=== PATIENT | male | born 1950 | race Caucasian/White ===

== ENCOUNTER 2024-04-17 02:34 | Inpatient (IN) | payer OTHER, SELFPAY ==
[2024-04-16 21:34] VITALS: BP 166/78
--- NOTE | 2024-04-16 23:45 | ED.GENMED ---
History of Present Illness
General
Chief Complaint: Abdominal Pain
Source: patient and family
Exam Limitations: none
Time Seen by Provider: 04/16/24 23:10
Nursing documentation reviewed up to this point in time: agreed with
History of Present Illness
History of Present Illness:
73-year-old male presents to the emergency department complaining of difficulty swallowing, abdominal pain and weight loss. He feels a burning in his stomach.
Past History
Past History
ED Past Medical History: COPD, GERD (PUD) and HTN
ED Past Surgical History: None
Social History
Tobacco: Smoker
Alcohol: Former (doesn't drink any more)
Drug: None
Personal: Single
Living: alone
Review of Systems
Review of Systems
Allergies reviewed?: Yes
All Other Systems: Not applicable
Constitutional: Reports no symptoms
EENT: Reports no symptoms
Respiratory: Reports no symptoms
Cardiac: Reports no symptoms
ABD/GI: Reports nausea
: Reports no symptoms
Musculoskeletal: Reports no symptoms
Skin: Reports no symptoms
Neurological: Reports no symptoms
Endocrine: Reports no symptoms
Hematologic/Lymphatic: Reports no symptoms
Psychiatric: Reports no symptoms
Phy Exam
Physical Exam
Physical Exam:
Physical Exam
General:, Thin, afebrile
Neck: supple. no meningeal signs. normal posterior pharynx
Heart: s1/s2 regular rate and rhythm, no murmur. equal radial
pulses.
HEENT: Pupils equal round reactive to light, EOMI
Lungs: no acute respiratory distress. clear bilaterally
Abdomen: normal bowel sounds. not tender. no CVAT
Neuro: alert and oriented. no focal neurological deficits cranial nerves II through XII intact
Skin: no rash
Psychiatric: well kept. interactive and cooperative
Extremities: no edema. no calf tenderness. negative homans. good distal pulses
Course
Orders/Labs/Results
Orders:
Orders
04/16/24 23:19
IV Insert/Care/Rem.- Treatment PRN
0.9% Sodium Chloride 1000 ml [Nss] 1,000 ml IV BOLUS
04/16/24 23:25
0.9% Sodium Chloride 1000 ml [Nss] 1,000 ml IV BOLUS
04/16/24 23:54
Complete Blood Count/With Diff Urgent
04/17/24 00:15
Comprehensive Metabolic Panel Urgent
Serum Osmolality Urgent
Comment: ADD ON
04/17/24 00:42
Add On- LAB Urgent
Tests Added?: serum osmolality
04/17/24 00:45
Osmolality, Random Urine Urgent
Date Specimen was Collected: 04/17/24
Time Specimen was Collected: 00:42
Urinalysis Reflex To Culture Urgent
Date Specimen was Collected: 04/17/24
Time Specimen was Collected: 00:42
Urine Sodium Urgent
Date Specimen was Collected: 04/17/24
Time Specimen was Collected: 00:42
04/17/24 00:50
3% Sodium Chloride 250 ml [Sodium Chloride 3%] 250 ml IV ONCE
04/17/24 01:30
0.9% Sodium Chloride 1000 ml [Nss] 1,000 ml IV BOLUS
04/17/24 01:35
Admit/Transfer Patient As Directed
Co-Sign Provider:
Level of Care: Inpatient admission
Assign to:: IMU- Intermediate Care
Physician / Group: Maycol
Diagnosis: Hyponatremia
Reason for Hospitalization: Hyponatremia
Expected length of stay greater than two midnights?: Yes
ELOS- Estimated Length of Stay in days: 4
I certify the patient meets the requirements for IP care: Yes
TSH Reflex To Free T4 Urgent
PRN Pain Medication Management As Directed
May give lesser potent ordered pain med per pt: Yes
preference::
Protocol:: Medication orders for pain may be administered in a
manner that supports deferring to patient preference
when the pt is:
- Requesting an ordered lesser potent pain medication.
Least to most potent pain medications are defined
as: acetaminophen < NSAID < tramadol < opioids
(morphine, oxycodone, hydromorphone).
- Requesting a lesser dose of the same medication IF
ORDERED.
- Requesting a less intrusive route of administration
if both routes are prescribed by the provider (PO <
IV).
CXR2 [CR Chest - 2 Views ] Urgent
Comment:
Reason For Exam: Hyponatremia
04/17/24 01:37
Code Status As Directed
Resuscitation Status: Full Code
04/17/24 01:38
Add On- LAB Urgent
Tests Added?: tsh to reflex
04/17/24 01:40
Iohexol [Omnipaque] See Protocol PO NOW STA
04/17/24 02:00
3% Sodium Chloride 250 ml [Sodium Chloride 3%] 250 ml IV ONCE
Abnormal Lab Results
04/16/24 04/17/24 04/17/24
23:54 00:15 00:45
RBC 4.03 L 10^6/uL
(4.70-6.10)
Hct 34.0 L %
(39.0-52.0)
MCH 32.5 H pg
(27.0-31.0)
MCHC 38.5 H g/dL
(33.0-37.0)
Abs Immat Gran (auto) 0.1 H 10^3/uL
(0-0.05)
Absolute Neuts (auto) 6.7 H 10^3/uL
(1.4-6.5)
Absolute Lymphs (auto) 1.1 L 10^3/uL
(1.2-3.4)
Absolute Monos (auto) 0.7 H 10^3/uL
(0.1-0.6)
Immature Gran % 0.6 H %
(0-0.5)
Neutrophils % 77.4 H %
(42.2-75.2)
Lymphocytes % 13.1 L %
(20.5-51.1)
Sodium 112 L* mmol/L
(135-145)
Chloride 79 L mmol/L
(98-107)
Glucose 100 H mg/dl
(70-99)
Serum Osmolality 240 L mOsm/kg
(275-300)
Urine Ketones 1+ A
(Negative)
Urine Osmolality 183 L mOsm/kg
(300-900)
04/16/24 23:54
04/17/24 00:15
Vital Signs
Initial and Last Documented VS:
Initial Vital Signs
Temp Pulse Resp BP Pulse Ox
98.7 F 96 24 166/78 100
04/16/24 21:34 04/16/24 21:34 04/16/24 21:34 04/16/24 21:34 04/16/24 21:34
Last Documented Vital Signs
Temp Pulse Resp BP Pulse Ox
98.7 F 85 16 168/70 100
04/16/24 21:34 04/17/24 01:00 04/17/24 01:00 04/17/24 01:00 04/17/24 01:00
MDM/Problems Addressed
Differential Diagnosis Includes:
Hyponatremia, hypokalemia, hypovolemia
MDM/Problems Addressed:
73-year-old male with poor p.o. intake, hyponatremia. Unclear etiology. 3% normal saline ordered. Admit to hospitalist.
*Pulse Oximetry
Patient hypoxic: no
*EKG
Interpreted by ED Provider?: NA
*Construction Or Leak Gang Laborer Interpretation
Rate: normal
Interpretation: normal
Heart Rate: 84
Rhythm: sinus
*Critical Care Note
Total Time (30-74mins, 75-104mins- exclusive of procedures): 30
comment:
Critical care statement: A total of 30 minutes of critical care time was provided for this patient. This includes management of unstable vital signs, evaluation of the patient at bedside, reviewing the patient's pertinent medical records, discussion
with consultants, review of old EKGs and review of pertinent medical records. This time with separate from time utilized to perform the aforementioned documented procedures
Data Reviewed
Review of Other/Old Records Reveals: Labs (Prior sodium 129 on 12/06/2022)
Source: records
Patient Management
Social determinants of health affecting care: Living situation
Discussion with other providers: Hospitalist
Escalation/DeEscalation of care consider admission/obs:
Admit indicated
ED Attending Note
-
Portions of this chart may have been created with voice recognition software.� Occasional wrong word or��sound alike� substitutions may have occurred due to the inherent limitations of voice recognition software.
Discharge Plan
Departure
Patient Disposition: Admit
Date of Disposition: 04/17/24
Time of Disposition: 01:11
Admit to: IMU
Presentation/result/management discussed w/ accepting MD/DO: Hospitalist
Patient with high blood pressure during this ER visit?: Yes
Condition: Fair
Discharge Problem:
Acute hyponatremia
Prescriptions:
No Action
amlodipine 5 MG tablet
5 mg PO DAILY
Lisinopril
20 mg PO DAILY
mirtazapine 7.5 MG tablet
15 mg PO HS
buspirone 5 mg Tablet
5 mg PO DAILY PRN (Reason: Anxiety)
Referrals:
UNKNOWN - PT DOES,NOT KNOW [Family Provider] -
Interventions
Interventions:
*Risk Screen - Suicide Last Done: 04/16/24 21:34
*General Assessment Last Done: 04/17/24 00:00
*Neglect/Abuse Screening Last Done: 04/16/24 21:34
GO-Xqxjvj-Sfgzjsgfmo Assessment Last Done: 04/17/24 00:00
Discharge Date and Time
Print Language: AUSTRALIAN
[2024-04-16] MEDS: NSS 1000 IV (23:54)
[2024-04-17] VITALS (13 sets, daily range): BP systolic 118–190; BP diastolic 59–95; BMI 14.7; BMI 13.7
[2024-04-17 00:38] LABS: ALT (SGPT) 21 U/L (0-50); AST (SGOT) 45 U/L (17-59); Albumin 4.8 g/dl (3.5-5.0); Alkaline Phosphatase 60 U/L (38-126); Blood Urea Nitrogen 11 mg/dl (9-20); Calcium 9.1 mg/dl (8.4-10.2); Carbon Dioxide 26 mmol/L (22-30); Chloride 79 mmol/L (98-107); Estimated Creatinine Clearance 60 ml/min; Glucose 100 mg/dl (70-99); Potassium 4.4 mmol/L (3.5-5.1); Sodium 112 mmol/L (135-145); Total Bilirubin 1.2 mg/dl (0.2-1.3); Total Protein 7.1 g/dl (6.3-8.2); eGFR > 60.00
[2024-04-17 00:52] LABS: Urine Albumin Negative (Neg - Trace); Urine Bilirubin Negative (Negative); Urine Character Clear (Clear); Urine Color Straw; Urine Glucose Negative (Negative); Urine Ketone 1+ (Negative); Urine Leukocyte Negative (Negative); Urine Nitrite Negative (Negative); Urine Occult Blood Negative (Negative); Urine Urobilinogen Negative (Neg - 1+)
[2024-04-17 00:58] LABS: Osmolality Serum 240 mOsm/kg (275-300)
[2024-04-17 00:58] LABS: Osmolality Urine 183 mOsm/kg (300-900)
[2024-04-17 01:06] LABS: Urine Sodium 41 mmol/L (30-90)
[2024-04-17 01:16] LABS: % Basophils 0.2 % (0-2); % Eosinophils 0.3 % (0-6); % Immature Granulocytes 0.6 % (0-0.5); % Lymphocytes 13.1 % (20.5-51.1); % Monocytes 8.4 % (1.7-9.3); % Neutrophils 77.4 % (42.2-75.2); Absolute Immature Granulocytes 0.1 10^3/uL (0-0.05); Absolute Lymphocytes 1.1 10^3/uL (1.2-3.4); Absolute Monocytes 0.7 10^3/uL (0.1-0.6); Absolute Neutrophils 6.7 10^3/uL (1.4-6.5); Hemoglobin 13.1 g/dL (13.0-18.0); Mean Corp Hgb Conc. 38.5 g/dL (33.0-37.0); Mean Corpuscular Hgb 32.5 pg (27.0-31.0); Mean Corpuscular Volume 84.4 fL (80.0-94.0); Mean Platelet Volume 8.2 fL (7.4-10.4); Nucleated Red Blood Cells % 0 % (-); Platelet Count 233 10^3/uL (130-400); Red Blood Cell Count 4.03 10^6/uL (4.70-6.10); Red Cell Dist. Width 12.6 % (11.5-14.5); White Blood Cell Count 8.6 10^3/uL (4.8-10.8)
[2024-04-17] MEDS: SODIUM CHLORIDE 3% 250 IV ×3 (01:22→22:08)
[2024-04-17 01:41] LABS: Anisocytosis 1+; Normal RBC Morphology No
--- NOTE | 2024-04-17 01:41 | HPS.HSE ---
Family Physician
-
Family Physician: NOT KNOW UNKNOWN - PT DOES
Chief Complaint
-
Trouble Swallowing / Weight Loss
History of Present Illness
Patient is a 73y M with PMH significant for hypertension and anxiety who presents to ED complaining of weight loss and difficulty swallowing. Patient notes that he has been experiencing some mucus build-up in the throat, difficulty swallowing
and a burning sensation in his upper abdomen. His symptoms have been present for quite a while (at least many months) but has recently become more severe. He has been unable to eat or drink much of anything as a result. He has noted ongoing weight
loss - he estimates about 30 lbs in 2 years.
Patient presented to the ED this evening for further evaluation.
He has been taking Mucinex at home with minimal improvement in his symptoms.
He states that he had an endoscopy about 2-3 years ago with GI group in [place]. He cannot recall the name.
He notes that they appreciated 'some ulcers' at that time.
He is not on chronic PPI therapy. He is an every day smoker.
Patient also notes that he had a positive Cologuard screening a few years ago. Subsequent colonoscopy was reportedly unremarkable.
Medical History
Past Medical History
Past Medical History: Reports Other
Additional Past Medical History:
Hypertension
Generalized Anxiety
GERD / Ulcers
Chronic Hyponatremia
Past Surgical History: Reports None
Social History
Tobacco: Smoker (Current every day smoker. Approx 3 cigarettes per day at present. Total > 50 pack years.)
Alcohol: None
Drug: None
Family History
Family History: Other (Father: 'Black Lung')
Allergies / Home Medications
Allergies reflects when Allergies were last updated in [email or web address].
Home Medications with original date entered in [email or web address]
Allergy/Medication List:
Allergies
Allergy/AdvReac Type Severity Reaction Status Date / Time
Penicillins Allergy Unknown Verified 12/06/22 16:07
Home Medications
Lisinopril 20 mg PO DAILY 09/10/19
amlodipine 5 mg tablet 5 mg PO DAILY 09/10/19
mirtazapine 7.5 mg tablet 15 mg PO HS 09/13/20
buspirone 5 mg tablet 5 mg PO DAILY PRN Anxiety 04/17/24
Review of Systems
-
History Source: Patient
A 12 point ROS was completed and negative except as noted: Yes
Constitutional: Reports Weight Loss and Fatigue; Denies Fever or Chills
EENT: Reports Other (Throat congestion / mucus.); Denies Sore Throat
Respiratory: Reports Cough; Denies Hemoptysis or Trouble Breathing
Cardiac: Denies Chest Pain or Palpitations
Abdomen/GI: Reports Abdominal Pain; Denies Nausea, Vomiting, Diarrhea, Constipated, Bloody Stools or Black Stools
: Denies Dysuria, Frequency or Flank Pain
Musculoskeletal: Denies Joint Pain or Edema
Skin: Denies Itching or Rash
Neurological: Denies Dizzy or Headache
Psych: Reports Anxiety; Denies Depression
Physical Exam
Vital Signs
Vital Signs
Temp Pulse Resp BP Pulse Ox
98.7 F 85 16 168/70 100
04/16/24 21:34 04/17/24 01:00 04/17/24 01:00 04/17/24 01:00 04/17/24 01:00
Physical Exam
General: Other (Frail, cachectic 73y M in no acute distress.)
HEENT: PERRLA and Other (Dry MM. Bitemporal wasting. Neck supple.)
Respiratory: Other (Decreased BS throughout - otherwise clear.)
Cardiac: S1/S2 and Regular Rhythm; No Murmur
GI: Soft, Non Distended, Normal Bowel Sounds and Other (Some mild tenderness in the upper abdomen. No rebound / guarding.)
Musculoskeletal: No Clubbing, No Cyanosis, No Edema and Other (Diffuse muscle wasting.)
Skin: Other (Cascading keratoses over the posterior trunk.)
Neuro: AO x 3
Psych: Anxious
Laboratory Results
-
04/16/24 23:54
04/17/24 00:15
Laboratory Results
Total Bilirubin 1.2 mg/dl (0.2-1.3) 04/17/24 00:15
AST 45 U/L (17-59) 04/17/24 00:15
ALT 21 U/L (0-50) 04/17/24 00:15
Alkaline Phosphatase 60 U/L (38-126) 04/17/24 00:15
Impression/Plan
-
A/P: Patient is a 73y M with PMH significant for hypertension and anxiety who presents to ED complaining of difficulty swallowing and burning abdominal pain.
Hyponatremia
- Admit for further evaluation and treatment.
- Apparent acute on chronic hyponatremia with prior values in the low 120s and now 112.
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
- Abhishek borderline / elevated at 41 - but clinically does not appear c/w severe hypothyroidism or adrenal insufficiency.
- Check TSH, AM cortisol for completeness.
- Check CXR.
- 3% saline overnight.
- Follow serial labs for gradual improvement.
- Nephrology evaluation for additional recommendations.
- Work-up as noted below to determine ultimate underlying etiology.
Dysphagia / Abdominal Pain
GERD / GI Ulcers
- Patient with many months of burning abdominal discomfort, progressive difficulty swallowing and mucoid secretions.
- Reports prior EGD with 'ulcers' - try to obtain those outpatient records.
- Begin PPI therapy.
- Check CT A/P for further evaluation.
- GI evaluation / possible EGD.
- Follow for any new / worsening symptoms.
Benign Hypertension
- BP modestly elevated in the ED - in part due to anxiety.
- Continue outpatient med regimen with holding parameters.
- Adjust as needed.
Generalized Anxiety
- Patient acutely anxious re: illness and potential underlying diagnosis.
- States that he rarely takes buspirone at home.
- Continue this TID PRN for now.
- Continue nightly mirtazapine.
- Adjust med regimen as needed.
DVT Prophylaxis: SCDs
Code Status: Full
[2024-04-17 01:42] LABS: Burr Cells 2+; Macrocytosis 1+; Microcytosis 2+; Poikilocytosis 2+
[2024-04-17 02:34] LABS: TSH Reflex To Free T4 1.68 uIU/ml (0.47-4.68)
--- NOTE | 2024-04-17 03:21 | PTCARENOTE ---
Pt arrived to ICU room 3361 from ER via stretcher at 0230. Pt is IMU level of care (in ICU as overflow). Received pt on 3% sodium chloride infusing at 30 ml/hr. Pt is A/O x4, flat affect noted, LA POSTA. Able to follow commands, able to stand up at side
of bed with minimal assistance and demonstrates the ability to reposition himself in bed. Explained to pt the importance of moving/turning in bed and shifting his weight to prevent skin breakdown. Pt is cachectic and has several bony
prominences--foam dressings applied to 3 areas of spine, sacrum, b/l heels and b/l hips. SR 80s on monitor, SpO2 97-98% on RA. See nursing shift assessment flowsheet for full physical assessment details. Admission database completed. Pt with partial
upper and partial lower dentures, these were put in a denture cup and placed in bathroom. Pt also has glasses that are missing the left yazdanism piece (that sits on the ear), this was how they were upon pt's arrival to unit. Per ER nurse, all other
belongings were taken home by the pt's son. Call gomez and personal belongings within reach. Bed alarm activated.
Omnipaque ordered for patient (timed for 0140 in [facility]). Spoke with r and d lab technician at around [address] scan/when to start the Omnipaque. He stated that the scan was put in as routine, routine CTs are normally not done in the middle of
the night and that when the dayshift financial services technician comes in, they will touch base with RN taking care of pt during the day regarding timing of CT scan.
[2024-04-17 05:13] LABS: Hematocrit 32.5 % (39.0-52.0); Hemoglobin 12.2 g/dL (13.0-18.0); Mean Corp Hgb Conc. 37.5 g/dL (33.0-37.0); Mean Corpuscular Hgb 33.1 pg (27.0-31.0); Mean Corpuscular Volume 88.1 fL (80.0-94.0); Mean Platelet Volume 8.5 fL (7.4-10.4); Platelet Count 313 10^3/uL (130-400); Red Blood Cell Count 3.69 10^6/uL (4.70-6.10); Red Cell Dist. Width 12.4 % (11.5-14.5); White Blood Cell Count 7.2 10^3/uL (4.8-10.8)
[2024-04-17 05:15] LABS: Blood Urea Nitrogen 9 mg/dl (9-20); Calcium 8.7 mg/dl (8.4-10.2); Carbon Dioxide 27 mmol/L (22-30); Chloride 88 mmol/L (98-107); Estimated Creatinine Clearance 56 ml/min; Glucose 89 mg/dl (70-99); Potassium 4.3 mmol/L (3.5-5.1); Sodium 119 mmol/L (135-145); eGFR > 60.00
--- NOTE | 2024-04-17 05:33 | PTCARENOTE ---
Pt's Na+ corrected 7 points in just over 4 hours, Reid PEREZ made aware, order to hold 3% and repeat BMP at 0800, 3% turned off at around 0525. Pt's mental status unchanged from previous assessment.
[2024-04-17 05:44] LABS: Cortisol, Random 18.8 ug/dl
--- NOTE | 2024-04-17 05:53 | W.PN.UPDATE ---
Update Note
Progress Note Update
Hyponatremia on admission and currently on 3% saline . Na level up from 112 to 119 after 3 hrs.
-Will hold 3% saline and repeat BMP.
--- NOTE | 2024-04-17 07:45 | W.PN.HOSP.TC ---
Today's Communication/Plan
-
CT A/P
Fluid restriction
trend Na
Renal and GI consults
Protonix
Assessment / Plan
Assessment / Plan
Patient is a 73y M with PMH significant for hypertension, tobacco use, and anxiety who presents to ED complaining of weight loss and difficulty swallowing. Patient notes that he has been experiencing some mucus build-up in the throat, difficulty
swallowing and a burning sensation in his upper abdomen.
A/P: Patient is a 73y M with PMH significant for hypertension and anxiety who presents to ED complaining of difficulty swallowing and burning abdominal pain.
Hyponatremia
- Apparent acute on chronic hyponatremia with prior values in the low 120s and now 112.
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
- TSH and cortisol WNL; CXR with hyperinflated lungs
- urine osmol low - continue fluid restriction
- s/p 3% saline with Na up from 112-119 in 3 hours - now on hold
- formal renal consult
- monitor in ICU
Dysphagia / Abdominal Pain
GERD / GI Ulcers
- Patient with many months of burning abdominal discomfort, progressive difficulty swallowing and mucoid secretions.
- Reports prior EGD with 'ulcers' - try to obtain those outpatient records.
- Begin PPI therapy.
- CT A/P ordered
- GI evaluation / possible EGD.
Benign Hypertension
- BP modestly elevated in the ED - in part due to anxiety.
Generalized Anxiety
- Patient acutely anxious re: illness and potential underlying diagnosis.
- States that he rarely takes buspirone at home.
- Continue this TID PRN for now.
- Continue nightly mirtazapine.
DVT Prophylaxis: SCDs
Code Status: Full
51 minutes spent on patient care
Anticipated Discharge: > 48 hours
Subjective/Interval History
-
Date of Service: April 17, 2024
denies chest pain or shortness of breath
+ weakness
Objective Data
-
Labs:
Laboratory Results
04/16/24 04/17/24 04/17/24
23:54 00:15 04:36
WBC 8.6 7.2
Hgb 13.1 12.2 L
Hct 34.0 L 32.5 L
Plt Count 233 313 D
Sodium Cancelled 112 L* 119 L*
Potassium Cancelled 4.4 4.3
Chloride Cancelled 79 L 88 L
Carbon Dioxide Cancelled 26 27
BUN Cancelled 11 9
Creatinine Cancelled 0.7 0.7
Glucose Cancelled 100 H 89
Calcium Cancelled 9.1 8.7
Total Bilirubin Cancelled 1.2
AST Cancelled 45
ALT Cancelled 21
Alkaline Phosphatase Cancelled 60
04/17/24
08:00
WBC
Hgb
Hct
Plt Count
Sodium Pending
Potassium Pending
Chloride Pending
Carbon Dioxide Pending
BUN Pending
Creatinine Pending
Glucose Pending
Calcium Pending
Total Bilirubin
AST
ALT
Alkaline Phosphatase
Vital Signs:
Vital Signs
Temp Pulse Resp BP Pulse Ox
97.6 F 72 14 164/75 99
04/17/24 07:00 04/17/24 06:00 04/17/24 06:00 04/17/24 06:00 04/17/24 06:00
I&O
04/16/24 04/17/24 04/18/24
06:59 06:59 06:59
Intake Total 116.2 / 116.2
Output Total 800 / 800
Balance -683.8 / -683.8
Review of Systems
-
History Source: Patient
All other systems: Reviewed and negative
Physical Exam
-
General: No Apparent Distress and Cachectic
HEENT: PERRLA
Respiratory: Decreased Breath Sounds
Cardiac: S1/S2
GI: Soft and Nontender
Musculoskeletal: No Edema
Skin: Warm and Dry; Negative Rash
Neuro: AO x 3
Psych: Calm
Data Reviewed
-
Diagnostic Radiology: Report Reviewed by me
Labs: Labs Reviewed by me
--- NOTE | 2024-04-17 08:00 | PTCARENOTE ---
recd pt report at bedside, VS noted, IVs currently capped. voiding small amounts clear/pale yellow. assessment performed. requested BP med to be scheduled bedtime, did not take norvasc this am. frail appearing, dry skin, notes 'fullness' in
throat but did not choke or have any difficulties swallowing. diet order noted.
[2024-04-17] MEDS: ZESTRIL 20 MG PO (08:03)
[2024-04-17] MEDS: PROTONIX IV 40 MG IV ×2 (08:04→20:00)
[2024-04-17] MEDS: NSS (PRESERVATIVE FREE) 10 ML IV ×2 (08:04→20:00)
--- NOTE | 2024-04-17 08:36 | CON.GI ---
Consultation
-
Date/Time Consultation Requested: 04/17/24
Date/Time Consultation Performed: 04/17/24
Requesting Provider: Dr. Severino
Performing Provider:
Reason for Consultation: dysphagia
Medical History
Chief Complaint / HPI
Chief Complaint: dysphagia, weight loss
History of Present Illness:
This is a 73-year-old male with past medical history of COPD with smoking history he was a heavy smoker he is cut back to 2 to 3 cigarettes a day for the past couple of months, hypertension, anxiety, chronic hyponatremia who presented to the
emergency room with ongoing symptoms of dysphagia which he says worsened about 3 weeks prior to admission with mild symptoms for the past couple of months. He also initially lost about 20 pounds apparently was attributed to COPD about a year ago
and over the past 3 weeks has lost 5 pounds. He has had difficulty with mostly solid foods especially bread he is able to swallow liquids. He says he has to drink liquids in order to get solid food down. He is also been having regurgitation of
some mucus in the throat and a burning sensation in his chest and epigastric area. No nausea or vomiting he does have intermittent episodes of reflux and has not really been taking any antacids. had an endoscopy about 5 years ago and [place] which
he says was unremarkable and his last colonoscopy which was done for a positive Cologuard was about 2 years ago at [facility] and was found to have colon polyps. His bowel movements are pretty regular there is no rectal bleeding or melena denies
diarrhea or constipation. On admission his sodium level was noted to be 112 and is being corrected. His sodium on 09/13/2020 was 123 and 12/06/2022 was 129 renal has been consulted also.
Past Medical History
Past Medical History: Other (Hypertension, Generalized Anxiety, GERD, Chronic Hyponatremia, colon polyps, COPD)
Past Surgical History: None
Social History
Tobacco: Other (Current every day smoker. Approx 3 cigarettes per day at present was heavy prior. Total > 50 pack years.)
Alcohol: None
Drug: None
Family History
Family History: Other (father was working in [employer] and had 'black lung', no colon cancer or esophageal cancer)
Allergies / Home Medications
Allergy/AdvReac Type Severity Reaction Status Date / Time
Penicillins Allergy Unknown Verified 12/06/22 16:07
�Medication �Instructions �Recorded
Lisinopril 20 mg PO DAILY 09/10/19
amlodipine 5 mg tablet 5 mg PO DAILY 09/10/19
mirtazapine 7.5 mg tablet 15 mg PO HS 09/13/20
buspirone 5 mg tablet 5 mg PO DAILY PRN Anxiety 04/17/24
Review of Systems
-
All other systems: A 12 pt ROS was Negative except as stated above in HPI
Vital Signs
Temp Pulse Resp BP Pulse Ox
97.6 F 82 14 124/73 99
04/17/24 07:00 04/17/24 08:03 04/17/24 06:00 04/17/24 08:03 04/17/24 06:00
Physical Exam
Exam
General: No Apparent Distress and Other (Very cachectic looking male)
HEENT: Normocephalic
Respiratory: Clear
Cardiac: S1/S2
GI: Soft, Non Tender, Non Distended, Normal Bowel Sounds and Other (Scaphoid)
Musculoskeletal: No Clubbing
Skin: Warm
Neuro: Awake, Alert and Oriented
Psych: Calm
Results
WBC 7.2 10^3/uL (4.8-10.8) 04/17/24 04:36
Hgb 12.2 g/dL (13.0-18.0) L 04/17/24 04:36
Hct 32.5 % (39.0-52.0) L 04/17/24 04:36
MCV 88.1 fL (80.0-94.0) 04/17/24 04:36
Plt Count 313 10^3/uL (130-400) D 04/17/24 04:36
Absolute Neuts (auto) 6.7 10^3/uL (1.4-6.5) H 04/16/24 23:54
Sodium 119 mmol/L (135-145) L* 04/17/24 04:36
Potassium 4.3 mmol/L (3.5-5.1) 04/17/24 04:36
Chloride 88 mmol/L (98-107) L 04/17/24 04:36
Carbon Dioxide 27 mmol/L (22-30) 04/17/24 04:36
BUN 9 mg/dl (9-20) 04/17/24 04:36
Creatinine 0.7 mg/dL (0.7-1.3) 04/17/24 04:36
Calcium 8.7 mg/dl (8.4-10.2) 04/17/24 04:36
Total Bilirubin 1.2 mg/dl (0.2-1.3) 04/17/24 00:15
AST 45 U/L (17-59) 04/17/24 00:15
ALT 21 U/L (0-50) 04/17/24 00:15
Alkaline Phosphatase 60 U/L (38-126) 04/17/24 00:15
Diagnostic Image Results:
Prior GI Procedures:
EGD: 5 years ago in [place] which per patient was unremarkable
Colonoscopy: 2 years ago at [facility] done for positive Cologuard and had colon polyps
Assessment / Plan
-
1. Progressively worsening symptoms of dysphagia especially over the past 3 weeks with 5 to 10 pound weight loss but prior to that had lost 20 pounds which apparently was attributed to COPD a year ago. Concerning for underlying esophageal neoplasm
given his history of smoking with possible stricture secondary to neoplasm. Will need endoscopy once his sodium levels are improved. Discussed with Dr. Adams would recommend a CT chest abdomen pelvis in the meantime to rule out neoplasm. Agree
with PPI. Will change his diet to liquids for now to prevent retained food residue in anticipation of endoscopy on [place]
-
-
Thank you for consultation and allowing me to participate in the patient's care. Please call the data operations director GI physician during the after hours with any questions or concerns.
[2024-04-17 08:49] LABS: Blood Urea Nitrogen 7 mg/dl (9-20); Calcium 8.6 mg/dl (8.4-10.2); Carbon Dioxide 28 mmol/L (22-30); Chloride 88 mmol/L (98-107); Estimated Creatinine Clearance 56 ml/min; Glucose 81 mg/dl (70-99); Potassium 3.7 mmol/L (3.5-5.1); Sodium 120 mmol/L (135-145); eGFR > 60.00
[2024-04-17] MEDS: OMNIPAQUE 50 ML PO (08:58)
--- NOTE | 2024-04-17 09:33 | W.CON.NEPH ---
Consultation
-
Date/Time Consultation Requested: April 17, 2024 7 AM
Date/Time Consultation Performed: April 17, 2024 9 AM
Requesting Provider: Dr. Severino
Performing Provider: Dr. Santiago
Reason for Consultation: Hyponatremia
Medical History
-
Chief Complaint: Failure to thrive
History of Present Illness:
This is a 73-year-old gentleman who has very limited medical history but includes hypertension treated with a multidrug regimen as well as anxiety on buspirone. Over the last month by his report he had been feeling quite congested in his throat
with mucus buildup. This had caused difficulty with swallowing mostly solids he says that he has no issues with liquids. Therefore he has been drinking mostly water. He had initially started with boost to compensate but he felt that this created
more mucus and more congestion. He says that he has been drinking about 36 ounces of water per day. His oral intake is very poor as a result of the new congestion. He has lost some weight. He denies any orthostasis however. He he says that he
remains fairly active and is not bedbound. He came to the emergency room because of progressive symptoms. He was noted to have a sodium level of 112. He is currently critically ill in the ICU
Past Medical History
Hypertension, anxiety, reflux, deviated septum surgery
Social History
Tobacco: Smoker
Alcohol: None
Family History
No CKD
Family History: Not Pertinent
Allergies / Home Medications
Allergy/AdvReac Type Severity Reaction Status Date / Time
Penicillins Allergy Unknown Verified 12/06/22 16:07
�Medication �Instructions �Recorded �Confirmed �Type
Lisinopril 20 mg PO DAILY 09/10/19 04/17/24 History
amlodipine 5 mg tablet 5 mg PO DAILY 09/10/19 04/17/24 History
mirtazapine 7.5 mg tablet 15 mg PO HS 09/13/20 04/17/24 History
buspirone 5 mg tablet 5 mg PO DAILY PRN Anxiety 04/17/24 04/17/24 History
Review of Systems
-
No chest pain or shortness of breath. No issues with urination. No change in appetite.
All other systems: Negative unless noted
Physical Exam
Vital Signs
Vital Signs
Temp Pulse Resp BP Pulse Ox
97.6 F 82 14 124/73 99
04/17/24 07:00 04/17/24 08:03 04/17/24 06:00 04/17/24 08:03 04/17/24 06:00
Lab Results
WBC 7.2 10^3/uL (4.8-10.8) 04/17/24 04:36
RBC 3.69 10^6/uL (4.70-6.10) L 04/17/24 04:36
Hgb 12.2 g/dL (13.0-18.0) L 04/17/24 04:36
Hct 32.5 % (39.0-52.0) L 04/17/24 04:36
Plt Count 313 10^3/uL (130-400) D 04/17/24 04:36
Potassium 3.7 mmol/L (3.5-5.1) 04/17/24 08:02
Chloride 88 mmol/L (98-107) L 04/17/24 08:02
Carbon Dioxide 28 mmol/L (22-30) 04/17/24 08:02
BUN 7 mg/dl (9-20) L 04/17/24 08:02
Creatinine 0.7 mg/dL (0.7-1.3) 04/17/24 08:02
eGFR > 60.00 04/17/24 08:02
Glucose 81 mg/dl (70-99) 04/17/24 08:02
Calcium 8.6 mg/dl (8.4-10.2) 04/17/24 08:02
Albumin 4.8 g/dl (3.5-5.0) 04/17/24 00:15
Laboratory Tests
04/17/24
00:45
Urine Sodium 41
Laboratory Tests
04/17/24
00:45
Urine Osmolality 183 L
Physical Exam
Patient is awake alert oriented and in no distress. Mood and affect were pleasant, insight and judgment were good. He appeared gaunt. Pupils are equal round and reactive to light, extraocular movements are intact, sclera were anicteric. Hearing
was normal, ears and nose are intact. Oropharynx was clear. Neck was supple with trachea midline and no thyromegaly. Heart was regular rate and rhythm without rubs. Lower extremities without edema. Lungs were clear to auscultation bilaterally and
with normal excursion. Abdomen was soft, nontender, with normal active bowel sounds, and no hepatosplenomegaly. Skin was without rash and with normal turgor.
Data Reviewed
-
Radiology: Image Personally Visualized and interpreted (Chest x-ray on April 17, 2024 by my reading shows no acute disease hyperinflation)
Labs: Labs Reviewed by me
Old Records: Reviewed (Sodium 129 on December 06, 2022)
Assessment/Plan
-
Assessment
Hyponatremia
Hypertension
Anxiety
Failure to thrive
Dysphagia to solids
Plan
Isotonic saline
Follow BMP serial
No further hypertonic
Swallow study
Critical care time spent 31 minutes
--- NOTE | 2024-04-17 11:10 | PTOTSP ---
Speech Therapy
Presentation: Patient's speech and language appeared to be WNL during conversation. Patient's vocal quality appeared to be harsh but WNL.
Swallowing Function: Patient was observed with several sips (straw) of thin lqiuids (contrast) in which patient appeared to tolerate as he did not exhibit any overt clinical s/sx of aspiration. No solids were trialed due to anticipated testing and
diet order.
Complaints: Patient stated that he has been having increased congestion and trouble swallowing solids for ~3 weeks. Patient states he feels as though solids get 'stuck in his throat'.
Given the above, recommend continuation of current diet with solid trials during next visit; pending hospitalization.
Recommendations:
1) Continuation of current diet with solids trials during next visit; pending hospitalization
2) Aspiration and reflux precautions
3) Medications as tolerated
Plan: BONDING SUPERVISOR will continue to follow; pending hospitalization.
[2024-04-17] MEDS: NSS 1000 IV (11:48)
[2024-04-17] MEDS: BUSPAR 2.5 MG PO (12:19)
--- NOTE | 2024-04-17 12:30 | PTCARENOTE ---
returned from CT scan, report in computer, Dr. Adams aware and updated patient by phone. affect remains flat, frequent requests for small comfort things, blanket, heat/cool room, c/o about getting OOB and being generally uncomfortable. support
given, made as comfortable as able.
[2024-04-17 14:26] LABS: Sodium 116 mmol/L (135-145)
--- NOTE | 2024-04-17 15:40 | PTCARENOTE ---
lab results to sports umpire, 3% saline hanging per order. no other change. tolerating clear liquids. restless at intervals.
--- NOTE | 2024-04-17 18:14 | PTCARENOTE ---
warm blankets given. son visiting, asking questions about plan and possible support after discharge. case management consult placed.
[2024-04-17 18:25] LABS: Blood Urea Nitrogen 5 mg/dl (9-20); Calcium 7.9 mg/dl (8.4-10.2); Carbon Dioxide 26 mmol/L (22-30); Chloride 100 mmol/L (98-107); Estimated Creatinine Clearance 65 ml/min; Glucose 121 mg/dl (70-99); Potassium 3.4 mmol/L (3.5-5.1); Sodium 129 mmol/L (135-145); eGFR > 60.00
--- NOTE | 2024-04-17 19:00 | PTCARENOTE ---
lab from 1800 specimen compromised, redrawn, Dr. Santiago notified. result pending. Report to next RN.
[2024-04-17 19:26] LABS: Blood Urea Nitrogen 6 mg/dl (9-20); Calcium 8.1 mg/dl (8.4-10.2); Carbon Dioxide 25 mmol/L (22-30); Chloride 85 mmol/L (98-107); Estimated Creatinine Clearance 65 ml/min; Glucose 162 mg/dl (70-99); Potassium 3.6 mmol/L (3.5-5.1); Sodium 115 mmol/L (135-145); eGFR > 60.00
--- NOTE | 2024-04-17 19:49 | PTCARENOTE ---
Addendum entered by Dileep Martinez RN 04/18/24 05:51:
[address] Rossi notified via TT: awaiting orders.
Addendum entered by Dileep Martinez RN 04/18/24 00:13:
[address] rossi notified via TT orders as follows:
- Leave 3% gtt @ 25 ml/hr.
- Recheck BMP @ 0400.
Pt. assessment unchanged.
Addendum entered by Dileep Martinez RN 04/17/24 20:23:
Per Dr. Rossi, cancel 2100 bmp, and draw at 2200.
Original Note:
assumed care of pt. approx 1900.
see previous RN note regarding misdraw of NA. specimen redrawn and resulted at 115. Dr. Rossi from nephro notified via TT new orders:
- Increase 3% gtt to 25 ml/hr.
Pt. offers no complaints, very flat, seems understanding of situation.
Delayed responses, of note is hard of hearing. No other neurological deficits noted.
Currently NSR some ectopy noted. slightly hypertensive. Normothermic.
Urine op 45-75 ml/hr, no suspicion of DI at this time.
Will continue to trend BMP.
Family updated at length.
[2024-04-17] MEDS: NORVASC 5 MG PO (20:01)
--- NOTE | 2024-04-17 20:45 | W.PN.UPDATE ---
Update Note
Progress Note Update
Na level is 115, currently on 3% saline 15ml/hr. Rate increased to 25ml/hr and repeat bmp at 10pm as recommended by portable track crew chief.
[2024-04-17] MEDS: REMERON 15 MG PO (22:10)
[2024-04-17 22:38] LABS: Blood Urea Nitrogen 7 mg/dl (9-20); Calcium 8.2 mg/dl (8.4-10.2); Carbon Dioxide 23 mmol/L (22-30); Chloride 88 mmol/L (98-107); Estimated Creatinine Clearance 65 ml/min; Glucose 141 mg/dl (70-99); Potassium 3.4 mmol/L (3.5-5.1); Sodium 117 mmol/L (135-145); eGFR > 60.00
[2024-04-18] VITALS (13 sets, daily range): BP systolic 103–157; BP diastolic 52–83; PULSE 95–112; O2SAT 92; BMI 14.0
[2024-04-18 04:48] LABS: Hematocrit 29.9 % (39.0-52.0); Hemoglobin 11.2 g/dL (13.0-18.0); Mean Corp Hgb Conc. 37.5 g/dL (33.0-37.0); Mean Corpuscular Hgb 32.3 pg (27.0-31.0); Mean Corpuscular Volume 86.2 fL (80.0-94.0); Mean Platelet Volume 8.4 fL (7.4-10.4); Platelet Count 228 10^3/uL (130-400); Red Blood Cell Count 3.47 10^6/uL (4.70-6.10); Red Cell Dist. Width 12.8 % (11.5-14.5); White Blood Cell Count 6.1 10^3/uL (4.8-10.8)
[2024-04-18 05:18] LABS: Blood Urea Nitrogen 7 mg/dl (9-20); Calcium 8.3 mg/dl (8.4-10.2); Carbon Dioxide 25 mmol/L (22-30); Chloride 93 mmol/L (98-107); Estimated Creatinine Clearance 65 ml/min; Glucose 75 mg/dl (70-99); Magnesium 1.9 mg/dl (1.6-2.3); Potassium 3.8 mmol/L (3.5-5.1); Sodium 122 mmol/L (135-145); eGFR > 60.00
[2024-04-18] MEDS: PROTONIX IV 40 MG IV ×2 (07:33→20:32)
[2024-04-18] MEDS: ZESTRIL 20 MG PO (07:34)
[2024-04-18] MEDS: NSS (PRESERVATIVE FREE) 10 ML IV ×2 (07:34→20:32)
--- NOTE | 2024-04-18 08:11 | W.PN.GI.CBS2 ---
Today's Communication / Plan
-
etiology of dysphagia with wt loss related to underlying neoplasm vs other
CT stable
tentative EGD in AM pending improved Na level
renal following for correction of Na level
cont PPI
clear diet with ensure
cont speech therapy with solid trials
will follow
Assessment / Plan
-
Pt is a 73yo with Progressively worsening symptoms of dysphagia especially over the past 3 weeks with 5 to 10 pound weight loss but prior to that had lost 20 pounds which apparently was attributed to COPD a year ago.
04/17/24 CT Chest/abd/pelvis with IV contrast
No CT evidence for an acute process in the chest, abdomen, or pelvis. Paucity of intra-abdominal fat secondary to cachexia limiting evaluation. Chronic findings, as detailed above.
-dysphagia worsening for last 3 weeks
-wt loss
-severe hyponatremia
-mild anemia
-COPD/tobacco use
other med problems:
-colon polyps
-anxiety
-HTN
PLAN:
etiology of dysphagia with wt loss related to underlying neoplasm vs other
CT stable
tentative EGD in AM pending improved Na level
renal following for correction of Na level
cont PPI
clear diet with ensure
cont speech therapy with solid trials
will follow
Subjective
Subjective
Date of Service: April 18, 2024
clear diet, no stools still with feeling of dysphagia
Objective
Data Reviewed
Laboratory Data:
Laboratory Results
04/18/24 04:09
Laboratory Results
Magnesium 1.9 mg/dl (1.6-2.3) 04/18/24 04:09
Total Bilirubin 1.2 mg/dl (0.2-1.3) 04/17/24 00:15
AST 45 U/L (17-59) 04/17/24 00:15
ALT 21 U/L (0-50) 04/17/24 00:15
Alkaline Phosphatase 60 U/L (38-126) 04/17/24 00:15
Vital Signs and I&O:
Vital Signs
Temp Pulse Resp BP Pulse Ox
98.0 F 73 17 128/55 98
04/18/24 03:30 04/18/24 07:34 04/18/24 05:48 04/18/24 07:34 04/18/24 05:48
I&O
04/17/24 04/18/24 04/19/24
06:59 06:59 06:59
Intake Total 116.2 / 116.2 820 / 820 50 / 50
Output Total 800 / 800 1600 / 1600 275 / 275
Balance -683.8 / -683.8 -780 / -780 -225 / -225
Physical Exam
Physical Exam
HEENT: Anicteric, Moist mucous membranes and Other (thin appearing)
Cardiology: Normal Sinus Rhythm
Pulmonary: Clear
GI: Soft, Non Distended and Non Tender
Extremities: No Edema
Neuro: Non Focal
--- NOTE | 2024-04-18 09:13 | PTCARENOTE ---
Patient received from centrex radio operator, presents as assessed. Patient is alert and oriented, pleasant. Remains on telemetry monitoring. Urinal at bedside for elimination needs. Protective foams CDI. 3% saline stopped and BMP obtained per Dr. Barreto
order. Patient in bed, offers no complaints.
[2024-04-18 09:51] LABS: Blood Urea Nitrogen 6 mg/dl (9-20); Calcium 8.3 mg/dl (8.4-10.2); Carbon Dioxide 28 mmol/L (22-30); Chloride 93 mmol/L (98-107); Estimated Creatinine Clearance 67 ml/min; Glucose 74 mg/dl (70-99); Potassium 3.7 mmol/L (3.5-5.1); Sodium 123 mmol/L (135-145); eGFR > 60.00
--- NOTE | 2024-04-18 10:05 | W.PN.NEPH.PH ---
Today's Communication / Plan
-
see plan
Assessment/Plan
-
Assessment
Hyponatremia
Hypertension
Anxiety
Failure to thrive
Dysphagia to solids
COPD
Plan:
Hyponatremia- with some ADH activity for degree of hyponatremia. U osmo [address] c/a/p neg, has COPD changes
sodium improving appropriately
monitor with FR and encourage solute intake as possible
cont q4h sodium check today, goal of correction 6-8meq/day-sodium 128 by Am
TSH and cortisol were ok
GI follows and plan EGD tomorrow as long as sodium above 126
Swallow study
Bp stable with meds
d/w pt
-
-
Date of Service: April 18, 2024
CC / HPI / ROS
-
Chief Complaint:
Hyponatremia
History of Present Illness:
sodium improving to 122, completed 3% saline over night
BP stable, no fever
k normal
Review of Systems:
no n/v on liquid diet
no pain or sob
mild congestion in upper airway, on RA
Labs
-
Labs:
WBC 6.1 10^3/uL (4.8-10.8) 04/18/24 04:09
RBC 3.47 10^6/uL (4.70-6.10) L 04/18/24 04:09
Hgb 11.2 g/dL (13.0-18.0) L 04/18/24 04:09
Hct 29.9 % (39.0-52.0) L 04/18/24 04:09
Plt Count 228 10^3/uL (130-400) D 04/18/24 04:09
Sodium 123 mmol/L (135-145) L 04/18/24 09:01
Potassium 3.7 mmol/L (3.5-5.1) 04/18/24 09:01
Chloride 93 mmol/L (98-107) L 04/18/24 09:01
Carbon Dioxide 28 mmol/L (22-30) 04/18/24 09:01
BUN 6 mg/dl (9-20) L 04/18/24 09:01
Creatinine 0.6 mg/dL (0.7-1.3) L 04/18/24 09:01
eGFR > 60.00 04/18/24 09:01
Glucose 74 mg/dl (70-99) 04/18/24 09:01
Calcium 8.3 mg/dl (8.4-10.2) L 04/18/24 09:01
Albumin 4.8 g/dl (3.5-5.0) 04/17/24 00:15
Physical Exam
-
Vital Signs:
Vital Signs
Temp Pulse Resp BP Pulse Ox
98.4 F 71 17 155/67 94
04/18/24 08:19 04/18/24 08:00 04/18/24 05:48 04/18/24 08:00 04/18/24 08:00
Cardiovascular:: Regular rate and rhythm
Respiratory:: Bilateral: CTA (decreased)
Lung Excursion:: Normal
Abdomen:: Nontender and Soft
Extremity Edema:: None: Bilateral:
Jeffrey Catheter: No
--- NOTE | 2024-04-18 11:33 | CM ---
Addendum entered by Michoacano Martinez 04/18/24 11:58:
Following SNFs preferred: [facility] home, [facility], [facility]F, [facility] SNF, [facility] [place].
A referral to above SNfs made. Awaiting for determination.
D/C plan: preferred SNF.
CM will follow to assist pt with discharge to a preferred and accepted SNF.
Original Note:
CM following re'discharge planning.
Reviewed pt's chart, met with pt and spoke to pt's son Brent over the phoen.
Pt is a 73 year old male, admitted with primary dx of hyponatremia.
Pt reports he lives alone in a rented [facility], 2 steps to enter, has 2 supportive sons and they live nearby and help as needed. Pt reports he is planning to stay with his son Brent for a while upon the discharge. 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 No DME, VN or SNF history. Pt admitted he has been very weak for the past week and was not able to walk.
CM spoke to pt's son and he stated that his father has not been walking for a week, was very weak and he feels that he needs to go to a short term rehab to increase his functional ability. Pt's son Brent did confirm that pt will stay at his house
([address] [id number]) for a while after the discharge from a hospital or a short term rehab. Per son's request, CM provided him with information and phone number for [facility] [employer] to apply for
community based services.
PT and OT evaluations noted - SNF level of care recommended. Both pt and his son Brent are aware, expressed their agreement. A list of SNFs in [facility] provided.
PCP: Dr. Hernández
Pharmacy: [facility].
D/C plan: preferred SNF. A list of SNFs provided.
CM will follow with discharge plan updates as hospitalization progresses
--- NOTE | 2024-04-18 12:17 | W.PN.HOSP.TC ---
Today's Communication/Plan
-
Transfer out of IMU
Trend BMP
Continue clears
EGD tentatively tomorrow
Assessment / Plan
Assessment / Plan
Patient is a 73y M with PMH significant for hypertension, tobacco use, and anxiety who presents to ED complaining of weight loss and difficulty swallowing. Patient notes that he has been experiencing some mucus build-up in the throat, difficulty
swallowing and a burning sensation in his upper abdomen.
A/P: Patient is a 73y M with PMH significant for hypertension and anxiety who presents to ED complaining of difficulty swallowing and burning abdominal pain.
Hyponatremia
- Apparent acute on chronic hyponatremia with prior values in the low 120s and now 112.
- TSH and cortisol WNL; CXR with hyperinflated lungs
- urine osmol low - continue fluid restriction
- Status post 3% saline. Sodium at 123. Repeat pending.
- formal renal consult
Dysphagia / Abdominal Pain
GERD / GI Ulcers
Failure to thrive
- Patient with many months of burning abdominal discomfort, progressive difficulty swallowing and mucoid secretions.
- Reports prior EGD with 'ulcers' - try to obtain those outpatient records.
- Begin PPI therapy.
- CT A/P ordered-no CT evidence for an acute process in the chest, abdomen or pelvis. Positive intra-abdominal fat secondary to cachexia limiting evaluation.
- GI evaluation / possible EGD in a.m. pending sodium levels
Benign Hypertension
- Monitor for now. Continue with lisinopril and Norvasc. If persistently elevated increase dose
Generalized Anxiety
- Patient acutely anxious re: illness and potential underlying diagnosis.
- States that he rarely takes buspirone at home.
- Continue this TID PRN for now.
- Continue nightly mirtazapine.
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
Suspected COPD
-Stable respiratory status.-Hypoxemia may to start bronchodilators.
-Will need outpatient pulmonary follow-up.
DVT Prophylaxis: SCDs
Code Status: Full
Anticipated Discharge: > 48 hours
Subjective/Interval History
-
Date of Service: April 18, 2024
denies any pain
concerned about low sodium
Objective Data
-
Labs:
Laboratory Results
04/18/24 04/18/24 04/18/24
04:09 08:19 09:01
WBC 6.1
Hgb 11.2 L
Hct 29.9 L
Plt Count 228 D
Sodium 122 L Cancelled 123 L
Potassium 3.8 Cancelled 3.7
Chloride 93 L Cancelled 93 L
Carbon Dioxide 25 Cancelled 28
BUN 7 L Cancelled 6 L
Creatinine 0.6 L Cancelled 0.6 L
Glucose 75 Cancelled 74
Calcium 8.3 L Cancelled 8.3 L
04/18/24 04/18/24 04/18/24
13:00 17:00 21:00
WBC
Hgb
Hct
Plt Count
Sodium Pending Pending Pending
Potassium
Chloride
Carbon Dioxide
BUN
Creatinine
Glucose
Calcium
Vital Signs:
Vital Signs
Temp Pulse Resp BP Pulse Ox
97.6 F 87 17 157/83 94
04/18/24 11:30 04/18/24 10:00 04/18/24 05:48 04/18/24 10:00 04/18/24 08:00
I&O
04/17/24 04/18/24 04/19/24
06:59 06:59 06:59
Intake Total 116.2 / 116.2 820 / 820 50 / 50
Output Total 800 / 800 1600 / 1600 525 / 525
Balance -683.8 / -683.8 -780 / -780 -475 / -475
Physical Exam
-
General: No Apparent Distress and Cachectic
HEENT: Normocephalic, Atraumatic and Moist Mucous Membranes
Respiratory: Decreased Breath Sounds
Cardiac: Regular Rhythm and S1/S2
GI: Soft, Nontender, Nondistended and Normal Bowel Sounds
Musculoskeletal: No Edema
Skin: Warm and Dry; Negative Rash
Neuro: Awake and AO x 3
Psych: Calm
--- NOTE | 2024-04-18 12:19 | PTCARENOTE ---
Patient downgraded to telemetry, report called to 4th floor and patient transferred to 401.
--- NOTE | 2024-04-18 12:39 | PTCARENOTE ---
pt transfer fro ICU. pt is AAO*3, Vss room air. denies any pain. report received from KHUSHBU Brunson. pt is oriented to the room. call gomez within the reach. plan of care ongoing.
[2024-04-18] MEDS: BUSPAR 2.5 MG PO ×2 (14:38→23:18)
[2024-04-18 16:00] LABS: Sodium 120 mmol/L (135-145)
[2024-04-18] MEDS: SODIUM CHLORIDE 3% 250 IV (16:41)
[2024-04-18 19:45] LABS: Sodium 118 mmol/L (135-145)
[2024-04-18] MEDS: NORVASC 5 MG PO (20:32)
[2024-04-18] MEDS: LASIX 20 MG PO (22:30)
[2024-04-18] MEDS: REMERON 15 MG PO (23:19)
[2024-04-19] VITALS (9 sets, daily range): BP systolic 12–163; BP diastolic 58–76; BMI 13.3
[2024-04-19 00:38] LABS: Sodium 120 mmol/L (135-145)
[2024-04-19] MEDS: SODIUM CHLORIDE 3% 250 IV ×3 (01:44→22:45)
[2024-04-19 04:30] LABS: INR 1.04; PT 13.4 Sec (11.4-14.6)
[2024-04-19 04:38] LABS: Blood Urea Nitrogen 7 mg/dl (9-20); Calcium 8.4 mg/dl (8.4-10.2); Carbon Dioxide 31 mmol/L (22-30); Chloride 90 mmol/L (98-107); Estimated Creatinine Clearance 67 ml/min; Glucose 77 mg/dl (70-99); Potassium 3.5 mmol/L (3.5-5.1); Sodium 123 mmol/L (135-145); eGFR > 60.00
[2024-04-19 05:44] LABS: Hematocrit 30.9 % (39.0-52.0); Hemoglobin 11.4 g/dL (13.0-18.0); Mean Corp Hgb Conc. 36.9 g/dL (33.0-37.0); Mean Corpuscular Hgb 32.9 pg (27.0-31.0); Mean Platelet Volume 8.8 fL (7.4-10.4); Platelet Count 290 10^3/uL (130-400); Red Blood Cell Count 3.47 10^6/uL (4.70-6.10); Red Cell Dist. Width 12.7 % (11.5-14.5); White Blood Cell Count 6.7 10^3/uL (4.8-10.8)
[2024-04-19] MEDS: NSS (PRESERVATIVE FREE) 10 ML IV ×2 (09:10→20:11)
[2024-04-19] MEDS: PROTONIX IV 40 MG IV ×2 (09:10→20:12)
[2024-04-19] MEDS: ZESTRIL 20 MG PO (09:10)
[2024-04-19 09:12] LABS: Sodium 124 mmol/L (135-145)
--- NOTE | 2024-04-19 11:40 | W.PN.HOSP.TC ---
Today's Communication/Plan
-
Plan for tentative EGD today
trend sodium
Nephro recs
Assessment / Plan
Assessment / Plan
Patient is a 73y M with PMH significant for hypertension, tobacco use, and anxiety who presents to ED complaining of weight loss and difficulty swallowing. Patient notes that he has been experiencing some mucus build-up in the throat, difficulty
swallowing and a burning sensation in his upper abdomen.
A/P: Patient is a 73y M with PMH significant for hypertension and anxiety who presents to ED complaining of difficulty swallowing and burning abdominal pain.
Hyponatremia
- Apparent acute on chronic hyponatremia with prior values in the low 120s and now 112.
- TSH and cortisol WNL; CXR with hyperinflated lungs
- urine osmol low - continue fluid restriction
- Receiving 3% saline. Received multiple dose already. s/p 20mg lasix overnight.
- Renal following.
Dysphagia / Abdominal Pain
GERD / GI Ulcers
Failure to thrive
- Patient with many months of burning abdominal discomfort, progressive difficulty swallowing and mucoid secretions.
- Reports prior EGD with 'ulcers' - try to obtain those outpatient records.
- Begin PPI therapy.
- CT A/P ordered-no CT evidence for an acute process in the chest, abdomen or pelvis. Positive intra-abdominal fat secondary to cachexia limiting evaluation.
- GI evaluation / possible EGD today.
Benign Hypertension
- Monitor for now. Continue with lisinopril and Norvasc. If persistently elevated increase dose
- Controlled for now 124/65
Generalized Anxiety
- Patient acutely anxious re: illness and potential underlying diagnosis.
- States that he rarely takes buspirone at home.
- Continue this TID PRN for now.
- Continue nightly mirtazapine.
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
Suspected COPD
-Stable respiratory status.-Hypoxemia may to start bronchodilators.
-Will need outpatient pulmonary follow-up.
DVT Prophylaxis: SCDs
Code Status: Full
Anticipated Discharge: > 48 hours
Subjective/Interval History
-
Date of Service: April 19, 2024
Na downtrended overnight and repeat dose of 3%
awaiting for EGD today
Objective Data
-
Labs:
Laboratory Results
04/19/24 04/19/24 04/19/24
00:09 03:55 03:55
WBC 6.7
Hgb 11.4 L
Hct 30.9 L
Plt Count 290 D
PT 13.4
INR 1.04
Sodium 120 L 123 L Cancelled
Potassium 3.5
Chloride 90 L
Carbon Dioxide 31 H
BUN 7 L
Creatinine 0.6 L
Glucose 77
Calcium 8.4
04/19/24
06:58
WBC
Hgb
Hct
Plt Count
PT
INR
Sodium 124 L
Potassium
Chloride
Carbon Dioxide
BUN
Creatinine
Glucose
Calcium
Vital Signs:
Vital Signs
Temp Pulse Resp BP Pulse Ox
97.6 F 88 18 124/65 100
04/19/24 11:16 04/19/24 11:16 04/19/24 11:16 04/19/24 11:16 04/19/24 11:16
I&O
04/18/24 04/19/24 04/20/24
06:59 06:59 06:59
Intake Total 820 / 820 830 / 830
Output Total 1600 / 1600 2400 / 2400
Balance -780 / -780 -1570 / -1570
Physical Exam
-
General: No Apparent Distress and Cachectic
HEENT: Normocephalic, Atraumatic and Moist Mucous Membranes
Respiratory: Decreased Breath Sounds
Cardiac: Regular Rhythm and S1/S2
GI: Soft, Nontender, Nondistended and Normal Bowel Sounds
Musculoskeletal: No Edema
Skin: Warm and Dry; Negative Rash
Neuro: Awake and AO x 3
Psych: Calm
[2024-04-19] MEDS: KCL 40 MEQ PO (13:38)
[2024-04-19 13:56] LABS: Sodium 125 mmol/L (135-145)
--- NOTE | 2024-04-19 14:46 | PN.CDI ---
CDI
- -
CDI:
Physician Documentation Request
Admit Date: 04/17/24 02:34
Dear Doctor Socrates,
Please review the following and provide your response in the progress notes.
Clinical Indicators:
Pt admitted with SIADH/ Dysphagia
Documented in the record BMI 13.3/ Cachexia/thin Appearing
Documented per GI consult, ' He also initially lost about 20 pounds apparently was attributed to COPD about a year ago and over the past 3 weeks has lost 5 pounds. He has had difficulty with mostly solid foods especially bread he is able to
swallow liquids....(Very cachectic looking male)...'
Nutrition consult 04/17, 'Pt reports lost 20 lbs 2year ago, pt reports has been eating less and over past 2 weeks unable to eat much due to mucus and difficutly swallowing.... Remeron....CBW: 92 lbs 12.8 oz BMI 13.7 underweight range 04/17. Pts
weight previous admission listed as 105 lbs 12/06 reflective of 13 lb(12%) weight loss in 4 months, significant. During visit RD able to visualize, protrusion of clavicle, apparent ribs, temporal wasting, orbital area sunken in, Fat loss over
tricep. With observed muscle and fat wasting, weight loss of > 10% in 6 months and < 75% estimated needs > 1 month pt meets AND/ASPEN criteria for severe protein calorie malnutrition of chronic illness.... Assessment Subcutaneous loss over
Orbital, Rib Cage, Tricep Severe ..Muscle Loss over Temporal, Clavicle Severe ..'
Based on the above information and your assessment, which of the following most accurately represents the patient's nutritional status?
Severe Protein Calorie Malnutrition
Other (please specify)
[place] Criteria (ACP Hospitalist 2017)
2 or more criteria must be present for either
non severe or severe malnutrition
Note that the criteria differs related to the
presence of an acute or chronic illness
Acute Illness Chronic Illness
Energy Intake Non Severe: <75% for >7 days Non Severe: <75% for >1 month
Severe: <50% for >5 days Severe: <75% for >1 month
Weight Loss Non Severe: 1-2% over 1 week Non Severe: 5% over 1 month
5% over 1 month 7.5% over 3 months
7.5% over 3 months 10% over 6 months
1 year N/A 20% over 1 year
Severe: >2% over 1 week Severe: >5% over 1 month
>5% over 1 month >7.5% over 3 months
>7.5% over 3 months >10% over 6 months
1 year N/A >20% over 1 year
Body Fat Non Severe: Mild Decrease Non Severe: Mild Loss
Severe: Moderate Decrease Severe: Severe Loss
Muscle Mass Non Severe: Mild Decrease Non Severe: Mild Loss
Severe: Moderate Decrease Severe: Severe Loss
Fluid Accumulation Non Severe: Mild Accumulation Non Severe: Mild Accumulation
Severe: Moderate to severe Severe: Moderate to severe
accumulation accumulation
Reduced Cloud Operations Engineer Strength Non Severe: N/A Non Severe: N/A
Severe: Measurably reduced Severe: Measurably reduced
Use of terms such as suspected, likely, concern for, or probable (associated with a specific diagnosis that is being evaluated, monitored, or treated as if it exists) are acceptable and can be coded in the inpatient setting, when documented at the
time of discharge.
Thank you,
Bhumika Mendez RN
CDI Specialist
[facility] [employer]
Please use your independent medical judgment in providing your response.
--- NOTE | 2024-04-19 15:12 | W.PN.NEPH.PH ---
Today's Communication / Plan
-
cont 3% saline and follow na
Assessment/Plan
-
Assessment:
Hyponatremia
Hypertension
Anxiety
Failure to thrive
Dysphagia to solids
COPD
Plan:
Hyponatremia- with some ADH activity for degree of hyponatremia. U osmo [address] c/a/p neg, has COPD changes
sodium improving appropriately with 3% saline
he is very dependant on HTS at this time,may need to add salt tab tomorrow
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
encourage solute intake and maintain FR 40ounces/day
monitor with FR and encourage solute intake as possible
cont q4h sodium check today
TSH and cortisol were ok
Bp stable with meds
d/w pt
-
-
Date of Service: April 19, 2024
CC / HPI / ROS
-
Chief Complaint:
Hyponatremia
History of Present Illness:
sodium improving to 125, completed 3% saline this morning
BP stable, no fever
k normal
s/p EGD today
Review of Systems:
no n/v
no pain or sob
mild congestion in upper airway, on RA
Labs
-
Labs:
WBC 6.7 10^3/uL (4.8-10.8) 04/19/24 03:55
RBC 3.47 10^6/uL (4.70-6.10) L 04/19/24 03:55
Hgb 11.4 g/dL (13.0-18.0) L 04/19/24 03:55
Hct 30.9 % (39.0-52.0) L 04/19/24 03:55
Plt Count 290 10^3/uL (130-400) D 04/19/24 03:55
Potassium 3.5 mmol/L (3.5-5.1) 04/19/24 03:55
Chloride 90 mmol/L (98-107) L 04/19/24 03:55
Carbon Dioxide 31 mmol/L (22-30) H 04/19/24 03:55
BUN 7 mg/dl (9-20) L 04/19/24 03:55
Creatinine 0.6 mg/dL (0.7-1.3) L 04/19/24 03:55
eGFR > 60.00 04/19/24 03:55
Glucose 77 mg/dl (70-99) 04/19/24 03:55
Calcium 8.4 mg/dl (8.4-10.2) 04/19/24 03:55
Albumin 4.8 g/dl (3.5-5.0) 04/17/24 00:15
Physical Exam
-
Vital Signs:
Vital Signs
Temp Pulse Resp BP Pulse Ox
97.5 F 76 14 128/58 98
04/19/24 12:10 04/19/24 12:40 04/19/24 12:40 04/19/24 12:40 04/19/24 12:40
Cardiovascular:: Regular rate and rhythm
Respiratory:: Bilateral: CTA
Lung Excursion:: Normal
Abdomen:: Nontender and Soft
Extremity Edema:: None: Bilateral:
Jeffrey Catheter: No
--- NOTE | 2024-04-19 16:59 | CM ---
Pt had EGD today.
Spoke with pt and his sister Lena in room [phone].
Reviewed PT OT eval +SNF.
Reviewed with pt SNF that can accept him after [employer] auth : [facility] . Other SNF Out of network.
PT said he will let CM know his choice.
Will need [employer] auth for SNF.
PLAN To Snf after located and auth obtained.
[2024-04-19] MEDS: BUSPAR 2.5 MG PO (17:45)
[2024-04-19 19:51] LABS: Sodium 124 mmol/L (135-145)
[2024-04-19] MEDS: NORVASC 5 MG PO (20:12)
[2024-04-19] MEDS: LASIX 20 MG IV (22:19)
[2024-04-19] MEDS: REMERON 15 MG PO (23:11)
[2024-04-20] VITALS (7 sets, daily range): BP systolic 140–163; BP diastolic 68–85; PULSE 88–90; O2SAT 98; BMI 14.0
[2024-04-20] LABS: Sodium 154 mmol/L (135-145)
--- NOTE | 2024-04-20 00:15 | PTCARENOTE ---
Addendum entered by Eduardo Kilpatrick RN 04/20/24 05:38:
@ 02:30 Pt stat 126 Na. RN notified NETEZZA DEVELOPER- ordered AM BMP and restarted 3% Na. Pt is resting comfortably w/ call gomez within reach.
Original Note:
Pt Na 154, previous was 124. NETEZZA DEVELOPER notified- ordered to discontinue 3% Na and ordered stat BMP. Dr. Barreto made aware. Pt is asymptomatic resting comfortably w/ call gomez within reach.
[2024-04-20 02:15] LABS: Blood Urea Nitrogen 12 mg/dl (9-20); Calcium 8.6 mg/dl (8.4-10.2); Carbon Dioxide 28 mmol/L (22-30); Chloride 93 mmol/L (98-107); Estimated Creatinine Clearance 54 ml/min; Glucose 102 mg/dl (70-99); Potassium 3.9 mmol/L (3.5-5.1); Sodium 126 mmol/L (135-145); eGFR > 60.00
--- NOTE | 2024-04-20 02:35 | W.PN.UPDATE ---
Update Note
Progress Note Update
RN notified TECHNICAL MAINTENANCE SPECIALIST, Na level 154, Patient is currently on 3% Na @30cc/hr. previous level 124. Patient asymptomatic, Held 3%, Stat BMP ordered. Repeat Na 126, Dr. Barreto made aware, 3% Na restarted @30cc/hr. BMP in AM.
[2024-04-20] MEDS: SODIUM CHLORIDE 3% 250 IV (02:44)
[2024-04-20] MEDS: ZESTRIL 20 MG PO (08:32)
[2024-04-20] MEDS: NSS (PRESERVATIVE FREE) 10 ML IV ×2 (08:33→21:02)
[2024-04-20] MEDS: PROTONIX IV 40 MG IV ×2 (08:33→21:02)
[2024-04-20 10:35] LABS: Blood Urea Nitrogen 10 mg/dl (9-20); Calcium 8.4 mg/dl (8.4-10.2); Carbon Dioxide 29 mmol/L (22-30); Chloride 94 mmol/L (98-107); Estimated Creatinine Clearance 57 ml/min; Glucose 73 mg/dl (70-99); Potassium 3.9 mmol/L (3.5-5.1); Sodium 128 mmol/L (135-145); eGFR > 60.00
--- NOTE | 2024-04-20 10:52 | W.PN.HOSP.TC ---
Today's Communication/Plan
-
Trend bmp
monitor diet tolernace
nephro recs
start dispo
monitor BP/Adjust meds accordingly
Assessment / Plan
Assessment / Plan
Patient is a 73y M with PMH significant for hypertension, tobacco use, and anxiety who presents to ED complaining of weight loss and difficulty swallowing. Patient notes that he has been experiencing some mucus build-up in the throat, difficulty
swallowing and a burning sensation in his upper abdomen.
A/P: Patient is a 73y M with PMH significant for hypertension and anxiety who presents to ED complaining of difficulty swallowing and burning abdominal pain.
Hyponatremia
- Apparent acute on chronic hyponatremia with prior values in the low 120s and now 112.
- TSH and cortisol WNL; CXR with hyperinflated lungs
- urine osmol low - continue fluid restriction
- Na improved to 128
- Receiving 3% saline. Received multiple dose already. s/p 20mg lasix overnight.
- Renal following.
Dysphagia / Abdominal Pain
GERD / GI Ulcers
Failure to thrive
- Patient with many months of burning abdominal discomfort, progressive difficulty swallowing and mucoid secretions.
- Begin PPI therapy.
- CT A/P ordered-no CT evidence for an acute process in the chest, abdomen or pelvis. Positive intra-abdominal fat secondary to cachexia limiting evaluation.
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 Status post biopsy. Normal stomach and duodenum. May need upper endoscopy for surveillance based on path results. Outpatient manometric dysphagia
persist.
- Currently tolerating diet.
Benign Hypertension
- Monitor for now. Continue with lisinopril and Norvasc. If persistently elevated increase dose
-
Generalized Anxiety
- Patient acutely anxious re: illness and potential underlying diagnosis.
- States that he rarely takes buspirone at home.
- Continue this TID PRN for now.
- Continue nightly mirtazapine.
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
Suspected COPD
-Stable respiratory status.-Hypoxemia may to start bronchodilators.
-Will need outpatient pulmonary follow-up.
Severe protein caloric malnutrition of chronic illness
Nutrition consult
DVT Prophylaxis: Start lovenox
Code Status: Full
PT/OT-SNF. Start dispo efforts.
Anticipated Discharge: 24 - 48 hours
Subjective/Interval History
-
Date of Service: April 20, 2024
Overnight events noted
Na at 154-->124 afterwards
Pt with increased appetite and tolerating it without difficulty
Objective Data
-
Labs:
Laboratory Results
04/19/24 04/20/24 04/20/24
23:06 01:49 03:21
Sodium 154 H D 126 L D Cancelled
Potassium 3.9 Cancelled
Chloride 93 L Cancelled
Carbon Dioxide 28 Cancelled
BUN 12 Cancelled
Creatinine 0.7 Cancelled
Glucose 102 H Cancelled
Calcium 8.6 Cancelled
04/20/24
07:42
Sodium 128 L
Potassium 3.9
Chloride 94 L
Carbon Dioxide 29
BUN 10
Creatinine 0.7
Glucose 73
Calcium 8.4
Vital Signs:
Vital Signs
Temp Pulse Resp BP Pulse Ox
98 F 83 18 161/82 98
04/20/24 07:45 04/20/24 08:32 04/20/24 07:45 04/20/24 08:32 04/20/24 09:41
I&O
04/19/24 04/20/24 04/21/24
06:59 06:59 06:59
Intake Total 830 / 830 1640 / 1640
Output Total 2400 / 2400 2900 / 2900
Balance -1570 / -1570 -1260 / -1260
Physical Exam
-
General: No Apparent Distress and Cachectic
HEENT: Normocephalic, Atraumatic and Moist Mucous Membranes
Respiratory: Decreased Breath Sounds
Cardiac: Regular Rhythm and S1/S2
GI: Soft, Nontender, Nondistended and Normal Bowel Sounds
Musculoskeletal: No Edema
Skin: Warm and Dry; Negative Rash
Neuro: Awake and AO x 3
Psych: Calm
Data Reviewed
-
Total Time Spent with Patient (in minutes): 56
--- NOTE | 2024-04-20 11:59 | PTOTSP ---
Speech Language Pathology
Pt seen for dysphagia tx. EGD completed 04/19 with findings of mucosa suspicious for Porras's esophagus; normal stomach and duodenum. WBC 04/19 was 6.7. Pt now on regular solids/thin liquids. Pt reported he had chicken, mashed potatoes, and
carrots with no difficulty yesterday. Seen with regular solids and thin liquids. Adequate mastication, bolus formation, and A-P transit noted with no oral residue. No overt signs of aspiration. Pt denied any difficulty swallowing including no
globus sensation.
Recommend:
(1) Continue regular solids/thin liquids
(2) Esophageal precautions
(3) Meds as tolerated
(4) BILINGUAL KINDERGARTEN TEACHER to sign off. Please reconsult as indicated
--- NOTE | 2024-04-20 12:13 | W.PN.NEPH.PH ---
Today's Communication / Plan
-
Observe on fluid restriction and will add salt tabs
Assessment/Plan
-
Assessment:
Hyponatremia
Hypertension
Anxiety
Failure to thrive
Dysphagia to solids
COPD
Plan:
Hyponatremia- with some ADH activity for degree of hyponatremia. U osmo [address] c/a/p neg, has COPD changes
sodium improving appropriately with 3% saline : now at 128
will add salt tablets today
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
encourage solute intake and maintain FR 40ounces/day
monitor with FR and encourage solute intake as possible
TSH and cortisol were ok
Bp stable with meds
d/w pt
-
-
Date of Service: April 20, 2024
CC / HPI / ROS
-
Chief Complaint:
Hyponatremia
History of Present Illness:
sodium improving to 128, after 3% saline infusions
BP stable, no fever
k normal
s/p EGD yesterday
Review of Systems:
no n/v
no pain or sob
mild congestion in upper airway, on RA
Labs
-
Labs:
WBC 6.7 10^3/uL (4.8-10.8) 04/19/24 03:55
RBC 3.47 10^6/uL (4.70-6.10) L 04/19/24 03:55
Hgb 11.4 g/dL (13.0-18.0) L 04/19/24 03:55
Hct 30.9 % (39.0-52.0) L 04/19/24 03:55
Plt Count 290 10^3/uL (130-400) D 04/19/24 03:55
Sodium 128 mmol/L (135-145) L 04/20/24 07:42
Potassium 3.9 mmol/L (3.5-5.1) 04/20/24 07:42
Chloride 94 mmol/L (98-107) L 04/20/24 07:42
Carbon Dioxide 29 mmol/L (22-30) 04/20/24 07:42
BUN 10 mg/dl (9-20) 04/20/24 07:42
Creatinine 0.7 mg/dL (0.7-1.3) 04/20/24 07:42
eGFR > 60.00 04/20/24 07:42
Glucose 73 mg/dl (70-99) 04/20/24 07:42
Calcium 8.4 mg/dl (8.4-10.2) 04/20/24 07:42
Albumin 4.8 g/dl (3.5-5.0) 04/17/24 00:15
Physical Exam
-
Vital Signs:
Vital Signs
Temp Pulse Resp BP Pulse Ox
98 F 88 18 141/69 99
04/20/24 11:54 04/20/24 11:54 04/20/24 11:54 04/20/24 11:54 04/20/24 11:54
Cardiovascular:: Regular rate and rhythm
Respiratory:: Bilateral: CTA
Lung Excursion:: Normal
Abdomen:: Nontender and Soft
Extremity Edema:: None: Bilateral:
Jeffrey Catheter: No
[2024-04-20] MEDS: BUSPAR 2.5 MG PO (15:01)
--- NOTE | 2024-04-20 17:30 | CM ---
Spoke with pt informed him who had accepted him for SNF which is [facility].
Pt requested CM call Brent son [phone] and ask which SNF he should pick.
Brent requested [facility].
LM with Antonio at [facility] to call CM with NPI
Will need updated PT OT and [employer] auth.
PLAN To Snf after located and auth obtained.
[2024-04-20] MEDS: LOVENOX SC (17:57)
[2024-04-20] MEDS: SODIUM CHLORIDE 1 GRAM PO (21:02)
[2024-04-20] MEDS: NORVASC 5 MG PO (21:02)
[2024-04-21] VITALS (8 sets, daily range): BP systolic 123–169; BP diastolic 64–91; PULSE 89; O2SAT 98; BMI 14.1
[2024-04-21] MEDS: REMERON 15 MG PO ×2 (00:38→22:45)
[2024-04-21 06:43] LABS: Blood Urea Nitrogen 13 mg/dl (9-20); Carbon Dioxide 29 mmol/L (22-30); Chloride 91 mmol/L (98-107); Estimated Creatinine Clearance 67 ml/min; Glucose 98 mg/dl (70-99); Potassium 3.9 mmol/L (3.5-5.1); Sodium 126 mmol/L (135-145); eGFR > 60.00
[2024-04-21] MEDS: PROTONIX IV 40 MG IV ×2 (09:09→19:25)
[2024-04-21] MEDS: NSS (PRESERVATIVE FREE) 10 ML IV ×2 (09:10→19:25)
[2024-04-21] MEDS: ZESTRIL 20 MG PO (09:10)
[2024-04-21] MEDS: SODIUM CHLORIDE 1 GRAM PO ×2 (09:10→19:25)
--- NOTE | 2024-04-21 11:45 | W.PN.HOSP.TC ---
Today's Communication/Plan
-
trend bmp
cont salt tabs
monitor po intake -tolerating well so far
Assessment / Plan
Assessment / Plan
Patient is a 73y M with PMH significant for hypertension, tobacco use, and anxiety who presents to ED complaining of weight loss and difficulty swallowing. Patient notes that he has been experiencing some mucus build-up in the throat, difficulty
swallowing and a burning sensation in his upper abdomen.
A/P: Patient is a 73y M with PMH significant for hypertension and anxiety who presents to ED complaining of difficulty swallowing and burning abdominal pain.
Hyponatremia
- Apparent acute on chronic hyponatremia with prior values in the low 120s and now 112.
- TSH and cortisol WNL; CXR with hyperinflated lungs
- urine osmol low - continue fluid restriction
- Na downtrended to 126. Started on salt tabs.
- Receiving 3% saline. Received multiple dose already. s/p 20mg lasix overnight.
- Renal following.
Dysphagia / Abdominal Pain
GERD / GI Ulcers
Failure to thrive
- Patient with many months of burning abdominal discomfort, progressive difficulty swallowing and mucoid secretions.
- Begin PPI therapy.
- CT A/P ordered-no CT evidence for an acute process in the chest, abdomen or pelvis. Positive intra-abdominal fat secondary to cachexia limiting evaluation.
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 Status post biopsy. Normal stomach and duodenum. May need upper endoscopy for surveillance based on path results. Outpatient manometric dysphagia
persist.
- Currently tolerating diet.
Benign Hypertension
- Monitor for now. Continue with lisinopril and Norvasc. If persistently elevated increase dose
-
Generalized Anxiety
- Patient acutely anxious re: illness and potential underlying diagnosis.
- States that he rarely takes buspirone at home.
- Continue this TID PRN for now.
- Continue nightly mirtazapine.
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
Suspected COPD
-Stable respiratory status.-Hypoxemia may to start bronchodilators.
-Will need outpatient pulmonary follow-up.
Severe protein caloric malnutrition of chronic illness
Nutrition consult
DVT Prophylaxis: Start lovenox
Code Status: Full
PT/OT-SNF. Start dispo efforts.
Anticipated Discharge: > 48 hours
Subjective/Interval History
-
Date of Service: April 21, 2024
states appetite is improving and tolerating diet
Objective Data
-
Labs:
Laboratory Results
04/21/24
05:17
Sodium 126 L
Potassium 3.9
Chloride 91 L
Carbon Dioxide 29
BUN 13
Creatinine 0.6 L
Glucose 98
Calcium 9.0
Vital Signs:
Vital Signs
Temp Pulse Resp BP Pulse Ox
98.1 F 89 16 127/70 98
04/21/24 11:12 04/21/24 11:12 04/21/24 11:12 04/21/24 11:12 04/21/24 11:12
I&O
04/20/24 04/21/24 04/22/24
06:59 06:59 06:59
Intake Total 1640 / 1640 1220 / 1220
Output Total 2900 / 2900 575 / 575
Balance -1260 / -1260 645 / 645
Physical Exam
-
General: No Apparent Distress and Cachectic
HEENT: Normocephalic, Atraumatic and Moist Mucous Membranes
Respiratory: Decreased Breath Sounds
Cardiac: Regular Rhythm and S1/S2
GI: Soft, Nontender, Nondistended and Normal Bowel Sounds
Musculoskeletal: No Edema
Skin: Warm and Dry; Negative Rash
Neuro: Awake and AO x 3
Psych: Calm
--- NOTE | 2024-04-21 15:28 | W.PN.NEPH.PH ---
Today's Communication / Plan
-
Samsca 7.5 mg
maintain fluid restriction
Maintain salt tab
Assessment/Plan
-
Assessment:
Hyponatremia
Hypertension
Anxiety
Failure to thrive
Dysphagia to solids
COPD
Plan:
Hyponatremia- with some ADH activity for degree of hyponatremia. U osmo [address] c/a/p neg, has COPD changes
sodium improving appropriately with 3% saline :but then dropped again to 126
added salt tablets yesterday without immediate efficacy
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
encourage solute intake and maintain FR 40ounces/day
monitor with FR and encourage solute intake as possible
We will provide 7.5 mg Samsca today as serum sodium down again to 126
TSH and cortisol were ok
Bp stable with meds
d/w pt
-
-
Date of Service: April 21, 2024
CC / HPI / ROS
-
Chief Complaint:
Hyponatremia
History of Present Illness:
sodium improving to 128, after 3% saline infusions then down again to 126
BP stable, no fever
k normal
s/p EGD yesterday
Review of Systems:
no n/v
no pain or sob
mild congestion in upper airway, on RA
Labs
-
Labs:
WBC 6.7 10^3/uL (4.8-10.8) 04/19/24 03:55
RBC 3.47 10^6/uL (4.70-6.10) L 04/19/24 03:55
Hgb 11.4 g/dL (13.0-18.0) L 04/19/24 03:55
Hct 30.9 % (39.0-52.0) L 04/19/24 03:55
Plt Count 290 10^3/uL (130-400) D 04/19/24 03:55
Sodium 126 mmol/L (135-145) L 04/21/24 05:17
Potassium 3.9 mmol/L (3.5-5.1) 04/21/24 05:17
Chloride 91 mmol/L (98-107) L 04/21/24 05:17
Carbon Dioxide 29 mmol/L (22-30) 04/21/24 05:17
BUN 13 mg/dl (9-20) 04/21/24 05:17
Creatinine 0.6 mg/dL (0.7-1.3) L 04/21/24 05:17
eGFR > 60.00 04/21/24 05:17
Glucose 98 mg/dl (70-99) 04/21/24 05:17
Calcium 9.0 mg/dl (8.4-10.2) 04/21/24 05:17
Albumin 4.8 g/dl (3.5-5.0) 04/17/24 00:15
Physical Exam
-
Vital Signs:
Vital Signs
Temp Pulse Resp BP Pulse Ox
98.9 F 95 18 123/64 100
04/21/24 13:12 04/21/24 13:12 04/21/24 13:12 04/21/24 13:12 04/21/24 13:12
Cardiovascular:: Regular rate and rhythm
Respiratory:: Bilateral: CTA
Lung Excursion:: Normal
Abdomen:: Nontender and Soft
Extremity Edema:: None: Bilateral:
Jeffrey Catheter: No
[2024-04-21] MEDS: SAMSCA 7.5 MG PO (16:20)
--- NOTE | 2024-04-21 17:02 | CM ---
Pt requested [facility].
Spoke with Vidal at [facility] She said she had a bed.
Req PT see pt today for auth .
Antonio provided with PT OT clinical . She started auth for SNF .
Awaiting results
PLAN To SNf after auth obtained
[2024-04-21] MEDS: LOVENOX 40 MG SC (17:29)
[2024-04-21] MEDS: NORVASC 5 MG PO (19:27)
[2024-04-22] VITALS (9 sets, daily range): BP systolic 134–156; BP diastolic 70–82; PULSE 114–117; O2SAT 98–99; BMI 13.9
[2024-04-22 08:10] LABS: Blood Urea Nitrogen 12 mg/dl (9-20); Calcium 8.7 mg/dl (8.4-10.2); Carbon Dioxide 31 mmol/L (22-30); Chloride 90 mmol/L (98-107); Estimated Creatinine Clearance 66 ml/min; Glucose 83 mg/dl (70-99); Sodium 125 mmol/L (135-145); eGFR > 60.00
--- NOTE | 2024-04-22 08:28 | PN.CDI ---
CDI
- -
CDI:
Physician Documentation Request
Admit Date: 04/17/24 02:34
Dear Doctor Socrates,
Please review the following and provide your response in the progress notes.
Clinical Indicators:
Pt admitted with SIADH/ Dysphagia/Severe protein Calorie Malnutrition/FTT
Documented per [facility] nursing notes 04/16 Present on admission Sacral pressure injury stage 1 ...'
Documented per [facility] panel nursing notes 04/18 ' Sacral pressure injury.... Stage 2..treatment provided sacral border foam ...'
Physician documentation of the type and location of wounds is required for compliant documentation. Based on the above clinical findings and your assessment, please provide the following in your progress note:
1. Location of the ulcer/wound, including laterality.
2. Type (etiology) of ulcer/wound:
- Pressure (decubitus) ulcer
- Non-Pressure ulcer
- Other
Use of terms such as suspected, likely, concern for, or probable (associated with a specific diagnosis that is being evaluated, monitored, or treated as if it exists) are acceptable and can be coded in the inpatient setting, when documented at the
time of discharge.
Thank you,
Bhumika Mendez RN
CDI Specialist
[facility]
Please use your independent medical judgment in providing your response.
*Source: National Pressure Ulcer Advisory Panel (NPUAP)
[2024-04-22] MEDS: SODIUM CHLORIDE 1 GRAM PO ×2 (08:53→22:05)
[2024-04-22] MEDS: PROTONIX IV 40 MG IV ×2 (08:53→22:05)
[2024-04-22] MEDS: NSS (PRESERVATIVE FREE) 10 ML IV ×2 (08:53→22:05)
[2024-04-22] MEDS: ZESTRIL 20 MG PO (08:53)
--- NOTE | 2024-04-22 11:23 | W.PN.HOSP.TC ---
Today's Communication/Plan
-
nephro recs
Increase po intake
rehab eventually
Assessment / Plan
Assessment / Plan
Patient is a 73y M with PMH significant for hypertension, tobacco use, and anxiety who presents to ED complaining of weight loss and difficulty swallowing. Patient notes that he has been experiencing some mucus build-up in the throat, difficulty
swallowing and a burning sensation in his upper abdomen.
A/P: Patient is a 73y M with PMH significant for hypertension and anxiety who presents to ED complaining of difficulty swallowing and burning abdominal pain.
Hyponatremia
- Apparent acute on chronic hyponatremia with prior values in the low 120s and now 112.
- TSH and cortisol WNL; CXR with hyperinflated lungs
- urine osmol low - continue fluid restriction
- Na downtrended to 125 Started on salt tabs
- Receiving 3% saline. Received multiple dose already. s/p 20mg lasix and received samsca 04/21
- Probably needs additional dose of 3%?
- Renal following.
Dysphagia / Abdominal Pain
GERD / GI Ulcers
Failure to thrive
- Patient with many months of burning abdominal discomfort, progressive difficulty swallowing and mucoid secretions.
- Begin PPI therapy.
- CT A/P ordered-no CT evidence for an acute process in the chest, abdomen or pelvis. Positive intra-abdominal fat secondary to cachexia limiting evaluation.
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 Status post biopsy. Normal stomach and duodenum. May need upper endoscopy for surveillance based on path results. Outpatient manometric dysphagia
persist.
- Currently tolerating diet.
Benign Hypertension
- Monitor for now. Continue with lisinopril and Norvasc. If persistently elevated increase dose
-
Generalized Anxiety
- Patient acutely anxious re: illness and potential underlying diagnosis.
- States that he rarely takes buspirone at home.
- Continue this TID PRN for now.
- Continue nightly mirtazapine.
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
Suspected COPD
-Stable respiratory status.-Hypoxemia may to start bronchodilators.
-Will need outpatient pulmonary follow-up.
Severe protein caloric malnutrition of chronic illness
Nutrition consult
Sacral stage 2 PI
Wound care
DVT Prophylaxis: Start lovenox
Code Status: Full
PT/OT-SNF. Start dispo efforts.
Anticipated Discharge: > 48 hours
Subjective/Interval History
-
Date of Service: April 22, 2024
tolerating diet
Objective Data
-
Labs:
Laboratory Results
04/22/24
07:26
Sodium 125 L
Potassium 4.0
Chloride 90 L
Carbon Dioxide 31 H
BUN 12
Creatinine 0.6 L
Glucose 83
Calcium 8.7
Vital Signs:
Vital Signs
Temp Pulse Resp BP Pulse Ox
98.3 F 108 18 144/70 100
04/22/24 11:06 04/22/24 11:06 04/22/24 11:06 04/22/24 11:06 04/22/24 11:06
I&O
04/21/24 04/22/24 04/23/24
06:59 06:59 06:59
Intake Total 1220 / 1220 600 / 600
Output Total 575 / 575 1175 / 1175
Balance 645 / 645 -575 / -575
Physical Exam
-
General: No Apparent Distress and Cachectic
HEENT: Normocephalic, Atraumatic and Moist Mucous Membranes
Respiratory: Clear to Auscultation
Cardiac: Regular Rhythm and S1/S2
GI: Soft, Nontender, Nondistended and Normal Bowel Sounds
Musculoskeletal: No Edema
Skin: Warm and Dry; Negative Rash
Neuro: Awake and AO x 3
Psych: Calm
--- NOTE | 2024-04-22 11:30 | CM ---
Addendum entered by Eriak Song RN 04/22/24 15:57:
Antonio [phone] (Available on weekend )said [facility] denied SNF. Peer to peer for MD appeal given # [phone] Pending Auth number [id number] Information given to Dr Whitten . said denial for SNF upheld. Called [facility] spoke with Prachi
and Radha reciwved family appeal number [phone] . Information given to son Brent. He said dc to home is unsafe and wants to appeal.
PLAN Awaiting on family appeal for SNF [facility]
Original Note:
Auth sent to [facility] for auth to [facility] by Liamunira Alvarez at [facility].She said auth sent to medical transcriber .
Awaiting determination.
PLAN To SNf after auth obtained
--- NOTE | 2024-04-22 13:40 | W.PN.NEPH.PH ---
Today's Communication / Plan
-
see plan
Assessment/Plan
-
Assessment:
Hyponatremia
Hypertension
Anxiety
Failure to thrive
Dysphagia to solids
COPD
Plan:
Hyponatremia- with some ADH activity for degree of hyponatremia. U osmo [address] c/a/p neg, has COPD changes
sodium decreasing despite low dose samca and salt tab
recheck now, check U osmo, U na
likely higher dose of sasmca
encourage solute intake and maintain FR 40ounces/day
TSH and cortisol were ok
Bp stable with meds
d/w pt
-
-
Date of Service: April 22, 2024
CC / HPI / ROS
-
Chief Complaint:
Hyponatremia
History of Present Illness:
sodium low ay 125, s/p samsca 7.5mg 04/21
BP stable, no fever
k normal
s/p EGD 04/19
Review of Systems:
no n/v
no pain or sob
c/o GERD symp
Labs
-
Labs:
WBC 6.7 10^3/uL (4.8-10.8) 04/19/24 03:55
RBC 3.47 10^6/uL (4.70-6.10) L 04/19/24 03:55
Hgb 11.4 g/dL (13.0-18.0) L 04/19/24 03:55
Hct 30.9 % (39.0-52.0) L 04/19/24 03:55
Plt Count 290 10^3/uL (130-400) D 04/19/24 03:55
Sodium 125 mmol/L (135-145) L 04/22/24 07:26
Potassium 4.0 mmol/L (3.5-5.1) 04/22/24 07:26
Chloride 90 mmol/L (98-107) L 04/22/24 07:26
Carbon Dioxide 31 mmol/L (22-30) H 04/22/24 07:26
BUN 12 mg/dl (9-20) 04/22/24 07:26
Creatinine 0.6 mg/dL (0.7-1.3) L 04/22/24 07:26
eGFR > 60.00 04/22/24 07:26
Glucose 83 mg/dl (70-99) 04/22/24 07:26
Calcium 8.7 mg/dl (8.4-10.2) 04/22/24 07:26
Albumin 4.8 g/dl (3.5-5.0) 04/17/24 00:15
Physical Exam
-
Vital Signs:
Vital Signs
Temp Pulse Resp BP Pulse Ox
98.3 F 108 18 144/70 100
04/22/24 11:06 04/22/24 11:06 04/22/24 11:06 04/22/24 11:06 04/22/24 11:51
Cardiovascular:: Regular rate and rhythm
Respiratory:: Bilateral: CTA
Lung Excursion:: Normal
Abdomen:: Nontender and Soft
Extremity Edema:: None: Bilateral:
Jeffrey Catheter: No
[2024-04-22 15:15] LABS: Osmolality Urine 508 mOsm/kg (300-900)
[2024-04-22 15:24] LABS: Urine Sodium 121 mmol/L (30-90)
[2024-04-22 15:29] LABS: Sodium 126 mmol/L (135-145)
[2024-04-22] MEDS: SAMSCA 30 MG PO (17:09)
[2024-04-22] MEDS: LOVENOX SC (17:09)
[2024-04-22] MEDS: BUSPAR 2.5 MG PO (22:05)
[2024-04-22] MEDS: NORVASC 5 MG PO (22:06)
[2024-04-22] MEDS: REMERON 15 MG PO (22:07)
[2024-04-23] VITALS (9 sets, daily range): BP systolic 88–156; BP diastolic 63–99; BMI 13.5
[2024-04-23] MEDS: SODIUM CHLORIDE 1 GRAM PO ×2 (09:03→19:47)
[2024-04-23] MEDS: PROTONIX IV 40 MG IV ×2 (09:03→19:47)
[2024-04-23] MEDS: ZESTRIL 20 MG PO (09:03)
[2024-04-23] MEDS: NSS (PRESERVATIVE FREE) 10 ML IV ×2 (09:03→19:47)
[2024-04-23 10:36] LABS: Blood Urea Nitrogen 15 mg/dl (9-20); Calcium 8.8 mg/dl (8.4-10.2); Carbon Dioxide 31 mmol/L (22-30); Chloride 91 mmol/L (98-107); Estimated Creatinine Clearance 55 ml/min; Glucose 94 mg/dl (70-99); Potassium 3.6 mmol/L (3.5-5.1); Sodium 128 mmol/L (135-145); eGFR > 60.00
[2024-04-23 10:54] LABS: COVID-19 Antigen Positive (Negative)
--- NOTE | 2024-04-23 11:06 | W.PN.HOSP.TC ---
Today's Communication/Plan
-
COVID positive
Nephro recs
trend bmp
Assessment / Plan
Assessment / Plan
Patient is a 73y M with PMH significant for hypertension, tobacco use, and anxiety who presents to ED complaining of weight loss and difficulty swallowing. Patient notes that he has been experiencing some mucus build-up in the throat, difficulty
swallowing and a burning sensation in his upper abdomen.
A/P: Patient is a 73y M with PMH significant for hypertension and anxiety who presents to ED complaining of difficulty swallowing and burning abdominal pain.
Hyponatremia
- Apparent acute on chronic hyponatremia with prior values in the low 120s and now 112.
- TSH and cortisol WNL; CXR with hyperinflated lungs
- urine osmol low - continue fluid restriction
- Na uptrended to 128
- Receiving 3% saline. Received multiple dose already. s/p 20mg lasix and received samsca 04/21 and again on 04/22.
- Renal following.
Asymptomatic COVID
-Tested positive 04/23/24
-Paxlovid but interaction with samsca noted. HOld off on paxlovid.
-Can consider molnupiravir if no interaction and formulary. will d/w with pharmacy.
Dysphagia / Abdominal Pain
GERD / GI Ulcers
Failure to thrive
- Patient with many months of burning abdominal discomfort, progressive difficulty swallowing and mucoid secretions.
- Begin PPI therapy.
- CT A/P ordered-no CT evidence for an acute process in the chest, abdomen or pelvis. Positive intra-abdominal fat secondary to cachexia limiting evaluation.
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 Status post biopsy. Normal stomach and duodenum. May need upper endoscopy for surveillance based on path results. Outpatient manometric dysphagia
persist.
- Currently tolerating diet.
Benign Hypertension
- Monitor for now. Continue with lisinopril and Norvasc. If persistently elevated increase dose
Generalized Anxiety
- Patient acutely anxious re: illness and potential underlying diagnosis.
- States that he rarely takes buspirone at home.
- Continue this TID PRN for now.
- Continue nightly mirtazapine.
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
Suspected COPD
-Stable respiratory status.-Hypoxemia may to start bronchodilators.
-Will need outpatient pulmonary follow-up.
Severe protein caloric malnutrition of chronic illness
Nutrition consult
Sacral stage 2 PI
Wound care
DVT Prophylaxis: Start lovenox
Code Status: Full
PT/OT-SNF on discharge
Anticipated Discharge: > 48 hours
Subjective/Interval History
-
Date of Service: April 23, 2024
states did not get much sleep overnight
states of anxiety
Objective Data
-
Labs:
Laboratory Results
04/23/24
09:05
Sodium 128 L
Potassium 3.6
Chloride 91 L
Carbon Dioxide 31 H
BUN 15
Creatinine 0.7
Glucose 94
Calcium 8.8
Vital Signs:
Vital Signs
Temp Pulse Resp BP Pulse Ox
99.9 F 96 20 149/81 96
04/23/24 07:55 04/23/24 07:55 04/23/24 07:55 04/23/24 07:55 04/23/24 07:55
I&O
04/22/24 04/23/24 04/24/24
06:59 06:59 06:59
Intake Total 600 / 600 900 / 900
Output Total 1175 / 1175 1395 / 1395
Balance -575 / -575 -495 / -495
Physical Exam
-
General: No Apparent Distress and Cachectic
HEENT: Normocephalic, Atraumatic and Moist Mucous Membranes
Respiratory: Clear to Auscultation
Cardiac: Regular Rhythm and S1/S2
GI: Soft, Nontender, Nondistended and Normal Bowel Sounds
Musculoskeletal: No Edema
Skin: Warm and Dry; Negative Rash
Neuro: Awake, Alert, Oriented and AO x 3
Psych: Calm
Data Reviewed
-
Total Time Spent with Patient (in minutes): 56
--- NOTE | 2024-04-23 11:54 | PTCARENOTE ---
Pt with congestion this AM coughing up thick yellow/avalos mucous. Pt c/o chills and trouble sleeping last night. Temp checked. COVID + Dr Crowell aware and pt updated. Isolation initiated and waiting for private room.
--- NOTE | 2024-04-23 13:02 | CM ---
met with patient at bedside.stage 2 sacral wound,monitoring bp,tolerating a regular diet.patient tested postivie to [facility] and being transferred to [address] [place] [address].family appeal for snf at [facility].plan snf when dc.
[2024-04-23] MEDS: MOLNUPIRAVIR (EUA) 800 MG PO ×2 (13:15→19:47)
--- NOTE | 2024-04-23 13:17 | W.PN.NEPH.PH ---
Today's Communication / Plan
-
samsca
Assessment/Plan
-
Assessment:
Hyponatremia
Hypertension
Anxiety
Failure to thrive
Dysphagia to solids
COPD
Plan:
Hyponatremia- initial U osmo low but now high at 508
CT c/a/p neg, has COPD changes
sodium slow to respond, will dose samsca again today
new COVID +ve, maintain FR and salt tab
likely add low dose lasix soon
encourage solute intake
TSH and cortisol were ok
Bp stable with meds
d/w pt
-
-
Date of Service: April 23, 2024
CC / HPI / ROS
-
Chief Complaint:
Hyponatremia
History of Present Illness:
sodium low ay 128, s/p samsca 04/21, 04/22
BP stable,
k normal
s/p EGD 04/19
Review of Systems:
no n/v
no pain or sob
c/o GERD symp
cough with sputum today, chills and low grade fever
Labs
-
Labs:
WBC 6.7 10^3/uL (4.8-10.8) 04/19/24 03:55
RBC 3.47 10^6/uL (4.70-6.10) L 04/19/24 03:55
Hgb 11.4 g/dL (13.0-18.0) L 04/19/24 03:55
Hct 30.9 % (39.0-52.0) L 04/19/24 03:55
Plt Count 290 10^3/uL (130-400) D 04/19/24 03:55
Sodium 128 mmol/L (135-145) L 04/23/24 09:05
Potassium 3.6 mmol/L (3.5-5.1) 04/23/24 09:05
Chloride 91 mmol/L (98-107) L 04/23/24 09:05
Carbon Dioxide 31 mmol/L (22-30) H 04/23/24 09:05
BUN 15 mg/dl (9-20) 04/23/24 09:05
Creatinine 0.7 mg/dL (0.7-1.3) 04/23/24 09:05
eGFR > 60.00 04/23/24 09:05
Glucose 94 mg/dl (70-99) 04/23/24 09:05
Calcium 8.8 mg/dl (8.4-10.2) 04/23/24 09:05
Albumin 4.8 g/dl (3.5-5.0) 04/17/24 00:15
Physical Exam
-
Vital Signs:
Vital Signs
Temp Pulse Resp BP Pulse Ox
98.5 F 98 20 128/64 97
04/23/24 11:00 04/23/24 12:53 04/23/24 11:00 04/23/24 12:53 04/23/24 11:00
Cardiovascular:: Regular rate and rhythm
Respiratory:: Bilateral: CTA (decreased)
Lung Excursion:: Normal
Abdomen:: Nontender and Soft
Extremity Edema:: None: Bilateral:
Jeffrey Catheter: No
--- NOTE | 2024-04-23 13:29 | PTCARENOTE ---
Pt transferred to room 2125 via bed. Report given to Jodee.
[2024-04-23] MEDS: SAMSCA 30 MG PO (14:30)
[2024-04-23] MEDS: LOVENOX 40 MG SC (17:51)
[2024-04-23] MEDS: TYLENOL 650 MG PO (17:51)
[2024-04-23] MEDS: FLUSH (NSS) 2 FLUSH IV (19:47)
[2024-04-23] MEDS: NORVASC PO (19:58)
[2024-04-23] MEDS: REMERON 15 MG PO (22:56)
[2024-04-23] MEDS: BUSPAR 2.5 MG PO (23:02)
[2024-04-24] VITALS (8 sets, daily range): BP systolic 104–143; BP diastolic 52–76; BMI 13.4
[2024-04-24] MEDS: NSS (PRESERVATIVE FREE) 10 ML IV ×2 (09:27→20:26)
[2024-04-24] MEDS: ZESTRIL 20 MG PO (09:28)
[2024-04-24] MEDS: SODIUM CHLORIDE 1 GRAM PO ×2 (09:28→20:25)
[2024-04-24] MEDS: PROTONIX IV 40 MG IV ×2 (09:28→20:26)
[2024-04-24] MEDS: MOLNUPIRAVIR (EUA) 800 MG PO ×2 (09:32→20:24)
[2024-04-24 11:10] LABS: Blood Urea Nitrogen 18 mg/dl (9-20); Calcium 8.3 mg/dl (8.4-10.2); Carbon Dioxide 31 mmol/L (22-30); Chloride 93 mmol/L (98-107); Estimated Creatinine Clearance 55 ml/min; Glucose 89 mg/dl (70-99); Potassium 3.8 mmol/L (3.5-5.1); Sodium 130 mmol/L (135-145); eGFR > 60.00
--- NOTE | 2024-04-24 11:44 | W.PN.HOSP.TC ---
Addendum entered and electronically signed by Jose Antonio Crowell MD 04/24/24 15:29:
Updated patient's son Brent over the phone in detail.
Original Note:
Today's Communication/Plan
-
trend bmp
FR
COVID iso
nephro recs
Assessment / Plan
Assessment / Plan
Patient is a 73y M with PMH significant for hypertension, tobacco use, and anxiety who presents to ED complaining of weight loss and difficulty swallowing. Patient notes that he has been experiencing some mucus build-up in the throat, difficulty
swallowing and a burning sensation in his upper abdomen.
A/P: Patient is a 73y M with PMH significant for hypertension and anxiety who presents to ED complaining of difficulty swallowing and burning abdominal pain.
Hyponatremia
- Apparent acute on chronic hyponatremia with prior values in the low 120s and now 112.
- TSH and cortisol WNL; CXR with hyperinflated lungs
- urine osmol low - continue fluid restriction
- Na uptrended to 130
- Receiving 3% saline. Received multiple dose already. s/p 20mg lasix and received samsca 04/21 and again on 04/22 & 04/23
- Renal following.
COVID positive
-Tested positive 04/23/24
-Paxlovid but interaction with samsca noted. HOld off on paxlovid.
-started molnupiravir
Dysphagia / Abdominal Pain
GERD / GI Ulcers
Failure to thrive
- Patient with many months of burning abdominal discomfort, progressive difficulty swallowing and mucoid secretions.
- Begin PPI therapy.
- CT A/P ordered-no CT evidence for an acute process in the chest, abdomen or pelvis. Positive intra-abdominal fat secondary to cachexia limiting evaluation.
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 Status post biopsy. Normal stomach and duodenum. May need upper endoscopy for surveillance based on path results. Outpatient manometric dysphagia
persist.
- Currently tolerating diet.
Benign Hypertension
- Monitor for now. Continue with lisinopril and Norvasc. If persistently elevated increase dose
Generalized Anxiety
- Patient acutely anxious re: illness and potential underlying diagnosis.
- States that he rarely takes buspirone at home.
- Continue this TID PRN for now.
- Continue nightly mirtazapine.
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
Suspected COPD
-Stable respiratory status.-Hypoxemia may to start bronchodilators.
-Will need outpatient pulmonary follow-up.
Severe protein caloric malnutrition of chronic illness
Nutrition consult
Sacral stage 2 PI
Wound care
DVT Prophylaxis: Start lovenox
Code Status: Full
PT/OT-SNF on discharge
Anticipated Discharge: > 48 hours
Subjective/Interval History
-
Date of Service: April 24, 2024
remains with congestion
afebrile
on room air
Objective Data
-
Labs:
Laboratory Results
04/24/24
09:13
Sodium 130 L
Potassium 3.8
Chloride 93 L
Carbon Dioxide 31 H
BUN 18
Creatinine 0.7
Glucose 89
Calcium 8.3 L
Vital Signs:
Vital Signs
Temp Pulse Resp BP Pulse Ox
98.2 F 106 18 117/76 99
04/24/24 11:05 04/24/24 11:05 04/24/24 11:05 04/24/24 11:05 04/24/24 11:05
I&O
04/23/24 04/24/24 04/25/24
06:59 06:59 06:59
Intake Total 900 / 900 120 / 120
Output Total 1395 / 1395 775 / 775
Balance -495 / -495 -655 / -655
Physical Exam
-
General: No Apparent Distress and Cachectic
HEENT: Normocephalic, Atraumatic and Moist Mucous Membranes
Respiratory: Clear to Auscultation
Cardiac: Regular Rhythm and S1/S2
GI: Soft, Nontender, Nondistended and Normal Bowel Sounds
Musculoskeletal: No Edema
Skin: Warm and Dry; Negative Rash
Neuro: Awake, Alert, Oriented and AO x 3
Psych: Calm
--- NOTE | 2024-04-24 11:53 | W.PN.NEPH.PH ---
Today's Communication / Plan
-
add lasix
cotn FR and salt tab
Assessment/Plan
-
Assessment:
Hyponatremia
Hypertension
Anxiety
Failure to thrive
Dysphagia to solids
COPD
Plan:
Hyponatremia- initial U osmo low but repeat high at 508
CT c/a/p neg, has COPD changes
sodium slow to respond, multiple doses of samsca
new COVID +ve, maintain FR and salt tab
likely add low dose lasix today
encourage solute intake
TSH and cortisol were ok
Bp stable with meds
d/w pt
-
-
Date of Service: April 24, 2024
CC / HPI / ROS
-
Chief Complaint:
Hyponatremia
History of Present Illness:
sodium better at 130, s/p samsca 04/21, 04/22, 04/23
BP stable,
k normal , COVID+ve 04/23 on Molnupiravir
s/p EGD 04/19
Review of Systems:
no n/v
no pain or sob
low grade fever last night
Labs
-
Labs:
WBC 6.7 10^3/uL (4.8-10.8) 04/19/24 03:55
RBC 3.47 10^6/uL (4.70-6.10) L 04/19/24 03:55
Hgb 11.4 g/dL (13.0-18.0) L 04/19/24 03:55
Hct 30.9 % (39.0-52.0) L 04/19/24 03:55
Plt Count 290 10^3/uL (130-400) D 04/19/24 03:55
Sodium 130 mmol/L (135-145) L 04/24/24 09:13
Potassium 3.8 mmol/L (3.5-5.1) 04/24/24 09:13
Chloride 93 mmol/L (98-107) L 04/24/24 09:13
Carbon Dioxide 31 mmol/L (22-30) H 04/24/24 09:13
BUN 18 mg/dl (9-20) 04/24/24 09:13
Creatinine 0.7 mg/dL (0.7-1.3) 04/24/24 09:13
eGFR > 60.00 04/24/24 09:13
Glucose 89 mg/dl (70-99) 04/24/24 09:13
Calcium 8.3 mg/dl (8.4-10.2) L 04/24/24 09:13
Albumin 4.8 g/dl (3.5-5.0) 04/17/24 00:15
Physical Exam
-
Vital Signs:
Vital Signs
Temp Pulse Resp BP Pulse Ox
98.2 F 106 18 117/76 99
04/24/24 11:05 04/24/24 11:05 04/24/24 11:05 04/24/24 11:05 04/24/24 11:05
Cardiovascular:: Regular rate and rhythm
Respiratory:: Bilateral: CTA (decreased)
Lung Excursion:: Normal
Abdomen:: Nontender and Soft
Extremity Edema:: None: Bilateral:
Jeffrey Catheter: No
[2024-04-24] MEDS: LASIX 20 MG PO (12:44)
[2024-04-24] MEDS: TYLENOL 650 MG PO ×2 (16:11→23:12)
[2024-04-24] MEDS: BUSPAR 2.5 MG PO ×2 (16:12→23:17)
--- NOTE | 2024-04-24 17:34 | PTCARENOTE ---
Patient had a witnessed fall observed by tech.. per tech patient got up from chair, felt dizzy and tech assisted him to the floor. Pt did not hit head. patient was transferred back to bed. Pt AAOX3. denies pain. No s/s of distress noted. Dr and Son
made aware. medsitter and bed alarm in place. vs documented. plan of care ongoing. call gomez with reach
[2024-04-24] MEDS: LOVENOX 40 MG SC (18:14)
[2024-04-24] MEDS: NORVASC PO (20:25)
[2024-04-24] MEDS: ROBITUSSIN 200 MG PO (20:42)
[2024-04-24] MEDS: REMERON 15 MG PO (23:00)
[2024-04-25] VITALS (7 sets, daily range): BP systolic 86–156; BP diastolic 52–84; PULSE 89–118; O2SAT 93; BMI 13.6
[2024-04-25] MEDS: ZESTRIL 20 MG PO (08:54)
[2024-04-25] MEDS: SODIUM CHLORIDE 1 GRAM PO ×2 (08:54→21:16)
[2024-04-25] MEDS: MOLNUPIRAVIR (EUA) 800 MG PO ×2 (08:54→21:15)
[2024-04-25] MEDS: PROTONIX IV 40 MG IV ×2 (08:55→21:17)
[2024-04-25] MEDS: NSS (PRESERVATIVE FREE) 10 ML IV ×2 (08:55→21:18)
[2024-04-25] MEDS: LASIX 20 MG PO (08:55)
[2024-04-25 10:47] LABS: Blood Urea Nitrogen 22 mg/dl (9-20); Calcium 8.5 mg/dl (8.4-10.2); Carbon Dioxide 31 mmol/L (22-30); Chloride 93 mmol/L (98-107); Estimated Creatinine Clearance 56 ml/min; Glucose 100 mg/dl (70-99); Potassium 3.2 mmol/L (3.5-5.1); Sodium 131 mmol/L (135-145); eGFR > 60.00
[2024-04-25] MEDS: TYLENOL 650 MG PO (11:20)
--- NOTE | 2024-04-25 12:00 | W.PN.HOSP.TC ---
Addendum entered and electronically signed by Jose Antonio Crowell MD 04/25/24 13:04:
Updated patient's son over the phone in detail.
Original Note:
Today's Communication/Plan
-
IVF per nephro
replete kcl
na improving
nephro recs
SNF process ongoing
Assessment / Plan
Assessment / Plan
Patient is a 73y M with PMH significant for hypertension, tobacco use, and anxiety who presents to ED complaining of weight loss and difficulty swallowing. Patient notes that he has been experiencing some mucus build-up in the throat, difficulty
swallowing and a burning sensation in his upper abdomen.
A/P: Patient is a 73y M with PMH significant for hypertension and anxiety who presents to ED complaining of difficulty swallowing and burning abdominal pain.
Hyponatremia
- Apparent acute on chronic hyponatremia with prior values in the low 120s and now 112.
- TSH and cortisol WNL; CXR with hyperinflated lungs
- urine osmol low - continue fluid restriction
- Na uptrended to 131 and now with orthostatics on lasix. Defer IVF to nephro.
- Receiving 3% saline. Received multiple dose already. s/p 20mg lasix and received samsca 04/21 and again on 04/22 & 04/23
- Renal following.
COVID positive
-Tested positive 04/23/24
-Paxlovid but interaction with samsca noted. HOld off on paxlovid.
-started molnupiravir
Orthostatic positive
-will defer IVF to nephro due to hyponatremia and now on lasix.
Dysphagia / Abdominal Pain
GERD / GI Ulcers
Failure to thrive
- Patient with many months of burning abdominal discomfort, progressive difficulty swallowing and mucoid secretions.
- Begin PPI therapy.
- CT A/P ordered-no CT evidence for an acute process in the chest, abdomen or pelvis. Positive intra-abdominal fat secondary to cachexia limiting evaluation.
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 Status post biopsy. Normal stomach and duodenum. May need upper endoscopy for surveillance based on path results. Outpatient manometric dysphagia
persist.
- Currently tolerating diet.
Benign Hypertension
- Monitor for now. Continue with lisinopril and Norvasc. If persistently elevated increase dose
Generalized Anxiety
- Patient acutely anxious re: illness and potential underlying diagnosis.
- States that he rarely takes buspirone at home.
- Continue this TID PRN for now.
- Continue nightly mirtazapine.
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
Suspected COPD
-Stable respiratory status.-Hypoxemia may to start bronchodilators.
-Will need outpatient pulmonary follow-up.
Severe protein caloric malnutrition of chronic illness
Nutrition consult
Sacral stage 2 PI
Wound care
Hypokalemia-replete/monitor
DVT Prophylaxis: lovenox
Code Status: Full
PT/OT-SNF on discharge
update son in details on 04/24.
Anticipated Discharge: 24 - 48 hours
Subjective/Interval History
-
Date of Service: April 25, 2024
felt dizzy yesterday
Objective Data
-
Labs:
Laboratory Results
04/25/24
09:35
Sodium 131 L
Potassium 3.2 L
Chloride 93 L
Carbon Dioxide 31 H
BUN 22 H
Creatinine 0.7
Glucose 100 H
Calcium 8.5
Vital Signs:
Vital Signs
Temp Pulse Resp BP Pulse Ox
97.6 F 48 16 138/73 93
04/25/24 11:42 04/25/24 11:42 04/25/24 11:42 04/25/24 11:42 04/25/24 11:42
I&O
04/24/24 04/25/24 04/26/24
06:59 06:59 06:59
Intake Total 120 / 120 840 / 840
Output Total 775 / 775 250 / 250
Balance -655 / -655 590 / 590
Physical Exam
-
General: No Apparent Distress and Cachectic
HEENT: Normocephalic, Atraumatic and Moist Mucous Membranes
Respiratory: Clear to Auscultation
Cardiac: Regular Rhythm and S1/S2
GI: Soft, Nontender, Nondistended and Normal Bowel Sounds
Musculoskeletal: No Edema
Skin: Warm and Dry; Negative Rash
Neuro: Awake, Alert, Oriented and AO x 3
Psych: Calm
[2024-04-25] MEDS: ROBITUSSIN 200 MG PO ×2 (12:22→21:26)
[2024-04-25] MEDS: KCL ELIXIR 40 MEQ PO (12:22)
--- NOTE | 2024-04-25 15:07 | CM ---
Addendum entered by Ness Mccallum 04/26/24 14:57:
04/26/24: Son initiated the family appeal requesting external physician review. Case # [id number], Records are to be faxed to [facility] @ [phone].
Original Note:
Called and spoke with son, Brent concerning his decision to appeal denial and peer to peer denial for SNF. He had called the family appeal # [phone] on 04/22/24 but did not have all the information he needed to initiate the appeal. This CM
supplied info Brent needed. He said he will call again today. This CM requested a call back when he has initiated the appeal.
--- NOTE | 2024-04-25 15:11 | W.PN.NEPH.PH ---
Today's Communication / Plan
-
- stop lasix
Assessment/Plan
-
Assessment:
Hyponatremia
Hypertension
Anxiety
Failure to thrive
Dysphagia to solids
COPD
Plan:
Hyponatremia- initial U osmo low but repeat high at 508
CT c/a/p neg, has COPD changes
started on low dose lasix yesterday but then had symptomatic hypotension. i will hold lasix today
sodium slow to respond, multiple doses of samsca.
new COVID +ve, maintain FR and salt tablets. if continued hypotension, will remove FR
encourage solute intake
TSH and cortisol were ok
Bp stable with meds
d/w pt
-
-
Date of Service: April 25, 2024
CC / HPI / ROS
-
Chief Complaint:
Hyponatremia
History of Present Illness:
sodium better at 131, s/p samsca 04/21, 04/22, 04/23
BP stable,
k normal , COVID+ve 04/23 on Molnupiravir
s/p EGD 04/19
Review of Systems:
no n/v
no pain or sob
low grade fever last night
Labs
-
Labs:
WBC 6.7 10^3/uL (4.8-10.8) 04/19/24 03:55
RBC 3.47 10^6/uL (4.70-6.10) L 04/19/24 03:55
Hgb 11.4 g/dL (13.0-18.0) L 04/19/24 03:55
Hct 30.9 % (39.0-52.0) L 04/19/24 03:55
Plt Count 290 10^3/uL (130-400) D 04/19/24 03:55
Sodium 131 mmol/L (135-145) L 04/25/24 09:35
Potassium 3.2 mmol/L (3.5-5.1) L 04/25/24 09:35
Chloride 93 mmol/L (98-107) L 04/25/24 09:35
Carbon Dioxide 31 mmol/L (22-30) H 04/25/24 09:35
BUN 22 mg/dl (9-20) H 04/25/24 09:35
Creatinine 0.7 mg/dL (0.7-1.3) 04/25/24 09:35
eGFR > 60.00 04/25/24 09:35
Glucose 100 mg/dl (70-99) H 04/25/24 09:35
Calcium 8.5 mg/dl (8.4-10.2) 04/25/24 09:35
Albumin 4.8 g/dl (3.5-5.0) 04/17/24 00:15
Physical Exam
-
Vital Signs:
Vital Signs
Temp Pulse Resp BP Pulse Ox
98.0 F 109 18 124/67 98
04/25/24 11:00 04/25/24 11:00 04/25/24 11:00 04/25/24 11:00 04/25/24 11:00
Cardiovascular:: Regular rate and rhythm
Respiratory:: Bilateral: CTA (decreased)
Lung Excursion:: Normal
Abdomen:: Nontender and Soft
Extremity Edema:: None: Bilateral:
Jeffrey Catheter: No
[2024-04-25] MEDS: LOVENOX 40 MG SC (16:58)
[2024-04-25] MEDS: NORVASC 5 MG PO (21:16)
[2024-04-25] MEDS: REMERON 15 MG PO (23:00)
[2024-04-25] MEDS: BUSPAR 2.5 MG PO (23:13)
[2024-04-26] VITALS (10 sets, daily range): BP systolic 100–166; BP diastolic 61–94; PULSE 97–117; BMI 13.3
[2024-04-26 09:05] LABS: Blood Urea Nitrogen 19 mg/dl (9-20); Calcium 8.3 mg/dl (8.4-10.2); Carbon Dioxide 31 mmol/L (22-30); Chloride 93 mmol/L (98-107); Estimated Creatinine Clearance 54 ml/min; Glucose 92 mg/dl (70-99); Sodium 130 mmol/L (135-145); eGFR > 60.00
[2024-04-26] MEDS: SODIUM CHLORIDE 1 GRAM PO ×2 (09:13→21:57)
[2024-04-26] MEDS: VITAMIN C 500 MG PO (09:13)
[2024-04-26] MEDS: OSCAL 500 + D 500 MG PO (09:13)
[2024-04-26] MEDS: ZESTRIL 20 MG PO (09:13)
[2024-04-26] MEDS: PROTONIX IV 40 MG IV (09:14)
[2024-04-26] MEDS: MOLNUPIRAVIR (EUA) 800 MG PO ×2 (09:14→21:57)
[2024-04-26] MEDS: NSS (PRESERVATIVE FREE) 10 ML IV (09:14)
[2024-04-26 09:19] LABS: Vitamin D, 25-OH*** 33.9 ng/mL (30-80)
[2024-04-26] MEDS: ROBITUSSIN 200 MG PO ×2 (09:23→14:15)
[2024-04-26] MEDS: MUCINEX 600 MG PO ×2 (10:16→21:57)
--- NOTE | 2024-04-26 11:20 | W.PN.HOSP.TC ---
Today's Communication/Plan
-
await appeal process/decision
trend bmp
off lasix
monitor orthostatics
Assessment / Plan
Assessment / Plan
Patient is a 73y M with PMH significant for hypertension, tobacco use, and anxiety who presents to ED complaining of weight loss and difficulty swallowing. Patient notes that he has been experiencing some mucus build-up in the throat, difficulty
swallowing and a burning sensation in his upper abdomen.
A/P: Patient is a 73y M with PMH significant for hypertension and anxiety who presents to ED complaining of difficulty swallowing and burning abdominal pain.
Hyponatremia
- Apparent acute on chronic hyponatremia with prior values in the low 120s and now 112.
- TSH and cortisol WNL; CXR with hyperinflated lungs
- urine osmol low - continue fluid restriction
- Na at 130. Lasix stopped due to orthostatics hypotension. Cont with FR.
- Receiving 3% saline. Received multiple dose already. s/p 20mg lasix and received samsca 04/21 and again on 04/22 & 04/23
- Renal following.
COVID positive
-Tested positive 04/23/24
-Paxlovid but interaction with samsca noted. HOld off on paxlovid.
-started molnupiravir
Orthostatic positive
-will defer IVF to nephro due to hyponatremia and now on lasix. Improving. Off Lasix.
Dysphagia / Abdominal Pain
GERD / GI Ulcers
Failure to thrive
- Patient with many months of burning abdominal discomfort, progressive difficulty swallowing and mucoid secretions.
- Begin PPI therapy.
- CT A/P ordered-no CT evidence for an acute process in the chest, abdomen or pelvis. Positive intra-abdominal fat secondary to cachexia limiting evaluation.
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 Status post biopsy. Normal stomach and duodenum. May need upper endoscopy for surveillance based on path results. Outpatient manometric dysphagia
persist.
- Currently tolerating diet.
Benign Hypertension
- Monitor for now. Continue with lisinopril and Norvasc. If persistently elevated increase dose
Generalized Anxiety
- Patient acutely anxious re: illness and potential underlying diagnosis.
- States that he rarely takes buspirone at home.
- Continue this TID PRN for now.
- Continue nightly mirtazapine.
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
Suspected COPD
-Stable respiratory status.-
-Will need outpatient pulmonary follow-up.
Severe protein caloric malnutrition of chronic illness
Nutrition consult
Sacral stage 2 PI
Wound care
Hypokalemia-replete/monitor
DVT Prophylaxis: lovenox
Code Status: Full
Dispo-family requesting SNF. Appeal denies. FAMILY to appeal with insurance company.
update son in details on 04/24 and 04/25.
Anticipated Discharge: > 48 hours
Subjective/Interval History
-
Date of Service: April 26, 2024
Feeling tired
afebrile
Objective Data
-
Labs:
Laboratory Results
04/26/24
07:48
Sodium 130 L
Potassium 4.0
Chloride 93 L
Carbon Dioxide 31 H
BUN 19
Creatinine 0.7
Glucose 92
Calcium 8.3 L
Vital Signs:
Vital Signs
Temp Pulse Resp BP Pulse Ox
98.2 F 96 18 153/79 95
04/26/24 07:20 04/26/24 09:13 04/26/24 07:20 04/26/24 09:13 04/26/24 10:31
I&O
04/25/24 04/26/24 04/27/24
06:59 06:59 06:59
Intake Total 840 / 840 900 / 900
Output Total 250 / 250 800 / 800
Balance 590 / 590 100 / 100
--- NOTE | 2024-04-26 13:29 | W.PN.NEPH.PH ---
Today's Communication / Plan
-
- hold lasix
Assessment/Plan
-
Assessment:
Hyponatremia
Hypertension
Anxiety
Failure to thrive
Dysphagia to solids
COPD
Plan:
Hyponatremia- initial U osmo low but repeat high at 508
CT c/a/p neg, has COPD changes
started on low dose lasix yesterday but then had symptomatic hypotension. continue to hold lasix in the setting of softer BPs and COVID
sodium slow to respond, multiple doses of samsca. now stabilized
new COVID +ve, maintain FR and salt tablets. if continued hypotension, will remove FR
encourage solute intake
TSH and cortisol were ok
Bp stable with meds
d/w pt
-
-
Date of Service: April 26, 2024
CC / HPI / ROS
-
Chief Complaint:
Hyponatremia
History of Present Illness:
sodium better at 130, s/p samsca 04/21, 04/22, 04/23
BP stable,
k normal , COVID+ve 04/23 on Molnupiravir
s/p EGD 04/19
Review of Systems:
no n/v
no pain or sob
low grade fever this AM
Labs
-
Labs:
WBC 6.7 10^3/uL (4.8-10.8) 04/19/24 03:55
RBC 3.47 10^6/uL (4.70-6.10) L 04/19/24 03:55
Hgb 11.4 g/dL (13.0-18.0) L 04/19/24 03:55
Hct 30.9 % (39.0-52.0) L 04/19/24 03:55
Plt Count 290 10^3/uL (130-400) D 04/19/24 03:55
Sodium 130 mmol/L (135-145) L 04/26/24 07:48
Potassium 4.0 mmol/L (3.5-5.1) 04/26/24 07:48
Chloride 93 mmol/L (98-107) L 04/26/24 07:48
Carbon Dioxide 31 mmol/L (22-30) H 04/26/24 07:48
BUN 19 mg/dl (9-20) 04/26/24 07:48
Creatinine 0.7 mg/dL (0.7-1.3) 04/26/24 07:48
eGFR > 60.00 04/26/24 07:48
Glucose 92 mg/dl (70-99) 04/26/24 07:48
Calcium 8.3 mg/dl (8.4-10.2) L 04/26/24 07:48
Albumin 4.8 g/dl (3.5-5.0) 04/17/24 00:15
Physical Exam
-
Vital Signs:
Vital Signs
Temp Pulse Resp BP Pulse Ox
97.7 F 105 16 112/66 97
04/26/24 11:00 04/26/24 11:00 04/26/24 11:00 04/26/24 11:00 04/26/24 11:00
Cardiovascular:: Regular rate and rhythm
Respiratory:: Bilateral: CTA (decreased)
Lung Excursion:: Normal
Abdomen:: Nontender and Soft
Extremity Edema:: None: Bilateral:
Jeffrey Catheter: No
Other Findings::
cachectic
--- NOTE | 2024-04-26 15:05 | CM ---
Records have been faxed to [employer] @ requesting external physician review per son's previous request with [employer]. Case # is [id number]. Confirmation of receipt of fax obtained.
[2024-04-26] MEDS: BUSPAR 2.5 MG PO (18:04)
[2024-04-26] MEDS: MAALOX PLUS 1 TABLET PO (18:04)
[2024-04-26] MEDS: LOVENOX 40 MG SC (18:05)
[2024-04-26] MEDS: ANESTHETIC LOZENGE 1 LOZENGE PO (18:05)
[2024-04-26] MEDS: NORVASC 5 MG PO (21:57)
[2024-04-26] MEDS: REMERON 15 MG PO (21:57)
[2024-04-26] MEDS: PROTONIX 40 MG PO (21:57)
[2024-04-27] VITALS (10 sets, daily range): BP systolic 101–154; BP diastolic 54–95; PULSE 100–120; O2SAT 94; BMI 13.4
--- NOTE | 2024-04-27 03:25 | DOWNTIME ---
There was a [employer] Downtime on 04/27/2024 from 0100 to 04/27/2024 at 0252. Downtime documentation of patient's care, including medication administrations, has been reconciled in the electronic record per guidelines. Refer to the
patient's paper chart under the miscellaneous tab to see printed paper medication records and downtime forms.
[2024-04-27] MEDS: BUSPAR 2.5 MG PO (03:47)
[2024-04-27 09:04] LABS: Blood Urea Nitrogen 15 mg/dl (9-20); Calcium 8.5 mg/dl (8.4-10.2); Carbon Dioxide 33 mmol/L (22-30); Chloride 93 mmol/L (98-107); Estimated Creatinine Clearance 64 ml/min; Glucose 104 mg/dl (70-99); Potassium 3.9 mmol/L (3.5-5.1); Sodium 128 mmol/L (135-145); eGFR > 60.00
[2024-04-27] MEDS: MOLNUPIRAVIR (EUA) 800 MG PO ×2 (09:34→20:02)
[2024-04-27] MEDS: ZESTRIL 20 MG PO (09:35)
[2024-04-27] MEDS: PROTONIX 40 MG PO ×2 (09:35→20:02)
[2024-04-27] MEDS: OSCAL 500 + D 500 MG PO (09:35)
[2024-04-27] MEDS: VITAMIN C 500 MG PO (09:35)
[2024-04-27] MEDS: MUCINEX 600 MG PO ×2 (09:35→20:02)
[2024-04-27] MEDS: SODIUM CHLORIDE 1 GRAM PO ×2 (09:35→20:02)
[2024-04-27] MEDS: ROBITUSSIN 200 MG PO (09:39)
--- NOTE | 2024-04-27 09:53 | W.PN.NEPH.PH ---
Today's Communication / Plan
-
samsca
Assessment/Plan
-
Assessment:
Hyponatremia
Hypertension
Anxiety
Failure to thrive
Dysphagia to solids
COPD
Plan:
Hyponatremia- initial U osmo low but repeat high at 508
underlying high ADH state from COPD
Did not tolerate well lasix with hypotension
sodium decreasing to 128 on FR and salt tab
will give samsca today, consider restart lasix at low dose vs Urea
encourage solute intake
TSH and cortisol were ok
Bp stable with meds
d/w pt
-
-
Date of Service: April 27, 2024
CC / HPI / ROS
-
Chief Complaint:
Hyponatremia
History of Present Illness:
sodium down at 128, s/p samsca 04/21, 04/22, 04/23
BP stable,
k normal , COVID+ve 04/23 on Molnupiravir
s/p EGD 04/19
Review of Systems:
no n/v
no pain or sob , feels congested, cough dry
Labs
-
Labs:
WBC 6.7 10^3/uL (4.8-10.8) 04/19/24 03:55
RBC 3.47 10^6/uL (4.70-6.10) L 04/19/24 03:55
Hgb 11.4 g/dL (13.0-18.0) L 04/19/24 03:55
Hct 30.9 % (39.0-52.0) L 04/19/24 03:55
Plt Count 290 10^3/uL (130-400) D 04/19/24 03:55
Sodium 128 mmol/L (135-145) L 04/27/24 08:01
Potassium 3.9 mmol/L (3.5-5.1) 04/27/24 08:01
Chloride 93 mmol/L (98-107) L 04/27/24 08:01
Carbon Dioxide 33 mmol/L (22-30) H 04/27/24 08:01
BUN 15 mg/dl (9-20) 04/27/24 08:01
Creatinine 0.6 mg/dL (0.7-1.3) L 04/27/24 08:01
eGFR > 60.00 04/27/24 08:01
Glucose 104 mg/dl (70-99) H 04/27/24 08:01
Calcium 8.5 mg/dl (8.4-10.2) 04/27/24 08:01
Albumin 4.8 g/dl (3.5-5.0) 04/17/24 00:15
Physical Exam
-
Vital Signs:
Vital Signs
Temp Pulse Resp BP Pulse Ox
99.3 F 98 16 144/73 91
04/27/24 07:15 04/27/24 09:35 04/27/24 07:15 04/27/24 09:35 04/27/24 07:15
Cardiovascular:: Regular rate and rhythm
Respiratory:: Bilateral: CTA
Lung Excursion:: Normal
Abdomen:: Nontender and Soft
Extremity Edema:: None: Bilateral:
Jeffrey Catheter: No
[2024-04-27] MEDS: SAMSCA 30 MG PO (10:14)
[2024-04-27] MEDS: BUSPAR 5 MG PO ×2 (13:05→20:02)
--- NOTE | 2024-04-27 13:56 | W.PN.HOSP.TC ---
Today's Communication/Plan
-
Called his son and updated him in detail
Assessment / Plan
Assessment / Plan
Physical exam:
General: Awake, alert and oriented x3, not in distress and holds appropriate conversation.
HEENT: No active discharge, ecchymosis or bruising, moist lips, tongue and mucous membrane.
Respiratory: Normal AP contour and diameter, normal chest wall movement, normal respiratory effort, no respiratory distress,
Lungs: Good air entry bilaterally, no wheezing or rhonchi, no rales or crackles
Heart: S1, S2 regular, normal rate, no added sound.
Gastrointestinal: Positive bowel sounds, soft, nontender, no guarding or rigidity or organomegaly
Musculoskeletal: , no chest wall abnormality or tenderness. All joints and extremities have good range of motion, no muscle tenderness or any joint swelling or tenderness.
Extremities: No pitting edema, good peripheral pulses, good range of motion
Skin: Warm and dry, normal color. Lower back decub ulcer, stage I
Neurological: Awake, alert and oriented x3, moves extremities., speech clear and comprehensive, good muscle tone, normal sensory and motor function
Psychiatric: Normal mood, normal thought and judgment, normal affect,
Patient is a 73y M with PMH significant for hypertension, tobacco use, and anxiety who presents to ED complaining of weight loss and difficulty swallowing. Patient notes that he has been experiencing some mucus build-up in the throat, difficulty
swallowing and a burning sensation in his upper abdomen.
A/P: Patient is a 73y M with PMH significant for hypertension and anxiety who presents to ED complaining of difficulty swallowing and burning abdominal pain.
Hyponatremia
- Apparent acute on chronic hyponatremia with prior values in the low 120s and yesterday was 130 and today is 128. Concern for high ADH because of COPD
- TSH and cortisol WNL; CXR with hyperinflated lungs
- Initial urine osmol low -on repeat was high at 5.8 continue fluid restriction
- Recheck the lab
- Cont with FR.
- Received 3% saline. Received multiple dose already. s/p 20mg lasix and received samsca 04/21 and again on 04/22 & 04/23 nephrology planning to give him some mask again
-Pending his progression may consider restarting Lasix at a lower dose per nephro
- Renal following.
COVID positive
-Tested positive 04/23/24
-Paxlovid but interaction with samsca noted. HOld off on paxlovid.
-started molnupiravir
-Contact and droplet isolation
Cough medication and Tylenol as needed
Orthostatic positive
-Still have orthostatic hypotension
-will defer IVF to nephro due to hyponatremia, discussed with nephrology will hold amlodipine because of his orthostatic hypotension
Dysphagia / Abdominal Pain
GERD / GI Ulcers
Failure to thrive
- Patient with many months of burning abdominal discomfort, progressive difficulty swallowing and mucoid secretions.
- Begin PPI therapy.
- CT A/P ordered-no CT evidence for an acute process in the chest, abdomen or pelvis. Positive intra-abdominal fat secondary to cachexia limiting evaluation.
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 Status post biopsy. Normal stomach and duodenum. May need upper endoscopy for surveillance based on path results. Outpatient manometric dysphagia
persist.
- Currently tolerating diet.
-Encourage oral hydration and intake
Benign Hypertension
- Monitor for now. Continue with lisinopril and hold Norvasc.
-With orthostatic hypotension, he is on amlodipine and lisinopril, discussed nephrology for their opinion regarding clearance holding off amlodipine and Dr. Barreto agrees on holding Amlodipine
Generalized Anxiety
- Patient acutely anxious re: illness and potential underlying diagnosis.
- States that he rarely takes buspirone at home.
- Will change his BuSpar to 5 mg twice daily supposed to be scheduled as needed.
- Continue nightly mirtazapine.
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
Suspected COPD
-Stable respiratory status.-
-Will need outpatient pulmonary follow-up.
Severe protein caloric malnutrition of chronic illness
Nutrition consult
Encourage oral intake
Sacral stage 2 PI
Wound care
Hypokalemia-replete/monitor
DVT Prophylaxis: lovenox
Code Status: Full
Dispo-family requesting SNF. Appeal denies. FAMILY to appeal with insurance company.
update son in details on 04/24 and 04/25.
Anticipated Discharge: > 48 hours
Subjective/Interval History
-
Date of Service: April 27, 2024
Seen and examined, awake and alert, somewhat frustrated about his condition. Hospital, feels congested and having a dry cough, no fever or chills or cough or congestion, no chest pain or diarrhea, admits poor appetite.
Nurse at the bedside.
Objective Data
-
Labs:
Laboratory Results
04/27/24
08:01
Sodium 128 L
Potassium 3.9
Chloride 93 L
Carbon Dioxide 33 H
BUN 15
Creatinine 0.6 L
Glucose 104 H
Calcium 8.5
Vital Signs:
Vital Signs
Temp Pulse Resp BP Pulse Ox
97.8 F 110 18 126/66 94
04/27/24 11:30 04/27/24 11:30 04/27/24 11:30 04/27/24 11:30 04/27/24 11:30
I&O
04/26/24 04/27/24 04/28/24
07:59 07:59 07:59
Intake Total 900 / 900 1200 / 1200
Output Total 800 / 800 1125 / 1125
Balance 100 / 100 75 / 75
Review of Systems
-
All other systems: Reviewed and negative
--- NOTE | 2024-04-27 15:16 | CM ---
Spoke with son and informed him that requested medical records were forwarded to [facility] on 04/26/24 for [facility] Family appeal review by external independent physician. Today PT and OT re-evaluated patient and those notes as well were forwarded on this
date. Awaiting external review and determination.
[2024-04-27] MEDS: LOVENOX 40 MG SC (17:30)
[2024-04-27] MEDS: REMERON 15 MG PO (22:45)
[2024-04-28] VITALS (9 sets, daily range): BP systolic 104–153; BP diastolic 67–97; PULSE 105–117; O2SAT 97; BMI 13.4
[2024-04-28] MEDS: MUCINEX 600 MG PO ×2 (08:54→21:12)
[2024-04-28] MEDS: ZESTRIL 20 MG PO (08:54)
[2024-04-28] MEDS: VITAMIN C 500 MG PO (08:54)
[2024-04-28] MEDS: PROTONIX 40 MG PO ×2 (08:55→21:13)
[2024-04-28] MEDS: SODIUM CHLORIDE 1 GRAM PO ×2 (08:55→21:12)
[2024-04-28] MEDS: OSCAL 500 + D 500 MG PO (08:55)
[2024-04-28] MEDS: BUSPAR 5 MG PO ×2 (08:56→21:12)
[2024-04-28] MEDS: MOLNUPIRAVIR (EUA) 800 MG PO (08:56)
[2024-04-28 11:26] LABS: Blood Urea Nitrogen 12 mg/dl (9-20); Calcium 8.5 mg/dl (8.4-10.2); Carbon Dioxide 35 mmol/L (22-30); Chloride 96 mmol/L (98-107); Estimated Creatinine Clearance 64 ml/min; Glucose 108 mg/dl (70-99); Magnesium 1.9 mg/dl (1.6-2.3); Phosphorus 3.6 mg/dl (2.5-4.5); Potassium 4.2 mmol/L (3.5-5.1); Sodium 138 mmol/L (135-145); eGFR > 60.00
--- NOTE | 2024-04-28 11:53 | W.PN.HOSP.TC ---
Today's Communication/Plan
-
Discussed with the son and updated him in detail and expressed understand
Assessment / Plan
Assessment / Plan
Physical exam:
General: Awake, alert and oriented x3, not in distress and holds appropriate conversation.
HEENT: No active discharge, ecchymosis or bruising, moist lips, tongue and mucous membrane.
Respiratory: Normal AP contour and diameter, normal chest wall movement, normal respiratory effort, no respiratory distress,
Lungs: Good air entry bilaterally, no wheezing or rhonchi, no rales or crackles
Heart: S1, S2 regular, normal rate, no added sound.
Gastrointestinal: Positive bowel sounds, soft, nontender, no guarding or rigidity or organomegaly
Musculoskeletal: , no chest wall abnormality or tenderness. All joints and extremities have good range of motion, no muscle tenderness or any joint swelling or tenderness.
Extremities: No pitting edema, good peripheral pulses, good range of motion
Skin: Warm and dry, normal color. Lower back decub ulcer, stage I
Psychiatric: Normal mood, normal thought and judgment, normal affect,
Patient is a 73y M with PMH significant for hypertension, tobacco use, and anxiety who presents to ED complaining of weight loss and difficulty swallowing. Patient notes that he has been experiencing some mucus build-up in the throat, difficulty
swallowing and a burning sensation in his upper abdomen.
A/P: Patient is a 73y M with PMH significant for hypertension and anxiety who presents to ED complaining of difficulty swallowing and burning abdominal pain.
Hyponatremia
- Apparent acute on chronic hyponatremia with prior values in the low 120s and yesterday was 130 and today is 128. Today is 138
Concern for high ADH because of COPD
- TSH and cortisol WNL; CXR with hyperinflated lungs
- Initial urine osmol low on repeat was high at 508 continue fluid restriction, pending sodium level may need to increase or liberalize his fluid restriction will defer to nephrology
- Recheck the lab
- Cont with FR.
- Received 3% saline. Received multiple dose already. s/p 20mg lasix and received samsca 04/21 and again on 04/22 & 04/23 nephrology planning to give him some mask again
-Pending his progression may consider restarting Lasix at a lower dose per nephro
- Renal following and discussed with nephrology in detail.
COVID positive
-Tested positive 04/23/24
-Paxlovid but interaction with samsca noted. Hold off paxlovid.
-Completed molnupiravir yesterday
-Contact and droplet isolation
-Cough medication and Tylenol as needed
Orthostatic positive
-Resolved
-As discussed with nephrology continue to hold his amlodipine for now given his pressure is mildly on the high side.
-No more dizziness.
Dysphagia / Abdominal Pain
GERD / GI Ulcers
Failure to thrive
- Patient with many months of burning abdominal discomfort, progressive difficulty swallowing and mucoid secretions.
- Continue PPI therapy.
- CT A/P ordered-no CT evidence for an acute process in the chest, abdomen or pelvis. Positive intra-abdominal fat secondary to cachexia limiting evaluation.
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 Status post biopsy. Normal stomach and duodenum. May need upper endoscopy for surveillance based on path results. Outpatient manometric dysphagia
persist.
-Currently tolerating diet.
-Encourage oral hydration and intake
Benign Hypertension
- Monitor for now. Continue with lisinopril and hold Norvasc.
-With orthostatic hypotension, he is on amlodipine and lisinopril, as discussed nephrology continue to hold amlodipine, even orthostatic is resolved
Generalized Anxiety
- Patient acutely anxious re: illness and potential underlying diagnosis.
- States that he rarely takes buspirone at home.
- Will change his BuSpar to 5 mg twice daily supposed to be scheduled as needed.
- Continue nightly mirtazapine.
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
Suspected COPD
-Stable respiratory status.-
-Will need outpatient pulmonary follow-up.
Severe protein caloric malnutrition of chronic illness
Nutrition consult
Encourage oral intake
Sacral stage 2 PI
Wound care
Hypokalemia-replete/monitor
DVT Prophylaxis: lovenox
Code Status: Full
Dispo-family requesting SNF. Look like appeal was overturned and the places he was supposed to go is not taking COVID-patient as discussed with the case loader operator done looking for the alternative place
His condition discussed with the son in detail in the hospital and expressed understanding.
Anticipated Discharge: 24 - 48 hours
Subjective/Interval History
-
Date of Service: April 28, 2024
Seen and examined, awake and alert, sounds frustrated about being in the hospital full. Denies any complaint like chest pain or shortness of breath or fever or chill or any urinary or GI symptom, no cough or congestion.
Objective Data
-
Labs:
Laboratory Results
04/28/24
09:02
Sodium 138 D
Potassium 4.2
Chloride 96 L
Carbon Dioxide 35 H
BUN 12
Creatinine 0.6 L
Glucose 108 H
Calcium 8.5
Vital Signs:
Vital Signs
Temp Pulse Resp BP Pulse Ox
98.9 F 97 16 132/77 95
04/28/24 07:20 04/28/24 08:54 04/28/24 07:20 04/28/24 08:54 04/28/24 07:20
I&O
04/27/24 04/28/24 04/29/24
07:59 07:59 07:59
Intake Total 1200 / 1200 780 / 780
Output Total 1125 / 1125 1150 / 1150
Balance 75 / 75 -370 / -370
Review of Systems
-
All other systems: Reviewed and negative
--- NOTE | 2024-04-28 13:55 | W.PN.NEPH.PH ---
Today's Communication / Plan
-
FR and salt tab
Assessment/Plan
-
Assessment:
Hyponatremia
Hypertension
Anxiety
Failure to thrive
Dysphagia to solids
COPD
Plan:
Hyponatremia- initial U osmo low but repeat high at 508
underlying high ADH state from COPD
Did not tolerate well lasix with hypotension
sodium better post sasmca
cont FR and salt tab
If sodium worsens consider restart lasix at low dose vs Urea
monitor met alkalosis
encourage solute intake
TSH and cortisol were ok
Bp stable with meds, neg ortho vitals last night
d/w pt
-
-
Date of Service: April 28, 2024
CC / HPI / ROS
-
Chief Complaint:
Hyponatremia
History of Present Illness:
sodium better at 138 s/p samsca 04/21, 04/22, 04/23, 04/27
BP stable, neg orthovitals. was dizzy yesterday
k normal , COVID+ve 04/23 on Molnupiravir
s/p EGD 04/19
Review of Systems:
no n/v
no pain or sob , feels congested, cough moist and on O2
Labs
-
Labs:
WBC 6.7 10^3/uL (4.8-10.8) 04/19/24 03:55
RBC 3.47 10^6/uL (4.70-6.10) L 04/19/24 03:55
Hgb 11.4 g/dL (13.0-18.0) L 04/19/24 03:55
Hct 30.9 % (39.0-52.0) L 04/19/24 03:55
Plt Count 290 10^3/uL (130-400) D 04/19/24 03:55
Sodium 138 mmol/L (135-145) D 04/28/24 09:02
Potassium 4.2 mmol/L (3.5-5.1) 04/28/24 09:02
Chloride 96 mmol/L (98-107) L 04/28/24 09:02
Carbon Dioxide 35 mmol/L (22-30) H 04/28/24 09:02
BUN 12 mg/dl (9-20) 04/28/24 09:02
Creatinine 0.6 mg/dL (0.7-1.3) L 04/28/24 09:02
eGFR > 60.00 04/28/24 09:02
Glucose 108 mg/dl (70-99) H 04/28/24 09:02
Calcium 8.5 mg/dl (8.4-10.2) 04/28/24 09:02
Phosphorus 3.6 mg/dl (2.5-4.5) 04/28/24 09:02
Albumin 4.8 g/dl (3.5-5.0) 04/17/24 00:15
Physical Exam
-
Vital Signs:
Vital Signs
Temp Pulse Resp BP Pulse Ox
98.9 F 97 16 132/77 95
04/28/24 07:20 04/28/24 08:54 04/28/24 07:20 04/28/24 08:54 04/28/24 13:24
Cardiovascular:: Regular rate and rhythm
Respiratory:: Bilateral: Coarse
Lung Excursion:: Normal
Abdomen:: Nontender and Soft
Extremity Edema:: None: Bilateral:
Jeffrey Catheter: No
--- NOTE | 2024-04-28 15:30 | CM ---
Received call from Susana at [facility] that external reviewer overturned Tamra's denial for SNF. Auth # [id number], approved for 04/27/24 through to and including 04/30/24, Level 1, concurrent reviews to Colleen Cruz @ [phone] and Fax# is
[phone].
[facility] is no longer able to accept patient due to his Covid + status. They do not have a private room. This CM spoke with son who expressed understanding and requested CM send out blanket referrals. Referrals forwarded.
[2024-04-28] MEDS: LOVENOX 40 MG SC (17:29)
[2024-04-28] MEDS: TYLENOL 650 MG PO (17:34)
--- NOTE | 2024-04-28 18:07 | W.PN.UPDATE ---
Update Note
Progress Note Update
Hospitalist Cross Coverage Update:
Informed by nurse patient's pain from sacral wound uncontrolled, no improvement with Tylenol.
Avoided Tramadol Toradol given recent issues with hyponatremia just resolved.
Morphine 2mg Q6HPRN mod severe pain ordered
[2024-04-28] MEDS: REMERON 15 MG PO (23:04)
[2024-04-29] VITALS (8 sets, daily range): BP systolic 115–160; BP diastolic 62–87; PULSE 94–115; O2SAT 97; BMI 13.9
[2024-04-29] MEDS: MUCINEX 600 MG PO ×2 (09:35→20:13)
[2024-04-29] MEDS: ZESTRIL 20 MG PO (09:35)
[2024-04-29] MEDS: OSCAL 500 + D 500 MG PO (09:36)
[2024-04-29] MEDS: SODIUM CHLORIDE 1 GRAM PO ×2 (09:36→20:12)
[2024-04-29] MEDS: VITAMIN C 500 MG PO (09:36)
[2024-04-29] MEDS: BUSPAR 5 MG PO ×2 (09:36→20:12)
[2024-04-29] MEDS: PROTONIX 40 MG PO ×2 (09:36→20:13)
--- NOTE | 2024-04-29 11:48 | W.PN.HOSP.TC ---
Today's Communication/Plan
-
Discussed with the son last couple of day and expressed understanding
Discussed with the patient
Discussed with the nurse
Assessment / Plan
Assessment / Plan
Physical exam:
General: Awake, alert and oriented x3, not in distress and holds appropriate conversation.
HEENT: No active discharge, ecchymosis or bruising, moist lips, tongue and mucous membrane.
Respiratory: Normal AP contour and diameter, normal chest wall movement, normal respiratory effort, no respiratory distress,
Lungs: Good air entry bilaterally, no wheezing or rhonchi, no rales or crackles
Heart: S1, S2 regular, normal rate, no added sound.
Gastrointestinal: Positive bowel sounds, soft, nontender, no guarding or rigidity or organomegaly
Musculoskeletal: , no chest wall abnormality or tenderness. All joints and extremities have good range of motion, no muscle tenderness or any joint swelling or tenderness.
Extremities: No pitting edema, good peripheral pulses, good range of motion
Skin: Warm and dry, normal color. Lower back decub ulcer, stage I-II
Patient is a 73y M with PMH significant for hypertension, tobacco use, and anxiety who presents to ED complaining of weight loss and difficulty swallowing. Patient notes that he has been experiencing some mucus build-up in the throat, difficulty
swallowing and a burning sensation in his upper abdomen.
A/P: Patient is a 73y M with PMH significant for hypertension and anxiety who presents to ED complaining of difficulty swallowing and burning abdominal pain.
Hyponatremia
- Apparent acute on chronic hyponatremia with prior values in the low 120s and yesterday was 130 and today is 128. Yesterday while 138
Concern for high ADH because of COPD
- TSH and cortisol WNL; CXR with hyperinflated lungs
- Fluid restrict
- Cont with FR.
- Received 3% saline. Received multiple dose already. s/p 20mg lasix and received samsca 04/21 and again on 04/22 & 04/23 nephrology planning to give him some mask again
-Pending his progression may consider restarting Lasix at a lower dose per nephro
- Renal following
Sodium tab
COVID positive
-Tested positive 04/23/24
-Completed molnupiravir 2 days
-Contact and droplet isolation
-Cough medication and Tylenol as needed
Orthostatic positive
-Resolved
-As discussed with nephrology continue to hold his amlodipine for now given his pressure is mildly on the high side.
-No more dizziness.
Decub ulcer: The lower back stage I and II
Repositioning
Dressing change
Dysphagia / Abdominal Pain
GERD / GI Ulcers
Failure to thrive
- Patient with many months of burning abdominal discomfort, progressive difficulty swallowing and mucoid secretions.
- Continue PPI therapy.
- CT A/P ordered-no CT evidence for an acute process in the chest, abdomen or pelvis. Positive intra-abdominal fat secondary to cachexia limiting evaluation.
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 Status post biopsy. Normal stomach and duodenum. May need upper endoscopy for surveillance based on path results. Outpatient manometric dysphagia
persist.
-Currently tolerating diet.
-Encourage oral hydration and intake
Benign Hypertension
- Monitor for now. Pressure under good range.
Continue with lisinopril and hold Norvasc.
-With orthostatic hypotension, continue to hold amlodipine because of the orthostatic hypotension which is resolved and pressure in the good range as discussed with nephro
-Continue lisinopril
-Monitor pressure
Generalized Anxiety
- Patient acutely anxious re: illness and potential underlying diagnosis.
- States that he rarely takes buspirone at home.
- Will change his BuSpar to 5 mg twice daily supposed to be scheduled as needed.
- Continue nightly mirtazapine.
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
Suspected COPD
-Stable respiratory status.-
-Will need outpatient pulmonary follow-up.
Severe protein caloric malnutrition of chronic illness
Nutrition consult
Encourage oral intake
Hypokalemia-replete/monitor
DVT Prophylaxis: lovenox
Code Status: Full
Dispo-family requesting SNF. Look like appeal was overturned and the places he was supposed to go is not taking COVID-patient as discussed with the rn case management done looking for the alternative place
His condition discussed with the son last 2 days in detail in the hospital and expressed understanding.
Pending 20
Anticipated Discharge: 24 - 48 hours
Subjective/Interval History
-
Date of Service: April 29, 2024
Seen and examined, sitting on the chair, awake and alert, not in distress, still sounds frustrated unhappy that he is in the hospital, still coughing and congested, afebrile denies shortness of breath or chest pain or fever or chill. Eating and
drinking as fluctuating, denies any nausea or vomiting.
Objective Data
-
Vital Signs:
Vital Signs
Temp Pulse Resp BP Pulse Ox
98.6 F 105 14 124/66 95
04/29/24 11:05 04/29/24 11:05 04/29/24 11:05 04/29/24 11:05 04/29/24 11:05
I&O
04/28/24 04/29/24 04/30/24
07:59 07:59 07:59
Intake Total 780 / 780 780 / 780
Output Total 1150 / 1150 400 / 400
Balance -370 / -370 380 / 380
Review of Systems
-
All other systems: Reviewed and negative
--- NOTE | 2024-04-29 13:07 | W.PN.UPDATE ---
Addendum entered and electronically signed by Elana Perdue MD 04/29/24 16:44:
Reviewed labs, Na stable at 137. Cr perfect at 0.7.
No need for lasix at this time
We will sign off. Please call us back if any further questions
Original Note:
Update Note
Progress Note Update
no new labs today. will await updated blood work
[2024-04-29 14:03] LABS: Blood Urea Nitrogen 18 mg/dl (9-20); Carbon Dioxide 34 mmol/L (22-30); Chloride 94 mmol/L (98-107); Estimated Creatinine Clearance 57 ml/min; Glucose 150 mg/dl (70-99); Potassium 4.1 mmol/L (3.5-5.1); Sodium 137 mmol/L (135-145); eGFR > 60.00
--- NOTE | 2024-04-29 15:06 | CM ---
patient now going to [facility] tomorrow. i called muriel and changed facility .i spoke with adal key who told cm to keep same auth # [id number] from 04/27 through 05/02 .cont stay review mario alberto [phone].fax # [phone].call to solitario to
give her auth info.solitario told me if patient does not like facility they can transfer to [facility] when they have a bed available.spoke with son elton who is okay with transfer to [facility] tomorrow at 11 am.
phone number for report is [phone] and fax# [phone].
[2024-04-29] MEDS: LOVENOX 40 MG SC (17:26)
[2024-04-29] MEDS: REMERON 15 MG PO (22:58)
[2024-04-29] MEDS: ROBITUSSIN 200 MG PO (22:59)
[2024-04-29] MEDS: MELATONIN 3 MG PO (23:50)
[2024-04-30 03:00] VITALS: BP 146/69
[2024-04-30 05:55] LABS: Blood Urea Nitrogen 18 mg/dl (9-20); Calcium 8.4 mg/dl (8.4-10.2); Carbon Dioxide 37 mmol/L (22-30); Chloride 95 mmol/L (98-107); Estimated Creatinine Clearance 66 ml/min; Glucose 98 mg/dl (70-99); Magnesium 1.8 mg/dl (1.6-2.3); Potassium 3.9 mmol/L (3.5-5.1); Sodium 137 mmol/L (135-145); eGFR > 60.00
[2024-04-30 06:00] VITALS: BMI 13.3
[2024-04-30 07:15] VITALS: BP 140/72
[2024-04-30] MEDS: VITAMIN C 500 MG PO (08:30)
[2024-04-30] MEDS: MUCINEX 600 MG PO (08:30)
[2024-04-30] MEDS: OSCAL 500 + D 500 MG PO (08:31)
[2024-04-30] MEDS: BUSPAR 5 MG PO (08:31)
[2024-04-30] MEDS: ZESTRIL 20 MG PO (08:31)
[2024-04-30] MEDS: SODIUM CHLORIDE 1 GRAM PO (08:32)
[2024-04-30] MEDS: PROTONIX 40 MG PO (08:32)
--- NOTE | 2024-04-30 10:11 | W.PN.HOSP.TC ---
Today's Communication/Plan
-
bronchodilators and d/c
Assessment / Plan
Assessment / Plan
73yo M With PMHx HTN, depression came with chest congestion, was complaining of abdominal discomfort had CT done showed no suignificant intraabd pathology, CT chest with emphysema as patient is current smoker. Also 3mm RLL lung nodule that should
be followed with CT chest in 3-6mon - arlene was also informed of these findings. EGD done showed esofageal metaplasia and patient will need OP GI follow up. Hyponatremia 2/2 ADH due to COPD - improved on salt tabs and 40Oz fluid restriction.
Recommended to have weekly sodium level blood work for the next month. Found asymptomatic COVID-19. Medically stable for d/c to rehab that was already established.
A/P
#Hyponatremia 2/2 COPD
high ADH activity 2/2 COPD
Improved on 3% saline, FR to 40Oz and Lasix. Nephrology signed off
#COVID-19
not hypoxic, no indication for steroids
Started Molnupiravir
#Orthostatic hypotension
Resolved with cessation of Amlodipine
#Decubitus ulcer stage I and II
wound care
Not infected
Offloading
#Essential HTN
Medications modified
#HEIDI
Increased Buspar
#Pulmonary nodule 3mm RLL
#Emphysema 2/2 COPD
Bronchodilators
repeat CT in 3-6 mo
Pulm referral provided
#Abdominal discomfort
#Barrets esophagus
#GERD
resolved
PPI
GI followed - s/p EGD, found Barrets - outpatient regular follow up for monitoring, family aware
#Severe protein mlnutrition
Ensure encouraged
DVT ppx lovenox
FUll code
I have spent at least 57min reviewing chart, test results, communication with family and direct patient care
Anticipated Discharge: Today
Subjective/Interval History
-
Date of Service: April 30, 2024
Objective Data
-
Labs:
Laboratory Results
04/30/24
05:01
Sodium 137
Potassium 3.9
Chloride 95 L
Carbon Dioxide 37 H
BUN 18
Creatinine 0.6 L
Glucose 98
Calcium 8.4
Vital Signs:
Vital Signs
Temp Pulse Resp BP Pulse Ox
98.8 F 96 18 140/72 93
04/30/24 07:15 04/30/24 08:31 04/30/24 07:15 04/30/24 08:31 04/30/24 07:15
I&O
04/29/24 04/30/24 05/01/24
06:59 06:59 06:59
Intake Total 780 / 780 720 / 720
Output Total 400 / 400 650 / 650
Balance 380 / 380 70 / 70
Review of Systems
-
History Source: Patient
All other systems: Reviewed and negative
Respiratory: Reports Other (congestion)
Physical Exam
-
General: No Apparent Distress
HEENT: Normocephalic
Respiratory: Crackles
Cardiac: Regular Rhythm
GI: Soft, Nontender and Nondistended
Rectal: Brown
Skin: Warm
Neuro: Awake, Alert, Oriented and AO x 3
Psych: Calm
--- NOTE | 2024-04-30 10:19 | W.DCSUMMARY ---
Addendum entered and electronically signed by Tj Nichols MD 04/30/24 11:38:
With elevated proBNP - reasonable to d/c on the small dose of lasix
Original Note:
Discharge Summary
Discharge Data
Date of Admission: 04/17/24
Date of Discharge: 04/30/24
-
Pending Results: No
Hospital Course
73yo M With PMHx HTN, depression came with chest congestion, was complaining of abdominal discomfort had CT done showed no suignificant intraabd pathology, CT chest with emphysema as patient is current smoker. Also 3mm RLL lung nodule that should
be followed with CT chest in 3-6mon - arlene was also informed of these findings. EGD done showed esofageal metaplasia and patient will need OP GI follow up. Hyponatremia 2/2 ADH due to COPD - improved on salt tabs and 40Oz fluid restriction.
Recommended to have weekly sodium level blood work for the next month. Found asymptomatic COVID-19 completed Molupinavir. Medically stable for d/c to rehab that was already established.
I have spent at least 38min discharging the patient
Patient was managed for:
#Hyponatremia 2/2 COPD
#COVID-19
#Orthostatic hypotension
#Decubitus ulcer stage I and II
#Essential HTN
#HEIDI
#Pulmonary nodule 3mm RLL
#Emphysema 2/2 COPD
#Abdominal discomfort
#Barrets esophagus
#GERD
#Severe protein mlnutrition
Discharge Plan
-
Patient Disposition: Penitentiary/SNF
Discharge Diagnosis/Procedures: Hyponatremia
Condition: Good
Diet: Low Cholesterol
Other Services: PT and OT
Activity Restrictions/Additional Instructions:
Follow-up with manager drug safety for emphysema and pulmonary nodule.
Outpatient follow-up with a home care administrator regarding Porras esophagus
Monitor blood pressure closely, diary, call primary care pressure consistently above 130/75, amlodipine normal not because orthostatic hypotension if pressure consistently high then another agent may need to be considered.
Encourage oral hydration and intake.
Lower back decub ulcer stage I and II present, need wound management
Need regular checking of electrolytes and renal function
Referrals:
Clotilde Ambriz MD [Active] - None
Baldemar Santiago MD [Active] - in one to two weeks
Viv Casas MD [Active] - in two to three weeks
UNKNOWN - PT DOES,NOT KNOW [Family Provider] -
Prescriptions:
New
ascorbic acid (vitamin C) [Vitamin C] 500 mg Tablet
500 mg PO DAILY Qty: 30 0RF
sodium chloride 1,000 mg Tablet,Soluble
1,000 mg PO BID Qty: 60 0RF
guaifenesin [Mucus-Chest Congestion] 100 mg/5 mL liquid
200 mg PO Q4H PRN (Reason: Cough) Qty: 500 0RF
calcium carbonate-vitamin D3 [Oyster Shell Calcium-Vit D3] 500 mg-5 mcg (200 unit) Tablet
1 tab PO DAILY Qty: 30 0RF
pantoprazole [Protonix] 40 mg tablet,delayed release (DR/EC)
40 mg PO BID Qty: 60 0RF
Chloraseptic Sore Throat 6-10 mg Lozenge
1 silvano PO Q4HPRN PRN (Reason: SORE THROAT) Qty: 30 0RF
budesonide-formoterol [Symbicort] 160-4.5 mcg/actuation Hfa Aerosol Inhaler
2 puff inhalation R BID Qty: 20.4 0RF
Continued
mirtazapine 7.5 MG tablet
15 mg PO HS
buspirone 5 mg Tablet
5 mg PO DAILY PRN (Reason: Anxiety)
Lisinopril
20 mg PO DAILY Qty: 30 0RF
Discontinued
amlodipine 5 MG tablet
5 mg PO DAILY
Discharge Orders:
Discharge Patient (As Directed); Ordered 04/30/24
Ordered By: Tj Nichols
Discharge Date and Time
Print Language: EMIRATI
[2024-04-30 10:35] VITALS: BP 102/56
--- NOTE | 2024-04-30 10:36 | PTCARENOTE ---
Attempted to call [facility] twice for report, otolaryngology physician stated there is no available nurse to take report. Phone number to call directly to [facility] and name of patient provided, she stated she will let the nurse know to call back.
--- NOTE | 2024-04-30 11:11 | PTCARENOTE ---
pt's son Alfonso came out of the room without a mask on asking to talk to someone in charge of his father's care, visitor was instructed to put a mask on and refused saying that he doesn't believe in COVID and that all we are doing here is making him
worse. He asked if he could speak with the doctor to figure out what is going on with his care moving forward, MD made aware. Transport should be here within 30 minutes to picker tender patient, family member clearly very agitated with this RN.
--- NOTE | 2024-04-30 11:15 | CM ---
Reviewed the chart notes. Patient for discharge to [facility] today.
Call report to: [phone]
Fax report to: [phone]
Medical and transport forms previously completed and placed on the chart.
[2024-04-30 11:27] LABS: NT-proBNP 1520 pg/ml
== END 2024-04-30 11:54 | DRG 643 ==
LOC: 2 NORTH 02:34
PROVIDERS: Hospitalist; Internal Medicine; Nurse Practitioner Adult Health; Nurse Practitioner Family; Nurse Practitioner Gerontology; Specialist; Student in an Organized Health Care Education/Training Program; ADMITTING PHYSICIAN Hospitalist; ATTENDING PHYSICIAN Internal Medicine; CONSULT PHYSICIAN Internal Medicine Gastroenterology; CONSULT PHYSICIAN Specialist; EMERGENCY PHYSICIAN Emergency Medicine
PROC: 0DB38ZX Excision of Lower Esophagus, Via Natural or Artificial Opening Endoscopic, Diagnostic (ICD-10-PCS; 2024-04-19)
PROC: 3E0DXGC Introduction of Other Therapeutic Substance into Mouth and Pharynx, External Approach (ICD-10-PCS; 2024-04-23)
DX: E22.2 Syndrome of inappropriate secretion of antidiuretic hormone (principal); E43 Unspecified severe protein-calorie malnutrition; U07.1 COVID-19; Z68.1 Body mass index [BMI] 19.9 or less, adult; R64 Cachexia; J44.9 Chronic obstructive pulmonary disease, unspecified; J43.9 Emphysema, unspecified; R91.1 Solitary pulmonary nodule; K22.70 Barrett's esophagus without dysplasia; I95.1 Orthostatic hypotension; I10 Essential (primary) hypertension; K21.9 Gastro-esophageal reflux disease without esophagitis; L89.152 Pressure ulcer of sacral region, stage 2; R62.7 Adult failure to thrive; D64.9 Anemia, unspecified; F17.210 Nicotine dependence, cigarettes, uncomplicated; F41.1 Generalized anxiety disorder; F32.A Depression, unspecified; Z79.899 Other long term (current) drug therapy
CPT/HCPCS: 88305; 71046; 71260; 74177; 80048; 80053; 81003; 82306; 82533; 83735; 83880; 83930; 83935; 84100; 84295; 84300; 84443; 85025; 85027; 85610; 87070; 87205; 87811; 92610; 96360; 96361; 97110; 97116; 97163; 97167; 97530; 97535; 99291; Q9967

== ENCOUNTER 2024-06-12 19:25 | Inpatient (IN) | payer OTHER, SELFPAY ==
[2024-06-12] VITALS (11 sets, daily range): BP systolic 130–222; BP diastolic 57–107; BMI 12.8; BMI 13.2
[2024-06-12 14:49] LABS: % Basophils 0.3 % (0-2); % Eosinophils 0.1 % (0-6); % Immature Granulocytes 0.7 % (0-0.5); % Monocytes 5.7 % (1.7-9.3); % Neutrophils 88.2 % (42.2-75.2); Absolute Immature Granulocytes 0.1 10^3/uL (0-0.05); Absolute Lymphocytes 0.8 10^3/uL (1.2-3.4); Absolute Monocytes 0.9 10^3/uL (0.1-0.6); Absolute Neutrophils 13.1 10^3/uL (1.4-6.5); Hematocrit 31.9 % (39.0-52.0); Hemoglobin 11.4 g/dL (13.0-18.0); Mean Corp Hgb Conc. 35.7 g/dL (33.0-37.0); Mean Corpuscular Hgb 31.8 pg (27.0-31.0); Mean Corpuscular Volume 88.9 fL (80.0-94.0); Mean Platelet Volume 8.3 fL (7.4-10.4); Nucleated Red Blood Cells % 0 % (-); Platelet Count 238 10^3/uL (130-400); Red Blood Cell Count 3.59 10^6/uL (4.70-6.10); Red Cell Dist. Width 14.1 % (11.5-14.5); White Blood Cell Count 14.9 10^3/uL (4.8-10.8)
[2024-06-12] MEDS: NSS 1000 IV (14:51)
[2024-06-12] MEDS: MORPHINE SULFATE 4 MG IV (14:51)
[2024-06-12 15:05] LABS: Blood Urea Nitrogen 13 mg/dl (9-20); Calcium 8.7 mg/dl (8.4-10.2); Carbon Dioxide 25 mmol/L (22-30); Chloride 89 mmol/L (98-107); Estimated Creatinine Clearance 62 ml/min; Glucose 133 mg/dl (70-99); Sodium 124 mmol/L (135-145); eGFR > 60.00
[2024-06-12 15:17] LABS: APTT 27.3 Sec (23.4-35.0)
[2024-06-12 15:28] LABS: Troponin I < 0.012 ng/ml
[2024-06-12 15:32] LABS: ALT (SGPT) 19 U/L (0-50); AST (SGOT) 23 U/L (17-59); Albumin 3.9 g/dl (3.5-5.0); Alkaline Phosphatase 80 U/L (38-126); Blood Urea Nitrogen 13 mg/dl (9-20); Calcium 8.9 mg/dl (8.4-10.2); Carbon Dioxide 29 mmol/L (22-30); Chloride 88 mmol/L (98-107); Estimated Creatinine Clearance 53 ml/min; Glucose 132 mg/dl (70-99); Potassium 4.7 mmol/L (3.5-5.1); Sodium 125 mmol/L (135-145); Total Bilirubin 0.6 mg/dl (0.2-1.3); Total Protein 6.4 g/dl (6.3-8.2); eGFR > 60.00
[2024-06-12] MEDS: DILAUDID 1 MG IV ×2 (16:46→18:20)
[2024-06-12] MEDS: TRANDATE 20 MG IV (17:10)
--- NOTE | 2024-06-12 17:25 | ED.GENMED ---
History of Present Illness
General
Chief Complaint: Fall
Time Seen by Provider: 06/12/24 14:31
History of Present Illness
History of Present Illness:
74-year-old male with history of emphysema/COPD, recent COVID-19 infection, history of hyponatremia from ADH presenting to the emergency department after a fall. Patient reports that he has been feeling generally weak and fatigued. Today he had 2
falls, denies any head strike or loss of consciousness. He denies any blood thinners. Notes overall decreased p.o. intake, however this is chronic secondary to issues with his esophagus. He also notes that he has been taking sodium pills from his
hyponatremia, recent admission from 04/17 to 04/30. The sodium pills are making him urinate multiple times throughout the night, so he has been sleepy for this reason. Today, believes that he tripped on a rug which caused him to fall, landed on his
left hip. Patient arrives with obvious deformity to the left hip, notes pain. Denies numbness or tingling. Denies fever or recent illness. After recent hospital admission, was transferred to a SNF, and then discharged home. Denies additional
acute medical complaints
Past History
Past History
ED Past Medical History: COPD, GERD (PUD) and HTN
ED Past Surgical History: None
Social History
Tobacco: Smoker
Alcohol: Former (doesn't drink any more)
Drug: None
Personal: Single
Living: alone
Phy Exam
Physical Exam
Physical Exam:
General: Cachectic
HEENT: protecting airway
Neck: appears supple, no midline tenderness
CV: Normal heart rate, regular rhythm, no evidence of cyanosis
Resp: No accessory muscle use, no increased work of breathing, lungs clear to auscultation bilaterally
Abd: Soft and non-distended, no tenderness to palpation
Extremities: Externally rotated and shortened left hip. Distal sensation and pulses intact. Tenderness to left hip region with limited range of motion
Neuro: alert, no focal neurologic deficit
: deferred
Rectal: deferred
Psych: Normal affect
Skin: Intact
Course
Orders/Labs/Results
Orders:
Orders
06/12/24 14:39
EKG [Electrocardiogram (*1)] Urgent
Reason for Study: Vertigo / Dizzy
06/12/24 14:41
EKG- Treatment ONCE
06/12/24 14:42
Basic Metabolic Panel Urgent
Complete Blood Count/With Diff Urgent
06/12/24 14:44
0.9% Sodium Chloride 1000 ml [Nss] 1,000 ml IV BOLUS
Morphine Sulfate 4 mg IV NOW STA
Hip, Left 2-3 Views [CR Hip - LT w/wo Pel 2-3 Vw*] Urgent
Comment:
Reason For Exam: deformity after fall
Include a pelvis x-ray?: Yes
06/12/24 14:46
Electrocardiogram (*1) Stat
Reason for Study: Other
Other Reason for Exam: chest pain
CT Head W/o Iv Contrast Urgent
Comment:
Reason For Exam: fall, unwitnessed
EKG- Treatment ONCE
06/12/24 14:48
Add On- LAB Urgent
Tests Added?: magnesium
06/12/24 14:54
PTT Urgent
Prothrombin Time Urgent
Troponin I Urgent
06/12/24 14:59
Comprehensive Metabolic Panel Routine
06/12/24 16:41
HYDROmorphone [Dilaudid] 1 mg IV NOW STA
06/12/24 17:06
Labetalol HCl [Trandate] 20 mg IV NOW STA
06/12/24 18:19
HYDROmorphone [Dilaudid] 1 mg .ROUTE .STK-MED ONE
06/12/24 18:20
HYDROmorphone [Dilaudid] 1 mg IV NOW STA
06/12/24 18:21
Urinalysis Reflex To Culture Urgent
Date Specimen was Collected: 06/12/24
Time Specimen was Collected: 18:21
Comment: Straight Cath
Abnormal Lab Results
06/12/24 06/12/24
14:42 14:59
WBC 14.9 H 10^3/uL
(4.8-10.8)
RBC 3.59 L 10^6/uL
(4.70-6.10)
Hgb 11.4 L g/dL
(13.0-18.0)
Hct 31.9 L %
(39.0-52.0)
MCH 31.8 H pg
(27.0-31.0)
Abs Immat Gran (auto) 0.1 H 10^3/uL
(0-0.05)
Absolute Neuts (auto) 13.1 H 10^3/uL
(1.4-6.5)
Absolute Lymphs (auto) 0.8 L 10^3/uL
(1.2-3.4)
Absolute Monos (auto) 0.9 H 10^3/uL
(0.1-0.6)
Immature Gran % 0.7 H %
(0-0.5)
Neutrophils % 88.2 H %
(42.2-75.2)
Lymphocytes % 5.0 L %
(20.5-51.1)
Sodium 124 L mmol/L 125 L mmol/L
(135-145) (135-145)
Chloride 89 L mmol/L 88 L mmol/L
(98-107) (98-107)
Creatinine 0.6 L mg/dL
(0.7-1.3)
Glucose 133 H mg/dl 132 H mg/dl
(70-99) (70-99)
06/12/24 14:42
06/12/24 14:59
Vital Signs
Initial and Last Documented VS:
Initial Vital Signs
BP
130/75
06/12/24 14:30
Last Documented Vital Signs
Temp Pulse Resp BP Pulse Ox
97.8 F 75 13 215/102 95
06/12/24 14:44 06/12/24 18:15 06/12/24 18:15 06/12/24 17:10 06/12/24 17:00
MDM/Problems Addressed
MDM/Problems Addressed:
74-year-old male with history of hyponatremia from ADH and COPD presenting after a fall. Vital signs on arrival are significant for hypertension.
On exam, patient is very cachectic in appearance. No physical signs of trauma to the head, GCS of 15. Patient denies head strike, however 2 unwitnessed falls and very brittle in appearance. For this reason we will obtain CT brain imaging. No
midline cervical tenderness. Patient notes that he fell because he tripped on a rug and has been tired because his sodium pills have been keeping him up at night due to frequent urination. However, known history of hyponatremia. Will obtain
laboratory analysis to ensure no worsening of electrolytes. Obvious deformity to the left hip with suspected hip fracture. Will obtain x-ray imaging. No current neurovascular compromise.
17:20 - CT brain without acute intracranial abnormality. X-ray of the hip does show positive hip fracture. Will continue to control pain. Sodium is low, however appears to be close to baseline. Will discuss with orthopedics regarding hip
fracture with plan for admission.
*Critical Care Note
Total Time (30-74mins, 75-104mins- exclusive of procedures): Not Applicable
ED Attending Note
-
Portions of this chart may have been created with voice recognition software.� Occasional wrong word or��sound alike� substitutions may have occurred due to the inherent limitations of voice recognition software.
Discharge Plan
Departure
Patient Disposition: Admit
Date of Disposition: 06/12/24
Time of Disposition: 17:38
Presentation/result/management discussed w/ accepting MD/DO: Hospitalist
Patient with high blood pressure during this ER visit?: Yes
Condition: Fair
Discharge Problem:
Closed fracture of left hip, Chronic hyponatremia
Prescriptions:
No Action
mirtazapine 7.5 MG tablet
15 mg PO HS
buspirone 5 mg Tablet
5 mg PO DAILY PRN (Reason: Anxiety)
ascorbic acid (vitamin C) [Vitamin C] 500 mg Tablet
500 mg PO DAILY Qty: 30 0RF
sodium chloride 1,000 mg Tablet,Soluble
1,000 mg PO BID Qty: 60 0RF
guaifenesin [Mucus-Chest Congestion] 100 mg/5 mL liquid
200 mg PO Q4H PRN (Reason: Cough) Qty: 500 0RF
calcium carbonate-vitamin D3 [Oyster Shell Calcium-Vit D3] 500 mg-5 mcg (200 unit) Tablet
1 tab PO DAILY Qty: 30 0RF
pantoprazole [Protonix] 40 mg tablet,delayed release (DR/EC)
40 mg PO BID Qty: 60 0RF
Chloraseptic Sore Throat 6-10 mg Lozenge
1 silvano PO Q4HPRN PRN (Reason: SORE THROAT) Qty: 30 0RF
budesonide-formoterol [Symbicort] 160-4.5 mcg/actuation Hfa Aerosol Inhaler
2 puff inhalation R BID Qty: 20.4 0RF
Referrals:
Jordan Hernández MD [Family Provider] -
Interventions
Interventions:
*Risk Screen - Suicide Last Done: 06/12/24 14:36
*General Assessment Last Done: 06/12/24 14:36
*Neglect/Abuse Screening Last Done: 06/12/24 14:36
ED- Fall Risk Assessment Last Done: 06/12/24 14:36
*ED COVID-19 Vaccine History Last Done: 06/12/24 14:36
ED-Musculoskeletal Assessment Last Done: 06/12/24 14:44
ED- Neurological Assessment Last Done: 06/12/24 14:44
ED-Skin Assessment Last Done: 06/12/24 14:44
Discharge Date and Time
Print Language: ALBANIAN
[2024-06-12 18:29] LABS: Urine Albumin Negative (Neg - Trace); Urine Bilirubin Negative (Negative); Urine Character Clear (Clear); Urine Color Yellow; Urine Glucose Negative (Negative); Urine Ketone Trace (Negative); Urine Leukocyte Negative (Negative); Urine Nitrite Negative (Negative); Urine Occult Blood Negative (Negative); Urine Specific Gravity 1.015 (<1.030); Urine Urobilinogen Negative (Neg - 1+)
--- NOTE | 2024-06-12 18:35 | PHANOTE ---
med rec note- unable to find lasix 20mg daily oon discharge paperwork, was on patient med summary list. patient has yes and no answer to if he is taking. patient thinks he takes it daily at 1200pm but not sure, patient has not pharmacy fill for it
or ecw.
--- NOTE | 2024-06-12 18:58 | HPS.HSE ---
Family Physician
-
Family Physician: Jordan Hernández
Chief Complaint
-
Mechanical fall leading into left femoral neck fracture.
History of Present Illness
Patient was here a month ago for dysphagia, hyponatremia workup.
He says ever since he went home on sodium chloride tablets he is starting to notice increased frequency of urine. There is also nocturia. Last night he had to wake a few times to urinate. He was feeling tired. He came down to the first floor.
He was sitting in the chair when he got up to go to the kitchen to get something he tripped on his carpet fell now onto the left side of the body and and sustained above-mentioned fracture. No loss of consciousness.
Still weak which he thinks is because of frequency of urine. Denies any prior history of prostate problems. Denies any dysuria. Some urgency to his frequency.
Her major complaint is still swallowing difficulty. When he initiates swallow he feels congested in his throat. He says he is not able to even manage bread. Seems to be intermittent. Denies any diplopia. Denies any prior history of stroke.
Medical History
Past Medical History
Past Medical History: Reports Other
Additional Past Medical History:
Hypertension
Generalized Anxiety
GERD / Ulcers
Chronic Hyponatremia
Past Surgical History: Reports None
Social History
Tobacco: Smoker (Current every day smoker. Approx 3 cigarettes per day at present. Total > 50 pack years.)
Alcohol: None
Drug: None
Family History
Family History: Other (Father: 'Black Lung')
Allergies / Home Medications
Allergies reflects when Allergies were last updated in [email or web address].
Home Medications with original date entered in [email or web address]
Allergy/Medication List:
Allergies
Allergy/AdvReac Type Severity Reaction Status Date / Time
Penicillins Allergy Unknown Verified 12/06/22 16:07
Home Medications
Lisinopril 20 mg PO DAILY 09/10/19
amlodipine 5 mg tablet 5 mg PO DAILY 09/10/19
mirtazapine 7.5 mg tablet 15 mg PO HS 09/13/20
buspirone 5 mg tablet 5 mg PO DAILY PRN Anxiety 04/17/24
Review of Systems
-
A 12 point ROS was completed and negative except as noted: Yes
Physical Exam
Vital Signs
Vital Signs
Temp Pulse Resp BP Pulse Ox
97.8 F 70 10 215/102 95
06/12/24 14:44 06/12/24 18:45 06/12/24 18:45 06/12/24 17:10 06/12/24 17:00
Physical Exam
HEENT: Moist mucous membranes
Respiratory: Clear and Non Labored Respirations; No Accessory Resp Muscle Use
Cardiac: S1/S2 and Regular Rhythm
GI: Soft, Non Tender, No Hepatosplenomegaly and Other (cachectic)
Musculoskeletal: No Edema
Neuro: AO x 3 and No Motor Deficits (didnt check left leg); No Slurred Speech or Facial Droop
Psych: Calm; No Confused
Laboratory Results
-
06/12/24 14:42
06/12/24 14:59
Laboratory Results
PT 13.0 Sec (11.4-14.6) 06/12/24 14:54
INR 1.00 06/12/24 14:54
APTT 27.3 Sec (23.4-35.0) 06/12/24 14:54
Total Bilirubin 0.6 mg/dl (0.2-1.3) 06/12/24 14:59
AST 23 U/L (17-59) 06/12/24 14:59
ALT 19 U/L (0-50) 06/12/24 14:59
Alkaline Phosphatase 80 U/L (38-126) 06/12/24 14:59
Troponin I < 0.012 ng/ml 10/06/24 14:54
Data Reviewed
-
Diagnostic Radiology: Report Reviewed by me (xray left hip)
Lab Data: Labs Reviewed by me
Impression/Plan
-
Mechanical fall leading to a left subcapital femoral neck fracture-consult Ortho was surgery. Continue with pain regimen initiated in the ER.
Persistent severe hyponatremia-will start on fluid restriction. Continue sodium tablets. Consult nephrology.
Dysphagia-seems to be oropharyngeal based on the history. He had recent endoscopy which showed Porras's esophagus but no obstruction. Will get a speech eval and also video swallow. To consider neurological dysphagia evaluation depending on VSE.
Koolaxnmqenu-jflcpcdxkaan-afphvom if its because of the pain. Patient got IV labetalol. Resume his oral regimen of KAPIL inhibitor's and follow.
Porras's esophagus-continue with PPI
Full code
--- NOTE | 2024-06-12 19:48 | EDRN ---
Brent([facility]): [phone]
--- NOTE | 2024-06-12 20:25 | CON.ORTHO ---
Consultation
-
Date/Time Consultation Requested: 06/12/2024
Date/Time Consultation Performed: 06/12/2024
Requesting Provider: Not listed at time of dictation
Performing Provider: Sharon Jaeger PA-C, for Dr. Julio Talamantes
Reason for Consultation: Left hip subcapital fracture
Consultation - Orthopedics
History
History of present illness. This is a 74-year-old male who presented to [facility] via EMS after tripping at home earlier this morning and landing on his left hip. He experienced immediate pain and inability to ambulate. He was able to
call for help and was brought to the emergency department where x-ray showed evidence of a subcapital left hip fracture. He is currently being treated for hyponatremia and has been taking sodium tablets. He believes these are causing him to
urinate 6-7 times per night, which has had made him more fatigued throughout the day, which he believes led to his fall. He does have a history of dysphagia and more recent decreased oral intake due to swallowing issues. His son, Brent, was also
present during examination and reports more rapid weight loss recently. He does admit to smoking anywhere from 1 to 3 cigarettes/day. He is complaining of pain with motion of his left hip. Our orthopedic specialty was contacted and to discuss
definitive management of his left hip fracture going forward.
Past medical history: Significant for COPD, GERD, hypertension, recent hospitalization for hyponatremia followed by COVID infection.
Past surgical history: None listed.
Social history: Current tobacco smoker, admits to 1 to 3 cigarettes/day. Denies alcohol consumption. Lives alone.
Family history: Noncontributory.
Review of systems: Unable to obtain secondary to somnolence.
Allergies / Home Medications
Allergy/AdvReac Type Severity Reaction Status Date / Time
Penicillins Allergy Unknown Verified 06/12/24 14:31
�Medication �Instructions �Recorded
mirtazapine 7.5 mg tablet 15 mg PO HS depression/sleep 09/13/20
buspirone 5 mg tablet 5 mg PO DAILY Anxiety 04/17/24
ascorbic acid (vitamin C) 500 mg 500 mg PO DAILY #30 tabs 04/29/24
tablet (Vitamin C)
sodium chloride 1,000 mg soluble 1,000 mg PO BID #60 tabs 04/29/24
tablet
budesonide-formoterol HFA 160 2 puff inhalation R BID #20.4 grams 04/30/24
mcg-4.5 mcg/actuation aerosol
inhaler (Symbicort)
cyanocobalamin (vitamin B-12) 1,000 mcg PO DAILY 06/12/24
1,000 mcg tablet
lisinopril 20 mg tablet 20 mg PO DAILY 06/12/24
pantoprazole 20 mg tablet,delayed 20 mg PO BID 06/12/24
release (Protonix)
Vital Signs / Lab Results
Temp Pulse Resp BP Pulse Ox
97.8 F 70 10 215/102 95
06/12/24 14:44 06/12/24 18:45 06/12/24 18:45 06/12/24 17:10 06/12/24 17:00
06/12/24 14:42
06/12/24 14:59
Weight: 40.4 kg.
BMI: 12.8 kg/m�.
Physical examination:
General: Cachectic, ill-appearing male in obvious distress with any little motion of his hip. Somnolent on exam, but able to appropriately answer questions.
HEENT: Atraumatic, normocephalic, neck supple.
Lungs: Nonlabored breathing on room air.
Heart: Regular rate and rhythm.
Left hip: Tenderness to palpation about the lateral hip. No obvious swelling or ecchymosis. Lower extremity in external rotation. Calf soft and nontender to palpation. Range of motion of hip not tested. Neurovascular tact distally.
Radiographic studies:
X-rays of the left hip show evidence of the femoral shaft superiorly displaced relative to the femoral neck, suggesting left subcapital fracture. Mild joint space narrowing.
Assessment / Plan
Assessment: Left hip subcapital fracture.
Plan: Unfortunately, Niko sustained a left hip fracture during his fall earlier today. A lengthy discussion was had with both the patient, as well as his son Brent, about treatment recommendations going forward to include both surgical and
nonsurgical interventions. At this time, recommendation is to proceed with a left hip hemiarthroplasty under the direction of Dr. Talamantes. This will be pending medical optimization as well as or availability, but our hope is to proceed on Thursday
afternoon or Thursday. He was noted to be hyponatremic, so nephrology has been consulted. I did reach out to Dr. Álvarez, who is awaiting blood pressure stabilization and EKG results to further determine clearance for timing of operative
intervention. The procedure was explained in detail with the patient and his son to include risks, benefits, and recovery process. Patient was too somnolent to sign consents this evening, but I did have his son sign the consent in the event that
he is unable to make this decision going forward. Will reassess how he is doing in the morning and see if he can sign his consent for surgery. Patient is severely malnourished and has esophageal issues that make it difficult to obtain adequate
nutrition. Orders for swallow studies have been placed to further investigate this. We discussed that this does put him at elevated risk for postoperative infection as well as wound healing issues. We discussed that it could also slow down his
recovery process. His left hip was marked as the correct surgical site. IV antibiotics and irrigation are on-call to the OR. He has been made n.p.o. after the night tonight in the event he is cleared to proceed with surgery tomorrow. All
questions were answered and patient and son were in agreement with treatment recommendations.
[2024-06-12] MEDS: SYMBICORT 160/4.5 MCG INHALER 2 PUFF INH (21:18)
[2024-06-12] MEDS: COLACE 100 MG PO (21:38)
[2024-06-12] MEDS: SODIUM CHLORIDE 1 GRAM PO (21:39)
[2024-06-12] MEDS: SENOKOT 17.2 MG PO (21:39)
[2024-06-12] MEDS: TYLENOL 650 MG PO (21:39)
[2024-06-12] MEDS: REMERON 15 MG PO (21:39)
[2024-06-12] MEDS: PROTONIX 20 MG PO (21:39)
[2024-06-12] MEDS: APRESOLINE 5 MG IV (21:43)
[2024-06-12 22:40] LABS: Osmolality Urine 273 mOsm/kg (300-900)
[2024-06-12 22:47] LABS: Uric Acid 2.7 mg/dl (3.5-8.5)
[2024-06-12 23:14] LABS: Urine Sodium 107 mmol/L (30-90)
[2024-06-12 23:33] LABS: Uric Acid 2.9 mg/dl (3.5-8.5)
[2024-06-13] VITALS (10 sets, daily range): BP systolic 86–134; BP diastolic 43–70; BMI 13.2
[2024-06-13] MEDS: ROXICODONE 5 MG PO (00:27)
[2024-06-13] MEDS: TYLENOL PO ×2 (00:38→04:01)
[2024-06-13] MEDS: FLOMAX 0.4 MG PO (01:16)
[2024-06-13] MEDS: DILAUDID 0.25 MG IV ×3 (03:23→22:17)
--- NOTE | 2024-06-13 05:08 | PTCARENOTE ---
20:15pt rec'vd from ER hypertensive b/p 210/104, hr 89, pt is aaox3, pt is cachectic, LLE ext rotated, is on bedrest. q2hr turns , skin noted with several stage 1 and DTI on coccyx, areas dressed with foam dressing. oriented to unit
--- NOTE | 2024-06-13 05:12 | PTCARENOTE ---
21:45 pt rec'vd prn hydralazine, re-assessed b/p approx an hour post social media senior associate manual 130/62 hr 80
[2024-06-13] MEDS: SYMBICORT 160/4.5 MCG INHALER 2 PUFF INH ×2 (07:35→19:58)
[2024-06-13] MEDS: SENOKOT 17.2 MG PO ×2 (08:05→19:35)
[2024-06-13] MEDS: SODIUM CHLORIDE 1 GRAM PO ×2 (08:05→19:37)
[2024-06-13] MEDS: TYLENOL 650 MG PO ×4 (08:05→19:35)
[2024-06-13] MEDS: PROTONIX 20 MG PO ×2 (08:05→19:35)
[2024-06-13] MEDS: BUSPAR 5 MG PO (08:05)
[2024-06-13] MEDS: COLACE 100 MG PO ×2 (08:05→19:35)
--- NOTE | 2024-06-13 08:36 | W.PN.HOSP.TC ---
Today's Communication/Plan
-
Cardiology consult. Speech therapy eval. Dietitian eval. Plan for hip surgery
Assessment / Plan
Assessment / Plan
Physical exam:
General: Underweight and chronically ill
HEENT: Normocephalic, Atraumatic and Moist Mucous Membranes
Respiratory: Decreased breath sounds bilateral; Negative Wheezes, Rales or Rhonchi
Cardiac: Regular Rhythm and S1/S2
GI: Soft, Nontender and Nondistended
Musculoskeletal: Tenderness in the left lateral hip area. Left lower extremity externally rotated and shortened. No Clubbing, No Cyanosis and No Edema
Neuro: Awake, Alert and Oriented
Psych: Calm
A/P:
Left hip fracture:
Likely etiology due to mechanical fall
Appreciate orthopedic consult
Discussed with orthopedic today
Continue pain control
Plan for hip surgery either later today or tomorrow
Updated son over today, Brent.
Preop eval:
Discussed with orthopedic given EKG changes, I will request cardiology eval for preop risk stratification.
Seen twelve-lead EKG by myself done yesterday and EKG with new T wave inversions in V2-V3 although chest pain-free.
Cardiology consulted-discussed with cardiology via [facility] text today
Hypotension:
Likely volume depletion and medications related.
Bolus normal saline 250 mL today.
Holding parameters on his antihypertensives and would hold KAPIL inhibitor on day of surgery if not done today (already given today). He was significantly hypertensive upon admission though.
Continue to monitor blood pressure closely
Hypertension:
Continue home antihypertensives.
Monitor blood pressure and adjust medications accordingly.
Anemia:
Hemoglobin 11.4 yesterday upon admission
Repeated hemoglobin today is 11.1
Continue to monitor hemoglobin as appropriate
Dysphagia:
Clear etiology has not been elucidated yet. He had recent workup and recent admission and as outpatient as well. Family mention no neurological workup yet except for CT of the head last night.
VSE ordered but patient declines today but can do it some other time.
Speech therapy evaluated the patient and okay with IDDSI level 4
He did have an upper endoscopy back in April and they recommended manometry studies that has not been done as outpatient yet as per my discussion with son today. Will need follow-up with GI as outpatient.
Neurology consult today-discussed with neurology today via [facility] text
Monitor for signs of aspiration
Chronic hyponatremia with some worsening component:
Sodium 124 upon admission--> 128 today
On salt tablets 1 g p.o. twice a day
Urine sodium 107, urine osmolarity 273, uric acid 2.9, TSH and cortisol not checked.
Nephrology consulted
Severe protein calorie malnutrition:
BMI of 13
Cachectic on exam
Dietitian evaluation
Porras's esophagus/GERD:
Continue PPI
COPD:
Continue Symbicort
Severity has not been established and I recommend PFT as outpatient-discussed with son today about the need for this as outpatient pulmonary follow-up.
Monitor respiratory status closely
Depression anxiety:
Continue mirtazapine 15 mg p.o. nightly
Continue BuSpar 5 mg p.o. daily
DVT prophylaxis:
Lovenox SQ
CODE STATUS:
Full code
Total time spent on today's encounter was 52 minutes which included time spent in counseling the patient/family regarding diagnosis and treatment plan as listed above, goals of care, and symptom management. Case was discussed with nursing staff,
specialists, and care coordinators/case management. All labs and imaging personally reviewed by me. Remainder the time spent in detailed review of previous records, lab data, imaging, and other medical provider documentation.
Anticipated Discharge: > 48 hours
Subjective/Interval History
-
Date of Service: June 13, 2024
Patient denies any chest pain or shortness of breath today. Looks frail overall.
Objective Data
-
Vital Signs:
Vital Signs
Temp Pulse Resp BP Pulse Ox
97.5 F 89 16 117/57 100
06/13/24 07:31 06/13/24 07:39 06/13/24 07:39 06/13/24 07:31 06/13/24 07:39
I&O
06/12/24 06/13/24 06/14/24
06:59 06:59 06:59
Intake Total 200 / 200
Output Total 510 / 510
Balance -310 / -310
[2024-06-13] MEDS: ZESTRIL 20 MG PO (08:44)
--- NOTE | 2024-06-13 08:45 | PTOTSP ---
Speech Language Pathology
Pt seen for clinical bedside swallow evaluation. Known to PLANT ENGINEER service at from admission in April 2024. Recommendations were for regular solids/thin liquids, and complaints thought to be esophageal related with EGD completed that admission.
This date, pt unable to sit upright for evaluation given pain in hip and buttocks. P.O. trials of puree and thin liquids provided. Adequate oral phase with limited consistencies trialed. Significantly audible swallow noted, likely indicative of
incoordination. Multiple swallows per bolus noted, likely indicative of pharyngeal residue. Cough with 1/5 trials of thin liquids, suspect aspiration. Pt stated this does not typically happen at home. He endorsed globus sensation above level of
sternal notch, typically only with solids, at home. He stated this has gotten progressively worse since admission in April.
Pt is at risk for aspiration given positioning and general deconditioning. VSE ordered by MD and PLANT ENGINEER in agreement. Pt stated he is unable to tolerate this date given pain. Plan for OR 06/14, so VSE will be considered 06/15 at the earliest.
Recommend:
(1) VSE when able to tolerate
(2) IDDSI Level 4 (Puree) and Thin liquids for now
(3) Aspiration precautions: sit as upright as possible, slow rate, single sips
(4) Meds as tolerated
(5) PLANT ENGINEER to continue to follow
[2024-06-13 09:29] LABS: Hematocrit 31.8 % (39.0-52.0); Hemoglobin 11.1 g/dL (13.0-18.0); Mean Corp Hgb Conc. 34.9 g/dL (33.0-37.0); Mean Corpuscular Hgb 32.5 pg (27.0-31.0); Mean Platelet Volume 8.4 fL (7.4-10.4); Platelet Count 216 10^3/uL (130-400); Red Blood Cell Count 3.42 10^6/uL (4.70-6.10); Red Cell Dist. Width 14.2 % (11.5-14.5)
[2024-06-13 10:02] LABS: Blood Urea Nitrogen 18 mg/dl (9-20); Calcium 8.6 mg/dl (8.4-10.2); Carbon Dioxide 24 mmol/L (22-30); Chloride 91 mmol/L (98-107); Estimated Creatinine Clearance 53 ml/min; Glucose 80 mg/dl (70-99); Potassium 4.6 mmol/L (3.5-5.1); Sodium 128 mmol/L (135-145); eGFR > 60.00
--- NOTE | 2024-06-13 10:18 | W.PN.UPDATE ---
Update Note
Progress Note Update
Patient tentatively for left hip hemiarthroplasty tomorrow, 14 June 2024 under the direction of Dr. Talamantes, assuming he is cleared medically. Appreciate Drs. Álvarez and Jake. He should continue at bedrest. Pain medicine as needed. Ice to the left
hip. NPO pMN tonight. Will follow. OR aware
--- NOTE | 2024-06-13 10:24 | CON.CAR ---
Addendum entered and electronically signed by Alessandro Vaca MD (Ellie) 06/13/24 12:01:
I saw and examined the patient.
The CELLULAR EQUIPMENT REPAIRER's note was reviewed and I agree with the note.
Comment: Mr. Mosley is a 74 yo male with COPD, chronic hyponatremia, depression, HTN, GERD with dysphagia and severe protein malnutrition, who presents from home after a trip and fall, c/o left hip pain found to have acute left hip fracture.
Cardiology is consulted for preoperative risk stratification. He has hypertension and otherwise no past cardiovascular history. He is a long-term smoker. He lives alone and is able to do all of his activities of daily living without symptoms. He
regularly walks up 1 flight of stairs without shortness of breath or chest pain. He denies palpitations, leg swelling, lightheadedness, dizziness, and syncope. He had a mechanical fall at home after tripping on a rug. He denies lightheadedness,
dizziness, chest pain, or palpitations prior to this event. On exam, his blood pressure is low at 87/48 which the nurse thinks is because he recently got Dilaudid. Heart rate is 70 and he is afebrile. His cardiovascular exam shows regular rate
and rhythm with no murmurs rubs or gallops, no pedal edema, normal JVP, and lungs clear to auscultation bilaterally. Troponin negative. Twelve-lead ECG shows normal sinus rhythm. He initially had T wave inversions in leads V2 to V3 but these
resolved on repeat ECG.
In summary, he is a 74-year-old male with hypertension and COPD who presents for preoperative risk stratification after a mechanical fall resulting in left hip fracture. He is able to do 4 METS without symptoms, thus he does not need any additional
cardiovascular testing prior to surgery. RCRI 0 which gives patient a 3.9% 30-day risk of or ASCVD. He initially had T wave inversions on ECG, but these resolved on repeat and he is asymptomatic with negative troponin. Would hold lisinopril
on the day of surgery given borderline hypotension.
Original Note:
Consultation
Consultation Request
Date/Time Consultation Requested: 06/13/24 9:15a
Date/Time Consultation Performed: 06/13/24 10:15a
Requesting Provider: Dr. Joseph
Performing Provider: CHRIS Hayes for Dr. Vaca
Reason for Consultation: pre-op risk assessment
Medical History
-
Chief Complaint: mechanical fall, left femoral neck fracture
History of Present Illness:
Mr. Mosley is a 74 yo male with COPD, chronic hyponatremia, depression, HTN, GERD with dysphagia and severe protein malnutrition, who presents from home after a trip and fall, c/o left hip pain. Imaging reveals left femoral neck fracture and ortho
is following, plans for OR tomorrow. We are consulted for pre-op risk assessment. EKG from 06/12/24 shows NSR with T wave inversion leads V2, V3. He currently denies any cardiac complaints.
Past Medical History
Past Medical History: Other (as above)
Past Surgical History: Other (nose-deviated septum)
Social History
Tobacco: Smoker (1ppd since age 17, cut back to 1-2 cigarettes daily about 2 years ago)
Alcohol: None
Personal:
Living: Alone
Employment: Retired
Family History
Family History: Reviewed & Not Pertinent
Allergies / Home Medications
Allergy/AdvReac Type Severity Reaction Status Date / Time
Penicillins Allergy Unknown Verified 06/12/24 14:31
�Medication �Instructions �Recorded �Confirmed �Type
mirtazapine 7.5 mg tablet 15 mg PO HS depression/sleep 09/13/20 06/12/24 History
buspirone 5 mg tablet 5 mg PO DAILY Anxiety 04/17/24 06/12/24 History
sodium chloride 1,000 mg soluble 1,000 mg PO BID #60 tabs 04/29/24 06/12/24 Rx
tablet
budesonide-formoterol HFA 160 2 puff inhalation R BID #20.4 grams 04/30/24 06/12/24 Rx
mcg-4.5 mcg/actuation aerosol
inhaler (Symbicort)
cyanocobalamin (vitamin B-12) 1,000 mcg PO DAILY Supplement 06/12/24 06/12/24 History
1,000 mcg tablet
lisinopril 20 mg tablet 20 mg PO DAILY Blood Pressure 06/12/24 06/12/24 History
pantoprazole 20 mg tablet,delayed 20 mg PO BID Gastrointestinal Issue 06/12/24 06/12/24 History
release (Protonix)
ascorbic acid (vitamin C) 500 mg 500 mg PO DAILY Supplement 06/13/24 06/12/24 History
tablet (Vitamin C)
Review of Systems
-
History Source: Patient
All other systems: Negative unless noted
Physical Exam
Vital Signs
Temp Pulse Resp BP Pulse Ox
97.5 F 89 16 121/70 100
06/13/24 07:31 06/13/24 07:39 06/13/24 07:39 06/13/24 08:35 06/13/24 07:39
Lab Results
06/13/24 08:55
06/13/24 08:55
Troponin I < 0.012 ng/ml 06/12/24 14:54
Physical Exam
General: Other (thin, frail, mild discomfort from left hip pain)
HEENT: Normocephalic, Anicteric and Moist Mucous Membranes
Respiratory: Clear and Non Labored Respirations
Cardiac: S1/S2 and Regular Rhythm
Breast: Deferred by me
GI: Soft, Non Tender, Non Distended and Normal Bowel Sounds
Rectal: Deferred by Provider
Genito-urinary: No Costovertebral Tender
Musculoskeletal: Clubbing and No Edema
Skin: Warm and Dry
Neuro: AO x 3
Hematologic/Lymphatic: No Lymphadenopathy
Psych: Calm
Impression / Plan
-
Pre-op risk assessment - left femoral neck fracture.
- mechanical fall 06/12/24.
- EKG 06/12/24 with NSR T wave inversion V2, V3.
- denies any cardiac symptoms currently or recently.
- he is able to perform > 4 METS at home prior to recent fall, without any cardiac symptoms.
- repeat EKG today.
Mechanical fall - 06/12/24, tripped on his rug at home.
- left femoral neck fracture, plan for OR tomorrow per ortho.
- pain management per ortho.
HTN - stable on Lisinopril, continue.
COPD - chronic, stable.
Hyponatremia - chronic.
- per hospitalist.
GERD - with dysphagia issues, hospitalized 04/2024.
- on Protonix, continue.
Malnutrition - severe.
- per hospitalist.
Depression - chronic, stable on meds.
Data Reviewed
-
EKG: Tracing Personally Visualized and interpreted (06/12/24 NSR with T wave inversions V2, V3)
CT Scan: Report Reviewed by me (head: No acute intracranial abnormality noted)
Labs: Labs Reviewed by me
Old Records: Reviewed
--- NOTE | 2024-06-13 10:33 | CM ---
Patient seen at bedside. IA complete
DX: fall, L femoral neck fx, hyponatremia
Patient tentatively for left hip hemiarthroplasty tomorrow
Left message for angélica Kennedy
Lives in a 2 story home with stairs alone. Current with [facility].
Was in [facility] in April
PT/OT rec post-surgery - Will get choices of SNF from angélica Kennedy
PCP: Jordan Hernández
Pharmacy: [address], [place]
PLAN: OR tentative tomorrow, await PT/OT rec,
--- NOTE | 2024-06-13 11:36 | PTCARENOTE ---
Dr. Joseph made aware that patients BP is 87/48 and HR is 78 bpm. Patient denies dizziness and states that he is just 'tired'. NS bolus ordered. Care ongoing at this time.
[2024-06-13] MEDS: NSS 250 IV (11:48)
--- NOTE | 2024-06-13 14:42 | CON.NEURO ---
Consultation
Order
Date of Consultation: 06/13/24
Requesting Provider: Manny Joseph
Reason for Consult: dysphagia-neuro etiology?
CC: none
HPI: This is a 74-year-old man who presented to [facility] on June 12, 2024 with a fall and was found to have an acute left hip fracture. Neurology consultation was quested for an evaluation of neurological causes of dysphagia.
Mr. Mosley endorses nonfluctuating dysphagia to solids, unspecified duration. He has had loose dentures for more than 2 years, which may contribute to his difficulty with chewing. He is unsure whether the dentures or swallowing difficulty is worse,
estimating it to be a 50-50 issue. No reports of dyspnea, dysarthria or diplopia. Mr. Mosley is unsure how long he has had left ptosis.
The patient admits that his stove reportedly is not working. is sister from [place] brings him meals that he has been microwaving. His BMI in 2017 was 17.
No reports of preexisting body image DOs, binge eating/purging, fear of gaining weight, food restrictions.
ER VS: 229/97-222/107-87/48, 77-111, 35.4C.
EKG: NSR, QTc Int : 483 ms
PDMP: Lorazepam 0.5 Mg 30 tabs filled in on 09/09/[address] head-mild atrophy.
Labs: TSH-1.68(04/2024.
PMH: chronic hyponatremia, BMI 13, HTN, HEIDI, MDD, COPD(emphysema), chronic hyponatremia, GERD, [place] esophagus, history of COVID
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
FH:not contributory
All:PNC
ROS:Constitutional: Negative. Negative for chills, fever and unexpected weight change.
HENT: Negative for ear pain, hearing loss, tinnitus and trouble swallowing.
Eyes: Negative. Negative for photophobia, pain and visual disturbance.
Respiratory: Negative for cough, choking and shortness of breath.
Cardiovascular: Negative for chest pain, palpitations and leg swelling.
Gastrointestinal: Positive for constipation, dysphagia to solids
Endocrine: Negative. Negative for cold intolerance.
Genitourinary: Positive for polyuria
Musculoskeletal: positive for hip pain
Skin: Negative for rash.
Allergic/Immunologic: Negative. Negative for immunocompromised state.
Neurological: Positive for intermittent tremor
Psychiatric/Behavioral: Positive for anxiety
General: Well developed. In no acute distress.
Cardio: Regular rate and rhythm without murmur. Extremities are without cyanosis or edema.
Neuro:
Mental Status: Alert, oriented to person, place, and date. Impaired comprehension. Follows complex requests.
Cranial Nerves: . Pupils are equally round and reactive to light. EOMs full. Visual pedraza full to confrontation. L ptosis. No nystagmus. V1-V3 intact to light touch and pinprick bilaterally, symmetric. Face symmetric. Normal hearing AU. The
palate elevated well. SCMs and traps 5/5. Tongue midline. No dysarthria.
Motor: Normal bulk and tone. No pronator or arm drift. Strength 5/5 throughout. No clonus.
Reflexes: 2+ throughout the upper extremities and knees. 2/2 in AJs. Plantar responses flexor bilaterally.
Sensory: Decreased vibration at the toes
Coordination: action hand tremor
Gait: deferred
Assessment and Plan:
I. Dysphagia to solids
II. L ptosis
III. Distal symmetric polyneuropathy
-Fall precautions
-Please check vitamin B1, SPEP, MG panel
-CTA head to rule out PCOm aneurysm
-GI follow-up
-SW consult
I personally reviewed all radiology and labs along with past medical records pertinent to current medical problems. Total time spent in patient care is 62 minutes.
Thank you for allowing us to participate in the care of this patient. We will continue to follow. Please do not hesitate to contact us with any questions or concerns.
Subjective/Objective
Subjective Data
Date of Service: June 13, 2024
Objective Data
Vital Signs
Temp Pulse Resp BP Pulse Ox
36.2 C 81 16 106/48 98
06/13/24 11:37 06/13/24 12:58 06/13/24 11:37 06/13/24 12:58 06/13/24 11:37
Lab Results
06/13/24 08:55
06/13/24 08:55
PT 13.0 Sec (11.4-14.6) 06/12/24 14:54
INR 1.00 06/12/24 14:54
APTT 27.3 Sec (23.4-35.0) 06/12/24 14:54
Sodium 128 mmol/L (135-145) L 06/13/24 08:55
Potassium 4.6 mmol/L (3.5-5.1) 06/13/24 08:55
BUN 18 mg/dl (9-20) 06/13/24 08:55
Glucose 80 mg/dl (70-99) 06/13/24 08:55
Calcium 8.6 mg/dl (8.4-10.2) 06/13/24 08:55
Patient Allergies
Penicillins Allergy (Verified 06/12/24 14:31)
Unknown
Medications
-
Active Medications
Generic Name Dose Route Start Last Admin
Trade Name Freq PRN Reason Stop Dose Admin
Acetaminophen 650 mg 06/12/24 20:28 06/13/24 11:33
Acetaminophen 325 Mg Tablet PO 07/10/24 20:27 650 mg
Q4HWA JEAN Administration
Acetaminophen 650 mg 06/12/24 20:28
Acetaminophen 325 Mg Tablet PO 07/10/24 20:27
Q4HPRN PRN
mild pain /fever >100.4
Budesonide/Formoterol Fumarate 2 puff 06/12/24 20:28 06/13/24 07:35
Symbicort Inhaler 160/4.5 INH 07/10/24 20:27 2 puff
R BID JEAN Administration
Protocol
Buspirone HCl 5 mg 06/13/24 08:00 06/13/24 08:05
Buspirone 5 Mg Tablet PO 07/11/24 07:59 5 mg
DAILY JEAN Administration
Docusate Sodium 100 mg 06/12/24 20:28 06/13/24 08:05
Docusate Sodium 100 Mg Capsule PO 07/10/24 20:27 100 mg
BID JEAN Administration
Enoxaparin Sodium 40 mg 06/13/24 18:00
Enoxaparin Sodium 40 Mg/0.4 Ml Syringe SC 07/11/24 17:59
QPM JEAN
Hydralazine HCl 5 mg 06/12/24 20:28 06/12/24 21:43
Hydralazine 20 Mg/Ml Vial IV 07/10/24 20:27 5 mg
Q4HPRN PRN Administration
SBP>160 OR DBP>100
Hydromorphone HCl 0.25 mg 06/12/24 20:28 06/13/24 08:49
Hydromorphone 0.25 Mg/0.5 Ml Syringe IV 06/26/24 20:27 0.25 mg
Q1HPRN PRN Administration
severe pain
Cefazolin Sodium 2 grams in 10 mls @ 120 mls/hr 06/14/24 06:00
Ancef IV 06/14/24 06:04
PRE PROCEDURE ONE
Povidone Iodine 114 ml/ Sodium 3,114 mls @ 0 mls/hr 06/14/24 06:00
Chloride IRRIG 06/14/24 06:01
OR ONE
As Directed
Lisinopril 20 mg 06/13/24 08:00 06/13/24 08:44
Lisinopril 20 Mg Tablet PO 07/11/24 07:59 20 mg
DAILY JEAN Administration
Magnesium Hydroxide 30 ml 06/12/24 20:28
Milk Of Magnesia 30 Ml Cup PO 07/10/24 20:27
DAILYPRN PRN
constipation
Mirtazapine 15 mg 06/12/24 22:00 06/12/24 21:39
Mirtazapine 15 Mg Regular Release Tablet PO 07/10/24 21:59 15 mg
HS JEAN Administration
Oxycodone HCl 5 mg 06/12/24 20:28 06/13/24 00:27
Oxycodone 5 Mg Regular Release Tablet PO 06/26/24 20:27 5 mg
Q4HPRN PRN Administration
moderate pain
Pantoprazole Sodium 20 mg 06/12/24 20:28 06/13/24 08:05
Pantoprazole 20 Mg Delayed Release Tablet PO 07/10/24 20:27 20 mg
BID JEAN Administration
Sennosides 17.2 mg 06/12/24 20:28 06/13/24 08:05
Sennosides (Senokot) 8.6 Mg Tablet PO 07/10/24 20:27 17.2 mg
BID JEAN Administration
Sodium Chloride 1 gram 06/12/24 20:28 06/13/24 08:05
Sodium Chloride 1 Gram Tablet PO 07/10/24 20:27 1 gram
BID JEAN Administration
Sodium Chloride 0 flush 06/12/24 21:00
Sodium Chloride 0.9% (Flush) Syringe IV 07/10/24 20:59
PER PROTOCOL JEAN
Tamsulosin HCl 0.4 mg 06/12/24 20:28 06/13/24 01:16
Tamsulosin 0.4 Mg Capsule PO 07/10/24 20:27 0.4 mg
DAILYPRN PRN Administration
bladder scan volume > 400 mL
Home Medications
�Medication �Instructions �Recorded
mirtazapine 7.5 mg tablet 15 mg PO HS depression/sleep 09/13/20
buspirone 5 mg tablet 5 mg PO DAILY Anxiety 04/17/24
sodium chloride 1,000 mg soluble 1,000 mg PO BID #60 tabs 04/29/24
tablet
budesonide-formoterol HFA 160 2 puff inhalation R BID #20.4 grams 04/30/24
mcg-4.5 mcg/actuation aerosol
inhaler (Symbicort)
cyanocobalamin (vitamin B-12) 1,000 mcg PO DAILY Supplement 06/12/24
1,000 mcg tablet
lisinopril 20 mg tablet 20 mg PO DAILY Blood Pressure 06/12/24
pantoprazole 20 mg tablet,delayed 20 mg PO BID Gastrointestinal Issue 06/12/24
release (Protonix)
ascorbic acid (vitamin C) 500 mg 500 mg PO DAILY Supplement 06/13/24
tablet (Vitamin C)
Vital Signs and Labs
-
Vital Signs and Labs:
Vital Signs
Temp Pulse Resp BP Pulse Ox
36.3 C 79 16 94/43 97
06/13/24 15:14 06/13/24 15:14 06/13/24 15:14 06/13/24 15:14 06/13/24 15:14
Lab Results
06/13/24 08:55
PT 13.0 Sec (11.4-14.6) 06/12/24 14:54
INR 1.00 06/12/24 14:54
APTT 27.3 Sec (23.4-35.0) 06/12/24 14:54
Sodium 128 mmol/L (135-145) L 06/13/24 08:55
Potassium 4.6 mmol/L (3.5-5.1) 06/13/24 08:55
BUN 18 mg/dl (9-20) 06/13/24 08:55
Glucose 80 mg/dl (70-99) 06/13/24 08:55
Calcium 8.6 mg/dl (8.4-10.2) 06/13/24 08:55
Medications
-
Medications:
Generic Name Dose Route Start Last Admin
Trade Name Freq PRN Reason Stop Dose Admin
Acetaminophen 650 mg 06/12/24 20:28 06/13/24 17:09
Acetaminophen 325 Mg Tablet PO 07/10/24 20:27 650 mg
Q4HWA JEAN Administration
Acetaminophen 650 mg 06/12/24 20:28
Acetaminophen 325 Mg Tablet PO 07/10/24 20:27
Q4HPRN PRN
mild pain /fever >100.4
Budesonide/Formoterol Fumarate 2 puff 06/12/24 20:28 06/13/24 07:35
Symbicort Inhaler 160/4.5 INH 07/10/24 20:27 2 puff
R BID JEAN Administration
Protocol
Buspirone HCl 5 mg 06/13/24 08:00 06/13/24 08:05
Buspirone 5 Mg Tablet PO 07/11/24 07:59 5 mg
DAILY JEAN Administration
Docusate Sodium 100 mg 06/12/24 20:28 06/13/24 08:05
Docusate Sodium 100 Mg Capsule PO 07/10/24 20:27 100 mg
BID JEAN Administration
Enoxaparin Sodium 40 mg 06/13/24 18:00 06/13/24 17:09
Enoxaparin Sodium 40 Mg/0.4 Ml Syringe SC 07/11/24 17:59 40 mg
QPM JEAN Administration
Hydralazine HCl 5 mg 06/12/24 20:28 06/12/24 21:43
Hydralazine 20 Mg/Ml Vial IV 07/10/24 20:27 5 mg
Q4HPRN PRN Administration
SBP>160 OR DBP>100
Hydromorphone HCl 0.25 mg 06/12/24 20:28 06/13/24 08:49
Hydromorphone 0.25 Mg/0.5 Ml Syringe IV 06/26/24 20:27 0.25 mg
Q1HPRN PRN Administration
severe pain
Cefazolin Sodium 2 grams in 10 mls @ 120 mls/hr 06/14/24 06:00
Ancef IV 06/14/24 06:04
PRE PROCEDURE ONE
Povidone Iodine 114 ml/ Sodium 3,114 mls @ 0 mls/hr 06/14/24 06:00
Chloride IRRIG 06/14/24 06:01
OR ONE
As Directed
Sodium Chloride 250 mls @ 30 mls/hr 06/13/24 15:53 06/13/24 16:11
Sodium Chloride 3% IV 06/14/24 00:12 250 mls
ONCE ONE Administration
Lisinopril 20 mg 06/13/24 08:00 06/13/24 08:44
Lisinopril 20 Mg Tablet PO 07/11/24 07:59 20 mg
DAILY JEAN Administration
Magnesium Hydroxide 30 ml 06/12/24 20:28
Milk Of Magnesia 30 Ml Cup PO 07/10/24 20:27
DAILYPRN PRN
constipation
Mirtazapine 15 mg 06/12/24 22:00 06/12/24 21:39
Mirtazapine 15 Mg Regular Release Tablet PO 07/10/24 21:59 15 mg
HS JEAN Administration
Oxycodone HCl 5 mg 06/12/24 20:28 06/13/24 00:27
Oxycodone 5 Mg Regular Release Tablet PO 06/26/24 20:27 5 mg
Q4HPRN PRN Administration
moderate pain
Pantoprazole Sodium 20 mg 06/12/24 20:28 06/13/24 08:05
Pantoprazole 20 Mg Delayed Release Tablet PO 07/10/24 20:27 20 mg
BID JEAN Administration
Sennosides 17.2 mg 06/12/24 20:28 06/13/24 08:05
Sennosides (Senokot) 8.6 Mg Tablet PO 07/10/24 20:27 17.2 mg
BID JEAN Administration
Sodium Chloride 1 gram 06/12/24 20:28 06/13/24 08:05
Sodium Chloride 1 Gram Tablet PO 07/10/24 20:27 1 gram
BID JEAN Administration
Sodium Chloride 0 flush 06/12/24 21:00
Sodium Chloride 0.9% (Flush) Syringe IV 07/10/24 20:59
PER PROTOCOL JEAN
Tamsulosin HCl 0.4 mg 06/12/24 20:28 06/13/24 01:16
Tamsulosin 0.4 Mg Capsule PO 07/10/24 20:27 0.4 mg
DAILYPRN PRN Administration
bladder scan volume > 400 mL
Home Medications
-
Home Medications
mirtazapine 7.5 mg tablet 15 mg PO HS depression/sleep 09/13/20
buspirone 5 mg tablet 5 mg PO DAILY Anxiety 04/17/24
sodium chloride 1,000 mg soluble tablet 1,000 mg PO BID #60 tabs 04/29/24
budesonide-formoterol HFA 160 mcg-4.5 mcg/actuation aerosol inhaler (Symbicort) 2 puff inhalation R BID #20.4 grams 04/30/24
cyanocobalamin (vitamin B-12) 1,000 mcg tablet 1,000 mcg PO DAILY Supplement 06/12/24
lisinopril 20 mg tablet 20 mg PO DAILY Blood Pressure 06/12/24
pantoprazole 20 mg tablet,delayed release (Protonix) 20 mg PO BID Gastrointestinal Issue 06/12/24
ascorbic acid (vitamin C) 500 mg tablet (Vitamin C) 500 mg PO DAILY Supplement 06/13/24
--- NOTE | 2024-06-13 15:48 | W.CON.NEPH ---
Consultation
-
Date/Time Consultation Requested: 06/13/2024 9 AM
Date/Time Consultation Performed: 06/13/2024 3 PM
Requesting Provider: Dr. Álvarez
Performing Provider: Dr. Santiago
Reason for Consultation: Hyponatremia
Medical History
-
Chief Complaint: Failure to thrive
History of Present Illness:
This is a 73-year-old gentleman who has very limited medical history but includes hypertension treated with a multidrug regimen as well as anxiety on buspirone. He has chronic dysphagia. He has been drinking about 56 ounces of fluid per day.
Since his last hospitalization he has been taking sodium chloride tablets at home. However, he believes that this may be making him urinate more. In the last few days he has not been taking it very much. He remains on lisinopril for hypertension
but does not check his blood pressures at home. On the morning of admission he had gotten up from the sofa to go to the kitchen and get coffee when he had tripped on the carpet, falling on his left side. He was unable to get up. He was brought to
the emergency room. He was noted to have left femoral neck fracture. His sodium level was low at 128 for which we are asked to assist with management of. His blood pressures be been on the low side.
Past Medical History
Hypertension, anxiety, reflux, deviated septum surgery
Social History
Tobacco: Smoker
Alcohol: None
Family History
No CKD
Family History: Not Pertinent
Allergies / Home Medications
Allergy/AdvReac Type Severity Reaction Status Date / Time
Penicillins Allergy Unknown Verified 06/12/24 14:31
�Medication �Instructions �Recorded �Confirmed �Type
mirtazapine 7.5 mg tablet 15 mg PO HS depression/sleep 09/13/20 06/12/24 History
buspirone 5 mg tablet 5 mg PO DAILY Anxiety 04/17/24 06/12/24 History
sodium chloride 1,000 mg soluble 1,000 mg PO BID #60 tabs 04/29/24 06/12/24 Rx
tablet
budesonide-formoterol HFA 160 2 puff inhalation R BID #20.4 grams 04/30/24 06/12/24 Rx
mcg-4.5 mcg/actuation aerosol
inhaler (Symbicort)
cyanocobalamin (vitamin B-12) 1,000 mcg PO DAILY Supplement 06/12/24 06/12/24 History
1,000 mcg tablet
lisinopril 20 mg tablet 20 mg PO DAILY Blood Pressure 06/12/24 06/12/24 History
pantoprazole 20 mg tablet,delayed 20 mg PO BID Gastrointestinal Issue 06/12/24 06/12/24 History
release (Protonix)
ascorbic acid (vitamin C) 500 mg 500 mg PO DAILY Supplement 06/13/24 06/12/24 History
tablet (Vitamin C)
Review of Systems
-
No chest pain or shortness of breath. Left hip pain.
All other systems: Negative unless noted
Physical Exam
Vital Signs
Vital Signs
Temp Pulse Resp BP Pulse Ox
97.4 F 79 16 94/43 97
06/13/24 15:14 06/13/24 15:14 06/13/24 15:14 06/13/24 15:14 06/13/24 15:14
Lab Results
WBC 9.0 10^3/uL (4.8-10.8) 06/13/24 08:55
RBC 3.42 10^6/uL (4.70-6.10) L 06/13/24 08:55
Hgb 11.1 g/dL (13.0-18.0) L 06/13/24 08:55
Hct 31.8 % (39.0-52.0) L 06/13/24 08:55
Plt Count 216 10^3/uL (130-400) 06/13/24 08:55
Sodium 128 mmol/L (135-145) L 06/13/24 08:55
Potassium 4.6 mmol/L (3.5-5.1) 06/13/24 08:55
Chloride 91 mmol/L (98-107) L 06/13/24 08:55
Carbon Dioxide 24 mmol/L (22-30) 06/13/24 08:55
BUN 18 mg/dl (9-20) 06/13/24 08:55
Creatinine 0.7 mg/dL (0.7-1.3) 06/13/24 08:55
eGFR > 60.00 06/13/24 08:55
Glucose 80 mg/dl (70-99) 06/13/24 08:55
Calcium 8.6 mg/dl (8.4-10.2) 06/13/24 08:55
Albumin 3.9 g/dl (3.5-5.0) 06/12/24 14:59
Laboratory Tests
04/30/24 06/12/24 06/12/24
05:01 14:42 18:22
Sodium 137 124 L
Urine Osmolality 273 L
Urine Sodium 107 H
Physical Exam
Patient is awake alert oriented and in no distress. Mood and affect were pleasant, insight and judgment were good. Pupils are equal round and reactive to light, extraocular movements are intact, sclera were anicteric. Hearing was normal, ears and
nose are intact. Oropharynx was clear. Neck was supple with trachea midline and no thyromegaly. Heart was regular rate and rhythm without rubs. Lower extremities without edema. Lungs were clear to auscultation bilaterally and with normal
excursion. Abdomen was soft, nontender, with normal active bowel sounds, and no hepatosplenomegaly. Skin was without rash and with normal turgor.
Data Reviewed
-
Radiology: Report Reviewed by me (On 06/12/2024 hip x-ray shows left subcapital hip fracture)
CT Scan: Report Reviewed by me (On 06/12/2024 CT head shows no acute disease)
Medical Tests (Nuc Med, Echo etc): Image Personally Visualized and interpreted (EKG on 06/13/2024 by reading shows normal sinus rhythm)
Labs: Labs Reviewed by me
Old Records: Reviewed
Assessment/Plan
-
Assessment:
Hyponatremia
Hypertension
Anxiety
Left hip fracture
Dysphagia to solids
COPD
Relative hypotension
Plan:
Lisinopril held
Hypertonic saline
Serial BMP
Could consider Samsca but with hypotension we will not use today
Possible OR tomorrow for LAMINE left
[2024-06-13] MEDS: SODIUM CHLORIDE 3% 250 IV (16:11)
[2024-06-13 16:47] LABS: Creatine Phosphokinase 180 U/L (55-170); Magnesium 2.1 mg/dl (1.6-2.3)
[2024-06-13] MEDS: LOVENOX 40 MG SC (17:09)
--- NOTE | 2024-06-13 17:15 | PTCARENOTE ---
OK to give PM dose of lovenox per Dr. Kim
--- NOTE | 2024-06-13 18:51 | PTCARENOTE ---
1514: Dr. Joseph made aware that patients BP is 94/43 and HR is 79. No new orders at this time. Care ongoing at this time.
[2024-06-13 19:51] LABS: Blood Urea Nitrogen 24 mg/dl (9-20); Carbon Dioxide 26 mmol/L (22-30); Chloride 95 mmol/L (98-107); Estimated Creatinine Clearance 47 ml/min; Glucose 133 mg/dl (70-99); Potassium 4.1 mmol/L (3.5-5.1); Sodium 129 mmol/L (135-145); eGFR > 60.00
[2024-06-13] MEDS: REMERON 15 MG PO (21:15)
[2024-06-14] VITALS (12 sets, daily range): BP systolic 112–176; BP diastolic 60–102
[2024-06-14] MEDS: TYLENOL PO ×2 (00:26→03:46)
[2024-06-14 06:30] LABS: Hematocrit 31.4 % (39.0-52.0); Hemoglobin 10.6 g/dL (13.0-18.0); Mean Corp Hgb Conc. 33.8 g/dL (33.0-37.0); Mean Corpuscular Hgb 31.2 pg (27.0-31.0); Mean Corpuscular Volume 92.4 fL (80.0-94.0); Mean Platelet Volume 8.9 fL (7.4-10.4); Platelet Count 226 10^3/uL (130-400); Red Cell Dist. Width 14.6 % (11.5-14.5)
[2024-06-14 07:05] LABS: Blood Urea Nitrogen 23 mg/dl (9-20); Calcium 8.3 mg/dl (8.4-10.2); Carbon Dioxide 25 mmol/L (22-30); Chloride 94 mmol/L (98-107); Estimated Creatinine Clearance 62 ml/min; Glucose 79 mg/dl (70-99); Potassium 3.9 mmol/L (3.5-5.1); Sodium 129 mmol/L (135-145); eGFR > 60.00
--- NOTE | 2024-06-14 07:32 | W.PN.UPDATE ---
Update Note
Progress Note Update
Patient seen and evaluated by orthopedic surgery this AM. Plan for left hip Hemiarthroplasty today, under the direction of Dr. Talamantes. Patient to remain NPO. NWB to LLE for now. Per Cardiology, he does not need any additional cardiovascular
testing prior to surgery. Consent in patient's chart. Preoperative antibiotics and irrigation OCTOR. Hgb this AM 10.6.
--- NOTE | 2024-06-14 08:12 | W.PN.HOSP.TC ---
Addendum entered and electronically signed by Manny Joseph MD 06/14/24 13:29:
Traumatic hip fracture only
Original Note:
Today's Communication/Plan
-
Plan for hip surgery today
Assessment / Plan
Assessment / Plan
Physical exam:
General: Underweight and chronically ill
HEENT: Normocephalic, Atraumatic and Moist Mucous Membranes
Respiratory: Decreased breath sounds bilateral; Negative Wheezes, Rales or Rhonchi
Cardiac: Regular Rhythm and S1/S2
GI: Soft, Nontender and Nondistended
Musculoskeletal: Tenderness in the left lateral hip area. Left lower extremity externally rotated and shortened. No Clubbing, No Cyanosis and No Edema
Neuro: Awake, Alert and Oriented
Psych: Calm
A/P:
Left hip fracture:
Likely etiology due to mechanical fall
Appreciate orthopedic consult
Discussed with orthopedic yesterday
Continue pain control
Plan for hip surgery either later today or tomorrow
Updated son over yesterday, Brent.
Preop eval:
Discussed with orthopedic given EKG changes, I requested cardiology eval for preop risk stratification.
Seen twelve-lead EKG by myself done yesterday and EKG with new T wave inversions in V2-V3 although chest pain-free. Follow-up EKG T wave changes improved.
Cardiology consulted
Discussed with cardiology today on 06/14--> okay to go to surgery per cardiology recommendations. All KAPIL inhibitor preop today and can discontinue telemetry per cardio.
Hypotension:
Likely volume depletion and medications related.
Bolus normal saline 250 mL yesterday
Holding parameters on his antihypertensives and would hold KAPIL inhibitor on day of surgery. He was significantly hypertensive upon admission though.
Continue to monitor blood pressure closely
Hypertension:
Continue home antihypertensives.
Monitor blood pressure and adjust medications accordingly.
Anemia:
Hemoglobin 10.6
Continue to monitor hemoglobin as appropriate
Dysphagia:
Clear etiology has not been elucidated yet. He had recent workup and recent admission and as outpatient as well. Family mention no neurological workup yet except for CT of the head last night.
Neurology consult appreciated--> plan for CT of the head, vitamin B1, SPEP, MG panel
VSE ordered but patient declines but can do it some other time.
Speech therapy evaluated the patient on 06/13 and okay with IDDSI level 4, but currently n.p.o. for surgery
He did have an upper endoscopy back in April and they recommended manometry studies that has not been done as outpatient yet as per my discussion with son today. Will need follow-up with GI as outpatient.
Monitor for signs of aspiration
Chronic hyponatremia with some worsening component:
Sodium 124 upon admission--> 129 today
On salt tablets 1 g p.o. twice a day
Urine sodium 107, urine osmolarity 273, uric acid 2.9, TSH and cortisol not checked.
Nephrology consulted--> can restart KAPIL inhibitor from the report, recommend to limit IV fluids, considering Samsca.
Severe protein calorie malnutrition:
BMI of 13
Cachectic on exam
Dietitian evaluation
Porars's esophagus/GERD:
Continue PPI
COPD:
Continue Symbicort
Severity has not been established and I recommend PFT as outpatient-discussed with son today about the need for this as outpatient pulmonary follow-up.
Monitor respiratory status closely
Depression anxiety:
Continue mirtazapine 15 mg p.o. nightly
Continue BuSpar 5 mg p.o. daily
DVT prophylaxis:
Lovenox SQ
CODE STATUS:
Full code
Total time spent on today's encounter was 52 minutes which included time spent in counseling the patient/family regarding diagnosis and treatment plan as listed above, goals of care, and symptom management. Case was discussed with nursing staff,
specialists, and care coordinators/case management. All labs and imaging personally reviewed by me. Remainder the time spent in detailed review of previous records, lab data, imaging, and other medical provider documentation.
Anticipated Discharge: > 48 hours
Subjective/Interval History
-
Date of Service: June 14, 2024
No chest pain or shortness of breath.
Objective Data
-
Labs:
Laboratory Results
06/14/24
05:07
WBC 7.0
Hgb 10.6 L
Hct 31.4 L
Plt Count 226
Sodium 129 L
Potassium 3.9
Chloride 94 L
Carbon Dioxide 25
BUN 23 H
Creatinine 0.6 L
Glucose 79
Calcium 8.3 L
Vital Signs:
Vital Signs
Temp Pulse Resp BP Pulse Ox
98.0 F 79 18 154/71 96
06/14/24 07:30 06/14/24 07:30 06/14/24 07:30 06/14/24 07:30 06/14/24 07:30
I&O
06/13/24 06/14/24 06/15/24
06:59 06:59 06:59
Intake Total 200 / 200 1520 / 1520
Output Total 510 / 510 410 / 410
Balance -310 / -310 1110 / 1110
[2024-06-14] MEDS: SODIUM CHLORIDE 1 GRAM PO ×2 (08:16→21:07)
[2024-06-14] MEDS: COLACE 100 MG PO ×2 (08:16→21:07)
[2024-06-14] MEDS: SENOKOT 17.2 MG PO ×2 (08:16→21:08)
[2024-06-14] MEDS: BUSPAR 5 MG PO (08:16)
[2024-06-14] MEDS: TYLENOL 650 MG PO ×4 (08:16→21:07)
[2024-06-14] MEDS: PROTONIX 20 MG PO ×2 (08:16→21:08)
[2024-06-14] MEDS: SYMBICORT 160/4.5 MCG INHALER 2 PUFF INH ×2 (08:40→20:57)
--- NOTE | 2024-06-14 09:04 | W.PN.CD ---
Today's Communication / Plan
-
Hold lisinopril and resume postoperatively
Can discontinue telemetry
We will sign off at this time. Please call with any further questions.
Impression / Plan
-
74 yo male with COPD, chronic hyponatremia, depression, HTN, GERD with dysphagia and severe protein malnutrition, who presents from home after a trip and fall, c/o left hip pain found to have acute left hip fracture. Cardiology is consulted for
preoperative risk stratification.
Pre-op risk assessment - left femoral neck fracture.
- mechanical fall 06/12/24.
- EKG 06/12/24 with NSR T wave inversion V2, V3 which resolved on repeat
- denies any cardiac symptoms currently or recently.
- he is able to perform > 4 METS at home prior to recent fall, without any cardiac symptoms.
-RCRI 0. No further cardiovascular testing required prior to surgery.
-Can discontinue telemetry.
Mechanical fall - 06/12/24, tripped on his rug at home.
- left femoral neck fracture, plan for OR tomorrow per ortho.
- pain management per ortho.
HTN - stable on Lisinopril, hold today and resume postop
COPD - chronic, stable.
Hyponatremia - chronic.
- per hospitalist.
GERD - with dysphagia issues, hospitalized 04/2024.
- on Protonix, continue.
Malnutrition - severe.
- per hospitalist.
Depression - chronic, stable on meds.
We will sign off at this time. Please call with any further questions.
Subjective: Patient feeling tired today. No new complaints. Telemetry unremarkable.
Physical Exam
Vital Signs/Labs
Vital Signs
Temp Pulse Resp BP Pulse Ox
98.0 F 79 18 154/71 96
06/14/24 07:30 06/14/24 08:43 06/14/24 08:43 06/14/24 07:30 06/14/24 08:43
06/13/24 06/14/24 06/15/24
06:59 06:59 06:59
Actual Weight 40.597 kg
06/14/24 05:07
06/14/24 05:07
PT 13.0 Sec (11.4-14.6) 06/12/24 14:54
INR 1.00 06/12/24 14:54
APTT 27.3 Sec (23.4-35.0) 06/12/24 14:54
Magnesium 2.1 mg/dl (1.6-2.3) 06/13/24 16:18
LAB Results
06/12/24
14:54
Troponin I < 0.012
Physical Exam
Constitutional: Other ((thin, frail, mild discomfort from left hip pain))
Cardiovascular: Rhythm & rate is regular, Pedal edema is absent, JVD pressure is normal and Murmur/rub/gallop absent
Respiratory: Respiratory effort normal and Lungs clear to auscul.
Data Reviewed
-
Date of Service: June 14, 2024
Medical Decision Making: Reviewed Test Results
EKG: Tracing Personally Visualized and interpreted
Labs: Labs Reviewed by me
--- NOTE | 2024-06-14 09:35 | W.PN.NEURO.1 ---
Today's Communication / Plan
-
.
Subjective/Objective
Subjective Data
Date of Service: June 14, 2024
24h events:
Mr. Mosley reports no complaints. Afebrile, mildly hypertensive in AM. CTA head is pending.
PMH: chronic hyponatremia, BMI 13, HTN, HEIDI, MDD, COPD(emphysema), chronic hyponatremia, GERD, Porras esophagus, history of COVID
SH: lives alone; active smoker(3 sig/day); retired from [employer]; no history of excessive [employer] use
FH:not contributory
All:PNC
ROS:Constitutional: Negative. Negative for chills, fever and unexpected weight change.
HENT: Negative for ear pain, hearing loss, tinnitus and trouble swallowing.
Eyes: Negative. Negative for photophobia, pain and visual disturbance.
Respiratory: Negative for cough, choking and shortness of breath.
Cardiovascular: Negative for chest pain, palpitations and leg swelling.
Gastrointestinal: Positive for constipation, dysphagia to solids
Endocrine: Negative. Negative for cold intolerance.
Genitourinary: Positive for polyuria
Musculoskeletal: positive for hip pain
Skin: Negative for rash.
Allergic/Immunologic: Negative. Negative for immunocompromised state.
Neurological: Positive for intermittent tremor
Psychiatric/Behavioral: Positive for anxiety
General: Well developed. In no acute distress.
Cardio: Regular rate and rhythm without murmur. Extremities are without cyanosis or edema.
Neuro:
Mental Status: Alert, oriented to person, place, and date. Impaired comprehension. Follows complex requests.
Cranial Nerves: . Pupils are equally round and reactive to light. EOMs full. Visual pedraza full to confrontation. L ptosis. No nystagmus. V1-V3 intact to light touch and pinprick bilaterally, symmetric. Face symmetric. Normal hearing AU. The
palate elevated well. SCMs and traps 5/5. Tongue midline. No dysarthria.
Motor: Normal bulk and tone. No pronator or arm drift. Strength 5/5 throughout, except for pain related left hip flexion, knee extension No clonus.
Reflexes: 1+ throughout the upper extremities and knees. Plantar responses flexor bilaterally.
Sensory: Decreased vibration at the toes
Coordination: action hand tremor
Gait: deferred
Assessment and Plan:
I. Dysphagia to solids
II. L ptosis
III. Distal symmetric polyneuropathy
-Fall precautions
-follow up vitamin B1, SPEP, MG panel
-Will review CTA head
-PT
-OP NCS/EMG with RNS if no clinical improvement and unremarkable serologies.
-OP neurology follow up in 2-3 weeks
I personally reviewed all radiology and labs along with past medical records pertinent to current medical problems. Total time spent in patient care is 36 minutes.
Thank you for allowing us to participate in the care of this patient. Please do not hesitate to contact us with any questions or concerns.
Objective Data
Vital Signs
Temp Pulse Resp BP Pulse Ox
36.7 C 79 18 154/71 96
06/14/24 07:30 06/14/24 08:43 06/14/24 08:43 06/14/24 07:30 06/14/24 08:43
Lab Results
06/14/24 05:07
06/14/24 05:07
PT 13.0 Sec (11.4-14.6) 06/12/24 14:54
INR 1.00 06/12/24 14:54
APTT 27.3 Sec (23.4-35.0) 06/12/24 14:54
Sodium 129 mmol/L (135-145) L 06/14/24 05:07
Potassium 3.9 mmol/L (3.5-5.1) 06/14/24 05:07
BUN 23 mg/dl (9-20) H 06/14/24 05:07
Glucose 79 mg/dl (70-99) 06/14/24 05:07
Calcium 8.3 mg/dl (8.4-10.2) L 06/14/24 05:07
Patient Allergies
Penicillins Allergy (Verified 06/12/24 14:31)
Unknown
Vital Signs and Labs
-
Vital Signs and Labs:
Vital Signs
Temp Pulse Resp BP Pulse Ox
36.7 C 79 18 154/71 96
06/14/24 07:30 06/14/24 08:43 06/14/24 08:43 06/14/24 07:30 06/14/24 08:43
Lab Results
06/14/24 05:07
06/14/24 05:07
PT 13.0 Sec (11.4-14.6) 06/12/24 14:54
INR 1.00 06/12/24 14:54
APTT 27.3 Sec (23.4-35.0) 06/12/24 14:54
Sodium 129 mmol/L (135-145) L 06/14/24 05:07
Potassium 3.9 mmol/L (3.5-5.1) 06/14/24 05:07
BUN 23 mg/dl (9-20) H 06/14/24 05:07
Glucose 79 mg/dl (70-99) 06/14/24 05:07
Calcium 8.3 mg/dl (8.4-10.2) L 06/14/24 05:07
Medications
-
Medications:
Generic Name Dose Route Start Last Admin
Trade Name Freq PRN Reason Stop Dose Admin
Acetaminophen 650 mg 06/12/24 20:28 06/14/24 08:16
Acetaminophen 325 Mg Tablet PO 07/10/24 20:27 650 mg
Q4HWA JEAN Administration
Acetaminophen 650 mg 06/12/24 20:28
Acetaminophen 325 Mg Tablet PO 07/10/24 20:27
Q4HPRN PRN
mild pain /fever >100.4
Budesonide/Formoterol Fumarate 2 puff 06/12/24 20:28 06/14/24 08:40
Symbicort Inhaler 160/4.5 INH 07/10/24 20:27 2 puff
R BID JEAN Administration
Protocol
Buspirone HCl 5 mg 06/13/24 08:00 06/14/24 08:16
Buspirone 5 Mg Tablet PO 07/11/24 07:59 5 mg
DAILY JEAN Administration
Docusate Sodium 100 mg 06/12/24 20:28 06/14/24 08:16
Docusate Sodium 100 Mg Capsule PO 07/10/24 20:27 100 mg
BID JEAN Administration
Enoxaparin Sodium 40 mg 06/13/24 18:00 06/13/24 17:09
Enoxaparin Sodium 40 Mg/0.4 Ml Syringe SC 07/11/24 17:59 40 mg
QPM JEAN Administration
Hydralazine HCl 5 mg 06/12/24 20:28 06/12/24 21:43
Hydralazine 20 Mg/Ml Vial IV 07/10/24 20:27 5 mg
Q4HPRN PRN Administration
SBP>160 OR DBP>100
Hydromorphone HCl 0.25 mg 06/12/24 20:28 06/13/24 22:17
Hydromorphone 0.25 Mg/0.5 Ml Syringe IV 06/26/24 20:27 0.25 mg
Q1HPRN PRN Administration
severe pain
Hydromorphone HCl 0.5 mg 06/14/24 09:01
Hydromorphone 0.5 Mg/0.5 Ml Syringe IV 06/15/24 09:01
PACU-Q5MPRN PRN
severe pain
Hydromorphone HCl 0.25 mg 06/14/24 09:01
Hydromorphone 0.25 Mg/0.5 Ml Syringe IV 06/15/24 09:01
PACU-Q5MPRN PRN
moderate pain
Parenteral Electrolytes 1,000 mls @ 100 mls/hr 06/14/24 09:15
Normosol-R/Plasmalyte-A IV 06/15/24 09:01
PER PROTOCOL JEAN
Lisinopril 20 mg 06/13/24 08:00 06/13/24 08:44
Lisinopril 20 Mg Tablet PO 07/11/24 07:59 20 mg
DAILY JEAN Administration
Magnesium Hydroxide 30 ml 06/12/24 20:28
Milk Of Magnesia 30 Ml Cup PO 07/10/24 20:27
DAILYPRN PRN
constipation
Meperidine HCl 12.5 mg 06/14/24 09:01
Meperidine 25 Mg/Ml Injection IV 06/15/24 09:01
PACU-Q5MPRN PRN
shivers
Mirtazapine 15 mg 06/12/24 22:00 06/13/24 21:15
Mirtazapine 15 Mg Regular Release Tablet PO 07/10/24 21:59 15 mg
HS JEAN Administration
Ondansetron HCl 4 mg 06/14/24 09:01
Ondansetron 4 Mg/2 Ml Vial IV 06/15/24 09:01
PACU-ONCEPRN PRN
nausea/vomiting
Oxycodone HCl 5 mg 06/12/24 20:28 06/13/24 00:27
Oxycodone 5 Mg Regular Release Tablet PO 06/26/24 20:27 5 mg
Q4HPRN PRN Administration
moderate pain
Pantoprazole Sodium 20 mg 06/12/24 20:28 06/14/24 08:16
Pantoprazole 20 Mg Delayed Release Tablet PO 07/10/24 20:27 20 mg
BID JEAN Administration
Prochlorperazine Edisylate 5 mg 06/14/24 09:01
Prochlorperazine 10 Mg/2 Ml Vial IV 06/15/24 09:01
PACU-ONCEPRN PRN
nausea/vomiting
Sennosides 17.2 mg 06/12/24 20:28 06/14/24 08:16
Sennosides (Senokot) 8.6 Mg Tablet PO 07/10/24 20:27 17.2 mg
BID JEAN Administration
Sodium Chloride 1 gram 06/12/24 20:28 06/14/24 08:16
Sodium Chloride 1 Gram Tablet PO 07/10/24 20:27 1 gram
BID JEAN Administration
Sodium Chloride 0 flush 06/12/24 21:00
Sodium Chloride 0.9% (Flush) Syringe IV 07/10/24 20:59
PER PROTOCOL JEAN
Tamsulosin HCl 0.4 mg 06/12/24 20:28 06/13/24 01:16
Tamsulosin 0.4 Mg Capsule PO 07/10/24 20:27 0.4 mg
DAILYPRN PRN Administration
bladder scan volume > 400 mL
Home Medications
-
Home Medications
mirtazapine 7.5 mg tablet 15 mg PO HS depression/sleep 09/13/20
buspirone 5 mg tablet 5 mg PO DAILY Anxiety 04/17/24
sodium chloride 1,000 mg soluble tablet 1,000 mg PO BID #60 tabs 04/29/24
budesonide-formoterol HFA 160 mcg-4.5 mcg/actuation aerosol inhaler (Symbicort) 2 puff inhalation R BID #20.4 grams 04/30/24
cyanocobalamin (vitamin B-12) 1,000 mcg tablet 1,000 mcg PO DAILY Supplement 06/12/24
lisinopril 20 mg tablet 20 mg PO DAILY Blood Pressure 06/12/24
pantoprazole 20 mg tablet,delayed release (Protonix) 20 mg PO BID Gastrointestinal Issue 06/12/24
ascorbic acid (vitamin C) 500 mg tablet (Vitamin C) 500 mg PO DAILY Supplement 06/13/24
--- NOTE | 2024-06-14 10:02 | W.PN.NEPH.PH ---
Today's Communication / Plan
-
follow BMP
Assessment/Plan
-
Assessment:
Hyponatremia
Hypertension
Anxiety
Left hip fracture
Dysphagia to solids
COPD
Relative hypotension
Plan:
can restart lisinopril
limit IVF if possible
follow BMP
Could consider Samsca if Na remains low
-
-
Date of Service: June 14, 2024
CC / HPI / ROS
-
Chief Complaint:
hyponatremia
History of Present Illness:
Na stable 129 after 3%
BP now high
for OR today LTHA
hgb fairly stable 10.6
Review of Systems:
no CP/SOB
Labs
-
Labs:
WBC 7.0 10^3/uL (4.8-10.8) 06/14/24 05:07
RBC 3.40 10^6/uL (4.70-6.10) L 06/14/24 05:07
Hgb 10.6 g/dL (13.0-18.0) L 06/14/24 05:07
Hct 31.4 % (39.0-52.0) L 06/14/24 05:07
Plt Count 226 10^3/uL (130-400) 06/14/24 05:07
Sodium 129 mmol/L (135-145) L 06/14/24 05:07
Potassium 3.9 mmol/L (3.5-5.1) 06/14/24 05:07
Chloride 94 mmol/L (98-107) L 06/14/24 05:07
Carbon Dioxide 25 mmol/L (22-30) 06/14/24 05:07
BUN 23 mg/dl (9-20) H 06/14/24 05:07
Creatinine 0.6 mg/dL (0.7-1.3) L 06/14/24 05:07
eGFR > 60.00 06/14/24 05:07
Glucose 79 mg/dl (70-99) 06/14/24 05:07
Calcium 8.3 mg/dl (8.4-10.2) L 06/14/24 05:07
Albumin 3.9 g/dl (3.5-5.0) 06/12/24 14:59
Physical Exam
-
Vital Signs:
Vital Signs
Temp Pulse Resp BP Pulse Ox
98.0 F 79 18 154/71 96
06/14/24 07:30 06/14/24 08:43 06/14/24 08:43 06/14/24 07:30 06/14/24 08:43
Cardiovascular:: Regular rate and rhythm
Respiratory:: Bilateral: CTA
Lung Excursion:: Normal
Abdomen:: Nontender and Soft
Bowel Sounds:: Normal
Extremity Edema:: None: Bilateral:
--- NOTE | 2024-06-14 10:27 | PN.CDI ---
CDI
- -
CDI:
Physician Documentation Request
Admit Date: 06/12/24 19:25
Dear Doctor Jake,
Please review the following and provide your response in the progress notes.
Clinical Indicators:
PN, 06/13
#Left hip fracture:
#...Likely etiology due to mechanical fall
#Severe protein calorie malnutrition:
#BMI of 13
#Cachectic on exam
Please clarify the following regarding the etiology of the left hip fracture:
Multifactorial, low level trauma and age related osteoporosis
Traumatic fracture only
Other (please specify)
Type Fracture
Age-related With current pathological fx
Drug induced (specify drug) without current pathological fx
Idiopathic
Osteoporosis of disuse
Due to post surgical malabsorption
Post traumatic
Use of terms such as suspected, likely, concern for, or probable (associated with a specific diagnosis that is being evaluated, monitored, or treated as if it exists) are acceptable and can be coded in the inpatient setting, when documented at the
time of discharge.
Thank you,
Stephanie Blake RN BSN CCDS
CDI Specialist
please contact via tiger text
Please use your independent medical judgment in providing your response.
--- NOTE | 2024-06-14 10:49 | CM ---
Reviewed the chart notes. Patient off floor for testing. Plan is for OR today for left hip Hemiarthroplasty, under the direction of Dr. Talamantes. CM continues to be available to patient/family and is monitoring medical plan for needs at discharge.
Plan: Discharge plans will depend on the patient's progress.
[2024-06-14] MEDS: ZYRTEC 5 MG PO (11:05)
[2024-06-14] MEDS: ROBITUSSIN 100 MG PO ×2 (11:07→22:53)
--- NOTE | 2024-06-14 15:04 | W.IMMPOSTOP ---
Surgical Immed Post Op Note
-
Primary Surgeon: Vinita
Claims Counsel: Gay Desai PA-C
Pre-op Diagnosis: Left hip femoral neck fracture
Post-op Diagnosis: Same
Procedure Performed: Left hip hemiarthroplasty
Anesthesia Type: Spinal
Specimen / Cultures: None
Estimated Blood Loss: 20cc
Complications: None
Operative Findings: Dictated
Plan:
- WBAT
- PT/ OT
- Dispo planning
--- NOTE | 2024-06-14 16:15 | PTCARENOTE ---
1607: Patient arrived back to 2S post L hip paul. Scant amount of drainage on L hip primaseal. Assessment from AM remains unchanged. Patient on RA with SpO2 greater than 92%. Call gomez within reach and bed in lowest position.
[2024-06-14] MEDS: LOVENOX 40 MG SC (17:19)
[2024-06-14] MEDS: ERYTHROMYCIN 0.5% OPHTHALMIC OINTMENT 1 APPLIC OPHTH (18:14)
[2024-06-14] MEDS: ANCEF 5 IV (21:08)
[2024-06-14] MEDS: DILAUDID 0.25 MG IV (22:52)
[2024-06-14] MEDS: REMERON 15 MG PO (22:54)
[2024-06-15] MEDS: TYLENOL PO ×2 (00:22→15:34)
[2024-06-15 02:58] VITALS: BP 163/82
[2024-06-15] MEDS: ANCEF 5 IV (03:50)
[2024-06-15] MEDS: TYLENOL 650 MG PO ×4 (03:51→21:34)
[2024-06-15 03:59] VITALS: BP 157/76
[2024-06-15 06:27] LABS: Hematocrit 24.3 % (39.0-52.0); Hemoglobin 8.3 g/dL (13.0-18.0); Mean Corp Hgb Conc. 34.2 g/dL (33.0-37.0); Mean Corpuscular Hgb 31.6 pg (27.0-31.0); Mean Corpuscular Volume 92.4 fL (80.0-94.0); Mean Platelet Volume 9.1 fL (7.4-10.4); Platelet Count 194 10^3/uL (130-400); Red Blood Cell Count 2.63 10^6/uL (4.70-6.10); Red Cell Dist. Width 14.8 % (11.5-14.5); White Blood Cell Count 9.2 10^3/uL (4.8-10.8)
[2024-06-15 06:52] LABS: Blood Urea Nitrogen 25 mg/dl (9-20); Calcium 8.3 mg/dl (8.4-10.2); Carbon Dioxide 28 mmol/L (22-30); Chloride 96 mmol/L (98-107); Estimated Creatinine Clearance 53 ml/min; Glucose 107 mg/dl (70-99); Sodium 131 mmol/L (135-145); eGFR > 60.00
--- NOTE | 2024-06-15 07:19 | W.PN.ORTHO ---
Today's Communication / Plan
-
74 yo M POD1 left hip hemiarthroplasty under the direction of Dr. Talamantes
--WBAT to LLE with walker. Posterior THPs x6-8 weeks. We appreciate the assistance of PT/OT.
--Order for Lovenox in patients chart. DVT ppx per primary.
--Continue pain control as needed. Ice prn for pain and edema control.
--Maintain surgical dressing until 7-10 days post-op. Staple removal at 2 weeks post-op.
--Case management consult for discharge planning.
--Hgb 8.3 this AM. Continue to monitor.
--Orthopedics will continue to follow along.
Assessment
.
Distal Motor Intact: Yes
Dressing:
Clean, dry and intact.
Plan
.
Surgery / Date: Left hip hemiarthroplasty
DVT Prophylaxis: Lovenox
Activity:
Out of bed.
PT/OT
Subjective
.
.:
Mr. Mosley is POD 1 following his left hip hemiarthroplasty performed by Dr. Talamantes. He is resting comfortably in bed this morning, but does endorse significant pain in the hip overnight. He reports difficulty getting comfortable and sleeping.
Vital Signs and Labs
.
Vital Signs and Labs:
Lab Results
06/15/24 05:42
06/15/24 05:42
Temp Pulse Resp BP Pulse Ox
97.9 F 88 14 157/76 97
06/14/24 23:15 06/15/24 03:59 06/14/24 23:15 06/15/24 03:59 06/15/24 01:11
PT 13.0 Sec (11.4-14.6) 06/12/24 14:54
INR 1.00 06/12/24 14:54
Physical Exam
-
Directed exam of the left hip reveals surgical dressing clean, dry and intact. Mild tenderness to palpation about the hip. Thigh soft and compressible. Calf soft and nontender. Patient able to wiggle toes, plantar and dorsiflex ankle.
Neurovascularly intact distally.
[2024-06-15 07:39] VITALS: BP 157/70
[2024-06-15] MEDS: SYMBICORT 160/4.5 MCG INHALER 2 PUFF INH ×2 (08:03→20:18)
[2024-06-15] MEDS: BUSPAR 5 MG PO (08:14)
[2024-06-15] MEDS: PROTONIX 20 MG PO ×2 (08:14→21:44)
[2024-06-15] MEDS: SENOKOT 17.2 MG PO (08:14)
[2024-06-15] MEDS: SODIUM CHLORIDE 1 GRAM PO ×2 (08:14→21:35)
[2024-06-15] MEDS: COLACE 100 MG PO ×2 (08:15→21:34)
[2024-06-15] MEDS: ZYRTEC 5 MG PO (08:15)
--- NOTE | 2024-06-15 09:01 | W.PN.HOSP.TC ---
Today's Communication/Plan
-
Restart antihypertensives. Rehab planning.
Assessment / Plan
Assessment / Plan
Physical exam:
General: Underweight and chronically ill
HEENT: Normocephalic, Atraumatic and Moist Mucous Membranes
Respiratory: Decreased breath sounds bilateral; Negative Wheezes, Rales or Rhonchi
Cardiac: Regular Rhythm and S1/S2
GI: Soft, Nontender and Nondistended
Musculoskeletal: Tenderness in the left lateral hip area. Left lower extremity externally rotated and shortened. No Clubbing, No Cyanosis and No Edema
Neuro: Awake, Alert and Oriented
Psych: Calm
A/P:
Left hip fracture:
Status post left hip hemiarthroplasty by Ortho
Likely etiology due to mechanical fall
Continue pain control
Lovenox for DVT prophylaxis
Updated son over the phone today, Brent.
Acute blood loss postop anemia:
Hemoglobin 8.3 today
Hemoglobin 11.4 upon admission
Continue to monitor hemoglobin
Hypertension:
Resume KAPIL inhibitor today
Monitor K
Monitor blood pressure and adjust medications accordingly.
Chronic hyponatremia with some worsening component:
Sodium 124 upon admission--> 131 today
On salt tablets 1 g p.o. twice a day
Urine sodium 107, urine osmolarity 273, uric acid 2.9, TSH and cortisol not checked.
Nephrology consulted--> recommended to limit IV fluids, considering Samsca.
Preop eval:
Cardio eval
Hypotension:
Resolved
Dysphagia:
Clear etiology has not been elucidated yet. He had recent workup and recent admission and as outpatient as well. Family mention no neurological workup yet except for CT of the head last night.
Neurology consult appreciated--> plan for CT of the head, vitamin B1, SPEP, MG panel
VSE ordered but patient declines x2 and states he can do it some other time.
Speech therapy evaluated the patient on 06/13 and okay with IDDSI level 4, but currently n.p.o. for surgery
He did have an upper endoscopy back in April and they recommended manometry studies that has not been done as outpatient yet as per my discussion with son today. Will need follow-up with GI as outpatient.
Monitor for signs of aspiration
Severe protein calorie malnutrition:
BMI of 13
Cachectic on exam
Dietitian evaluation
Porras's esophagus/GERD:
Continue PPI
COPD:
Continue Symbicort
Severity has not been established and I recommend PFT as outpatient-discussed with son today about the need for this as outpatient pulmonary follow-up.
Monitor respiratory status closely
Depression anxiety:
Continue mirtazapine 15 mg p.o. nightly
Continue BuSpar 5 mg p.o. daily
DVT prophylaxis:
Lovenox SQ
CODE STATUS:
Full code
Anticipated Discharge: 24 - 48 hours
Subjective/Interval History
-
Date of Service: June 15, 2024
Patient had multiple complaints today including butt soreness, sleep deprivation, too many lab sticks, hip soreness, etc.
Objective Data
-
Labs:
Laboratory Results
06/15/24
05:42
WBC 9.2
Hgb 8.3 L D
Hct 24.3 L
Plt Count 194
Sodium 131 L
Potassium 5.0 D
Chloride 96 L
Carbon Dioxide 28
BUN 25 H
Creatinine 0.7
Glucose 107 H
Calcium 8.3 L
Vital Signs:
Vital Signs
Temp Pulse Resp BP Pulse Ox
97.9 F 87 16 157/70 94
06/15/24 07:39 06/15/24 08:04 06/15/24 08:04 06/15/24 07:39 06/15/24 08:04
I&O
06/14/24 06/15/24 06/16/24
06:59 06:59 06:59
Intake Total 1520 / 1520 530 / 530
Output Total 410 / 410 800 / 800
Balance 1110 / 1110 -270 / -270
[2024-06-15] MEDS: ROXICODONE 5 MG PO (09:22)
[2024-06-15 09:25] VITALS: BP 123/76; BP 147/75; BP 97/75; PULSE 101; PULSE 92; O2SAT 96
--- NOTE | 2024-06-15 09:40 | PTOTSP ---
Speech Language Pathology
Pt seen for dysphagia tx. Discussed VSE completion this date. Pt stated he was too tired to do this morning, but that he would do it in the afternoon. Fluoro room is down for maintenance this afternoon, so will try for VSE tomorrow.
Pt reported he still feels 'full' in throat. He was hoping it was related to humidity in his house. P.O. trials of thin liquids and puree provided. He endorsed globus sensation with both. Throat clearing with thin liquids. Question
penetration/aspiration. Suspect pt with pharyngeal dysphagia, but VSE will need completed to determine.
Recommend:
(1) VSE / if pt willing
(2) Continue IDDSI Level 4 (Puree) and Thin Liquids until study able to be completed
(3) Aspiration precautions: sit as upright as possible, slow rate, single sips
(4) Meds as tolerated
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
--- NOTE | 2024-06-15 15:23 | W.PN.NEPH.PH ---
Today's Communication / Plan
-
follow labs
Assessment/Plan
-
Assessment:
Hyponatremia
Hypertension
Anxiety
Left hip fracture
Dysphagia to solids
COPD
Relative hypotension
Plan:
sodium is better at 131
encourage po solute intake and cont salt tab and FR
BP stable , cont home lisinopril
follow BMP
dysphagia per primary
d/w pt and son
-
-
Date of Service: June 15, 2024
CC / HPI / ROS
-
Chief Complaint:
hyponatremia
History of Present Illness:
Na better at 131
BP high- improving
s/p LTHA 06/14
hgb low at 8.3
Review of Systems:
no CP/SOB
Labs
-
Labs:
WBC 9.2 10^3/uL (4.8-10.8) 06/15/24 05:42
RBC 2.63 10^6/uL (4.70-6.10) L 06/15/24 05:42
Hgb 8.3 g/dL (13.0-18.0) L D 06/15/24 05:42
Hct 24.3 % (39.0-52.0) L 06/15/24 05:42
Plt Count 194 10^3/uL (130-400) 06/15/24 05:42
Sodium 131 mmol/L (135-145) L 06/15/24 05:42
Potassium 5.0 mmol/L (3.5-5.1) D 06/15/24 05:42
Chloride 96 mmol/L (98-107) L 06/15/24 05:42
Carbon Dioxide 28 mmol/L (22-30) 06/15/24 05:42
BUN 25 mg/dl (9-20) H 06/15/24 05:42
Creatinine 0.7 mg/dL (0.7-1.3) 06/15/24 05:42
eGFR > 60.00 06/15/24 05:42
Glucose 107 mg/dl (70-99) H 06/15/24 05:42
Calcium 8.3 mg/dl (8.4-10.2) L 06/15/24 05:42
Albumin 3.9 g/dl (3.5-5.0) 06/12/24 14:59
Physical Exam
-
Vital Signs:
Vital Signs
Temp Pulse Resp BP Pulse Ox
97.9 F 87 16 157/70 94
06/15/24 07:39 06/15/24 08:04 06/15/24 08:04 06/15/24 07:39 06/15/24 08:04
Cardiovascular:: Regular rate and rhythm
Respiratory:: Bilateral: CTA
Lung Excursion:: Normal
Abdomen:: Nontender and Soft
Extremity Edema:: None: Bilateral:
Jeffrey Catheter: No
--- NOTE | 2024-06-15 15:37 | CM ---
Reviewed the chart notes and spoke with the patient and his son at the bedside. [facility]ed that [facility] offered a bed. Both prefer [facility]. They will have a bed available on Thursday. Precert will be
required. Precert will be started tomorrow for Thursday.
[facility] NPI# [id number]
Dr. Ayesha Roberson NPI# [id number]
Plan: Discharge to [facility] hopefully on Thursday once precert obtained.
[2024-06-15 15:40] VITALS: BP 125/67
[2024-06-15] MEDS: MILK OF MAGNESIA 30 ML PO (17:12)
[2024-06-15] MEDS: LOVENOX 40 MG SC (17:12)
[2024-06-15] MEDS: REMERON 15 MG PO (21:35)
[2024-06-15] MEDS: SENOKOT PO (21:37)
[2024-06-15 23:53] VITALS: BP 125/70
[2024-06-16] MEDS: TYLENOL PO ×3 (01:20→11:35)
--- NOTE | 2024-06-16 07:10 | W.PN.ORTHO ---
Today's Communication / Plan
-
74 yo M POD2 left hip hemiarthroplasty under the direction of Dr. Talamantes
--WBAT to LLE with walker. Posterior THPs x6-8 weeks. We appreciate the assistance of PT/OT.
--Order for Lovenox in patients chart. DVT ppx per primary.
--Continue pain control as needed. Ice prn for pain and edema control.
--Maintain surgical dressing until 7-10 days post-op. Staple removal at 2 weeks post-op.
--Case management consult for discharge planning. PT/OT currently recommending SNF
--If artur removed at SNF, follow up in office in 4 weeks, otherwise follow up in 2 weeks
--Hgb pending this AM. Continue to monitor.
--Patient is orthopedically stable. Will sign off. Please reach out with any questions or concerns.
Assessment
.
Distal Motor Intact: Yes
Dressing:
Clean, dry and intact.
Plan
.
Surgery / Date: Left hip hemiarthroplasty
DVT Prophylaxis: Lovenox
Activity:
Out of bed.
PT/OT
Subjective
.
.:
Patient resting comfortably in bed this morning. Reports that he is tired. He does have pain to the left hip that is improved with medications as needed. He reports that he was out of bed to the chair yesterday.
Vital Signs and Labs
.
Vital Signs and Labs:
Temp Pulse Resp BP Pulse Ox
98.8 F 98 18 125/70 99
06/15/24 23:53 06/15/24 23:53 06/15/24 23:53 06/15/24 23:53 06/16/24 00:20
PT 13.0 Sec (11.4-14.6) 06/12/24 14:54
INR 1.00 06/12/24 14:54
Physical Exam
-
Directed exam of the left hip reveals surgical dressing clean, dry and intact. Mild tenderness to palpation about the hip. Thigh soft and compressible. Calf soft and nontender. Patient able to wiggle toes, plantar and dorsiflex ankle.
Neurovascularly intact distally.
[2024-06-16] MEDS: SYMBICORT 160/4.5 MCG INHALER 2 PUFF INH ×2 (07:20→19:31)
[2024-06-16 07:54] VITALS: BP 176/88
--- NOTE | 2024-06-16 08:24 | W.PN.HOSP.TC ---
Today's Communication/Plan
-
VSE.
Assessment / Plan
Assessment / Plan
Physical exam:
General: Underweight and chronically ill
HEENT: Normocephalic, Atraumatic and Moist Mucous Membranes
Respiratory: Decreased breath sounds bilateral; Negative Wheezes, Rales or Rhonchi
Cardiac: Regular Rhythm and S1/S2
GI: Soft, Nontender and Nondistended
Musculoskeletal: Left hip postop. No Clubbing, No Cyanosis and No Edema
Neuro: Awake, Alert and Oriented
Psych: Calm
A/P:
Left hip fracture:
Status post left hip hemiarthroplasty by Ortho
Likely etiology due to mechanical fall
Continue pain control
Lovenox for DVT prophylaxis
Updated son over the phone prior, Brent.
Constipation:
Continue current bowel movement
Dysphagia:
Not clear etiology has been elucidated yet. He had recent workup and recent admission and as outpatient as well. Family mention no neurological workup yet except for CT of the head last night.
Neurology consult appreciated--> CT of the head and unremarkable, vitamin B1, SPEP, MG panel pending.
Able to do VSE and okay for regular diet. Increase PPI. GI eval as outpatient.
He did have an upper endoscopy back in April and they recommended manometry studies that has not been done as outpatient yet as per my discussion with son today. Will need follow-up with GI as outpatient.
Acute blood loss postop anemia:
Hemoglobin 8.5 today
Hemoglobin 11.4 upon admission
Continue to monitor hemoglobin
Hypertension:
Resumed KAPIL inhibitor
Add IV hydralazine as needed
Monitor blood pressure and adjust medications accordingly.
Chronic hyponatremia with some worsening component:
Sodium 124 upon admission--> 135 today
On salt tablets 1 g p.o. twice a day
Urine sodium 107, urine osmolarity 273, uric acid 2.9, TSH and cortisol not checked.
Nephrology consulted
Preop eval:
Cardio eval
Hypotension:
Resolved
Severe protein calorie malnutrition:
BMI of 13
Cachectic on exam
Dietitian evaluation
Porras's esophagus/GERD:
Continue PPI
COPD:
Continue Symbicort
Severity has not been established and I recommend PFT as outpatient-discussed with son today about the need for this as outpatient pulmonary follow-up.
Monitor respiratory status closely
Depression anxiety:
Continue mirtazapine 15 mg p.o. nightly
Continue BuSpar 5 mg p.o. daily
DVT prophylaxis:
Lovenox SQ
CODE STATUS:
Full code
Anticipated Discharge: 24 - 48 hours
Subjective/Interval History
-
Date of Service: June 16, 2024
Still has some complaints but much less than before. Had bowel movement. No chest pain or shortness of breath.
Objective Data
-
Labs:
Laboratory Results
06/16/24
09:00
WBC Pending
Hgb Pending
Hct Pending
Plt Count Pending
Sodium Pending
Potassium Pending
Chloride Pending
Carbon Dioxide Pending
BUN Pending
Creatinine Pending
Glucose Pending
Calcium Pending
Vital Signs:
Vital Signs
Temp Pulse Resp BP Pulse Ox
98.6 F 89 16 176/88 97
06/16/24 07:54 06/16/24 07:54 06/16/24 07:54 06/16/24 07:54 06/16/24 07:54
I&O
06/15/24 06/16/24 06/17/24
06:59 06:59 06:59
Intake Total 530 / 530 1020 / 1020
Output Total 800 / 800 180 / 180
Balance -270 / -270 840 / 840
[2024-06-16] MEDS: PROTONIX 20 MG PO (08:37)
[2024-06-16] MEDS: ZYRTEC 5 MG PO (08:38)
[2024-06-16] MEDS: BUSPAR 5 MG PO (08:38)
[2024-06-16] MEDS: ZESTRIL 20 MG PO (08:38)
[2024-06-16] MEDS: SODIUM CHLORIDE 1 GRAM PO ×2 (08:38→20:28)
[2024-06-16] MEDS: TYLENOL 650 MG PO ×3 (08:38→20:29)
[2024-06-16] MEDS: SENOKOT PO (08:40)
[2024-06-16] MEDS: COLACE PO (08:40)
--- NOTE | 2024-06-16 09:30 | PTOTSP ---
Speech Language Pathology
VIDEOFLUOROSCOPIC SWALLOWING EXAMINATION (VSE) completed. Oropharyngeal swallow WFL. No significant pharyngeal residue or any penetration/aspiration noted during study. Esophageal sweep demonstrated some residue without backflow.
Pt complaining of feeling like throat was full of mucous and that food was sticking in throat, which was not observed. Question if related to esophageal issues. EGD completed during admission in April 2024 with findings suspicious for Porras's
esophagus. Pt stated he is not on any reflux meds.
Recommend:
(1) Regular solids/thin liquids
(2) Esophageal precautions
(3) Meds as tolerated
(4) Consider GI consult
(5) RESEARCH AND DEVELOPMENT TECHNICIAN to sign off. Please reconsult as indicated.
[2024-06-16 10:09] LABS: Hematocrit 24.8 % (39.0-52.0); Hemoglobin 8.5 g/dL (13.0-18.0); Mean Corp Hgb Conc. 34.3 g/dL (33.0-37.0); Mean Corpuscular Hgb 32.7 pg (27.0-31.0); Mean Corpuscular Volume 95.4 fL (80.0-94.0); Mean Platelet Volume 9.7 fL (7.4-10.4); Platelet Count 213 10^3/uL (130-400); Red Cell Dist. Width 14.8 % (11.5-14.5); White Blood Cell Count 7.6 10^3/uL (4.8-10.8)
[2024-06-16 10:38] LABS: Blood Urea Nitrogen 28 mg/dl (9-20); Calcium 8.4 mg/dl (8.4-10.2); Carbon Dioxide 33 mmol/L (22-30); Chloride 96 mmol/L (98-107); Estimated Creatinine Clearance 62 ml/min; Glucose 87 mg/dl (70-99); Potassium 4.8 mmol/L (3.5-5.1); Sodium 135 mmol/L (135-145); eGFR > 60.00
[2024-06-16] MEDS: ROXICODONE 5 MG PO (11:39)
--- NOTE | 2024-06-16 15:10 | W.PN.NEPH.PH ---
Today's Communication / Plan
-
follow labs
Assessment/Plan
-
Assessment:
Hyponatremia
Hypertension
Anxiety
Left hip fracture
Dysphagia to solids
COPD
Relative hypotension
Plan:
sodium is better at 135
encourage po solute intake and cont salt tab and FR
BP labile , cont home lisinopril
follow BMP
dysphagia diet per primary
d/w pt
-
-
Date of Service: June 16, 2024
CC / HPI / ROS
-
Chief Complaint:
hyponatremia
History of Present Illness:
Na better at 135
BP labile
s/p LTHA 06/14
hgb low at 8.5
Review of Systems:
no CP/SOB
tolerating diet
Labs
-
Labs:
WBC 7.6 10^3/uL (4.8-10.8) 06/16/24 08:34
RBC 2.60 10^6/uL (4.70-6.10) L 06/16/24 08:34
Hgb 8.5 g/dL (13.0-18.0) L 06/16/24 08:34
Hct 24.8 % (39.0-52.0) L 06/16/24 08:34
Plt Count 213 10^3/uL (130-400) 06/16/24 08:34
Sodium 135 mmol/L (135-145) 06/16/24 08:34
Potassium 4.8 mmol/L (3.5-5.1) 06/16/24 08:34
Chloride 96 mmol/L (98-107) L 06/16/24 08:34
Carbon Dioxide 33 mmol/L (22-30) H 06/16/24 08:34
BUN 28 mg/dl (9-20) H 06/16/24 08:34
Creatinine 0.6 mg/dL (0.7-1.3) L 06/16/24 08:34
eGFR > 60.00 06/16/24 08:34
Glucose 87 mg/dl (70-99) 06/16/24 08:34
Calcium 8.4 mg/dl (8.4-10.2) 06/16/24 08:34
Albumin 3.9 g/dl (3.5-5.0) 06/12/24 14:59
Physical Exam
-
Vital Signs:
Vital Signs
Temp Pulse Resp BP Pulse Ox
98.6 F 89 16 176/88 97
06/16/24 07:54 06/16/24 07:54 06/16/24 07:54 06/16/24 07:54 06/16/24 07:54
Cardiovascular:: Regular rate and rhythm
Respiratory:: Bilateral: CTA
Lung Excursion:: Normal
Abdomen:: Nontender and Soft
Extremity Edema:: None: Bilateral:
Jeffrey Catheter: No
--- NOTE | 2024-06-16 15:11 | CM ---
Addendum entered by Carrie Solitario RN 06/16/24 16:26:
IMM reviewed.
Original Note:
Reviewed the chart notes. Auth started for Marshal Alvarenga.
Marshal Alvarenga NPI# [id number]
Dr. Roberson NPI# [id number]
Pended Auth#[id number]
[2024-06-16 15:27] VITALS: BP 112/64
[2024-06-16 15:39] VITALS: BP 162/69; PULSE 99; O2SAT 96
[2024-06-16] MEDS: LOVENOX 40 MG SC (17:29)
[2024-06-16] MEDS: COLACE 100 MG PO (20:28)
[2024-06-16] MEDS: SENOKOT 17.2 MG PO (20:28)
[2024-06-16] MEDS: PROTONIX 40 MG PO (20:28)
[2024-06-16] MEDS: REMERON 15 MG PO (22:06)
[2024-06-16 23:05] VITALS: BP 131/59
[2024-06-17] MEDS: TYLENOL PO (00:16)
[2024-06-17] MEDS: TYLENOL 650 MG PO ×3 (04:33→12:23)
[2024-06-17 05:44] LABS: Hematocrit 23.6 % (39.0-52.0); Hemoglobin 7.9 g/dL (13.0-18.0); Mean Corp Hgb Conc. 33.5 g/dL (33.0-37.0); Mean Corpuscular Hgb 31.1 pg (27.0-31.0); Mean Corpuscular Volume 92.9 fL (80.0-94.0); Mean Platelet Volume 9.1 fL (7.4-10.4); Platelet Count 227 10^3/uL (130-400); Red Blood Cell Count 2.54 10^6/uL (4.70-6.10); Red Cell Dist. Width 14.8 % (11.5-14.5); White Blood Cell Count 6.7 10^3/uL (4.8-10.8)
[2024-06-17 06:31] LABS: Blood Urea Nitrogen 24 mg/dl (9-20); Calcium 8.1 mg/dl (8.4-10.2); Carbon Dioxide 30 mmol/L (22-30); Chloride 97 mmol/L (98-107); Estimated Creatinine Clearance 62 ml/min; Glucose 90 mg/dl (70-99); Potassium 4.5 mmol/L (3.5-5.1); Sodium 134 mmol/L (135-145); eGFR > 60.00
[2024-06-17 07:30] VITALS: BP 166/88
[2024-06-17] MEDS: SYMBICORT 160/4.5 MCG INHALER 2 PUFF INH (07:39)
[2024-06-17 08:24] VITALS: BP 179/82; PULSE 94
[2024-06-17] MEDS: ROXICODONE 5 MG PO (08:32)
[2024-06-17] MEDS: SENOKOT PO (08:33)
[2024-06-17] MEDS: ZESTRIL 20 MG PO (08:33)
[2024-06-17] MEDS: PROTONIX 40 MG PO (08:33)
[2024-06-17] MEDS: SODIUM CHLORIDE 1 GRAM PO (08:34)
[2024-06-17] MEDS: BUSPAR 5 MG PO (08:34)
[2024-06-17] MEDS: COLACE PO (08:34)
[2024-06-17] MEDS: ZYRTEC 5 MG PO (08:34)
--- NOTE | 2024-06-17 09:22 | W.PN.HOSP.TC ---
Today's Communication/Plan
-
Discharge planning today.
Assessment / Plan
Assessment / Plan
Physical exam:
General: Underweight and chronically ill
HEENT: Normocephalic, Atraumatic and Moist Mucous Membranes
Respiratory: Decreased breath sounds bilateral; Negative Wheezes, Rales or Rhonchi
Cardiac: Regular Rhythm and S1/S2
GI: Soft, Nontender and Nondistended
Musculoskeletal: Left hip postop. No Clubbing, No Cyanosis and No Edema
Neuro: Awake, Alert and Oriented
Psych: Calm
A/P:
Left hip fracture:
Status post left hip hemiarthroplasty by Ortho
Likely etiology due to mechanical fall
Continue pain control
Lovenox for DVT prophylaxis
Updated son over the phone prior, Brent.
Constipation:
Continue current bowel movement
Dysphagia:
Not clear etiology has been elucidated yet. He had recent workup and recent admission and as outpatient as well. Family mention no neurological workup yet except for CT of the head last night.
Neurology consult appreciated--> CT of the head and unremarkable, vitamin B1, SPEP, MG panel pending.
Able to do VSE and okay for regular diet. Increase PPI. GI eval as outpatient.
He did have an upper endoscopy back in April and they recommended manometry studies that has not been done as outpatient yet as per my discussion with son today. Will need follow-up with GI as outpatient.
Acute blood loss postop anemia:
Hemoglobin 7.9 today
Hemoglobin 11.4 upon admission
Continue to monitor hemoglobin
Hypertension:
Resumed KAPIL inhibitor
Add IV hydralazine as needed
Monitor blood pressure and adjust medications accordingly.
Chronic hyponatremia with some worsening component:
Sodium 124 upon admission--> 134 today
On salt tablets 1 g p.o. twice a day
Urine sodium 107, urine osmolarity 273, uric acid 2.9, TSH and cortisol not checked.
Nephrology consulted
Preop eval:
Cardio eval
Hypotension:
Resolved
Severe protein calorie malnutrition:
BMI of 13
Cachectic on exam
Dietitian evaluation
Porras's esophagus/GERD:
Continue PPI
COPD:
Continue Symbicort
Severity has not been established and I recommend PFT as outpatient-discussed with son today about the need for this as outpatient pulmonary follow-up.
Monitor respiratory status closely
Depression anxiety:
Continue mirtazapine 15 mg p.o. nightly
Continue BuSpar 5 mg p.o. daily
DVT prophylaxis:
Lovenox SQ
CODE STATUS:
Full code
Anticipated Discharge: Today
Subjective/Interval History
-
Date of Service: June 17, 2024
Patient doing well overall. No new complaints.
Objective Data
-
Labs:
Laboratory Results
06/17/24
04:56
WBC 6.7
Hgb 7.9 L
Hct 23.6 L
Plt Count 227
Sodium 134 L
Potassium 4.5
Chloride 97 L
Carbon Dioxide 30
BUN 24 H
Creatinine 0.5 L
Glucose 90
Calcium 8.1 L
Vital Signs:
Vital Signs
Temp Pulse Resp BP Pulse Ox
97.8 F 100 18 166/88 97
06/17/24 07:30 06/17/24 08:33 06/17/24 07:41 06/17/24 08:33 06/17/24 07:41
I&O
06/16/24 06/17/24 06/18/24
06:59 06:59 06:59
Intake Total 1020 / 1020 1200 / 1200
Output Total 180 / 180 925 / 925
Balance 840 / 840 275 / 275
--- NOTE | 2024-06-17 09:22 | W.DCSUMMARY ---
Discharge Summary
Discharge Data
Date of Admission: 06/12/24
Date of Discharge: 06/17/24
-
Pending Results: No
Hospital Course
Patient is 74 years old male who has multiple comorbidities including hyponatremia, dysphagia, hypertension, depression, severe protein calorie malnutrition, came in after a fall and found to have a left hip fracture. Patient also was found to have
worsening hyponatremia and his sodium improved back to close to normal. He underwent surgery by orthopedic with left hip hemiarthroplasty on 06/14/2024. Patient did well postop. He also had a video swallow and was able to tolerate regular diet.
He will continue to pursue further GI evaluation as outpatient for his dysphagia. He is hemodynamically stable. He is being discharged in relatively stable condition today.
Discharge duration: 35 minutes
Discharge Plan
-
Patient Disposition: Alf/SNF
Discharge Diagnosis/Procedures: Left hip fracture. Dysphagia. Acute postop anemia. Hyponatremia. Severe protein-calorie malnutrition
Diet: Low Cholesterol and Restrict fluids to 48 oz
Activity: Other activity
Additional Activity: As instructed by ortho
Blood Work: Please PCP to order CBC, BMP within 1 week
Referrals:
Jordan Hernández MD [Family Provider] - in less than 1 week
Prescriptions:
New
enoxaparin 40 mg/0.4 mL Syringe
40 mg SC QPM 28 Days Qty: 0 0RF
polyethylene glycol 3350 [HealthyLax] 17 gram Powder In Packet
17 g PO DAILY 14 Days Qty: 0 0RF
oxycodone 5 mg Tablet
5 mg PO Q4HPRN PRN (Reason: moderate pain) Qty: 4 0RF
Continued
mirtazapine 7.5 MG tablet
15 mg PO HS
buspirone 5 mg Tablet
5 mg PO DAILY
Patient Comments:
no pharmacy fills
sodium chloride 1,000 mg Tablet,Soluble
1,000 mg PO BID Qty: 60 0RF
Patient Comments:
06/12/24-patient said he is not taking this every day and definitly not twice a day because it makes him pee
budesonide-formoterol [Symbicort] 160-4.5 mcg/actuation Hfa Aerosol Inhaler
2 puff inhalation R BID Qty: 20.4 0RF
lisinopril 20 mg Tablet
20 mg PO DAILY
cyanocobalamin (vitamin B-12) 1,000 mcg Tablet
1,000 mcg PO DAILY
ascorbic acid (vitamin C) [Vitamin C] 500 mg tablet
500 mg PO DAILY
Changed
pantoprazole [Protonix] 20 mg Tablet,Delayed Release (Dr/Ec)
40 mg PO BID Qty: 0 0RF
Discharge Orders:
Discharge Patient (As Directed); Ordered 06/17/24
Ordered By: Manny Joseph
Discharge Date and Time
Discharge Date/Time: 06/17/24 12:46
Print Language: SURINAMESE
--- NOTE | 2024-06-17 09:36 | CM ---
Addendum entered by Carrie Solitario RN 06/17/24 11:16:
Patient's son Alfonso updated on approval and transportation time of 1230.
Addendum entered by Carrie Solitario RN 06/17/24 09:56:
call report to: [phone]
Fax report to: [phone]
Original Note:
Received auth from [facility] [place] (06/17-06/21); NRD 06/21 with Jenn Cruz (fax: [phone]/phone: [phone]); Auth # [id number]; Ref # [id number].
Plan: [place] when medically stable.
Medical and transport forms on chart.
[2024-06-17 09:41] VITALS: BP 132/78
--- NOTE | 2024-06-17 09:41 | PTCARENOTE ---
Patients BP this AM was 166/78. Scheduled oral BP meds given. Rechecked BP 1 hour after administration of oral meds and it is 132/78. No PRN meds given at this time. Care ongoing.
--- NOTE | 2024-06-17 10:01 | W.PN.NEPH.PH ---
Today's Communication / Plan
-
increase activity
Assessment/Plan
-
Assessment:
Hyponatremia
Hypertension
Anxiety
Left hip fracture
Dysphagia to solids
COPD
Relative hypotension
Plan:
follow BMP
continue FR/NaCl
no lasix needed
continue lisinopril
follow hgb
-
-
Date of Service: June 17, 2024
CC / HPI / ROS
-
Chief Complaint:
hyponatremia
History of Present Illness:
Na stable at 134
BP labile
s/p LTHA 06/14
hgb low
Review of Systems:
no CP/SOB
feels off/malaise
Labs
-
Labs:
WBC 6.7 10^3/uL (4.8-10.8) 06/17/24 04:56
RBC 2.54 10^6/uL (4.70-6.10) L 06/17/24 04:56
Hgb 7.9 g/dL (13.0-18.0) L 06/17/24 04:56
Hct 23.6 % (39.0-52.0) L 06/17/24 04:56
Plt Count 227 10^3/uL (130-400) 06/17/24 04:56
Sodium 134 mmol/L (135-145) L 06/17/24 04:56
Potassium 4.5 mmol/L (3.5-5.1) 06/17/24 04:56
Chloride 97 mmol/L (98-107) L 06/17/24 04:56
Carbon Dioxide 30 mmol/L (22-30) 06/17/24 04:56
BUN 24 mg/dl (9-20) H 06/17/24 04:56
Creatinine 0.5 mg/dL (0.7-1.3) L 06/17/24 04:56
eGFR > 60.00 06/17/24 04:56
Glucose 90 mg/dl (70-99) 06/17/24 04:56
Calcium 8.1 mg/dl (8.4-10.2) L 06/17/24 04:56
Albumin 3.9 g/dl (3.5-5.0) 06/12/24 14:59
Physical Exam
-
Vital Signs:
Vital Signs
Temp Pulse Resp BP Pulse Ox
97.8 F 84 18 132/78 97
06/17/24 07:30 06/17/24 09:41 06/17/24 09:41 06/17/24 09:41 06/17/24 09:41
Cardiovascular:: Regular rate and rhythm
Respiratory:: Bilateral: CTA
Lung Excursion:: Normal
Abdomen:: Nontender and Soft
Bowel Sounds:: Normal
Extremity Edema:: None: Bilateral:
[2024-06-17 12:13] VITALS: BP 139/63
[2024-06-17 23:05] LABS: Albumin 3.14 g/dL (3.75-5.01); Alpha 1 Globulin 0.36 g/dL (0.19-0.46); Alpha 2 Globulin 0.53 g/dL (0.48-1.05); SPEP IFE Reflex Not Done; Total Protein-Electrophoresis 5.5 g/dL (6.3-8.2)
[2024-06-18 15:15] LABS: Vitamin B1, Whole Blood 138 nmol/L (70-180)
== END 2024-06-17 12:46 | DRG 521 ==
LOC: 2 SOUTH 19:25
PROVIDERS: Internal Medicine; ADMITTING PHYSICIAN Internal Medicine; ATTENDING PHYSICIAN Hospitalist; CONSULT PHYSICIAN Orthopaedic Surgery; CONSULT PHYSICIAN Psychiatry & Neurology Neurology; EMERGENCY PHYSICIAN Student in an Organized Health Care Education/Training Program; FAMILY PHYSICIAN Family Medicine; OTHER PHYSICIAN Specialist; OTHER PHYSICIAN Student in an Organized Health Care Education/Training Program
PROC: 0SRB0J9 Replacement of Left Hip Joint with Synthetic Substitute, Cemented, Open Approach (ICD-10-PCS; 2024-06-14)
DX: S72.012A Unspecified intracapsular fracture of left femur, initial encounter for closed fracture (principal); E43 Unspecified severe protein-calorie malnutrition; R64 Cachexia; Z68.1 Body mass index [BMI] 19.9 or less, adult; E87.1 Hypo-osmolality and hyponatremia; D62 Acute posthemorrhagic anemia; I10 Essential (primary) hypertension; F41.1 Generalized anxiety disorder; K21.9 Gastro-esophageal reflux disease without esophagitis; F17.210 Nicotine dependence, cigarettes, uncomplicated; K22.70 Barrett's esophagus without dysplasia; F32.9 Major depressive disorder, single episode, unspecified; G62.9 Polyneuropathy, unspecified; H02.402 Unspecified ptosis of left eyelid; J43.9 Emphysema, unspecified; R62.7 Adult failure to thrive; R13.19 Other dysphagia; I95.89 Other hypotension; W01.0XXA Fall on same level from slipping, tripping and stumbling without subsequent striking against object, initial encounter; Y92.009 Unspecified place in unspecified non-institutional (private) residence as the place of occurrence of the external cause; Z88.0 Allergy status to penicillin; Z86.16 Personal history of COVID-19; Z79.899 Other long term (current) drug therapy; Z79.51 Long term (current) use of inhaled steroids
CPT/HCPCS: 70450; 70496; 73502; 74230; 80048; 80053; 81003; 82550; 83735; 83935; 84155; 84165; 84300; 84425; 84484; 84550; 85025; 85027; 85610; 85730; 86041; 86850; 86900; 86901; 87086; 92526; 92610; 92611; 93005; 94640; 96361; 96374; 96375; 96376; 97163; 97167; 97530; 97535; 99285; C1713; C1776; Q9967

== ENCOUNTER 2024-06-27 23:39 | Inpatient (IN) | payer OTHER, SELFPAY ==
[2024-06-27 21:26] VITALS: BP 161/72
[2024-06-27 21:27] VITALS: BP 169/66
[2024-06-27 21:31] VITALS: BMI 17.4
[2024-06-27 21:49] LABS: % Basophils 0.5 % (0-2); % Eosinophils 1.4 % (0-6); % Immature Granulocytes 1.4 % (0-0.5); % Lymphocytes 13.8 % (20.5-51.1); % Monocytes 9.8 % (1.7-9.3); % Neutrophils 73.1 % (42.2-75.2); Absolute Eosinophils 0.1 10^3/uL (0-0.7); Absolute Immature Granulocytes 0.1 10^3/uL (0-0.05); Absolute Lymphocytes 1.2 10^3/uL (1.2-3.4); Absolute Monocytes 0.9 10^3/uL (0.1-0.6); Absolute Neutrophils 6.4 10^3/uL (1.4-6.5); Hematocrit 21.8 % (39.0-52.0); Hemoglobin 7.6 g/dL (13.0-18.0); Mean Corp Hgb Conc. 34.9 g/dL (33.0-37.0); Mean Corpuscular Hgb 31.7 pg (27.0-31.0); Mean Corpuscular Volume 90.8 fL (80.0-94.0); Mean Platelet Volume 8.1 fL (7.4-10.4); Nucleated Red Blood Cells % 0 % (-); Platelet Count 489 10^3/uL (130-400); Red Cell Dist. Width 15.1 % (11.5-14.5); White Blood Cell Count 8.7 10^3/uL (4.8-10.8)
[2024-06-27 22:00] VITALS: BP 175/69
[2024-06-27 22:13] LABS: ALT (SGPT) 19 U/L (0-50); AST (SGOT) 36 U/L (17-59); Albumin 3.2 g/dl (3.5-5.0); Alkaline Phosphatase 111 U/L (38-126); Blood Urea Nitrogen 16 mg/dl (9-20); Calcium 8.4 mg/dl (8.4-10.2); Carbon Dioxide 29 mmol/L (22-30); Chloride 85 mmol/L (98-107); Estimated Creatinine Clearance 70 ml/min; Glucose 105 mg/dl (70-99); Potassium 5.1 mmol/L (3.5-5.1); Sodium 119 mmol/L (135-145); Total Bilirubin 0.4 mg/dl (0.2-1.3); Total Protein 5.8 g/dl (6.3-8.2); eGFR > 60.00
--- NOTE | 2024-06-27 22:48 | ED.GENMED ---
History of Present Illness
General
Chief Complaint: Abnormal Lab Value
Source: patient
Time Seen by Provider: 06/27/24 22:16
History of Present Illness
History of Present Illness:
74-year-old male presents to the emergency room from [facility] where he is rehabilitating from a left hip fracture. Patient had routine blood work performed there which showed he is hyponatremic. Patient was sent to the emergency room for
management. Patient was recently hospitalized here at [facility] with a left hip fracture. At that time was also found to have moderate hyponatremia in the 120s. He was treated with hypertonic saline, fluid restriction and saline tablets.
Patient has had hospitalizations previous to that for hyponatremia. Patient admits to drinking a significant mount of fluids including three 12 ounce glasses of water a day in addition to coffee, jayro mya and juices. Patient is also receiving
oxycodone for pain. Patient offers no particular complaints.
Past History
Past History
ED Past Medical History: COPD, GERD (PUD) and HTN
ED Past Surgical History: None
Social History
Tobacco: Smoker
Alcohol: Former (doesn't drink any more)
Drug: None
Personal: Single
Living: alone
Phy Exam
Physical Exam
Physical Exam:
General: Awake, Alert, Oriented X3. Cachectic and chronically ill-appearing
Vitals: unremarkable
Head: Atraumatic
Eyes: Pupils equal, EOMI
Throat: Airway intact, no exudates, dry mucosa
Neck: Trachea midline
Lungs: Clear and equal b/l
Heart: Regular rate, no murmurs
Abd: Soft, Nontender, No pulsatile mass
Neuro: Nonfocal
Skin: Warm, dry, no rash
Extremities: pulses equal b/l, no edema
Course
Orders/Labs/Results
Orders:
Orders
06/27/24 21:36
Complete Blood Count/With Diff Urgent
Comprehensive Metabolic Panel Urgent
Ferritin Urgent
Comment: ADD ON
Folate Urgent
Comment: ADD ON
Iron Urgent
Total Iron Binding Urgent
Vitamin B12 Urgent
Comment: ADD ON
06/27/24 23:00
3% Sodium Chloride 250 ml [Sodium Chloride 3%] 250 ml IV ONCE
06/27/24 23:10
Osmolality, Random Urine Urgent
Date Specimen was Collected: 06/27/24
Time Specimen was Collected: 23:08
Urine Sodium Urgent
Date Specimen was Collected: 06/27/24
Time Specimen was Collected: 23:08
06/27/24 23:25
Admit/Transfer Patient As Directed
Co-Sign Provider:
Level of Care: Inpatient admission
Assign to:: IMU- Intermediate Care
Physician / Group: kong galan
Diagnosis: hypervolemic hyponatremia, anemia recent blood loss
Reason for Hospitalization: hypervolemic hyponatremia, anemia recent blood loss
Expected length of stay greater than two midnights?: Yes
ELOS- Estimated Length of Stay in days: 5
I certify the patient meets the requirements for IP care: Yes
Code Status As Directed
Resuscitation Status: Full Code
06/27/24 23:28
PRN Pain Medication Management As Directed
May give lesser potent ordered pain med per pt: Yes
preference::
Protocol:: Medication orders for pain may be administered in a
manner that supports deferring to patient preference
when the pt is:
- Requesting an ordered lesser potent pain medication.
Least to most potent pain medications are defined
as: acetaminophen < NSAID < tramadol < opioids
(morphine, oxycodone, hydromorphone).
- Requesting a lesser dose of the same medication IF
ORDERED.
- Requesting a less intrusive route of administration
if both routes are prescribed by the provider (PO <
IV).
06/27/24 23:30
Add On- LAB Urgent
Tests Added?: iron, tibc, ferritin, folate b12
Type+Screen Urgent
Osmolality Serum [Serum Osmolality] Routine
Abnormal Lab Results
06/27/24 06/27/24
21:36 23:10
RBC 2.40 L 10^6/uL
(4.70-6.10)
Hgb 7.6 L g/dL
(13.0-18.0)
Hct 21.8 L %
(39.0-52.0)
MCH 31.7 H pg
(27.0-31.0)
RDW 15.1 H %
(11.5-14.5)
Plt Count 489 H 10^3/uL
(130-400)
Abs Immat Gran (auto) 0.1 H 10^3/uL
(0-0.05)
Absolute Monos (auto) 0.9 H 10^3/uL
(0.1-0.6)
Immature Gran % 1.4 H %
(0-0.5)
Lymphocytes % 13.8 L %
(20.5-51.1)
Monocytes % 9.8 H %
(1.7-9.3)
Sodium 119 L* mmol/L
(135-145)
Chloride 85 L mmol/L
(98-107)
Glucose 105 H mg/dl
(70-99)
Iron 38 L ug/dl
(49-181)
TIBC 235 L ug/dl
(261-462)
% Saturation 16 L %
(20-50)
Total Protein 5.8 L g/dl
(6.3-8.2)
Albumin 3.2 L g/dl
(3.5-5.0)
Urine Sodium 97 H mmol/L
(30-90)
06/27/24 21:36
06/27/24 21:36
Vital Signs
Initial and Last Documented VS:
Initial Vital Signs
Temp Pulse Resp BP Pulse Ox
97.7 F 95 18 161/72 99
06/27/24 21:26 06/27/24 21:26 06/27/24 21:26 06/27/24 21:26 06/27/24 21:26
Last Documented Vital Signs
Temp Pulse Resp BP Pulse Ox
97.7 F 95 18 161/72 99
06/27/24 21:26 06/27/24 21:26 06/27/24 21:26 06/27/24 21:26 06/27/24 21:26
MDM/Problems Addressed
Differential Diagnosis Includes:
Hyponatremia from polydipsia or syndrome of inappropriate ADH, dehydration
MDM/Problems Addressed:
Patient found to have hyponatremia on outpatient labs. Repeat labs here show a sodium of 119. Patient has a history of hyponatremia. Will start hypertonic saline at a very slow rate. Patient will also require fluid restriction. Given the
significance of his hyponatremia he will certainly require hospitalization for careful monitoring.
Chronic conditions affecting care: HTN, COPD and Other (Hyponatremia)
*Pulse Oximetry
Patient hypoxic: no
*Critical Care Note
Total Time (30-74mins, 75-104mins- exclusive of procedures): 32 min
comment:
Critical care statement: A total of 32 minutes of critical care time was provided for this patient. This includes management of unstable vital signs, evaluation of the patient at bedside, reviewing the patient's pertinent medical records, discussion
with consultants, review of old EKGs and review of pertinent medical records. This time with separate from time utilized to perform the aforementioned documented procedures
ED Attending Note
-
Portions of this chart may have been created with voice recognition software.� Occasional wrong word or��sound alike� substitutions may have occurred due to the inherent limitations of voice recognition software.
Discharge Plan
Departure
Patient Disposition: Admit
Date of Disposition: 06/27/24
Time of Disposition: 22:48
Admit to: Med/Surg
Presentation/result/management discussed w/ accepting MD/DO: Hospitalist
Condition: Fair
Discharge Problem:
Acute hyponatremia
Interventions
Interventions:
*Risk Screen - Suicide Last Done: 06/27/24 21:26
*General Assessment Last Done: 06/27/24 21:26
*Neglect/Abuse Screening Last Done: 06/27/24 21:26
*ED COVID-19 Vaccine History Last Done: 06/27/24 21:26
[2024-06-27 23:00] VITALS: BP 193/87
--- NOTE | 2024-06-27 23:04 | HPS.HSE ---
Family Physician
-
Family Physician: Servando Ureña
Chief Complaint
-
Abnormal outpatient labs with hyponatremia
History of Present Illness
74-year-old male from [facility], where he is rehabilitating from a left hip fracture with repair who had routine lab work today showing hyponatremia with NA of 119. He was discharged on 06/17/2024 with sodium of 135 after being started on
salt tabs at 1000 mg 3 times daily with fluid restriction due to inpatient sodium in the 120s. The patient reports he is noncompliant with fluid restriction he is drinking at least THREE 12 ounce glasses of water in addition to coffee, jayro mya
and juices for a total of 56 ounces per day. He denies headache, blurred vision, confusion, chest pain, palpitations, shortness with, cough, abdominal pain, nausea, vomiting, diarrhea, urinary symptoms. He has past medical history of recent left
hip fracture with left hip hemiarthroplasty including postop anemia with hemoglobin of 7.9 on discharge 06/17/2024, HTN, anxiety, dysphagia, but passed video swallow for regular foods, COPD, GERD, Porras's esophagus.
Medical History
Past Medical History
Past Medical History: Reports Other
Additional Past Medical History:
Hypertension
Generalized Anxiety
Depression
GERD / Ulcers
Porras's esophagus
Chronic Hyponatremia
Former smoker 58-year 1 pack a day quit 2 weeks ago
Prior alcohol abuse daily sixpack quit greater than 10 years ago
Past Surgical History: Reports Other
Additional Past Surgical History:
Left hip ORIF 06/14/2024, deviated septum repair
Social History
Tobacco: Former Smoker (Former smoker 58-year 1 pack a day quit 2 weeks ago)
Alcohol: Former (Greater than 10 years ago quit daily 6 pack a day)
Drug: None
Personal: Single
Living: Other (Patient from [facility])
Employment: Retired
Family History
Family History: Other (Father: 'Black Lung' mother unsure)
Allergies / Home Medications
Allergies reflects when Allergies were last updated in [employer].
Home Medications with original date entered in [employer]
Allergy/Medication List:
Allergies
Allergy/AdvReac Type Severity Reaction Status Date / Time
Penicillins Allergy Unknown Verified 06/12/24 14:31
Home Medications
buspirone 5 mg tablet 5 mg PO DAILY Anxiety 04/17/24
cyanocobalamin (vitamin B-12) 1,000 mcg tablet 1,000 mcg PO DAILY Supplement 06/12/24
lisinopril 20 mg tablet 20 mg PO DAILY Blood Pressure 06/12/24
ascorbic acid (vitamin C) 500 mg tablet (Vitamin C) 500 mg PO DAILY Supplement 06/13/24
oxycodone 5 mg tablet 5 mg PO Q4HPRN PRN moderate pain #4 tabs 06/17/24
polyethylene glycol 3350 17 gram oral powder packet (HealthyLax) 17 g PO DAILY 14 days #0 ea 06/17/24
acetaminophen 500 mg tablet 1,000 mg PO BID 06/27/24
enoxaparin 40 mg/0.4 mL subcutaneous syringe 40 mg SC DAILY 06/27/24
fluticasone 250 mcg-salmeterol 50 mcg/dose blistr powdr for inhalation 1 inh inhalation R BID 06/27/24
fluticasone propionate 50 mcg/actuation nasal spray,suspension 1 spray intranasal HS 06/27/24
magnesium hydroxide 400 mg/5 mL oral suspension (Milk of Magnesia) 30 ml PO DAILYPRN PRN constipation 06/27/24
mirtazapine 15 mg tablet 15 mg PO DAILY 06/27/24
pantoprazole 40 mg tablet,delayed release 40 mg PO BID 06/27/24
sodium chloride 1,000 mg soluble tablet 1,000 mg PO TID 06/27/24
therapeutic multivitamin 1 tab PO DAILY 06/27/24
zinc sulfate 50 mg zinc (220 mg) tablet 50 mg PO DAILY 06/27/24
Review of Systems
-
History Source: Patient
A 12 point ROS was completed and negative except as noted: Yes
Constitutional: Denies Fever or Chills
EENT: Denies Sore Throat or Runny Nose
Respiratory: Denies Cough or Trouble Breathing
Cardiac: Denies Chest Pain, Diaphoresis, Palpitations or Syncope
Abdomen/GI: Denies Abdominal Pain, Nausea, Vomiting, Diarrhea, Constipated, Bloody Stools or Black Stools
: Denies Dysuria, Frequency, Flank Pain, Incontinence, Difficulty Voiding or Urgency
Musculoskeletal: Reports Edema (+1 left lower leg edema status post left hip hemiarthroplasty); Denies Joint Pain
Skin: Denies Itching or Rash
Neurological: Denies Headache
Endocrine: Reports No Symptoms
Hematologic/Lymphatic: Reports No Symptoms
Psych: Reports Calm
Physical Exam
Vital Signs
Vital Signs
Temp Pulse Resp BP Pulse Ox
97.7 F 95 18 161/72 99
06/27/24 21:26 06/27/24 21:26 06/27/24 21:26 06/27/24 21:26 06/27/24 21:26
Physical Exam
General: Comfortable and Conversant; No Fever or Chills
HEENT: NormoCephalic, Anicteric, Moist mucous membranes, PERRLA and [place] Conjunctivae
Respiratory: Clear; No Wheezes, Rales or Rhonchi
Cardiac: S1/S2, Regular Rhythm and Peripheral Edema (+1 left lower extremity recent left hip hemiarthroplasty); No Murmur, Rub or Gallop
Breast: Deferred by me
GI: Soft, Non Tender, Non Distended, Normal Bowel Sounds and No Hepatosplenomegaly
Rectal: Deferred by Provider
Genito-urinary: Deferred by me
Musculoskeletal: No Clubbing, No Cyanosis and Edema, Left Lower Extremity (+1 left lower extremity recent left hip hemiarthroplasty, page intact negative surrounding erythema or drainage); No Edema, Left Upper Extremity, Edema, Right Upper
Extremity or Edema, Right Lower Extremity
Skin: Warm and Dry; No Rash
Neuro: AO x 3, Nonfocal/grossly intact, Cranial Nerves Intact, No Sensory Deficits and Other (Limited walking by self due to recent left hip fracture uses walker with assistance); No Slurred Speech, Facial Droop, Tremors or Sedated
Psych: Calm
Laboratory Results
-
06/27/24 21:36
06/27/24 21:36
Laboratory Results
Total Bilirubin 0.4 mg/dl (0.2-1.3) 06/27/24 21:36
AST 36 U/L (17-59) 06/27/24 21:36
ALT 19 U/L (0-50) 06/27/24 21:36
Alkaline Phosphatase 111 U/L (38-126) 06/27/24 21:36
Impression/Plan
-
Impression/plan:
Admit to IMU
#Hypervolemic hyponatremia
-Asymptomatic
NA 119 <134 on 06/17/2024
Patient drinking 56 ounces combination of 36 ounces water, 8 ounce jayro mya, 8 ounce milk and 4 ounce juice he is not following a fluid restriction diet he states he was not made aware although I reiterated he was told by multiple physicians last
admission including 3 different carbon printer
-Place patient on 40 ounce fluid restrict diet, regular diet
-Consult nephrology
-Hold sodium chloride 1000 mg p.o. 3 times daily until seen by nephrology
-Check random Osmo, serum Osmo, urine NA
-Check BMP every 6 hours start checking at 6 AM noo more then increase 3-5 points in 24 hours call if >NA 123
# Anemia normocytic with recent blood loss postop anemia
-Asymptomatic
Hgb was 11.4 on 06/12/2024
On DC 06/17/2024 was 7.9 > Hgb now 7.6
Hemoccult negative per my exam at bedside brown stool
-Type and screen, blood consent obtained and scanned by ER
-Check iron studies, B12, folate
-Will transfuse if Hgb<7
#Status post left hip hemiarthroplasty 06/14/2024
-Page need removal approximately 06/30/2024
-Continue pain control with Tylenol and oxycodone as needed along with bowel regimen
-PT/OT
Patient currently using walker
#HTN benign
BP 161/72
-IV hydralazine 10 mg now
-Continue lisinopril 20 mg daily
-Consider resuming amlodipine if blood pressure consistently elevated
#Dysphagia Hx
Completed video swallow is okay for regular diet
-Patient had upper endoscopy April 2024 was recommended for manometry studies but has not been done as outpatient yet
-Protonix 40 mg twice daily
#GERD/Porras's esophagus
-Continue PPI twice daily
#COPD�no acute exacerbation
-Continue Symbicort
-Patient has not yet had outpatient pulmonary function studies completed
#Former smoker 58-year 1 pack/day quit 2 weeks ago during fall and hip fracture
#Former alcohol abuse
Quit 10 years ago used to drink daily 6 pack
#Depression/anxiety
Continue mirtazapine 15 mg at bedtime, BuSpar 5 mg daily
DVT prophylaxis
Subcu Lovenox
Full code
[2024-06-27 23:51] LABS: Urine Sodium 97 mmol/L (30-90)
--- NOTE | 2024-06-27 23:57 | W.PN.UPDATE ---
Update Note
Progress Note Update
This is an addendum to the H&P written by Alla Arndt on 06/27/2024. Patient seen and examined independently with CHIE[facility] I DISPATCHER.
74-year-old male past medical history of chronic hyponatremia, left hip fracture status post postop anemia, constipation, dysphagia of unclear etiology, Porras's esophagus/GERD, hypertension, COPD, anxiety/depression presenting from [facility]
for routine lab work showing hyponatremia with sodium 119.
Recent left hip fracture with left hemiarthroplasty postop anemia as low as 7.9
Patient noncompliant with fluid restriction.
Asymptomatic hyponatremia. Check urine osmolality, sodium, TSH. 40 ounce fluid restriction. Hypertonic saline started. Nephrology consulted. Resume salt tablets tomorrow.
Patient with anemia with recent post left hemiarthroplasty anemia with hemoglobin of 7.6. Patient complained of black stools however Hemoccult negative. Left hip with artur in place, appears to be healing well with mild swelling. Check iron
studies, B12 and folate. Blood transfusion for hemoglobin below 7.
Patient with systolic blood pressures of 160-190 secondary to left hip pain. As needed hydralazine. Continue resuming amlodipine if persistently elevated blood pressure which was stopped during her previous admission.
[2024-06-28] VITALS (26 sets, daily range): BP systolic 89–201; BP diastolic 46–130; PULSE 86; O2SAT 99–100; BMI 16.0
[2024-06-28 00:06] LABS: Iron 38 ug/dl (49-181)
[2024-06-28 00:07] LABS: Osmolality Urine 439 mOsm/kg (300-900)
[2024-06-28] MEDS: SODIUM CHLORIDE 3% 250 IV ×2 (00:12→22:20)
[2024-06-28 00:17] LABS: Osmolality Serum 249 mOsm/kg (275-300)
[2024-06-28 00:17] LABS: Percent Saturation 16 % (20-50); Total Iron Binding Capacity 235 ug/dl (261-462)
[2024-06-28] MEDS: APRESOLINE 10 MG IV (01:03)
[2024-06-28 01:26] LABS: Folate 9.2 ng/ml (2.76-20); Vitamin B12 918 pg/ml (239-931)
[2024-06-28] MEDS: ROXICODONE 5 MG PO (03:43)
[2024-06-28] MEDS: REMERON PO (03:43)
[2024-06-28 06:20] LABS: % Basophils 0.4 % (0-2); % Eosinophils 1.4 % (0-6); % Immature Granulocytes 1.1 % (0-0.5); % Lymphocytes 14.3 % (20.5-51.1); % Monocytes 9.4 % (1.7-9.3); % Neutrophils 73.4 % (42.2-75.2); Absolute Eosinophils 0.1 10^3/uL (0-0.7); Absolute Immature Granulocytes 0.1 10^3/uL (0-0.05); Absolute Lymphocytes 1.3 10^3/uL (1.2-3.4); Absolute Monocytes 0.9 10^3/uL (0.1-0.6); Absolute Neutrophils 6.9 10^3/uL (1.4-6.5); Hematocrit 25.3 % (39.0-52.0); Mean Corp Hgb Conc. 35.6 g/dL (33.0-37.0); Mean Corpuscular Volume 92.7 fL (80.0-94.0); Mean Platelet Volume 8.1 fL (7.4-10.4); Nucleated Red Blood Cells % 0 % (-); Platelet Count 493 10^3/uL (130-400); Red Blood Cell Count 2.73 10^6/uL (4.70-6.10); Red Cell Dist. Width 14.8 % (11.5-14.5); White Blood Cell Count 9.3 10^3/uL (4.8-10.8)
[2024-06-28] MEDS: ADVAIR HFA 115/21 MCG INHALER 2 PUFF INH ×2 (07:18→20:14)
[2024-06-28 07:34] LABS: ALT (SGPT) 18 U/L (0-50); AST (SGOT) 34 U/L (17-59); Albumin 2.9 g/dl (3.5-5.0); Alkaline Phosphatase 71 U/L (38-126); Blood Urea Nitrogen 12 mg/dl (9-20); Calcium 8.3 mg/dl (8.4-10.2); Carbon Dioxide 27 mmol/L (22-30); Chloride 88 mmol/L (98-107); Estimated Creatinine Clearance 82 ml/min; Glucose 90 mg/dl (70-99); Sodium 121 mmol/L (135-145); Total Bilirubin 0.5 mg/dl (0.2-1.3); Total Protein 5.5 g/dl (6.3-8.2); eGFR > 60.00
[2024-06-28 07:36] LABS: Free T4 0.66 ng/dl (0.78-2.19)
[2024-06-28] MEDS: THERAGRAN 1 TABLET PO (07:50)
[2024-06-28] MEDS: VITAMIN C 500 MG PO (07:50)
[2024-06-28] MEDS: ZESTRIL 20 MG PO (07:50)
[2024-06-28] MEDS: TYLENOL 1000 MG PO ×2 (07:50→20:35)
[2024-06-28] MEDS: PROTONIX 40 MG PO ×2 (07:50→20:35)
[2024-06-28] MEDS: BUSPAR 5 MG PO (07:51)
[2024-06-28] MEDS: MIRALAX PO (07:51)
[2024-06-28 08:10] LABS: Potassium 4.6 mmol/L (3.5-5.1)
[2024-06-28] MEDS: VITAMIN B-12 1000 MCG PO (08:51)
[2024-06-28] MEDS: ZINC 50 MG PO (08:51)
--- NOTE | 2024-06-28 09:31 | W.CON.NEPH ---
Consultation
-
Date/Time Consultation Requested: 06/27/24 9500
Date/Time Consultation Performed: 06/28/24 0915
Requesting Provider: Alistair Pitt
Performing Provider: Paris Cesar
Reason for Consultation: Hypoantremia
Medical History
-
Chief Complaint: Abnormal labs, low sodium 119
History of Present Illness:
This is a 74-year-old gentleman who has h/o hypertension treated with a multidrug regimen as well as anxiety on buspirone, chr hyponatremia on salt tab and FR, chronic dysphagia passed swallow eval prio and need manometry as out pt, COPD, who was
recent admit for Left hip fracture s/p hemiarthroplasty on 06/14, subsequent d/c on 06/17. he also had worsening hyponatremia during this admit and sodium stabilized at 130s at d/c. [facility] and labs were checked
routinely and noted sodium 119. He reportedly drinking lot of liquids, he could not quantify with me but per reports over 56ounces/day. He reports food was not good at rehab hence was not eating well too. He denies headache, blurred vision,
confusion, chest pain, shortness with, cough, abdominal pain, nausea, vomiting, diarrhea, urinary symptoms. He started on 3% saline, repeat labs sodium at 121, U osmo 439, U na 97.
Past Medical History
Hypertension
Generalized Anxiety
Depression
GERD / Ulcers
Porras's esophagus
Chronic Hyponatremia
Former smoker 58-year 1 pack a day quit 2 weeks ago
Prior alcohol abuse daily sixpack quit greater than 10 years ago
Past Surgical History: Other (Left hip ORIF 06/14/2024, deviated septum repair)
Social History
Tobacco: Former Smoker (Former smoker 58-year 1 pack a day quit 2 weeks ago)
Alcohol: Former (Greater than 10 years ago quit daily 6 pack a day)
Personal: Single
Living: [facility]
Employment: Retired
Family History
No CKD
Family History: Not Pertinent
Allergies / Home Medications
Allergy/AdvReac Type Severity Reaction Status Date / Time
Penicillins Allergy Unknown Verified 06/28/24 01:14
�Medication �Instructions �Recorded �Confirmed �Type
buspirone 5 mg tablet 5 mg PO DAILY Anxiety 04/17/24 06/27/24 History
cyanocobalamin (vitamin B-12) 1,000 mcg PO DAILY Supplement 06/12/24 06/27/24 History
1,000 mcg tablet
lisinopril 20 mg tablet 20 mg PO DAILY Blood Pressure 06/12/24 06/27/24 History
ascorbic acid (vitamin C) 500 mg 500 mg PO DAILY Supplement 06/13/24 06/27/24 History
tablet (Vitamin C)
oxycodone 5 mg tablet 5 mg PO Q4HPRN PRN moderate pain 06/17/24 06/27/24 Rx
#4 tabs
polyethylene glycol 3350 17 gram 17 g PO DAILY 14 days #0 ea 06/17/24 06/27/24 Rx
oral powder packet (HealthyLax)
acetaminophen 500 mg tablet 1,000 mg PO BID 06/27/24 06/27/24 History
enoxaparin 40 mg/0.4 mL 40 mg SC DAILY 06/27/24 06/27/24 History
subcutaneous syringe
fluticasone 250 mcg-salmeterol 50 1 inh inhalation R BID 06/27/24 06/27/24 History
mcg/dose blistr powdr for
inhalation
fluticasone propionate 50 1 spray intranasal HS 06/27/24 06/27/24 History
mcg/actuation nasal
spray,suspension
magnesium hydroxide 400 mg/5 mL 30 ml PO DAILYPRN PRN constipation 06/27/24 06/27/24 History
oral suspension (Milk of Magnesia)
mirtazapine 15 mg tablet 15 mg PO DAILY 06/27/24 06/27/24 History
pantoprazole 40 mg tablet,delayed 40 mg PO BID 06/27/24 06/27/24 History
release
sodium chloride 1,000 mg soluble 1,000 mg PO TID 06/27/24 06/27/24 History
tablet
therapeutic multivitamin 1 tab PO DAILY 06/27/24 06/27/24 History
zinc sulfate 50 mg zinc (220 mg) 50 mg PO DAILY 06/27/24 06/27/24 History
tablet
Review of Systems
-
All complete 12 point ROS have been inquired and found negative other than stated in HPI
Physical Exam
Vital Signs
Vital Signs
Temp Pulse Resp BP Pulse Ox
97.6 F 84 12 162/75 100
06/28/24 07:49 06/28/24 07:22 06/28/24 07:22 06/28/24 07:14 06/28/24 07:49
Lab Results
WBC 9.3 10^3/uL (4.8-10.8) 06/28/24 05:54
RBC 2.73 10^6/uL (4.70-6.10) L 06/28/24 05:54
Hgb 9.0 g/dL (13.0-18.0) L 06/28/24 05:54
Hct 25.3 % (39.0-52.0) L 06/28/24 05:54
Plt Count 493 10^3/uL (130-400) H 06/28/24 05:54
eGFR > 60.00 06/28/24 06:41
Albumin 2.9 g/dl (3.5-5.0) L 06/28/24 06:41
Laboratory Results - last 24 hr
06/27/24 06/27/24 06/28/24
21:36 23:10 00:00
WBC 8.7
RBC 2.40 L
Hgb 7.6 L
Hct 21.8 L
MCV 90.8
MCH 31.7 H
MCHC 34.9
RDW 15.1 H
Plt Count 489 H
MPV 8.1
Abs Immat Gran (auto) 0.1 H
Absolute Neuts (auto) 6.4
Absolute Lymphs (auto) 1.2
Absolute Monos (auto) 0.9 H
Absolute Eos (auto) 0.1
Absolute Basos (auto) 0.0
Immature Gran % 1.4 H
Neutrophils % 73.1
Lymphocytes % 13.8 L
Monocytes % 9.8 H
Eosinophils % 1.4
Basophils % 0.5
Nucleated RBC % 0
Sodium 119 L*
Potassium 5.1
Chloride 85 L
Carbon Dioxide 29
BUN 16
Creatinine 0.7
Estimated Creat Clear 70
eGFR > 60.00
Glucose 105 H
Serum Osmolality 249 L
Calcium 8.4
Iron 38 L
TIBC 235 L
% Saturation 16 L
Ferritin 221.0
Total Bilirubin 0.4
AST 36
ALT 19
Alkaline Phosphatase 111
Total Protein 5.8 L
Albumin 3.2 L
Vitamin B12 918
Folate 9.2
TSH (Reflex)
Free T4
Urine Osmolality 439
Urine Sodium 97 H
Blood Type A POS
Antibody Screen Negative
06/28/24 06/28/24 06/28/24
05:52 05:54 06:41
WBC 9.3
RBC 2.73 L
Hgb 9.0 L
Hct 25.3 L
MCV 92.7
MCH 33.0 H
MCHC 35.6
RDW 14.8 H
Plt Count 493 H
MPV 8.1
Abs Immat Gran (auto) 0.1 H
Absolute Neuts (auto) 6.9 H
Absolute Lymphs (auto) 1.3
Absolute Monos (auto) 0.9 H
Absolute Eos (auto) 0.1
Absolute Basos (auto) 0.0
Immature Gran % 1.1 H
Neutrophils % 73.4
Lymphocytes % 14.3 L
Monocytes % 9.4 H
Eosinophils % 1.4
Basophils % 0.4
Nucleated RBC % 0
Sodium Cancelled 121 L
Potassium Cancelled 4.6
Chloride Cancelled 88 L
Carbon Dioxide Cancelled 27
BUN Cancelled 12
Creatinine Cancelled 0.5 L
Estimated Creat Clear Cancelled 82
eGFR Cancelled > 60.00
Glucose Cancelled 90
Serum Osmolality
Calcium Cancelled 8.3 L
Iron
TIBC
% Saturation
Ferritin
Total Bilirubin Cancelled 0.5
AST Cancelled 34
ALT Cancelled 18
Alkaline Phosphatase Cancelled 71
Total Protein Cancelled 5.5 L
Albumin Cancelled 2.9 L
Vitamin B12
Folate
TSH (Reflex) 12.40 H
Free T4 0.66 L
Urine Osmolality
Urine Sodium
Blood Type
Antibody Screen
Physical Exam
General: Awake, Alert and Oriented
HEENT: EOMI, Anicteric and No JVD
Respiratory: Clear, Normal Excursion and Nonlabored Respirations
Cardiac: S1/S2 and Regular Rate/Rhythm
Breast: Deferred by me
Abdomen: Soft, Nontender and Nondistended
Musculoskeletal: No Cyanosis and Edema (1+)
Skin: No Rash
Neuro: Nonfocal/Grossly Intact
Psych: Appropriate and Other (poor insight)
Data Reviewed
-
Labs: Labs Reviewed by me and Discussed with Patient
Assessment/Plan
-
Assessment:
Aucte on chr hyponatremia
Anemia normocytic with recent blood loss postop anemia
Status post left hip hemiarthroplasty 06/14/2024
HTN
Dysphagia Hx
GERD/Porras's esophagus
COPD�no acute exacerbation
Former smoker 58-year 1 pack/day quit 2 weeks ago during fall and hip fracture
Depression/anxiety
Abnormal TSH
Plan:
A/w abnormal labs, sodium 119
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
U osmo high suggest ADH mediated -COPD, pain
ok to cont 3% saline at 20cc/hr, follow q4h sodiums
goal of sodium ~125 by tonight
strict FR 40ounce/day, cotn salt tab
LE edema likely multifactorial specially with low alb and recent surg, check BNP
elevate legs and wear TEDs
monitor Bps on home meds, adjust as needed
consider lasix if needed
TSH is high, management per primary
pain control
d/w pt
--- NOTE | 2024-06-28 11:22 | W.PN.HOSP.TC ---
Addendum entered and electronically signed by Philipp Guidry MD 06/30/24 11:39:
Correction- [place] still in
should read as ' Artur needs to be removed'
Original Note:
Today's Communication/Plan
-
Hyponatremia treatment
Assessment / Plan
Assessment / Plan
74-year-old male with hyponatremia.
CVS: S1-S2 normal
Chest: CTA B/L
Abdomen: Soft, NT / Bowel sounds present
Extremities: No edema
Left hip artur intact. No redness noted
#Acute Hyponatremia-with history of chronic hyponatremia
Was on salt tablets as outpatient 1 g 3 times daily
Started on 3% saline
Osmolality indicates SIADH
Worsening sodium likely secondary to excess fluid intake
Fluid restriction
Urine sodium, urine osmolality, serum osmolality-
Follow BMP
Nephrology consulted and managing
# Elevated TSH and low T4-start Synthroid 25 mcg for hypothyroidism
# Anemia
Likely from recent postoperative blood loss
Heme test negative in ER
B12 adequate
PO iron
Transfuse if needed
# Status post left hip hemiarthroplasty 06/14/2024
[place] removed
Pain control with Tylenol and oxycodone
PT OT
# Hypertension-continue lisinopril . Hold Norvasc
# History of dysphagia
Patient had an upper endoscopy April 2024 and was recommended outpatient manometry studies-not completed yet
Video swallow-06/16/24-cleared for regular diet
Continue PPI twice daily
# GERD/Porras's esophagus-continue PPI
# COPD-continue Symbicort
# Anxiety and depression-continue BuSpar, Remeron
# Distal symmetric polyneuropathy
# Severe protein calorie malnutrition
# Ex-smoker quit 2 weeks ago
# History of alcohol abuse in the past quit 10 years ago
# Hypoalbuminemia
# DVT prophylaxis-subcutaneous Lovenox
# Full code
Anticipated Discharge: 24 - 48 hours
Subjective/Interval History
-
Date of Service: June 28, 2024
Objective Data
-
Labs:
Laboratory Results
06/28/24 06/28/24 06/28/24
05:52 05:54 06:41
WBC 9.3
Hgb 9.0 L
Hct 25.3 L
Plt Count 493 H
Sodium Cancelled 121 L
Potassium Cancelled 4.6
Chloride Cancelled 88 L
Carbon Dioxide Cancelled 27
BUN Cancelled 12
Creatinine Cancelled 0.5 L
Glucose Cancelled 90
Calcium Cancelled 8.3 L
Total Bilirubin Cancelled 0.5
AST Cancelled 34
ALT Cancelled 18
Alkaline Phosphatase Cancelled 71
06/28/24 06/28/24
12:00 18:00
WBC
Hgb
Hct
Plt Count
Sodium Pending Pending
Potassium Pending Pending
Chloride Pending Pending
Carbon Dioxide Pending Pending
BUN Pending Pending
Creatinine Pending Pending
Glucose Pending Pending
Calcium Pending Pending
Total Bilirubin
AST
ALT
Alkaline Phosphatase
Vital Signs:
Vital Signs
Temp Pulse Resp BP Pulse Ox
97.6 F 84 12 162/75 100
06/28/24 07:49 06/28/24 07:22 06/28/24 07:22 06/28/24 07:14 06/28/24 07:49
I&O
06/27/24 06/28/24 06/29/24
06:59 06:59 06:59
Output Total 500 / 500 800 / 800
Balance -500 / -500 -800 / -800
[2024-06-28] MEDS: SYNTHROID 25 MCG PO (12:10)
[2024-06-28 13:33] LABS: Blood Urea Nitrogen 10 mg/dl (9-20); Calcium 8.4 mg/dl (8.4-10.2); Carbon Dioxide 28 mmol/L (22-30); Chloride 88 mmol/L (98-107); Estimated Creatinine Clearance 82 ml/min; Glucose 88 mg/dl (70-99); Potassium 4.6 mmol/L (3.5-5.1); Sodium 122 mmol/L (135-145); eGFR > 60.00
[2024-06-28 13:40] LABS: NT-proBNP 1680 pg/ml
[2024-06-28] MEDS: LOVENOX 40 MG SC (18:04)
[2024-06-28 18:44] LABS: Blood Urea Nitrogen 15 mg/dl (9-20); Calcium 8.3 mg/dl (8.4-10.2); Carbon Dioxide 27 mmol/L (22-30); Chloride 87 mmol/L (98-107); Estimated Creatinine Clearance 82 ml/min; Glucose 118 mg/dl (70-99); Potassium 4.8 mmol/L (3.5-5.1); Sodium 123 mmol/L (135-145); eGFR > 60.00
--- NOTE | 2024-06-28 20:52 | PTCARENOTE ---
Addendum entered by Lorenzo Be RN 06/29/24 06:28:
hypertensive overnight 182/64, pt asymptomatic. CHRIS Canseco made aware and ordered x1 hydralazine. BP decreased to 153/73.
Original Note:
Patient arrived into room 3355 with METAL MIXER. Oriented to room and use of call gomez. NSR on tele. CHG done. Able to swallow meds w/o issues. Left hip incision with artur, approximated & ELFEGO. LLE with edema and old scratches pt states from socks at
rehab. Heels elevated on pillows. New foam with adaptic applied to stage 2 on sacrum. Encouraged pt to reposition while in bed. Admission done in ER. Reminded pt about fluid restrictions. Call gomez and tray table left within reach.
[2024-06-28] MEDS: REMERON 15 MG PO (22:12)
[2024-06-29] VITALS (13 sets, daily range): BP systolic 121–187; BP diastolic 57–119; BMI 15.8
[2024-06-29] MEDS: APRESOLINE 5 MG IV (00:45)
[2024-06-29 03:19] LABS: Blood Urea Nitrogen 15 mg/dl (9-20); Calcium 8.5 mg/dl (8.4-10.2); Carbon Dioxide 27 mmol/L (22-30); Chloride 90 mmol/L (98-107); Estimated Creatinine Clearance 75 ml/min; Glucose 88 mg/dl (70-99); Potassium 4.7 mmol/L (3.5-5.1); Sodium 123 mmol/L (135-145); eGFR > 60.00
[2024-06-29] MEDS: SYNTHROID 25 MCG PO (05:54)
[2024-06-29 06:32] LABS: % Basophils 0.9 % (0-2); % Immature Granulocytes 1.1 % (0-0.5); % Lymphocytes 13.8 % (20.5-51.1); % Monocytes 10.5 % (1.7-9.3); % Neutrophils 71.7 % (42.2-75.2); Absolute Basophils 0.1 10^3/uL (0-0.2); Absolute Eosinophils 0.1 10^3/uL (0-0.7); Absolute Immature Granulocytes 0.1 10^3/uL (0-0.05); Absolute Monocytes 0.7 10^3/uL (0.1-0.6); Hematocrit 21.9 % (39.0-52.0); Hemoglobin 7.7 g/dL (13.0-18.0); Mean Corp Hgb Conc. 35.2 g/dL (33.0-37.0); Mean Corpuscular Hgb 32.1 pg (27.0-31.0); Mean Corpuscular Volume 91.3 fL (80.0-94.0); Mean Platelet Volume 8.3 fL (7.4-10.4); Nucleated Red Blood Cells % 0 % (-); Platelet Count 511 10^3/uL (130-400); Red Cell Dist. Width 15.2 % (11.5-14.5)
[2024-06-29 06:53] LABS: ALT (SGPT) 18 U/L (0-50); AST (SGOT) 32 U/L (17-59); Albumin 2.9 g/dl (3.5-5.0); Alkaline Phosphatase 70 U/L (38-126); Blood Urea Nitrogen 13 mg/dl (9-20); Calcium 8.3 mg/dl (8.4-10.2); Carbon Dioxide 27 mmol/L (22-30); Chloride 90 mmol/L (98-107); Estimated Creatinine Clearance 74 ml/min; Glucose 87 mg/dl (70-99); Potassium 4.8 mmol/L (3.5-5.1); Sodium 125 mmol/L (135-145); Total Bilirubin 0.4 mg/dl (0.2-1.3); Total Protein 5.5 g/dl (6.3-8.2); eGFR > 60.00
[2024-06-29] MEDS: ADVAIR HFA 115/21 MCG INHALER 2 PUFF INH ×2 (07:45→19:25)
[2024-06-29] MEDS: BUSPAR 5 MG PO (09:34)
[2024-06-29] MEDS: ZINC 50 MG PO (09:34)
[2024-06-29] MEDS: PROTONIX 40 MG PO ×2 (09:34→20:42)
[2024-06-29] MEDS: THERAGRAN 1 TABLET PO (09:34)
[2024-06-29] MEDS: VITAMIN B-12 1000 MCG PO (09:34)
[2024-06-29] MEDS: TYLENOL 1000 MG PO ×2 (09:34→20:42)
[2024-06-29] MEDS: VITAMIN C 500 MG PO (09:35)
[2024-06-29] MEDS: ZESTRIL 20 MG PO (09:35)
[2024-06-29] MEDS: MIRALAX 17 GRAMS PO (09:35)
[2024-06-29] MEDS: FEOSOL 325 MG PO ×2 (09:37→20:42)
--- NOTE | 2024-06-29 10:12 | W.PN.HOSP.TC ---
Addendum entered and electronically signed by Philipp Guidry MD 06/29/24 10:31:
Patient wants to think about blood transfusion. He feels that he is worn out and has symptoms of anemia but wants to think about whether he wants a transfusion. Benefits and risks discussed with the patient.
Will repeat hemoglobin
Original Note:
Today's Communication/Plan
-
OK for tele
Assessment / Plan
Assessment / Plan
74-year-old male with hyponatremia.
CVS: S1-S2 normal
Chest: CTA B/L
Abdomen: Soft, NT / Bowel sounds present
Extremities: No edema
Left hip artur intact. No redness noted
#Acute Hyponatremia-with history of chronic hyponatremia.
Was on salt tablets as outpatient 1 g 3 times daily
Got 3% saline
Osmolality indicates SIADH
Worsening sodium likely secondary to excess fluid intake
Fluid restriction
Urine sodium, urine osmolality, serum osmolality-
Follow BMP
Nephrology consulted and managing
# Elevated TSH and low T4-started Synthroid 25 mcg for hypothyroidism
# Anemia
Likely from recent postoperative blood loss
Heme test negative in ER
B12 adequate
PO iron
Transfuse if needed
# Status post left hip hemiarthroplasty 06/14/2024
[place] removed
Pain control with Tylenol and oxycodone
PT OT
# Hypertension-continue lisinopril
# History of dysphagia
Patient had an upper endoscopy April 2024 and was recommended outpatient manometry studies-not completed yet
Video swallow-06/16/24-cleared for regular diet
Continue PPI twice daily
# GERD/Porras's esophagus-continue PPI
# COPD-continue Symbicort
# Anxiety and depression-continue BuSpar, Remeron
# Distal symmetric polyneuropathy
# Severe protein calorie malnutrition
# Ex-smoker quit 2 weeks ago
# History of alcohol abuse in the past quit 10 years ago
# Hypoalbuminemia
# DVT prophylaxis-subcutaneous Lovenox
# Full code
D/W Renal
Anticipated Discharge: Within 24 hours
Subjective/Interval History
-
Date of Service: June 29, 2024
Objective Data
-
Labs:
Laboratory Results
06/29/24 06/29/24 06/29/24
02:42 02:42 06:00
WBC 7.0
Hgb 7.7 L
Hct 21.9 L
Plt Count 511 H
Sodium 123 L Cancelled Cancelled
Potassium 4.7 Cancelled
Chloride 90 L Cancelled
Carbon Dioxide 27 Cancelled
BUN 15 Cancelled
Creatinine 0.5 L Cancelled
Glucose 88 Cancelled
Calcium 8.5 Cancelled
Total Bilirubin Cancelled
AST Cancelled
ALT Cancelled
Alkaline Phosphatase Cancelled
06/29/24 06/29/24
06:23 12:00
WBC
Hgb
Hct
Plt Count
Sodium 125 L Pending
Potassium 4.8 Pending
Chloride 90 L Pending
Carbon Dioxide 27 Pending
BUN 13 Pending
Creatinine 0.5 L Pending
Glucose 87 Pending
Calcium 8.3 L Pending
Total Bilirubin 0.4
AST 32
ALT 18
Alkaline Phosphatase 70
Vital Signs:
Vital Signs
Temp Pulse Resp BP Pulse Ox
97.9 F 90 17 166/68 96
06/29/24 07:20 06/29/24 07:47 06/29/24 07:47 06/29/24 06:09 06/29/24 07:47
I&O
06/28/24 06/29/24 06/30/24
06:59 06:59 06:59
Output Total 500 / 500 1950 / 1950 200 / 200
Balance -500 / -500 -1949 / -1949 -200 / -200
--- NOTE | 2024-06-29 10:31 | W.PN.NEPH.PH ---
Today's Communication / Plan
-
Add Lasix 20 mg p.o. daily for hyponatremia
For blood products today
Assessment/Plan
-
Assessment:
Aucte on chr hyponatremia
Anemia normocytic with recent blood loss postop anemia
Status post left hip hemiarthroplasty 06/14/2024
HTN
Dysphagia Hx
GERD/Porras's esophagus
COPD�no acute exacerbation
Former smoker 58-year 1 pack/day quit 2 weeks ago during fall and hip fracture
Depression/anxiety
Abnormal TSH
Plan:
A/w abnormal labs, sodium 125 after two doses of hypertonic saline
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
U osmo high suggest ADH mediated -COPD, pain
strict FR 40ounce/day, continue salt tabs
LE edema likely multifactorial specially with low alb and recent surg, check BNP
elevate legs and wear TEDs
monitor Bps on home meds, adjust as needed
Will add Lasix 20 mg p.o. daily
TSH is high, management per primary
pain control
d/w pt
-
-
Date of Service: June 29, 2024
CC / HPI / ROS
-
Chief Complaint:
Hyponatremia
History of Present Illness:
Serum sodium up to 125 following 500 cc of hypertonic saline
Hemoglobin remains low
Hemodynamically stable
Review of Systems:
Nonoliguric
No chest pain or shortness of
Labs
-
Labs:
WBC 7.0 10^3/uL (4.8-10.8) 06/29/24 06:00
RBC 2.40 10^6/uL (4.70-6.10) L 06/29/24 06:00
Plt Count 511 10^3/uL (130-400) H 06/29/24 06:00
eGFR > 60.00 06/29/24 06:23
Duu-H-Hhngapoorqz Pept 1680 pg/ml 06/28/24 12:13
Albumin 2.9 g/dl (3.5-5.0) L 06/29/24 06:23
Physical Exam
-
Vital Signs:
Vital Signs
Temp Pulse Resp BP Pulse Ox
97.9 F 90 17 166/68 96
06/29/24 07:20 06/29/24 07:47 06/29/24 07:47 06/29/24 06:09 06/29/24 07:47
Cardiovascular:: Regular rate and rhythm
Respiratory:: Bilateral: CTA
Lung Excursion:: Normal
Abdomen:: Nontender and Soft
Bowel Sounds:: Normal
Extremity Edema:: +1: Bilateral:
Jeffrey Catheter: No
--- NOTE | 2024-06-29 11:26 | WOUNDNOTE ---
R FOOT AND ANKLE
--- NOTE | 2024-06-29 11:27 | WOUNDNOTE ---
WO RN note: Patient admitted with Acute hyponatremia.
See H&P for complete history. [facility].
PMH: L hip recent surgery, smoker, COPD, HTN, stomach ulcers, alcohol abuse and severe malnutrition.
Wound Location and type/assessment: Patient admitted with: L hip surgical site with intact artur no drainage. Sacrum with blanchable redness and shallow irregularly shaped ulcers. Suspect MASD with stage 2 vs stage 3PI on sacrum. Heels intact.
Skin on legs dry, R ankle with scratch tyson. Patient states he does not have any special cushion or air bed at [place]. Turns self in bed.
Appetite: Fair, states he had all his eggs for breakfast.
Pressure redistribution devices in place: Air mattress. Recommend keeping patient on air mattress if transferred, nurse aware. Pillows placed under calves and repositioned patient onto R semi side lying. Patient unable to tolerate being turned, ' I
just can't get comfortable' he states. Pressure ulcer prevention measures reviewed and patient states he understands. Air cushion brought to for chair use and instructed he can take back to [facility] upon discharge.
Plan: Adaptic and silicone foam to sacrum applied. Moisturized legs with A&D ointment, will order mineral oil. Foam adhesives applied to heels to protect. Will confirm orders with hospitalist and updated nurse.
Updated care plan and will follow as needed.
Note to case management of equipment requested for discharge: Air mattress at [place].
Recommend follow up at wound care center upon discharge.
[2024-06-29 12:19] LABS: Hematocrit 23.2 % (39.0-52.0); Hemoglobin 8.4 g/dL (13.0-18.0)
[2024-06-29] MEDS: ROXICODONE 5 MG PO (12:22)
[2024-06-29] MEDS: LASIX 20 MG PO (12:24)
[2024-06-29 13:16] LABS: Blood Urea Nitrogen 13 mg/dl (9-20); Calcium 8.7 mg/dl (8.4-10.2); Carbon Dioxide 28 mmol/L (22-30); Chloride 88 mmol/L (98-107); Estimated Creatinine Clearance 74 ml/min; Glucose 93 mg/dl (70-99); Potassium 4.9 mmol/L (3.5-5.1); Sodium 124 mmol/L (135-145); eGFR > 60.00
--- NOTE | 2024-06-29 13:34 | PTCARENOTE ---
Report given to Will RN, will place air mattress. Transport via w/c to [facility].
--- NOTE | 2024-06-29 15:39 | CM ---
Patient from [facility] with recent left hip hemiarthroplasty 06/14 with Dx hyponatremia, hypothyroidism, anemia. Room air. Receiving Roxicodone prn. PT/OT recommend skilled rehab. Seen by wound care nurse.
Spoke with patient who resides alone in a 2 story house with 1 CHAVA.
Prior to last hospital admission patient had been independent in ADLs and ambulation.
He states he has good family support from his 2 sons.
The patient says he was going well at [facility] for short term rehab, and says he wants to return there to complete rehab.
Spoke with Susana, [facility]; the patient did not hold his bed however they will probably have an available bed and can take him back to complete rehab. She was informed about sacral decub/need for air mattress. Referral placed.
Plan follow up with [facility] for bed availability when closer to d/c.
Will need insurance auth for SNF return.
Plan probable return to [facility].
[2024-06-29] MEDS: LOVENOX 40 MG SC (16:35)
[2024-06-29] MEDS: REMERON 15 MG PO (20:42)
[2024-06-30] VITALS (12 sets, daily range): BP systolic 87–173; BP diastolic 50–75; PULSE 94; BMI 12.1
[2024-06-30] MEDS: ROXICODONE 5 MG PO (03:42)
[2024-06-30] MEDS: SYNTHROID 25 MCG PO (05:50)
[2024-06-30] MEDS: ADVAIR HFA 115/21 MCG INHALER 2 PUFF INH (07:32)
[2024-06-30 08:12] LABS: % Basophils 0.7 % (0-2); % Lymphocytes 13.8 % (20.5-51.1); % Monocytes 10.9 % (1.7-9.3); % Neutrophils 71.6 % (42.2-75.2); ALT (SGPT) 18 U/L (0-50); AST (SGOT) 28 U/L (17-59); Absolute Basophils 0.1 10^3/uL (0-0.2); Absolute Eosinophils 0.1 10^3/uL (0-0.7); Absolute Immature Granulocytes 0.1 10^3/uL (0-0.05); Absolute Monocytes 0.8 10^3/uL (0.1-0.6); Absolute Neutrophils 5.1 10^3/uL (1.4-6.5); Albumin 2.8 g/dl (3.5-5.0); Alkaline Phosphatase 73 U/L (38-126); Blood Urea Nitrogen 13 mg/dl (9-20); Calcium 8.2 mg/dl (8.4-10.2); Carbon Dioxide 27 mmol/L (22-30); Chloride 89 mmol/L (98-107); Estimated Creatinine Clearance 57 ml/min; Glucose 84 mg/dl (70-99); Hematocrit 20.4 % (39.0-52.0); Hemoglobin 7.1 g/dL (13.0-18.0); Mean Corp Hgb Conc. 34.8 g/dL (33.0-37.0); Mean Corpuscular Volume 91.9 fL (80.0-94.0); Mean Platelet Volume 8.2 fL (7.4-10.4); Nucleated Red Blood Cells % 0 % (-); Platelet Count 454 10^3/uL (130-400); Potassium 4.6 mmol/L (3.5-5.1); Red Blood Cell Count 2.22 10^6/uL (4.70-6.10); Red Cell Dist. Width 15.4 % (11.5-14.5); Sodium 123 mmol/L (135-145); Total Bilirubin 0.3 mg/dl (0.2-1.3); Total Protein 5.3 g/dl (6.3-8.2); White Blood Cell Count 7.2 10^3/uL (4.8-10.8); eGFR > 60.00
[2024-06-30] MEDS: FEOSOL 325 MG PO ×2 (09:10→21:04)
[2024-06-30] MEDS: ZESTRIL 20 MG PO (09:10)
[2024-06-30] MEDS: PROTONIX 40 MG PO ×2 (09:10→21:04)
[2024-06-30] MEDS: BUSPAR 5 MG PO (09:10)
[2024-06-30] MEDS: VITAMIN C 500 MG PO (09:13)
[2024-06-30] MEDS: THERAGRAN 1 TABLET PO (09:13)
[2024-06-30] MEDS: TYLENOL 1000 MG PO ×2 (09:16→21:04)
[2024-06-30] MEDS: MIRALAX 17 GRAMS PO (09:19)
[2024-06-30] MEDS: LASIX 20 MG PO (09:20)
[2024-06-30] MEDS: VITAMIN B-12 1000 MCG PO (09:21)
[2024-06-30] MEDS: ZINC 50 MG PO (09:21)
[2024-06-30] MEDS: HYDROPHOR 1 APPLIC TOPICAL (09:21)
--- NOTE | 2024-06-30 11:18 | W.PN.HOSP.TC ---
Today's Communication/Plan
-
? Samsca
CT A/P
One unit of blood
Texted ortho for staple removal
Assessment / Plan
Assessment / Plan
74-year-old male with hyponatremia.
CVS: S1-S2 normal
Chest: CTA B/L
Abdomen: has pain epigastric area, Bowel sounds present, Rectal heme neg brown stool
Extremities: No edema
Left hip artur intact. No redness noted
#Acute Hyponatremia-with history of chronic hyponatremia.
Non complant with FR
Was on salt tablets as outpatient 1 g 3 times daily
Got 3% saline X 2 bags
Osmolality indicates SIADH
Worsening sodium likely secondary to excess fluid intake
Fluid restriction
Urine sodium, urine osmolality, serum osmolality-CW SIADH
Follow BMP
Nephrology consulted and managing
May need Samsca today
# Elevated TSH and low T4-started Synthroid 25 mcg for hypothyroidism
# Anemia
Likely from recent postoperative blood loss
Heme test negative in ER
B12 adequate
PO iron
Transfuse if needed
Patient complaining of abdominal discomfort therefore I have ordered CAT scan to rule out bleed with his history of fall
Rectal Heme negative Brown stool
# Status post left hip hemiarthroplasty 06/14/2024
Pain control with Tylenol and oxycodone
Texted Ortho to get artur out
PT OT
# Hypertension-continue lisinopril
# History of dysphagia
Patient had an upper endoscopy April 2024 and was recommended outpatient manometry studies-not completed yet
Video swallow-06/16/24-cleared for regular diet
Continue PPI twice daily
# GERD/Porras's esophagus-continue PPI BID
# COPD-continue Symbicort
# Anxiety and depression-continue BuSpar, Remeron
# Distal symmetric polyneuropathy
# Severe protein calorie malnutrition
# Ex-smoker quit 2 weeks ago
# History of alcohol abuse in the past quit 10 years ago
# Hypoalbuminemia
# DVT prophylaxis-subcutaneous Lovenox
# Full code
D/W Renal
D/W RN
Spoke to patient's son Alfonso in detail and updated. All his questions were answered. Discussed about strict fluid restriction is only way to avoid him from getting readmitted with hyponatremia
Anticipated Discharge: Within 24 hours
Subjective/Interval History
-
Date of Service: June 30, 2024
Objective Data
-
Labs:
Laboratory Results
06/30/24
06:53
WBC 7.2
Hgb 7.1 L
Hct 20.4 L*
Plt Count 454 H
Sodium 123 L
Potassium 4.6
Chloride 89 L
Carbon Dioxide 27
BUN 13
Creatinine 0.5 L
Glucose 84
Calcium 8.2 L
Total Bilirubin 0.3
AST 28
ALT 18
Alkaline Phosphatase 73
Vital Signs:
Vital Signs
Temp Pulse Resp BP Pulse Ox
98.0 F 81 18 164/64 97
06/30/24 07:35 06/30/24 09:10 06/30/24 07:35 06/30/24 09:10 06/30/24 07:35
I&O
06/29/24 06/30/24 07/01/24
06:59 06:59 06:59
Intake Total 480 / 480
Output Total 1949 1025 / 1025
Balance -1949 / -1949 -545 / -545
--- NOTE | 2024-06-30 13:01 | CM ---
Addendum entered by Nuvia Myers 06/30/24 14:27:
Per [facility], able to offer patient a bed tomorrow. Auth initiated through [employer] ([phone])- clinicals faxed to [phone], pending reference number [id number].
Plan; [facility], pending auth.
Original Note:
CM reviewed chart, patient receiving blood today. Patient seen bedside, reports he is agreeable to return to [facility] when stable for discharge. CM awaiting update from [facility] regarding bed availability, patient will require auth
through [employer]. CM will continue to follow for all discharge planning needs.
Plan; [facility], pending bed availability, will require auth.
--- NOTE | 2024-06-30 15:28 | W.PN.NEPH.PH ---
Today's Communication / Plan
-
Samsca 15 mg x 1
Hold Lasix
follow bmp
Assessment/Plan
-
Assessment:
Aucte on chr hyponatremia
Anemia normocytic with recent blood loss postop anemia
Status post left hip hemiarthroplasty 06/14/2024
HTN
Dysphagia Hx
GERD/Porras's esophagus
COPD�no acute exacerbation
Former smoker 58-year 1 pack/day quit 2 weeks ago during fall and hip fracture
Depression/anxiety
Abnormal TSH
Plan:
A/w abnormal labs, sodium 125 after two doses of hypertonic saline, now down to 123
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
will give 15mg po samsca, will hold lasix
Blood products given for worsening anemia
CT of abdomen and pelvis reviewed: no acute findings, no hemorrhage or obstructive process
U osmo high suggest ADH mediated -COPD, pain, undiagnosed malignancy?
strict FR 40ounce/day, continue salt tabs
LE edema likely multifactorial specially with low alb and recent surgery,
elevate legs and wear TEDs
monitor Bps on home meds, adjust as needed
TSH is high, management per primary
pain control
d/w pt
-
-
Date of Service: June 30, 2024
CC / HPI / ROS
-
Chief Complaint:
Hyponatremia
History of Present Illness:
Serum sodium down to 123 after lasix added to salt tablets
Hemoglobin remains low
Hemodynamically stable
Review of Systems:
Nonoliguric
No chest pain or shortness of
Labs
-
Labs:
WBC 7.2 10^3/uL (4.8-10.8) 06/30/24 06:53
RBC 2.22 10^6/uL (4.70-6.10) L 06/30/24 06:53
Hgb 7.1 g/dL (13.0-18.0) L 06/30/24 06:53
Hct 20.4 % (39.0-52.0) L* 06/30/24 06:53
Plt Count 454 10^3/uL (130-400) H 06/30/24 06:53
Sodium 123 mmol/L (135-145) L 06/30/24 06:53
Potassium 4.6 mmol/L (3.5-5.1) 06/30/24 06:53
Chloride 89 mmol/L (98-107) L 06/30/24 06:53
Carbon Dioxide 27 mmol/L (22-30) 06/30/24 06:53
BUN 13 mg/dl (9-20) 06/30/24 06:53
Creatinine 0.5 mg/dL (0.7-1.3) L 06/30/24 06:53
eGFR > 60.00 06/30/24 06:53
Glucose 84 mg/dl (70-99) 06/30/24 06:53
Calcium 8.2 mg/dl (8.4-10.2) L 06/30/24 06:53
Vcm-Q-Uygopxhoajz Pept 1680 pg/ml 06/28/24 12:13
Albumin 2.8 g/dl (3.5-5.0) L 06/30/24 06:53
Physical Exam
-
Vital Signs:
Vital Signs
Temp Pulse Resp BP Pulse Ox
98.3 F 88 18 135/58 99
06/30/24 15:09 06/30/24 15:09 06/30/24 15:09 06/30/24 15:09 06/30/24 15:09
Cardiovascular:: Regular rate and rhythm
Respiratory:: Bilateral: CTA
Lung Excursion:: Normal
Abdomen:: Nontender and Soft
Bowel Sounds:: Normal
Extremity Edema:: +1: Bilateral:
Jeffrey Catheter: No
--- NOTE | 2024-06-30 15:38 | PN.CDI ---
Addendum entered and electronically signed by Philipp Guidry MD 07/01/24 17:15:
Documentation is complete at this time.
see my note
Original Note:
CDI
- -
CDI:
Physician Documentation Request
Admit Date: 06/27/24 23:39
Dear Doctor Chao,
Documentation in hospitalist progress notes 06/28- includes the diagnosis of severe malnutrition.
RD notes assessment indicate patient is underweight (<18.5 BMI)
To ensure the quality of the medical record, based on the above information and the recognized standards for malnutrition , could you please verify in your progress notes which of the following responses best reflects the patient's nutritional
status:
Severe Malnutrition is/was present and is a clinical diagnosis (please provide additional support in the medical record)
Underweight without malnutrition
Other (please specify)
[place] Criteria ([facility] Hospitalist 2017)
2 or more criteria must be present for either
non severe or severe malnutrition
Note that the criteria differs related to the
presence of an acute or chronic illness
Acute Illness Chronic Illness
Energy Intake Non Severe: <75% for >7 days Non Severe: <75% for >1 month
Severe: <50% for >5 days Severe: <75% for >1 month
Weight Loss Non Severe: 1-2% over 1 week Non Severe: 5% over 1 month
5% over 1 month 7.5% over 3 months
7.5% over 3 months 10% over 6 months
1 year N/A 20% over 1 year
Severe: >2% over 1 week Severe: >5% over 1 month
>5% over 1 month >7.5% over 3 months
>7.5% over 3 months >10% over 6 months
1 year N/A >20% over 1 year
Body Fat Non Severe: Mild Decrease Non Severe: Mild Loss
Severe: Moderate Decrease Severe: Severe Loss
Muscle Mass Non Severe: Mild Decrease Non Severe: Mild Loss
Severe: Moderate Decrease Severe: Severe Loss
Fluid Accumulation Non Severe: Mild Accumulation Non Severe: Mild Accumulation
Severe: Moderate to severe Severe: Moderate to severe
accumulation accumulation
Reduced Personal Lines Agent Strength Non Severe: N/A Non Severe: N/A
Severe: Measurably reduced Severe: Measurably reduced
Use of terms such as suspected, likely, concern for, or probable (associated with a specific diagnosis that is being evaluated, monitored, or treated as if it exists) are acceptable and can be coded in the inpatient setting, when documented at the
time of discharge.
Thank you,
Cassidy Luo RN, BSN
CDI Specialist
tiger text
Please use your independent medical judgment in providing your response.
--- NOTE | 2024-06-30 15:42 | PN.CDI ---
Addendum entered and electronically signed by Philipp Guidry MD 07/01/24 17:14:
Documentation is complete at this time.
Original Note:
CDI
- -
CDI:
Physician Documentation Request
Admit Date: 06/27/24 23:39
Dear Doctor Chao,
Progress note state 'Anemia- likely from recent post operative blood loss'
Please clarify which of the following accurately represents the acuity of the anemia
____ Acute
____ Other
Use of terms such as suspected, likely, concern for, or probable (associated with a specific diagnosis that is being evaluated, monitored, or treated as if it exists) are acceptable and can be coded in the inpatient setting, when documented at the
time of discharge.
Thank you,
Cassidy Luo RN, BSN
CDI Specialist
tiger text
Please use your independent medical judgment in providing your response.
--- NOTE | 2024-06-30 15:45 | PN.CDI ---
CDI
- -
CDI:
Physician Documentation Request
Admit Date: 06/27/24 23:39
Dear Doctor Chao,
06/29 [facility] states ' Suspected MASD with stage 2 vs stage 3 PI on sacrum'
Physician documentation of the type and location of wounds is required for compliant documentation. Based on the above clinical findings and your assessment, please provide the following in your progress note:
1. Location of the ulcer/wound, including laterality.
2. Type (etiology) of ulcer/wound:
- Diabetic ulcer
- Arterial (ischemic) ulcer
- Traumatic wound
- Venous stasis ulcer
- Pressure (decubitus) ulcer
- Non-healing surgical wound
- Other
- Unable to determine
Use of terms such as suspected, likely, concern for, or probable (associated with a specific diagnosis that is being evaluated, monitored, or treated as if it exists) are acceptable and can be coded in the inpatient setting, when documented at the
time of discharge.
Thank you,
Cassidy Luo RN, BSN
CDI Specialist
tiger text
Please use your independent medical judgment in providing your response.
*Source: National Pressure Ulcer Advisory Panel (NPUAP)
[2024-06-30] MEDS: LOVENOX 40 MG SC (16:29)
[2024-06-30] MEDS: SAMSCA 15 MG PO (16:29)
[2024-06-30] MEDS: ADVAIR HFA 115/21 MCG INHALER INH (19:27)
[2024-06-30] MEDS: REMERON 15 MG PO (22:49)
[2024-07-01 03:57] VITALS: BP 152/66
[2024-07-01 06:00] VITALS: BMI 13.3
[2024-07-01] MEDS: SYNTHROID 25 MCG PO (06:23)
[2024-07-01 07:00] VITALS: BP 161/74
[2024-07-01 07:46] LABS: % Basophils 0.8 % (0-2); % Eosinophils 1.4 % (0-6); % Immature Granulocytes 0.7 % (0-0.5); % Lymphocytes 13.7 % (20.5-51.1); % Monocytes 11.5 % (1.7-9.3); % Neutrophils 71.9 % (42.2-75.2); Absolute Basophils 0.1 10^3/uL (0-0.2); Absolute Eosinophils 0.1 10^3/uL (0-0.7); Absolute Immature Granulocytes 0.1 10^3/uL (0-0.05); Absolute Monocytes 0.8 10^3/uL (0.1-0.6); Absolute Neutrophils 5.1 10^3/uL (1.4-6.5); Hematocrit 26.1 % (39.0-52.0); Hemoglobin 9.1 g/dL (13.0-18.0); Mean Corp Hgb Conc. 34.9 g/dL (33.0-37.0); Mean Corpuscular Hgb 32.2 pg (27.0-31.0); Mean Corpuscular Volume 92.2 fL (80.0-94.0); Nucleated Red Blood Cells % 0 % (-); Platelet Count 470 10^3/uL (130-400); Red Blood Cell Count 2.83 10^6/uL (4.70-6.10); Red Cell Dist. Width 17.2 % (11.5-14.5); White Blood Cell Count 7.1 10^3/uL (4.8-10.8)
[2024-07-01 07:57] LABS: ALT (SGPT) 22 U/L (0-50); AST (SGOT) 35 U/L (17-59); Albumin 3.2 g/dl (3.5-5.0); Alkaline Phosphatase 80 U/L (38-126); Blood Urea Nitrogen 14 mg/dl (9-20); Calcium 8.9 mg/dl (8.4-10.2); Carbon Dioxide 31 mmol/L (22-30); Chloride 95 mmol/L (98-107); Estimated Creatinine Clearance 53 ml/min; Glucose 90 mg/dl (70-99); Potassium 4.8 mmol/L (3.5-5.1); Sodium 133 mmol/L (135-145); Total Bilirubin 0.7 mg/dl (0.2-1.3); Total Protein 5.9 g/dl (6.3-8.2); eGFR > 60.00
[2024-07-01] MEDS: ADVAIR HFA 115/21 MCG INHALER 2 PUFF INH ×2 (08:06→19:57)
[2024-07-01 11:00] VITALS: BP 129/65
[2024-07-01] MEDS: HYDROPHOR 1 APPLIC TOPICAL (11:27)
[2024-07-01] MEDS: ZINC 50 MG PO (11:28)
[2024-07-01] MEDS: VITAMIN C 500 MG PO (11:28)
[2024-07-01] MEDS: PROTONIX 40 MG PO ×2 (11:28→20:59)
[2024-07-01] MEDS: BUSPAR 5 MG PO (11:28)
[2024-07-01] MEDS: TYLENOL 1000 MG PO ×2 (11:28→20:58)
[2024-07-01] MEDS: MIRALAX 17 GRAMS PO (11:28)
[2024-07-01] MEDS: VITAMIN B-12 1000 MCG PO (11:29)
[2024-07-01] MEDS: THERAGRAN 1 TABLET PO (11:29)
[2024-07-01] MEDS: FEOSOL 325 MG PO ×2 (11:29→20:59)
[2024-07-01] MEDS: ZESTRIL 20 MG PO (11:29)
--- NOTE | 2024-07-01 12:14 | W.PN.HOSP.TC ---
Addendum entered and electronically signed by Philipp Guidry MD 07/01/24 15:45:
Stage 2 -3 pressure injury Sacrum present on admission
Original Note:
Today's Communication/Plan
-
Discharge
Awaiting Auth
Assessment / Plan
Assessment / Plan
74-year-old male with hyponatremia.
CVS: S1-S2 normal
Chest: CTA B/L
Abdomen: has pain epigastric area, Bowel sounds present, Rectal heme neg brown stool
Extremities: No edema
Left hip artur intact. No redness noted
#Acute Hyponatremia-with history of chronic hyponatremia.
Non complant with FR
Was on salt tablets as outpatient 1 g 3 times daily
Got 3% saline X 2 bags
Osmolality indicates SIADH
Worsening sodium likely secondary to excess fluid intake
Fluid restriction stressed with pt
Urine sodium, urine osmolality, serum osmolality-CW SIADH
Follow BMP
Nephrology consulted and managing
Got Samsca yesterday
# Elevated TSH and low T4-started Synthroid 25 mcg for hypothyroidism
# Anemia
Likely from recent postoperative blood loss
Heme test negative in ER and also yesterday
B12 adequate
PO iron
CT abdomen and pelvis-no retroperitoneal hemorrhage. Emphysematous lung changes at the lung bases. Small pulmonary nodules 4 mm more pronounced.
# Status post left hip hemiarthroplasty 06/14/2024
Pain control with Tylenol and oxycodone
Texted Ortho to get artur out today prior to discharge 06/30/2024-
PT OT
# Hypertension-continue lisinopril
# History of dysphagia
Patient had an upper endoscopy April 2024 and was recommended outpatient manometry studies-not completed yet
Video swallow-06/16/24-cleared for regular diet
Continue PPI twice daily
# GERD/Porras's esophagus-continue PPI BID
# COPD-continue Symbicort
# Anxiety and depression-continue BuSpar, Remeron
# Distal symmetric polyneuropathy
# Severe protein calorie malnutrition
# Ex-smoker quit 2 weeks ago
# History of alcohol abuse in the past quit 10 years ago
# Hypoalbuminemia
# DVT prophylaxis-subcutaneous Lovenox
# Full code
D/W Renal
D/W RN
06/30/2024-spoke to patient's son Alfonso in detail and updated. All his questions were answered. Discussed about strict fluid restriction is only way to avoid him from getting readmitted with hyponatremia
Discussed with case management
Discussed with orthopedics
Anticipated Discharge: Today
Subjective/Interval History
-
Date of Service: July 01, 2024
Objective Data
-
Labs:
Laboratory Results
07/01/24
06:17
WBC 7.1
Hgb 9.1 L D
Hct 26.1 L
Plt Count 470 H
Sodium 133 L D
Potassium 4.8
Chloride 95 L
Carbon Dioxide 31 H
BUN 14
Creatinine 0.7
Glucose 90
Calcium 8.9
Total Bilirubin 0.7
AST 35
ALT 22
Alkaline Phosphatase 80
Vital Signs:
Vital Signs
Temp Pulse Resp BP Pulse Ox
98.1 F 85 16 161/74 97
07/01/24 07:00 07/01/24 08:05 07/01/24 08:05 07/01/24 07:00 07/01/24 08:05
I&O
06/30/24 07/01/24 07/02/24
06:59 06:59 06:59
Intake Total 480 / 480 910 / 910
Output Total 1025 / 1025 1970 / 1970
Balance -545 / -545 -1060 / -1060
--- NOTE | 2024-07-01 12:26 | W.DS.TRANS ---
Addendum entered and electronically signed by Philipp Guidry MD 07/01/24 17:02:
Dictation- [id number]
Original Note:
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
-
Discharge Instructions:
Discharge Diagnosis/Procedures Acute on chronic hyponatremia
Hypothyroidism-new diagnosis
Anemia
Status post left hip hemiarthroplasty 06/14/2024
Hypertension
GERD/Porras's esophagus
COPD
Anxiety and depression
Distal symmetric polyneuropathy
Severe protein calorie malnutrition
Diet Restrict fluids to 48 oz
Activity As tolerated
Driving Restrictions No driving
Blood Work BMP 3-4 days. CBC 3-[address] scan of the lung in 6 months. To follow-up
pulmonary nodules. This is very important. Also
follow up with a lung doctor.
Other Services PT,OT
Instructions:
Stand-Alone Forms:
Changes to Home Medications: Yes
Discharge Medications:
DC Medications w/original date entered in [facility]
buspirone 5 mg tablet 5 mg PO DAILY Anxiety 04/17/24
cyanocobalamin (vitamin B-12) 1,000 mcg tablet 1,000 mcg PO DAILY Supplement 06/12/24
lisinopril 20 mg tablet 20 mg PO DAILY Blood Pressure 06/12/24
ascorbic acid (vitamin C) 500 mg tablet (Vitamin C) 500 mg PO DAILY Supplement 06/13/24
polyethylene glycol 3350 17 gram oral powder packet (HealthyLax) 17 g PO DAILY 14 days #0 ea 06/17/24
acetaminophen 500 mg tablet 1,000 mg PO BID pain 06/27/24
enoxaparin 40 mg/0.4 mL subcutaneous syringe 40 mg SC DAILY Blood Clot Prevention/Tx 06/27/24
fluticasone 250 mcg-salmeterol 50 mcg/dose blistr powdr for inhalation 1 inh inhalation R BID Lung/Breathing Issues 06/27/24
fluticasone propionate 50 mcg/actuation nasal spray,suspension 1 spray intranasal HS Allergies 06/27/24
magnesium hydroxide 400 mg/5 mL oral suspension (Milk of Magnesia) 30 ml PO DAILYPRN PRN constipation 06/27/24
pantoprazole 40 mg tablet,delayed release 40 mg PO BID Gastrointestinal Issue 06/27/24
sodium chloride 1,000 mg soluble tablet 1,000 mg PO TID Electrolyte Repletion 06/27/24
therapeutic multivitamin 1 tab PO DAILY Supplement 06/27/24
zinc sulfate 50 mg zinc (220 mg) tablet 50 mg PO DAILY Supplement 06/27/24
ferrous sulfate 325 mg (65 mg iron) tablet (FeroSul) 325 mg PO BID anemia #0 tabs 07/01/24
levothyroxine 25 mcg tablet 25 mcg PO DAILY @ 0600 Thyroid #0 tabs 07/01/24
mirtazapine 15 mg tablet 15 mg PO HS depression/sleep #0 tabs 07/01/24
oxycodone 5 mg tablet 5 mg PO Q4HPRN PRN moderate pain #8 tabs 07/01/24
Home Medication Changes
Iron, Synthroid or new
Pending Results: No
--- NOTE | 2024-07-01 12:30 | W.PN.NEPH.PH ---
Today's Communication / Plan
-
resume salt tab and cont FR
labs in am
Assessment/Plan
-
Assessment:
Aucte on chr hyponatremia
Anemia normocytic with recent blood loss postop anemia
Status post left hip hemiarthroplasty 06/14/2024
HTN
Dysphagia Hx
GERD/Porras's esophagus
COPD�no acute exacerbation
Former smoker 58-year 1 pack/day quit 2 weeks ago during fall and hip fracture
Depression/anxiety
Abnormal TSH
Plan:
A/w abnormal labs, sodium better at 133 post samsca
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
hb better post PRBC
CT of abdomen and pelvis reviewed: no acute findings, no hemorrhage or obstructive process
U osmo high suggest ADH mediated -COPD, pain, undiagnosed malignancy?
strict FR 40ounce/day, resume salt tabs
LE edema likely multifactorial specially with low alb and recent surgery,
elevate legs and wear TEDs
monitor labile Bps on home meds, adjust as needed
TSH is high, LT4 started per primary
d/w pt
if d/c, need BMP in 3days
f/u with PCP , need to encourage solute intake
-
-
Date of Service: July 01, 2024
CC / HPI / ROS
-
Chief Complaint:
Hyponatremia
History of Present Illness:
Serum sodium better at 1333 post sa
Hemoglobin better at 9 post PRBC
labile Bps
Review of Systems:
Nonoliguric
No chest pain or shortness of
Labs
-
Labs:
WBC 7.1 10^3/uL (4.8-10.8) 07/01/24 06:17
RBC 2.83 10^6/uL (4.70-6.10) L 07/01/24 06:17
Hgb 9.1 g/dL (13.0-18.0) L D 07/01/24 06:17
Hct 26.1 % (39.0-52.0) L 07/01/24 06:17
Plt Count 470 10^3/uL (130-400) H 07/01/24 06:17
Sodium 133 mmol/L (135-145) L D 07/01/24 06:17
Potassium 4.8 mmol/L (3.5-5.1) 07/01/24 06:17
Chloride 95 mmol/L (98-107) L 07/01/24 06:17
Carbon Dioxide 31 mmol/L (22-30) H 07/01/24 06:17
BUN 14 mg/dl (9-20) 07/01/24 06:17
Creatinine 0.7 mg/dL (0.7-1.3) 07/01/24 06:17
eGFR > 60.00 07/01/24 06:17
Glucose 90 mg/dl (70-99) 07/01/24 06:17
Calcium 8.9 mg/dl (8.4-10.2) 07/01/24 06:17
Loo-O-Tjyzqtuomre Pept 1680 pg/ml 06/28/24 12:13
Albumin 3.2 g/dl (3.5-5.0) L 07/01/24 06:17
Physical Exam
-
Vital Signs:
Vital Signs
Temp Pulse Resp BP Pulse Ox
98.1 F 85 16 161/74 97
07/01/24 07:00 07/01/24 08:05 07/01/24 08:05 07/01/24 07:00 07/01/24 08:05
Cardiovascular:: Regular rate and rhythm
Respiratory:: Bilateral: Coarse
Lung Excursion:: Normal
Abdomen:: Nontender and Soft
Extremity Edema:: +1: Left: and None: Right:
Jeffrey Catheter: No
[2024-07-01 15:00] VITALS: BP 122/48
--- NOTE | 2024-07-01 15:47 | CM ---
[facility] can accept pt today.
Auth still pending, ref# [id number]. [facility] for [facility] by 5 pm
[address] Blackman aware via TT
CM updated Susana/[facility]
--- NOTE | 2024-07-01 16:27 | W.PN.UPDATE ---
Update Note
Progress Note Update
74M s/p L hip hemiarthroplasty with Dr. Talamantes.
Recent imaging shows on CT intact hardware without complication
[place] removed without complication; mild firmness about incision, likely hematoma. No drainage. Pain improving
F/u outpatient between 4-6 weeks from [place]/ Dr. Talamantes for clinical examination. Continue with hip precautions x6 weeks.
--- NOTE | 2024-07-01 16:38 | CM ---
Addendum entered by Sanjana Pena 07/01/24 17:16:
TC from [facility]-
Patient approved skilled rehab
start date 07/01/24, NRD 07/05/24.
Reference # [id number]
updates to
Original Note:
Case discussed via peer to peer and per MDR approved skilled rehab.
TC to [facility], case still not updated, could take a while.
Requested call back to main number with approval information.
Susana from [facility] updated re approved but waiting for approval form insurance.
Ambulance transport will need to be scheduled.
Susana from [facility] updated.
Pending Auth #[id number]
Plan: skilled rehab once auth received.
[facility]
Report# [phone]

Ambulance transport forms on chart.
IMM on chart.
Please call and update Susana at [facility] with authorization and transport time.
[2024-07-01] MEDS: LOVENOX 40 MG SC (18:55)
[2024-07-01] MEDS: SODIUM CHLORIDE 1 GRAM PO ×2 (18:55→20:59)
[2024-07-01 19:55] VITALS: BP 117/53
[2024-07-01] MEDS: REMERON PO (20:59)
[2024-07-01] MEDS: REMERON 15 MG PO (22:28)
[2024-07-01 23:58] VITALS: BP 161/64
[2024-07-02 06:00] VITALS: BMI 14.5
[2024-07-02] MEDS: SYNTHROID 25 MCG PO (06:08)
--- NOTE | 2024-07-02 06:25 | W.PN.HOSP.TC ---
Today's Communication/Plan
-
discharge
Assessment / Plan
Assessment / Plan
Physical Exam
General: no acute distress
CVS: S1-S2 normal
Chest: CTA B/L
Abdomen: has pain epigastric area, Bowel sounds present
Extremities: No edema
Neuro: Awake Alert Conversant Coherent
74-year-old male with hyponatremia.
#Acute Hyponatremia-with history of chronic hyponatremia.
Non complant with FR
Was on salt tablets as outpatient 1 g 3 times daily
Got 3% saline X 2 bags
Osmolality indicates SIADH
Worsening sodium likely secondary to excess fluid intake
Fluid restriction stressed with pt
Urine sodium, urine osmolality, serum osmolality-CW SIADH
Follow BMP
Nephrology consult appreciated
s/p Samsca
# Elevated TSH and low T4-started Synthroid 25 mcg for hypothyroidism
-Possible hypothyroidism contributing to low Na as well
# Anemia
Likely from recent postoperative blood loss
Heme test negative in ER and also yesterday
B12 adequate
PO iron
CT abdomen and pelvis-no retroperitoneal hemorrhage. Emphysematous lung changes at the lung bases. Small pulmonary nodules 4 mm more pronounced.
# Status post left hip hemiarthroplasty 06/14/2024
Pain control with Tylenol and oxycodone
Ortho removed artur 07/01/2024-
PT OT
# Hypertension-continue lisinopril
# History of dysphagia
Patient had an upper endoscopy April 2024 and was recommended outpatient manometry studies-not completed yet
Video swallow-06/16/24-cleared for regular diet
Continue PPI twice daily
# GERD/Porras's esophagus-continue PPI BID
# COPD-continue Symbicort
# Anxiety and depression-continue BuSpar, Remeron
# Distal symmetric polyneuropathy
# Severe protein calorie malnutrition
# Ex-smoker quit 2 weeks ago
# History of alcohol abuse in the past quit 10 years ago
# Hypoalbuminemia
# DVT prophylaxis-subcutaneous Lovenox
# Full code
D/W Renal
D/W RN
Discussed with patient's son Brent
Total Time Preparing Discharge ___50____ minutes including examination of the patient, summary of the hospital stay, instructions for continuing care to all relevant caregivers; and preparation of discharge records, prescriptions, and referral
forms if necessary.
Anticipated Discharge: Today
Subjective/Interval History
-
Date of Service: July 02, 2024
Mild moderate discomfort d/t general pain. No acute distresss. Denies new acute issues.
Objective Data
-
Labs:
Laboratory Results
07/02/24
06:21
WBC Pending
Hgb Pending
Hct Pending
Plt Count Pending
Sodium Pending
Potassium Pending
Chloride Pending
Carbon Dioxide Pending
BUN Pending
Creatinine Pending
Glucose Pending
Calcium Pending
Total Bilirubin Pending
AST Pending
ALT Pending
Alkaline Phosphatase Pending
Vital Signs:
Vital Signs
Temp Pulse Resp BP Pulse Ox
98 F 90 20 161/64 96
07/01/24 23:58 07/01/24 23:58 07/01/24 23:58 07/01/24 23:58 07/01/24 23:58
I&O
06/30/24 07/01/24 07/02/24
06:59 06:59 06:59
Intake Total 480 / 480 910 / 910 620 / 620
Output Total 1025 / 1025 1970 / 1970 800 / 800
Balance -545 / -545 -1060 / -1060 -180 / -180
[2024-07-02 07:00] VITALS: BP 173/71
[2024-07-02 07:33] LABS: % Basophils 1.2 % (0-2); % Eosinophils 2.5 % (0-6); % Immature Granulocytes 0.8 % (0-0.5); % Lymphocytes 18.3 % (20.5-51.1); % Neutrophils 64.2 % (42.2-75.2); Absolute Basophils 0.1 10^3/uL (0-0.2); Absolute Eosinophils 0.2 10^3/uL (0-0.7); Absolute Immature Granulocytes 0.1 10^3/uL (0-0.05); Absolute Lymphocytes 1.3 10^3/uL (1.2-3.4); Absolute Monocytes 0.9 10^3/uL (0.1-0.6); Absolute Neutrophils 4.6 10^3/uL (1.4-6.5); Hematocrit 26.5 % (39.0-52.0); Hemoglobin 8.9 g/dL (13.0-18.0); Mean Corp Hgb Conc. 33.6 g/dL (33.0-37.0); Mean Corpuscular Hgb 31.2 pg (27.0-31.0); Mean Platelet Volume 8.3 fL (7.4-10.4); Nucleated Red Blood Cells % 0 % (-); Platelet Count 464 10^3/uL (130-400); Red Blood Cell Count 2.85 10^6/uL (4.70-6.10); Red Cell Dist. Width 17.5 % (11.5-14.5); White Blood Cell Count 7.2 10^3/uL (4.8-10.8)
[2024-07-02 07:52] LABS: ALT (SGPT) 23 U/L (0-50); AST (SGOT) 33 U/L (17-59); Albumin 3.1 g/dl (3.5-5.0); Alkaline Phosphatase 77 U/L (38-126); Blood Urea Nitrogen 19 mg/dl (9-20); Calcium 8.7 mg/dl (8.4-10.2); Carbon Dioxide 31 mmol/L (22-30); Chloride 96 mmol/L (98-107); Estimated Creatinine Clearance 68 ml/min; Glucose 96 mg/dl (70-99); Potassium 4.8 mmol/L (3.5-5.1); Sodium 135 mmol/L (135-145); Total Bilirubin 0.3 mg/dl (0.2-1.3); Total Protein 5.8 g/dl (6.3-8.2); eGFR > 60.00
[2024-07-02] MEDS: ADVAIR HFA 115/21 MCG INHALER 2 PUFF INH (07:52)
[2024-07-02] MEDS: MIRALAX 17 GRAMS PO (10:15)
[2024-07-02] MEDS: HYDROPHOR TOPICAL (10:20)
[2024-07-02] MEDS: ZESTRIL 20 MG PO (10:22)
[2024-07-02] MEDS: VITAMIN B-12 1000 MCG PO (10:22)
[2024-07-02] MEDS: VITAMIN C 500 MG PO (10:22)
[2024-07-02] MEDS: TYLENOL 1000 MG PO (10:22)
[2024-07-02] MEDS: PROTONIX 40 MG PO (10:22)
[2024-07-02] MEDS: FEOSOL 325 MG PO (10:23)
[2024-07-02] MEDS: THERAGRAN 1 TABLET PO (10:23)
[2024-07-02] MEDS: SODIUM CHLORIDE 1 GRAM PO ×2 (10:23→16:08)
[2024-07-02] MEDS: BUSPAR 5 MG PO (10:36)
[2024-07-02] MEDS: ZINC 50 MG PO (10:36)
[2024-07-02] MEDS: ROXICODONE 5 MG PO ×2 (12:10→17:42)
--- NOTE | 2024-07-02 12:51 | CM ---
CM reviewed chart, patient for discharge to [facility]. Patient approved skilled rehab, start date 07/01/24, NRD 07/05/24. Reference # [id number] updates to . Susana at [facility] updated with 5:30/6:00 p.m. ambulance transport time.
CM will continue to follow for all discharge planning needs.
Plan; [facility], 5:30/6:00 p.m. ambulance transport
Report: [phone]
[2024-07-02 15:00] VITALS: BP 115/52
--- NOTE | 2024-07-02 17:07 | W.PN.NEPH.PH ---
Today's Communication / Plan
-
ok to d/c
Assessment/Plan
-
Assessment:
Aucte on chr hyponatremia
Anemia normocytic with recent blood loss postop anemia
Status post left hip hemiarthroplasty 06/14/2024
HTN
Dysphagia Hx
GERD/Porras's esophagus
COPD�no acute exacerbation
Former smoker 58-year 1 pack/day quit 2 weeks ago during fall and hip fracture
Depression/anxiety
Abnormal TSH
Plan:
A/w abnormal labs, [facility]
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
U osmo high suggest ADH mediated -COPD, pain, undiagnosed malignancy?
strict FR 40ounce/day, cont salt tabs
LE edema likely multifactorial specially with low alb and recent surgery,
elevate legs and wear TEDs
monitor labile Bps on home meds, adjust as needed
TSH is high, LT4 started per primary
d/w pt and sister
if d/c, need BMP in 3days
f/u with PCP , need to encourage solute intake
Nephro if needed
-
-
Date of Service: July 02, 2024
CC / HPI / ROS
-
Chief Complaint:
Hyponatremia
History of Present Illness:
Serum [facility]
Hemoglobin stable 8.9 post PRBC
labile Bps
Review of Systems:
Nonoliguric
No chest pain or shortness of breath
Labs
-
Labs:
WBC 7.2 10^3/uL (4.8-10.8) 07/02/24 06:21
RBC 2.85 10^6/uL (4.70-6.10) L 07/02/24 06:21
Hgb 8.9 g/dL (13.0-18.0) L 07/02/24 06:21
Hct 26.5 % (39.0-52.0) L 07/02/24 06:21
Plt Count 464 10^3/uL (130-400) H 07/02/24 06:21
Sodium 135 mmol/L (135-145) 07/02/24 06:21
Potassium 4.8 mmol/L (3.5-5.1) 07/02/24 06:21
Chloride 96 mmol/L (98-107) L 07/02/24 06:21
Carbon Dioxide 31 mmol/L (22-30) H 07/02/24 06:21
BUN 19 mg/dl (9-20) 07/02/24 06:21
Creatinine 0.6 mg/dL (0.7-1.3) L 07/02/24 06:21
eGFR > 60.00 07/02/24 06:21
Glucose 96 mg/dl (70-99) 07/02/24 06:21
Calcium 8.7 mg/dl (8.4-10.2) 07/02/24 06:21
Ojm-Z-Lstuyzcibuz Pept 1680 pg/ml 06/28/24 12:13
Albumin 3.1 g/dl (3.5-5.0) L 07/02/24 06:21
Physical Exam
-
Vital Signs:
Vital Signs
Temp Pulse Resp BP Pulse Ox
98.5 F 91 18 173/71 95
07/02/24 07:00 07/02/24 07:55 07/02/24 07:55 07/02/24 07:00 07/02/24 07:55
Cardiovascular:: Regular rate and rhythm
Respiratory:: Bilateral: CTA
Lung Excursion:: Normal
Abdomen:: Nontender and Soft
Extremity Edema:: +1: Left:
Jeffrey Catheter: No
[2024-07-02] MEDS: LOVENOX 40 MG SC (17:42)
[2024-07-02] MEDS: ADVAIR HFA 115/21 MCG INHALER INH (19:33)
== END 2024-07-02 19:30 | DRG 643 ==
LOC: 4 WEST ACU 23:39
PROVIDERS: Clinical Nurse Specialist Family Health; Emergency Medicine; Hospitalist; ADMITTING PHYSICIAN Hospitalist; ATTENDING PHYSICIAN Internal Medicine; CONSULT PHYSICIAN Internal Medicine; EMERGENCY PHYSICIAN Emergency Medicine; FAMILY PHYSICIAN Internal Medicine
PROC: 30233N1 Transfusion of Nonautologous Red Blood Cells into Peripheral Vein, Percutaneous Approach (ICD-10-PCS; 2024-06-30)
DX: E22.2 Syndrome of inappropriate secretion of antidiuretic hormone (principal); E43 Unspecified severe protein-calorie malnutrition; L89.153 Pressure ulcer of sacral region, stage 3; Z68.1 Body mass index [BMI] 19.9 or less, adult; D64.9 Anemia, unspecified; L89.152 Pressure ulcer of sacral region, stage 2; I10 Essential (primary) hypertension; J44.9 Chronic obstructive pulmonary disease, unspecified; K21.9 Gastro-esophageal reflux disease without esophagitis; F41.1 Generalized anxiety disorder; K22.70 Barrett's esophagus without dysplasia; F32.A Depression, unspecified; E03.9 Hypothyroidism, unspecified; E88.09 Other disorders of plasma-protein metabolism, not elsewhere classified; G62.9 Polyneuropathy, unspecified; E87.70 Fluid overload, unspecified; Z87.891 Personal history of nicotine dependence; Z88.0 Allergy status to penicillin; Z79.899 Other long term (current) drug therapy; Z91.119 Patient's noncompliance with dietary regimen due to unspecified reason; Z96.642 Presence of left artificial hip joint; Z79.51 Long term (current) use of inhaled steroids
CPT/HCPCS: 74176; 80048; 80053; 82607; 82728; 82746; 83540; 83550; 83880; 83930; 83935; 84300; 84439; 84443; 85014; 85018; 85025; 86850; 86900; 86901; 86920; 94640; 97163; 97530; 97535; 99291; P9016

== ENCOUNTER 2025-08-07 06:13 | Emergency (ER) | payer OTHER, SELFPAY ==
[2025-08-07 06:29] VITALS: BP 153/71
[2025-08-07 06:35] VITALS: BMI 17.4
--- NOTE | 2025-08-07 06:35 | ED.GENMED ---
History of Present Illness
General
Chief Complaint: Cold/Flu/URI Symptoms
Source: patient
Exam Limitations: none
Time Seen by Provider: 08/07/25 06:26
History of Present Illness
History of Present Illness:
75-year-old male with history of COPD presents via EMS from home where he lives by himself with complaints of worsening chest congestion and cough. He is not on oxygen. He has been using his inhaler every now and then for his COPD. He received a
nebulizer and route which may have helped some. He denies any leg swelling. He denies fevers chills or sweats. No significant chest pain. He states his congestion in his chest is made worse when he lays flat. He does endorse history of
Porras's esophagus.
Past History
Past History
ED Past Medical History: COPD, GERD (PUD) and HTN
ED Past Surgical History: None
Social History
Tobacco: Smoker
Alcohol: Former (doesn't drink any more)
Drug: None
Personal: Single
Living: alone
Phy Exam
Physical Exam
Physical Exam:
General: Unkempt male no acute respiratory distress HEENT: Normal cephalic atraumatic
Posterior pharynx is patent neck is supple
Heart: Regular rate and rhythm
Lungs: Subtle expiratory wheeze otherwise clear
Abdomen is soft nontender nondistended
Extremities: No cyanosis or edema
Skin warm no rash
Course
Orders/Labs/Results
Orders:
Orders
08/07/25 06:34
CR Chest - 2 Views Urgent
Comment:
Reason For Exam: cough
08/07/25 06:39
COVID-19 Antigen Urgent
Source: Nasal Swab
Complete Blood Count/With Diff Urgent
Comprehensive Metabolic Panel Urgent
Influenza A+B Rapid Molecular Urgent
ROBIN Source: Nasal Swab
Specimen Description:
08/07/25 06:43
NT-proBNP Urgent
08/07/25 09:51
Ipratropium/Albuterol Sulfate [Duoneb] 3 ml INH R NOW STA
Abnormal Lab Results
08/07/25
06:39
RBC 3.54 L 10^6/uL
(4.70-6.10)
Hgb 10.9 L g/dL
(13.0-18.0)
Hct 32.2 L %
(39.0-52.0)
RDW 14.7 H %
(11.5-14.5)
Absolute Monos (auto) 1.0 H 10^3/uL
(0.1-0.6)
Monocytes % 14.1 H %
(1.7-9.3)
Sodium 132 L mmol/L
(135-145)
Chloride 95 L mmol/L
(98-107)
Carbon Dioxide 35 H mmol/L
(22-30)
Glucose 105 H mg/dl
(70-99)
08/07/25 06:39
08/07/25 06:39
Vital Signs
Initial and Last Documented VS:
Initial Vital Signs
BP
153/71
08/07/25 06:29
Last Documented Vital Signs
Pulse Resp BP Pulse Ox
90 20 189/76 96
08/07/25 10:30 08/07/25 10:30 08/07/25 09:23 08/07/25 10:30
MDM/Problems Addressed
Differential Diagnosis Includes:
Patient here with chest congestion worse when he lays down for the cough. Consider COPD exacerbation versus pneumonia versus CHF versus COVID or flu. COVID and flu test pending. Chest x-ray ordered. Patient is not hypoxic nor is he tachycardic.
He did receive a DuoNeb and route.
*Pulse Oximetry
SaO2: 96
Oxygen Mode of Delivery: Room air
Patient hypoxic: no
*Critical Care Note
Total Time (30-74mins, 75-104mins- exclusive of procedures): Not Applicable
Update Note
Update Note:
Work appear without significant finding. Patient is not hypoxic nor is he in any respiratory distress. He is given nebulizer here. Suspect COPD exacerbation. Will cover with continued inhalers and Zithromax. No indication for admission
ED Attending Note
-
Portions of this chart may have been created with voice recognition software.� Occasional wrong word or��sound alike� substitutions may have occurred due to the inherent limitations of voice recognition software.
Discharge Plan
Departure
Patient Disposition: Home (Routine Discharge)
Date of Disposition: 08/07/25
Time of Disposition: 11:28
Patient with high blood pressure during this ER visit?: No
Discharge Problem:
COPD exacerbation
Prescriptions:
New
prednisone 20 mg tablet
40 mg PO DAILY 5 Days Qty: 10 0RF
azithromycin [Zithromax Z-Rocael] 250 mg tablet
250 mg PO DAILY 6 Days Qty: 6 0RF
No Action
buspirone 5 mg Tablet
5 mg PO DAILY
Patient Comments:
no pharmacy fills
lisinopril 20 mg Tablet
20 mg PO DAILY
cyanocobalamin (vitamin B-12) 1,000 mcg Tablet
1,000 mcg PO DAILY
ascorbic acid (vitamin C) [Vitamin C] 500 mg tablet
500 mg PO DAILY
Patient Comments:
06/27/24: to give for 3 weeks, from 06/21/24-07/12/24.
polyethylene glycol 3350 [HealthyLax] 17 gram Powder In Packet
17 g PO DAILY 14 Days Qty: 0 0RF
Patient Comments:
06/27/24: to give for 14 days, from 06/18/24-07/02/24.
fluticasone propion-salmeterol 250-50 mcg/dose Blister With Device
1 inh INHALATION R BID
acetaminophen 500 mg Tablet
1,000 mg PO BID
Patient Comments:
06/27/24: Give for 14 days, from 06/20/24-07/04/24.
magnesium hydroxide [Milk of Magnesia] 400 mg/5 mL Suspension
30 ml PO DAILYPRN PRN (Reason: constipation)
fluticasone propionate 50 mcg/actuation Mead,Suspension
1 spray INTRANASAL HS
Patient Comments:
06/27/24: to give for 14 days, from 06/20/24-07/04/24.
sodium chloride 1,000 mg tablet,soluble
1,000 mg PO TID
therapeutic multivitamin Tablet
1 tab PO DAILY
Patient Comments:
06/27/24: to give for 3 weeks, from 06/21/24-07/12/24.
zinc sulfate 50 mg zinc (220 mg) Tablet
50 mg PO DAILY
Patient Comments:
06/27/24: to give for 3 weeks, from 06/21/24-07/12/24.
pantoprazole 40 mg Tablet,Delayed Release (Dr/Ec)
40 mg PO BID
enoxaparin 40 mg/0.4 mL syringe
40 mg SC DAILY
Patient Comments:
06/27/24: to give for 28 days, from 06/18/24-07/16/24.
ferrous sulfate [FeroSul] 325 mg (65 mg iron) Tablet
325 mg PO BID Qty: 0 0RF
levothyroxine 25 mcg Tablet
25 mcg PO DAILY @ 0600 Qty: 0 0RF
oxycodone 5 mg Tablet
5 mg PO Q4HPRN PRN (Reason: moderate pain) Qty: 8 0RF
mirtazapine 15 mg Tablet
15 mg PO HS Qty: 0 0RF
Referrals:
Jordan Hernández MD [Family Provider, Family Practice]
Activity Restrictions/Additional Instructions:
Use steroid as directed. Use antibiotic as directed. Turn if worse otherwise follow-up with your doctor
Interventions
Interventions:
*Risk Screen - Suicide Last Done: 08/07/25 06:29
*General Assessment Last Done: 08/07/25 06:29
*Neglect/Abuse Screening Last Done: 08/07/25 06:29
*ED- Fall Risk Assessment Last Done: 08/07/25 06:29
*ED COVID-19 Vaccine History Last Done: 08/07/25 06:29
*ED Influenza Vaccine History Last Done: 08/07/25 06:29
ED- Pulmonary Assessment Last Done: 08/07/25 06:29
Discharge Date and Time
Print Language: TANZANIAN
[2025-08-07 07:05] LABS: Hematocrit 32.2 % (39.0-52.0); Hemoglobin 10.9 g/dL (13.0-18.0); Mean Corp Hgb Conc. 33.9 g/dL (33.0-37.0); Mean Corpuscular Volume 91.0 fL (80.0-94.0); Nucleated Red Blood Cells % 0 % (-); Platelet Count 247 10^3/uL (130-400); Red Cell Dist. Width 14.7 % (11.5-14.5)
[2025-08-07 07:20] LABS: ALT (SGPT) 13 U/L (0-50); AST (SGOT) 20 U/L (17-59); Albumin 4.0 g/dl (3.5-5.0); Alkaline Phosphatase 73 U/L (38-126); Blood Urea Nitrogen 17 mg/dl (9-20); Calcium 8.7 mg/dl (8.4-10.2); Chloride 95 mmol/L (98-107); Estimated Creatinine Clearance 69 ml/min; Glucose 105 mg/dl (70-99); Potassium 3.7 mmol/L (3.5-5.1); Sodium 132 mmol/L (135-145); Total Protein 6.8 g/dl (6.3-8.2); eGFR > 60.00
[2025-08-07 07:29] LABS: Carbon Dioxide 35 mmol/L (22-30)
[2025-08-07 07:31] VITALS: BP 140/91
[2025-08-07 07:35] LABS: COVID-19 Antigen Negative (Negative)
[2025-08-07 08:01] VITALS: BP 176/71
[2025-08-07 09:23] VITALS: BP 189/76
[2025-08-07] MEDS: DUONEB 3 ML INH (10:36)
[2025-08-07] MEDS: DELTASONE 50 MG PO (12:46)
[2025-08-07] MEDS: ZITHROMAX 500 MG PO (12:46)
[2025-08-07] MEDS: MAALOX 50 PO (12:46)
== END 2025-08-07 15:15 | disposition home or self-care (01) ==
LOC: EMR 06:13
PROVIDERS: Physician Assistant; EMERGENCY PHYSICIAN Emergency Medicine; FAMILY PHYSICIAN Family Medicine
DX: J44.1 Chronic obstructive pulmonary disease with (acute) exacerbation (principal); I10 Essential (primary) hypertension; K21.9 Gastro-esophageal reflux disease without esophagitis; K22.70 Barrett's esophagus without dysplasia; F17.200 Nicotine dependence, unspecified, uncomplicated; Z87.11 Personal history of peptic ulcer disease
CPT/HCPCS: 99284; 94640; 71046; 80053; 83880; 85025; 87502; 87811

== ENCOUNTER 2025-08-15 06:45 | Emergency (ER) | payer OTHER, SELFPAY ==
[2025-08-15 06:50] VITALS: BP 177/82
[2025-08-15 08:13] VITALS: BMI 17.1
--- NOTE | 2025-08-15 08:31 | ED.GENMED ---
History of Present Illness
General
Chief Complaint: Cold/Flu/URI Symptoms
Source: patient
Time Seen by Provider: 08/15/25 08:07
History of Present Illness
History of Present Illness:
75-year-old male presents to the emergency room complaining of increased congestion, cough, burning sensation in his upper abdomen and chest. Patient began feeling unwell this morning. Patient states he had similar complaints about a week ago and
was seen here in the emergency room. He felt better for a bit but now the symptoms have returned. He endorses having COPD but does not use inhalers on a daily basis. He does not believe he is had a fever. He is tolerating oral intake.
Past History
Past History
ED Past Medical History: COPD, GERD (PUD) and HTN
ED Past Surgical History: None
Social History
Tobacco: Smoker
Alcohol: Former (doesn't drink any more)
Drug: None
Personal: Single
Living: alone
Phy Exam
Physical Exam
Physical Exam:
General: Awake, Alert, Oriented X3. No acute distress, appears quite thin, chronically ill
Vitals: unremarkable
Head: Atraumatic
Eyes: Pupils equal, EOMI
Throat: Airway intact, no exudates
Neck: Trachea midline
Lungs: Decreased breath sounds bilaterally with some fine expiratory wheezing
Heart: Regular rate, no murmurs
Abd: Soft, Nontender, No pulsatile mass
Neuro: Nonfocal
Skin: Warm, dry, no rash
Extremities: pulses equal b/l, no edema
Course
Orders/Labs/Results
Orders:
Orders
08/15/25 08:17
Electrocardiogram (*1) Urgent
Reason for Study: Abdominal Pain
EKG- Treatment ONCE
08/15/25 08:30
Famotidine [Pepcid] 20 mg IV NOW STA
Ipratropium/Albuterol Sulfate [Duoneb] 3 ml INH R NOW STA
CR Chest - 2 Views Urgent
Comment:
Reason For Exam: cough, congestion, chest pain
08/15/25 08:38
COVID-19 Antigen Urgent
Source: Nasal Swab
Complete Blood Count/With Diff Urgent
Comprehensive Metabolic Panel Urgent
Troponin I Urgent
Influenza A+B Rapid Molecular Urgent
ROBIN Source: Nasal Swab
Specimen Description:
08/15/25 09:36
Lisinopril [Zestril] 20 mg PO NOW STA
Abnormal Lab Results
08/15/25
08:38
RBC 3.94 L 10^6/uL
(4.70-6.10)
Hgb 12.4 L g/dL
(13.0-18.0)
Hct 36.1 L %
(39.0-52.0)
MCH 31.5 H pg
(27.0-31.0)
RDW 14.7 H %
(11.5-14.5)
Abs Immat Gran (auto) 0.2 H 10^3/uL
(0-0.05)
Absolute Neuts (auto) 6.8 H 10^3/uL
(1.4-6.5)
Absolute Monos (auto) 1.1 H 10^3/uL
(0.1-0.6)
Immature Gran % 1.5 H %
(0-0.5)
Lymphocytes % 15.8 L %
(20.5-51.1)
Monocytes % 10.8 H %
(1.7-9.3)
Sodium 131 L mmol/L
(135-145)
Chloride 94 L mmol/L
(98-107)
Carbon Dioxide 34 H mmol/L
(22-30)
Glucose 100 H mg/dl
(70-99)
08/15/25 08:38
08/15/25 08:38
Vital Signs
Initial and Last Documented VS:
Initial Vital Signs
Temp Pulse Resp BP Pulse Ox
97.7 F 89 18 177/82 98
08/15/25 06:50 08/15/25 06:50 08/15/25 06:50 08/15/25 06:50 08/15/25 06:50
Last Documented Vital Signs
Temp Pulse Resp BP Pulse Ox
97.7 F 88 19 197/99 98
08/15/25 06:50 08/15/25 09:50 08/15/25 08:45 08/15/25 09:57 08/15/25 08:45
MDM/Problems Addressed
Differential Diagnosis Includes:
copd exacerbation, acute bronchitis, pneumonia
MDM/Problems Addressed:
Patient presents with increased coughing, secretions. He looks fairly comfortable here in the emergency room. Treated with nebulizer resulting in some improvement. Patient is in no distress. No indication for hospitalization. Patient stable for
discharge home.
Acute Exacerbation and/or Progression of Chronic Illness: COPD
*Radiology
Radiology exam reviewed: preliminary read by ED provider (Changes of COPD but no acute changes compared to previous on my review of the patient's chest x-ray)
*Pulse Oximetry
SaO2: 98
Oxygen Mode of Delivery: Room air
Patient hypoxic: no
*EKG
Interpreted by ED Provider?: Yes
Heart Rate: 83
Rate: normal
Rhythm: sinus
Cromwell: normal axis
Interval: normal interval
QRS Pattern: normal QRS
Ischemia: no ischemia
*Dieing Out Machine Operator Interpretation
Rate: normal
Interpretation: normal
Heart Rate: 83
Rhythm: sinus
*Critical Care Note
Total Time (30-74mins, 75-104mins- exclusive of procedures): Not Applicable
ED Attending Note
-
Portions of this chart may have been created with voice recognition software.� Occasional wrong word or��sound alike� substitutions may have occurred due to the inherent limitations of voice recognition software.
Discharge Plan
Departure
Patient Disposition: Home (Routine Discharge)
Date of Disposition: 08/15/25
Time of Disposition: 09:35
Admit to: Med/Surg
Patient with high blood pressure during this ER visit?: Yes
Condition: Good
Discharge Problem:
COPD (chronic obstructive pulmonary disease)
Instructions: Chronic obstructive pulmonary disease (COPD), BLOOD PRESSURE
Prescriptions:
No Action
cyanocobalamin (vitamin B-12) 1,000 mcg Tablet
1,000 mcg PO DAILY
magnesium hydroxide [Milk of Magnesia] 400 mg/5 mL Suspension
30 ml PO DAILYPRN PRN (Reason: constipation)
sodium chloride 1,000 mg tablet,soluble
1,000 mg PO TID
therapeutic multivitamin Tablet
1 tab PO DAILY
Patient Comments:
06/27/24: to give for 3 weeks, from 06/21/24-07/12/24.
mirtazapine 15 mg Tablet
15 mg PO HS Qty: 0 0RF
azithromycin [Zithromax Z-Rocael] 250 mg tablet
250 mg PO DAILY 6 Days Qty: 6 0RF
A Med ' Travayo?'
1 tab PO .ASDIRECTED
amlodipine
1 tab PO DAILY
Referrals:
Jordan Hernández MD [Family Provider, Family Practice]
Interventions
Interventions:
*Risk Screen - Suicide Last Done: 08/15/25 06:50
*General Assessment Last Done: 08/15/25 08:15
*Neglect/Abuse Screening Last Done: 08/15/25 08:15
*ED COVID-19 Vaccine History Last Done: 08/15/25 08:15
*ED Influenza Vaccine History Last Done: 08/15/25 08:15
[facility] Fall Risk Assessment Tool Last Done: 08/15/25 08:14
*Nursing Disposition Last Done: 08/15/25 11:31
ED- Pulmonary Assessment Last Done: 08/15/25 08:16
Discharge Date and Time
Discharge Date/Time: 08/15/25 11:39
Print Language: SWEDISH
[2025-08-15] MEDS: PEPCID 20 MG IV (08:45)
[2025-08-15] MEDS: DUONEB 3 ML INH (08:45)
[2025-08-15 08:53] LABS: Hematocrit 36.1 % (39.0-52.0); Hemoglobin 12.4 g/dL (13.0-18.0); Mean Corp Hgb Conc. 34.3 g/dL (33.0-37.0); Mean Corpuscular Volume 91.6 fL (80.0-94.0); Nucleated Red Blood Cells % 0 % (-); Platelet Count 324 10^3/uL (130-400); Red Cell Dist. Width 14.7 % (11.5-14.5)
[2025-08-15 08:59] VITALS: BP 209/88
[2025-08-15 09:11] LABS: ALT (SGPT) 15 U/L (0-50); AST (SGOT) 18 U/L (17-59); Albumin 4.1 g/dl (3.5-5.0); Alkaline Phosphatase 70 U/L (38-126); Blood Urea Nitrogen 19 mg/dl (9-20); Calcium 8.6 mg/dl (8.4-10.2); Chloride 94 mmol/L (98-107); Estimated Creatinine Clearance 69 ml/min; Glucose 100 mg/dl (70-99); Potassium 4.0 mmol/L (3.5-5.1); Sodium 131 mmol/L (135-145); Total Protein 6.9 g/dl (6.3-8.2); eGFR > 60.00
[2025-08-15 09:17] LABS: COVID-19 Antigen Negative (Negative)
[2025-08-15 09:21] LABS: Troponin I < 0.012 ng/ml
[2025-08-15 09:30] LABS: Carbon Dioxide 34 mmol/L (22-30)
[2025-08-15] MEDS: ZESTRIL 20 MG PO (09:50)
[2025-08-15 09:57] VITALS: BP 197/99
== END 2025-08-15 11:39 | disposition home or self-care (01) ==
LOC: EMR 06:45
PROVIDERS: EMERGENCY PHYSICIAN Emergency Medicine; FAMILY PHYSICIAN Family Medicine
DX: J44.9 Chronic obstructive pulmonary disease, unspecified (principal); I10 Essential (primary) hypertension; F17.200 Nicotine dependence, unspecified, uncomplicated; Z87.11 Personal history of peptic ulcer disease; Z11.52 Encounter for screening for COVID-19
CPT/HCPCS: 99285; 96374; 94640; 71046; 80053; 84484; 85025; 87502; 87811; 93005

== ENCOUNTER 2025-08-20 01:09 | Emergency (ER) | payer OTHER, SELFPAY ==
[2025-08-20] VITALS (7 sets, daily range): BP systolic 128–221; BP diastolic 56–86; BMI 17.0
--- NOTE | 2025-08-20 01:19 | ED.GENMED ---
History of Present Illness
General
Chief Complaint: Abdominal Pain
Time Seen by Provider: 08/20/25 01:14
History of Present Illness
History of Present Illness:
FOCUSED PAST MEDICAL HISTORY
- COPD, high blood pressure, history of alcohol abuse but denies alcohol abuse currently
REVIEW OF OLD RECORDS
- This is the patient's third visit to the ED in the past 2 weeks; the other few times related to COPD exacerbations. The patient was also admitted to the hospital with acute hyponatremia in June 2024
- CBC from 5 days ago relatively unremarkable with improving hemoglobin
- Sodium was 131 5 days ago
Note:
CHIEF COMPLAINT(S)
Right flank pain and elevated blood pressure.
HISTORY OF PRESENT ILLNESS
The patient is a 75-year-old male with a history of hypertension, presenting with a complaint of diffuse abdominal pain and significantly elevated blood pressure, recorded as high as 220/?. The pain began around 12:30 AM, accompanied by anxiety.
Upon checking his blood pressure at home, the patient took an extra dose of amlodipine besylate 5 mg, which he typically takes in the morning, to address the elevated reading. The patient describes the pain as xavier and intense, worsened with
palpation but manageable without immediate need for additional pain medication.
The patient denies vomiting but notes experiencing diarrhea, describing it as forceful with a gas-like expulsion. He hasnt experienced any vomiting, though he does report some nausea.
PAST MEDICAL AND SURGICAL HISTORY
Hypertension.
CHRONIC MEDICAL CONDITIONS SIGNIFICANTLY AFFECTING CARE
Hypertension.
MEDICATIONS
Amlodipine besylate 5 mg daily.
REVIEW OF SYSTEMS
- Cardiovascular: Reports significantly elevated blood pressure.
- Gastrointestinal: Reports some loose stool and occasional nausea; denies vomiting.
- Musculoskeletal: Reports flank pain with tenderness upon palpation.
- Neurological/Psychiatric: Reports anxiety associated with symptoms but is oriented and cooperative.
PHYSICAL EXAM
General: Alert, no acute distress.
Skin: Warm, dry.
Head: Normocephalic, atraumatic.
Neck: Supple, trachea midline.
Eye Ears, nose, mouth and throat: Oral mucosa moist.
Cardiovascular: Normal peripheral perfusion, no edema.
Respiratory: Respirations are non-labored. Somewhat diminished equally.
Gastrointestinal: Abdomen nondistended, no significant tenderness
Back: Normal range of motion, normal alignment.
Musculoskeletal: Normal ROM, normal strength, except for pain-related limitations.
Neurological: Alert and oriented to person, place, time, and situation, no focal neurological deficit observed.
Psychiatric: Cooperative, appears somewhat anxious at time
PROBLEM LIST
Acute:
- Right flank pain, likely renal in origin.
- Markedly elevated blood pressure.
Chronic:
- Hypertension.
PLAN
- Administer IV labetalol medication to manage acute hypertension.
- CT imaging
- Monitor patient closely for changes in symptoms or new developments.
- IV fluids and Pepcid
DIFFERENTIAL DIAGNOSIS
The Differential Diagnosis includes, in no particular order and is not limited to:
- Urolithiasis (kidney stones)
- Abdominal aortic aneurysm
- Pyelonephritis
- Ureteral obstruction
- Renal infarction
- Musculoskeletal pain
- Appendicitis
- Diverticulitis
- Gallstones
- Gastritis
RADIOLOGY
- CT shows some slightly dilated loops of bowel but no sign of an obstruction
EKG
- Sinus 89, right axis deviation, no significant change from 08/15/2025
LABS
- Sodium 129, creatinine 0.7, white count 9.3, hemoglobin 11.7
SUMMARY OF ENCOUNTER
The patient, a 75-year-old male with a history of hypertension, presented to the emergency department with diffuse abdominal pain and burning and significantly elevated blood pressure recorded at 220/?. The patients blood pressure was managed with
a one-time dose of medication, bringing it down to the 120s. CT imaging ruled out bowel obstruction or surgical issues, though inflammatory changes were noted around the right kidney.
PLAN
The patient will be given a dose of amlodipine besylate later in the morning to help manage blood pressure. The patient will be monitored closely for any changes in symptoms and will be discharged once a transportation arrangement is available in
the morning. Further evaluation for the incidental finding in the abdominal aorta by a vascular specialist is recommended. The patient is to be followed up with primary care for further management and to reassess sodium levels and blood pressure.
INDEPENDENT REVIEW OF LABS AND INTERPRETATION OF TESTS
My independent review of sodium levels revealed a mild hyponatremia at 129, which is higher than a past severe drop when hospitalized.
My independent interpretation of CT scan of the abdomen and pelvis shows no signs of bowel obstruction or need for surgical intervention.
MEDICATION RECONCILIATION
The patient was provided with a one-time dose of an antihypertensive medication in the emergency department. A dose of amlodipine besylate has been planned for the morning.
MEDICAL DECISION MAKING
-Number and Complexity of Problems Addressed: Chronic conditions affecting care - Hypertension. Differential diagnosis includes urolithiasis (kidney stones), abdominal aortic aneurysm, pyelonephritis, ureteral obstruction, renal infarction,
musculoskeletal pain, appendicitis, diverticulitis, gallstones, gastritis.
-Data:
Category 1
Non-emergency department records reviewed. The patients external records available for review included past history of sodium levels and hypertension.
Category 2
My independent interpretation of the CT scan was performed, showing no bowel obstruction.
Category 3
Discussion of management with healthcare provider regarding patients discharge in the morning once transportation is arranged.
-Risk:
Prescription medication was provided. The patient will be monitored closely, and escalation of care including admission was considered but deemed unnecessary due to stable condition; patient is safe for outpatient management with close follow-up.
DIAGNOSIS
- Hypertension (ICD-10: I10)
- Abdominal pain
- Hyponatremia (ICD-10: E87.1)
UPDATE
- Has appeared fairly comfortable throughout stay in the emergency department
- Normal white count, sodium chronically low
- Systolic markedly decreased after labetalol and became normotensive while in ED
- Was given IV fluids, Pepcid
- CT imaging shows no concerning abnormality
- I do question if he has an anxiety component as well
- Currently, it is snowing heavily and he came in by ambulance; no clear indication for admission to the hospital patient will call for a ride later the morning
- I have also ordered his usual amlodipine 5 mg dose to be given this morning
- Mild hypoxia noted likely due to known COPD reports no new shortness of breath
Past History
Past History
ED Past Medical History: COPD, GERD (PUD) and HTN
ED Past Surgical History: None
Social History
Tobacco: Smoker
Alcohol: Former (doesn't drink any more)
Drug: None
Personal: Single
Living: alone
Phy Exam
Physical Exam
Physical Exam:
See HPI
Course
Orders/Labs/Results
Orders:
Orders
08/20/25 01:21
EKG [Electrocardiogram (*1)] Urgent
Reason for Study: Hypertension, Benign
EKG- Treatment ONCE
Complete Blood Count/With Diff Urgent
Comprehensive Metabolic Panel Urgent
Lipase Urgent
08/20/25 01:35
CT Abd/pelvis W Iv Cont Urgent
Comment:
Reason For Exam: diffuse severe abd pain
0.9% Sodium Chloride 500 ml [Nss] 500 ml IV BOLUS
Famotidine [Pepcid] 20 mg IV NOW STA
Labetalol HCl [Trandate] 10 mg IV NOW STA
08/20/25 06:00
Amlodipine [Norvasc] 5 mg PO DAILY
Abnormal Lab Results
08/20/25
01:21
RBC 3.78 L 10^6/uL
(4.70-6.10)
Hgb 11.7 L g/dL
(13.0-18.0)
Hct 33.9 L %
(39.0-52.0)
RDW 15.0 H %
(11.5-14.5)
Abs Immat Gran (auto) 0.1 H 10^3/uL
(0-0.05)
Absolute Monos (auto) 1.3 H 10^3/uL
(0.1-0.6)
Immature Gran % 0.9 H %
(0-0.5)
Monocytes % 13.5 H %
(1.7-9.3)
Sodium 129 L mmol/L
(135-145)
Chloride 94 L mmol/L
(98-107)
Glucose 109 H mg/dl
(70-99)
08/20/25 01:21
08/20/25 01:21
Vital Signs
Initial and Last Documented VS:
Initial Vital Signs
Temp Pulse Resp BP Pulse Ox
36.4 C 98 18 221/86 98
08/20/25 01:13 08/20/25 01:13 08/20/25 01:13 08/20/25 01:13 08/20/25 01:13
Last Documented Vital Signs
Temp Pulse Resp BP Pulse Ox
36.4 C 69 15 162/56 97
08/20/25 01:13 08/20/25 06:00 08/20/25 06:00 08/20/25 06:00 08/20/25 04:30
*Pulse Oximetry
SaO2: 97
Oxygen Mode of Delivery: Room air
Patient hypoxic: no
*Critical Care Note
Total Time (30-74mins, 75-104mins- exclusive of procedures): Not Applicable
ED Attending Note
-
Portions of this chart may have been created with voice recognition software.� Occasional wrong word or��sound alike� substitutions may have occurred due to the inherent limitations of voice recognition software.
Discharge Plan
Departure
Patient Disposition: Home (Routine Discharge)
Date of Disposition: 08/20/25
Time of Disposition: 03:34
Patient with high blood pressure during this ER visit?: Yes
Discharge Problem:
Abdominal pain
Instructions: Abdominal Pain, BLOOD PRESSURE
Prescriptions:
No Action
cyanocobalamin (vitamin B-12) 1,000 mcg Tablet
1,000 mcg PO DAILY
magnesium hydroxide [Milk of Magnesia] 400 mg/5 mL Suspension
30 ml PO DAILYPRN PRN (Reason: constipation)
sodium chloride 1,000 mg tablet,soluble
1,000 mg PO TID
therapeutic multivitamin Tablet
1 tab PO DAILY
Patient Comments:
06/27/24: to give for 3 weeks, from 06/21/24-07/12/24.
mirtazapine 15 mg Tablet
15 mg PO HS Qty: 0 0RF
azithromycin [Zithromax Z-Rocael] 250 mg tablet
250 mg PO DAILY 6 Days Qty: 6 0RF
A Med ' Travayo?'
1 tab PO .ASDIRECTED
amlodipine
1 tab PO DAILY
Referrals:
Jordan Hernández MD [Family Provider, Family Practice]
Activity Restrictions/Additional Instructions:
Your sodium level is low but not as low as it had been in the past. It is currently 129. The CAT scan of your abdomen pelvis did not show any clear cause for your pain. There is no sign of a bowel obstruction or any need for surgery. We gave you
IV fluids and we also gave you medicine to lower your blood pressure as it was very high initially. Follow-up with your primary care doctor.
Interventions
Interventions:
*Risk Screen - Suicide Last Done: 08/20/25 01:13
*General Assessment Last Done: 08/20/25 01:13
*Neglect/Abuse Screening Last Done: 08/20/25 01:13
*ED COVID-19 Vaccine History Last Done: 08/20/25 01:13
*ED Influenza Vaccine History Last Done: 08/20/25 01:13
[facility] Risk Assessment Tool Last Done: 08/20/25 01:13
*Nursing Disposition Last Done: 08/20/25 12:10
[facility] Assessment Last Done: 08/20/25 01:13
Discharge Date and Time
Discharge Date/Time: 08/20/25 12:11
Print Language: NEPALI
[2025-08-20 01:29] LABS: Hematocrit 33.9 % (39.0-52.0); Hemoglobin 11.7 g/dL (13.0-18.0); Mean Corp Hgb Conc. 34.5 g/dL (33.0-37.0); Mean Corpuscular Volume 89.7 fL (80.0-94.0); Nucleated Red Blood Cells % 0 % (-); Platelet Count 273 10^3/uL (130-400); Red Cell Dist. Width 15.0 % (11.5-14.5)
[2025-08-20] MEDS: TRANDATE 10 MG IV (01:42)
[2025-08-20] MEDS: PEPCID 20 MG IV (01:42)
[2025-08-20] MEDS: NSS 500 IV (01:43)
[2025-08-20 01:52] LABS: ALT (SGPT) 15 U/L (0-50); AST (SGOT) 22 U/L (17-59); Albumin 4.3 g/dl (3.5-5.0); Alkaline Phosphatase 89 U/L (38-126); Blood Urea Nitrogen 14 mg/dl (9-20); Calcium 9.1 mg/dl (8.4-10.2); Carbon Dioxide 30 mmol/L (22-30); Chloride 94 mmol/L (98-107); Estimated Creatinine Clearance 67 ml/min; Glucose 109 mg/dl (70-99); Lipase 110 U/L (23-300); Potassium 4.7 mmol/L (3.5-5.1); Sodium 129 mmol/L (135-145); Total Protein 7.4 g/dl (6.3-8.2); eGFR > 60.00
[2025-08-20] MEDS: NORVASC 5 MG PO (05:33)
[2025-08-20] MEDS: NORVASC PO (08:25)
== END 2025-08-20 12:11 | disposition home or self-care (01) ==
LOC: EMR 01:09
PROVIDERS: EMERGENCY PHYSICIAN Emergency Medicine; FAMILY PHYSICIAN Family Medicine
DX: R10.A1 Flank pain, right side (principal); E87.1 Hypo-osmolality and hyponatremia; I10 Essential (primary) hypertension; J44.9 Chronic obstructive pulmonary disease, unspecified; K21.9 Gastro-esophageal reflux disease without esophagitis; F17.200 Nicotine dependence, unspecified, uncomplicated; Z87.11 Personal history of peptic ulcer disease
CPT/HCPCS: 99284; 96374; 96375; 96361; 74177; 80053; 83690; 85025; 93005; Q9967